=== PATIENT | male | born 1960 | race Hispanic/Latino ===

== ENCOUNTER 2016-12-20 07:57 | Day surgery (SDC) | payer MEDICARE ==
[2016-12-20] MEDS ORDERED: Albumin 25% 200 ML ONE (08:01)
[2016-12-20] MEDS ORDERED: Sodium Bicarbonate 2.4 MEQ/5 ML ONE (08:02)
[2016-12-20] MEDS ORDERED: Sodium Chloride 0.9% 10 ML ONE (08:02)
--- OUTSIDE RECORDS SUMMARY | 2016-12-20 08:05 | XMS | Clinical Summary ---
:1960 Author Organization [facility] Address [address] [place] [address] Phone Care Team Providers Name Role Phone , Primary Care Provider Unavailable Allergies Not on File Current Medications Not on file Active Problems Not on file Social History Tobacco Use Types Packs/Day Years Used Date Never Assessed Sex Assigned at Date Recorded Not on file Last Filed Vital Signs Not on file Plan of Treatment Not on file Results Not on filefrom Last 3 Months
--- NOTE | 2016-12-20 10:29 | ULT ---
EXAM: ULTRASOUND GUIDED PARACENTESIS: COMPARISON: 12/13/16. HISTORY: Ascites. FINDINGS: Technically successful ultrasound-guided paracentesis. Total of 4,900 mL of slightly yellow color a scites was aspirated. There are no immediate postprocedure complications. TECHNIQUE: Consent was obtained to perform an ultrasound-guided paracentesis. The patient's right lower quadra nt was deemed appropriate. The skin was prepped and draped in sterile fashion. 1% Lidocaine, buffe red with sodium bicarbonate, was used for local anesthesia. Under ultrasound guidance, a 5 Citizen Of [place] 1 0 cm catheter was advanced into the peritoneal space. A total of 5,900 mL of yellow color ascites w as aspirated. The patient tolerated the procedure well. No immediate or postprocedure complication s. IMPRESSION: Technically successful ultrasound-guided paracentesis. POS: [facility]
[2016-12-20 12:23] VITALS: BMI 31.3
[2016-12-20 12:32] VITALS: TEMP 98.8
[2016-12-20 12:34] VITALS: BP 149/75
== END 2016-12-20 09:20 | disposition home or self-care (01) ==
LOC: ULT 07:57
PROVIDERS: ATTEND Internal Medicine Gastroenterology
PROC: 0W9G3ZZ Drainage of Peritoneal Cavity, Percutaneous Approach (ICD-10-PCS; principal; 2016-12-20)
PROC: BW40ZZZ Ultrasonography of Abdomen (ICD-10-PCS; 2016-12-20)
DX: R18.8 Other ascites (principal); K74.60 Unspecified cirrhosis of liver; N05.5 Unspecified nephritic syndrome with diffuse mesangiocapillary glomerulonephritis; I10 Essential (primary) hypertension; E11.9 Type 2 diabetes mellitus without complications; G47.33 Obstructive sleep apnea (adult) (pediatric); K21.9 Gastro-esophageal reflux disease without esophagitis; E78.5 Hyperlipidemia, unspecified; K72.90 Hepatic failure, unspecified without coma; Z86.73 Personal history of transient ischemic attack (TIA), and cerebral infarction without residual deficits; Z79.899 Other long term (current) drug therapy; Z79.84 Long term (current) use of oral hypoglycemic drugs; Z88.6 Allergy status to analgesic agent; Z98.890 Other specified postprocedural states
CPT/HCPCS: 49083; P9047; A4216

== ENCOUNTER 2016-12-27 07:47 | Day surgery (SDC) | payer MEDICARE ==
[2016-12-26 13:23] VITALS: BMI 34.4
[~2016-12-27 07:47] MED LIST: FLU VACC QS2017-18 36 mo. & older 0.5 ML SYRINGE IM ONE
[2016-12-27] MEDS ORDERED: Sodium Bicarbonate 2.4 MEQ/5 ML ONE (07:49)
[2016-12-27] MEDS ORDERED: Albumin 25% 200 ML ONE (07:49)
--- OUTSIDE RECORDS SUMMARY | 2016-12-27 07:50 | XMS | Clinical Summary ---
:1960 Author Organization [facility] Address [address] [place] [address] Phone Care Team Providers Name Role Phone [...]
[2016-12-27 09:04] VITALS: TEMP 98.5
[2016-12-27 09:05] VITALS: BP 143/77
[2016-12-27 10:16] LABS: Hematocrit 31.7 % (42.0-52.0)
[2016-12-27 12:50] LABS: Hematocrit 31.9 % (42.0-52.0)
--- NOTE | 2016-12-27 14:22 | ULT ---
ULTRASOUND GUIDED PARACENTESIS: Date: 12/27/16 INDICATION: Ascites. TECHNIQUE: Informed consent was obtained. Preprocedure ultrasound demonstrated a prominent amount of fluid in t he peritoneal cavity. Site overlying the right lower quadrant was marked. The site was prepped and d raped in the usual sterile fashion. Buffered 1% lidocaine was administered to the overlying subcutan eous tissues. Small incision was made and a 5 Dutch Yueh catheter was guided down into a collection in the right lower quadrant. After drainage of 1 liter of normal peritoneal fluid, the catheter abr uptly stopped draining, and with manipulation would not allow for continued drainage of the residual ascitic fluid. The catheter was then removed. A site overlying the adjacent right lower quadrant was prepped and draped in a sterile fashion. Buff ered 1% lidocaine was readministered in this new location. A small incision was made and a new 5 Ricardo nch Yueh catheter was guided down into a collection in the right lower quadrant utilizing ultrasound . 1 liter of normal peritoneal fluid was drained. On subsequent drainage bottles, there was increasi ng appearance of blood within the peritoneal fluid drained. The patient's vital signs remained stabl e throughout the entire course. A H\T\H was obtained after drainage of 5,600 mL of fluid. The prepro cedure H\T\H as of 12/06/16 was 10.6 and 34.4, with a platelet level of 58. The postprocedure H\T\H at 0950 hours on 12/27/16 was 10.0 and 31.7 respectively with platelet level of 51. A repeat H\T\H p erformed at 1230 hours on 12/27/16 and after IV administration of 500 mL of normal saline was 9.8 an d 31.9 respectivley with a platelet level of 51. The patient's vital signs remained stable within th e postprocedural time period. The patient had no complaints of pain or any symptomology. The patient will be discharged. The patient was instructed to return to the hospital if there were any problems with pain within the abdominal cavity, weakness or any dizziness. IMPRESSION: Successful ultrasound guided paracentesis with removal of 5,600 mL of peritoneal fluid. POS: [facility]
== END 2016-12-27 13:35 | disposition home or self-care (01) ==
LOC: ULT 07:47
PROVIDERS: ATTEND Internal Medicine Gastroenterology
PROC: 0W9G3ZZ Drainage of Peritoneal Cavity, Percutaneous Approach (ICD-10-PCS; principal; 2016-12-27)
PROC: BW40ZZZ Ultrasonography of Abdomen (ICD-10-PCS; 2016-12-27)
DX: K74.60 Unspecified cirrhosis of liver (principal); I10 Essential (primary) hypertension; E11.9 Type 2 diabetes mellitus without complications; G47.33 Obstructive sleep apnea (adult) (pediatric); K72.90 Hepatic failure, unspecified without coma; E78.5 Hyperlipidemia, unspecified; Z86.73 Personal history of transient ischemic attack (TIA), and cerebral infarction without residual deficits; Z79.84 Long term (current) use of oral hypoglycemic drugs; Z88.6 Allergy status to analgesic agent
CPT/HCPCS: 49083; 85014; 85018; 85049; 86850; 86900; 86901; P9047

== ENCOUNTER → 2017-01-03 | Day surgery (SDC) | payer MEDICARE ==
[~2017-01-03] MED LIST changes: +Albumin 25% 200 ML ONE; +Sodium Bicarbonate 2.4 MEQ/5 ML ONE
--- NOTE | 2017-01-03 09:52 | ULT ---
ULTRASOUND GUIDED PARACENTESIS THERAPEUTIC: DATE: 01-03-17 History: 56-year-old male with abdominal distention due to ascites due to cirrhosis. Technique: Signed informed consent obtained. Ultrasound survey of all four quadrants of the abdominal cavity re veals that the best pocket is in the left lower quadrant. Overlying skin at the left lower quadrant was prepped and draped in the usual sterile fashion. A 25 gauge needle was used to apply buffered Li docaine superficially and deeply. 5 Sinhala [employer] catheter with stylet was advanced in tandem with the 25 gauge needle into the peritoneal cavity. The 25 gauge needle and the stylet were removed. The Steel eh catheter was connected to a series of evacuated bottles via plastic tubing. A total of 5000 ml no n-hemorrhagic, straw colored translucent fluid was drained. Catheter was removed. Patient tolerated the procedure well. No complications. FINDINGS: Moderate volume of ascites demonstrated prior to the procedure. Post procedure single image of left lower quadrant demonstrates minimal residual fluid. IMPRESSION: Successful therapeutic paracentesis with drainage of 5 L of ascites fluid. POS: [facility]
[2017-01-03 11:46] VITALS: TEMP 98.2; BMI 31.3
== END ==
LOC: ULT 07:52
PROVIDERS: ATTEND Internal Medicine Gastroenterology
PROC: 0W9G3ZZ Drainage of Peritoneal Cavity, Percutaneous Approach (ICD-10-PCS; principal; 2017-01-03)
PROC: BW40ZZZ Ultrasonography of Abdomen (ICD-10-PCS; 2017-01-03)
DX: K74.60 Unspecified cirrhosis of liver (principal); R18.8 Other ascites
CPT/HCPCS: 49083; P9047

== ENCOUNTER 2017-01-10 07:42 | Day surgery (SDC) | payer MEDICARE ==
[2017-01-10] MEDS ORDERED: Albumin 25% 200 ML ONE (07:58)
[2017-01-10] MEDS ORDERED: Sodium Chloride 0.9% 20 ML ONE (07:59)
[2017-01-10] MEDS ORDERED: Sodium Bicarbonate 2.4 MEQ/5 ML ONE (08:03)
[2017-01-10 08:05] LABS: PTT 41.6 SEC (22.9-36.1); Prothrombin Time 18.8 SEC (12.0-14.7)
[2017-01-10 09:32] VITALS: TEMP 97.7
--- NOTE | 2017-01-10 11:23 | ULT ---
ULTRASOUND GUIDED PARACENTESIS: DATE: 01/10/17. HISTORY: Refractory ascites in a patient with stage IV cirrhosis. TECHNIQUE: After informed consent was obtained, the patient was placed on the sonography table in the supine po sition. An appropriate access site was determined with ultrasound guidance. An area I the mid axillary line right upper quadrant was marked and meticulously prepped and draped in usual sterile fashion. The skin and subcutaneous tissues were infiltrated with buffered % Lidoca ine for local anesthesia. A small skin incision was made. Utilizing concurrent real-time ultrasound guidance, a 19-gauge Reamazeeh needle with 5 Kazakh sheath was advanced into the abdomen. The sheath was advanced and the needle was removed. Approximately 5600 mL of slightly cloudy straw-colored fluid was aspirated. The sheath was removed, and hemostasis was achieved with direct pressure. Post-paracentesis sonogram demonstrates resolution of intraperitone al free fluid. The patient tolerated the procedure well and without immediate complication. The patient was admini stered albumin intravenously as requested during the procedure. IMPRESSION: Technically successful ultrasound-guided paracentesis. POS: [facility]
[2017-01-10] MEDS ORDERED: FLU VACC QS2017-18 36 mo. & older 0.5 ML SYRINGE IM ONE (21:00)
== END 2017-01-10 09:15 | disposition home or self-care (01) ==
LOC: ULT 07:42
PROVIDERS: ATTEND Internal Medicine Gastroenterology
PROC: 0W9G3ZZ Drainage of Peritoneal Cavity, Percutaneous Approach (ICD-10-PCS; principal; 2017-01-10)
PROC: BW40ZZZ Ultrasonography of Abdomen (ICD-10-PCS; 2017-01-10)
DX: K74.60 Unspecified cirrhosis of liver (principal); R18.8 Other ascites; Z88.6 Allergy status to analgesic agent; I10 Essential (primary) hypertension; E11.9 Type 2 diabetes mellitus without complications; Z98.890 Other specified postprocedural states; Z79.899 Other long term (current) drug therapy; Z79.84 Long term (current) use of oral hypoglycemic drugs; Z79.2 Long term (current) use of antibiotics
CPT/HCPCS: 49083; 85610; 85730; P9047; 36415; A4216

== ENCOUNTER 2017-01-17 07:33 | Day surgery (SDC) | payer MEDICARE ==
[2017-01-17] MEDS ORDERED: Albumin 25% 200 ML ONE (07:41)
[2017-01-17] MEDS ORDERED: Sodium Bicarbonate 2.4 MEQ/5 ML ONE (07:41)
--- NOTE | 2017-01-17 11:33 | ULT ---
ULTRASOUND GUIDED PARACENTESIS: History: Ascites. Comparison: 01-10-17 FINDINGS: Successful ultrasound guided paracentesis. A total of 7100 ml of yellow colored ascites as aspirated . Post procedure images demonstrates resolution of ascites. Technique: Consent obtained to perform an ultrasound guided paracentesis. Patient's abdomen was evaluated. Righ t lower quadrant was felt to be appropriate. Skin was prepped and draped in sterile fashion. 1% Lido farzana buffered with sodium bicarbonate used for local anesthesia. Under ultrasound guidance, a 7 cm 5 Hong Konger [employer] Engineseh catheter as advanced into the peritoneal space. Via multiple vacuum bottles, a total o f 7100 ml of yellow colored ascites was aspirated. The patient tolerated the procedure well. No imme diate or post procedure complications. Post procedure imaging demonstrates resolution of ascites. IMPRESSION: Successful ultrasound guided paracentesis. POS: [facility]
[2017-01-17 11:36] VITALS: BP 113/70; TEMP 98.2; BMI 32.5
--- OUTSIDE RECORDS SUMMARY | 2017-01-18 14:16 | XMS | Clinical Summary ---
:1960 Author Organization [facility] Address [address] [place] [address] Phone Care Team Providers Name Role Phone [...]
== END 2017-01-17 09:25 | disposition home or self-care (01) ==
LOC: ULT 07:33
PROVIDERS: ATTEND Internal Medicine Gastroenterology
PROC: 0W9G30Z Drainage of Peritoneal Cavity with Drainage Device, Percutaneous Approach (ICD-10-PCS; principal; 2017-01-17)
DX: K72.90 Hepatic failure, unspecified without coma (principal); R18.8 Other ascites; B19.20 Unspecified viral hepatitis C without hepatic coma; E11.9 Type 2 diabetes mellitus without complications; I10 Essential (primary) hypertension; Z79.2 Long term (current) use of antibiotics; Z79.84 Long term (current) use of oral hypoglycemic drugs; Z79.899 Other long term (current) drug therapy; Z98.890 Other specified postprocedural states; Z86.59 Personal history of other mental and behavioral disorders
CPT/HCPCS: 49083; P9047

== ENCOUNTER 2017-01-24 09:40 | Day surgery (SDC) | payer MEDICARE ==
[2017-01-23 11:43] VITALS: BMI 31.1
[~2017-01-24 09:40] MED LIST changes: -Albumin 25% 200 ML ONE; -Sodium Bicarbonate 2.4 MEQ/5 ML ONE
[2017-01-24] MEDS ORDERED: Albumin 25% 200 ML ONE (09:53)
[2017-01-24 11:55] VITALS: BP 118/78; TEMP 98.5
--- NOTE | 2017-01-24 13:24 | ULT ---
ULTRASOUND GUIDED ABDOMINAL PARACENTESIS: INDICATIONS: Cirrhosis with recurrent ascites. FINDINGS: Eight liters of yellowish-clear acidic fluid removed from the right abdomen. PROCEDURE NOTE: A four quadrant ultrasound showed large ascites in all quadrants. The right lower quadrant was chosen for puncture. The overlying skin was prepped and draped in a sterile manner. L ocal anesthesia was administered with Lidocaine. A small incision was made with a scalpel. A 5 Ricardo kyh [employer] catheter with a needle in place was advanced into the fluid of the right lower quadrant, un abhi ultrasound guidance. The needle was removed, and the catheter was attached to suction drainage. The patient tolerated the procedure well, and there were no problems or complications. POS: [facility]
== END 2017-01-24 11:35 | disposition home or self-care (01) ==
LOC: ULT 09:40
PROVIDERS: ATTEND Internal Medicine Gastroenterology
PROC: 0W9G3ZZ Drainage of Peritoneal Cavity, Percutaneous Approach (ICD-10-PCS; principal; 2017-01-24)
PROC: BW40ZZZ Ultrasonography of Abdomen (ICD-10-PCS; 2017-01-24)
DX: K72.90 Hepatic failure, unspecified without coma (principal); R18.8 Other ascites; E11.9 Type 2 diabetes mellitus without complications; I10 Essential (primary) hypertension; E78.5 Hyperlipidemia, unspecified; Z79.84 Long term (current) use of oral hypoglycemic drugs; Z79.2 Long term (current) use of antibiotics; Z79.899 Other long term (current) drug therapy; Z88.8 Allergy status to other drugs, medicaments and biological substances; Z98.890 Other specified postprocedural states; Z86.59 Personal history of other mental and behavioral disorders
CPT/HCPCS: 49083; P9047

== ENCOUNTER → 2017-02-07 | Day surgery (SDC) | payer MEDICARE ==
[2017-02-06 09:08] VITALS: BMI 34.4
[~2017-02-07] MED LIST changes: +Albumin 25% 200 ML ONE; +Sodium Bicarbonate 2.4 MEQ/5 ML ONE
[2017-02-07 07:47] LABS: #Eosinphils 0.1 thou/uL (0.0-0.7); #Lymphocytes 0.4 thou/uL (1.20-3.40); #Monocytes 0.4 thou/uL (0.11-0.59); #Neutrophils 2.9 thou/uL (1.40-6.50); %Monocytes 10.5 % (0.0-10.0); Hematocrit 37.2 % (42.0-52.0); Mean Platelet Volume 6.5 fL (7.4-10.4); Red Blood Cell (RBC) Count 4.13 mill/uL (4.70-6.10); White Blood Cell (WBC) Count 3.9 thou/uL (4.8-10.8)
[2017-02-07 07:52] LABS: PTT 41.1 SEC (22.9-36.1)
[2017-02-07 08:18] VITALS: BP 139/89; TEMP 98
--- NOTE | 2017-02-07 11:48 | ULT ---
ULTRASOUND GUIDED PARACENTESIS: DATE: 02/07/17. COMPARISON: 01/31/17. HISTORY: Symptomatic ascites. FINDINGS: Informed consent obtained prior to the procedure. Preprocedural imaging demonstrates significant asc ites within the abdomen/pelvic. Right lower quadrant is prepped and draped in normal sterile fashion and anesthetized with 1% buffere d Lidocaine. With direct sonographic guidance, a 5 Italian Yueh catheter is advanced into the ascites and removal of the stylette yields yellow fluid. 6200 cc were removed. The patient tolerated the p rocedure well. IMPRESSION: Successful ultrasound-guided paracentesis yielding 6200 cc of yellow fluid. POS: [facility]
== END ==
LOC: ULT 07:28
PROVIDERS: ATTEND Internal Medicine Gastroenterology
PROC: 0W9G3ZZ Drainage of Peritoneal Cavity, Percutaneous Approach (ICD-10-PCS; principal; 2017-02-07)
PROC: BW40ZZZ Ultrasonography of Abdomen (ICD-10-PCS; 2017-02-07)
DX: K74.60 Unspecified cirrhosis of liver (principal); R18.8 Other ascites; I10 Essential (primary) hypertension; E11.9 Type 2 diabetes mellitus without complications; Z79.84 Long term (current) use of oral hypoglycemic drugs; Z79.82 Long term (current) use of aspirin; Z79.899 Other long term (current) drug therapy; Z98.890 Other specified postprocedural states
CPT/HCPCS: 49083; 85025; 85610; 85730; P9047; 36415

== ENCOUNTER 2017-02-14 07:35 | Day surgery (SDC) | payer MEDICARE ==
[~2017-02-14 07:35] MED LIST changes: -Albumin 25% 200 ML ONE; -Sodium Bicarbonate 2.4 MEQ/5 ML ONE
[2017-02-14] MEDS ORDERED: Sodium Chloride 0.9% 10 ML ONE (07:38)
[2017-02-14] MEDS ORDERED: Albumin 25% 200 ML ONE (08:59)
[2017-02-14 09:16] VITALS: TEMP 98.7
[2017-02-14 09:17] VITALS: BMI 34.5
[2017-02-14 09:18] VITALS: BP 114/68
--- NOTE | 2017-02-14 09:55 | ULT ---
EXAM: ULTRASOUND GUIDED PARACENTESIS: HISTORY: Cirrhosis. Ascites. COMPARISON: 02/08/16. FINDINGS: Technically successful ultrasound-guided paracentesis. A total of 5600 mL of yellow-colored ascites with slightly blood-tinge was removed. There are no immediate postprocedure complications. TECHNIQUE: Consent was obtained to perform an ultrasound-guided paracentesis. The right lower quadrant was deem ed appropriate. The skin was prepped and draped in sterile fashion. 1% Lidocaine, buffered with sod ium bicarbonate, was used for local anesthesia. Under ultrasound guidance, a 5 Bolivian 7 cm GamyTecheh cath eter was advanced into the peritoneal space. Via vacuum bottles, a total of 5600 mL of slightly bloo d-tinged yellow color ascites was aspirated. There are no immediate postprocedure complications. IMPRESSION: Technically successful ultrasound-guided paracentesis. POS: [facility]
[2017-02-14] MEDS ORDERED: FLU VACC QS2017-18 36 mo. & older 0.5 ML SYRINGE IM ONE (21:00)
== END 2017-02-14 09:00 | disposition home or self-care (01) ==
LOC: ULT 07:35
PROVIDERS: ATTEND Internal Medicine Gastroenterology
PROC: 0W9G3ZZ Drainage of Peritoneal Cavity, Percutaneous Approach (ICD-10-PCS; principal; 2017-02-14)
PROC: BW40ZZZ Ultrasonography of Abdomen (ICD-10-PCS; 2017-02-14)
DX: K74.60 Unspecified cirrhosis of liver (principal); R18.8 Other ascites; I10 Essential (primary) hypertension; E11.9 Type 2 diabetes mellitus without complications; Z79.899 Other long term (current) drug therapy; Z79.84 Long term (current) use of oral hypoglycemic drugs; Z79.2 Long term (current) use of antibiotics; Z98.890 Other specified postprocedural states
CPT/HCPCS: 49083; P9047; A4216

== ENCOUNTER 2017-02-21 07:13 | Day surgery (SDC) | payer MEDICARE ==
[2017-02-21] MEDS ORDERED: Sodium Bicarbonate 2.4 MEQ/5 ML ONE (07:41)
[2017-02-21] MEDS ORDERED: Albumin 25% 200 ML ONE (07:41)
--- NOTE | 2017-02-21 09:34 | ULT ---
ULTRASOUND GUDIED ABDOMINAL PARACENTESIS: Indication: Recurrent ascites. FINDINGS: 5550 cc of yellowish clear acidic fluid removed from the right lower quadrant. Post procedure ultraso und shows only minimal residual ascites. PROCEDURE NOTE: Four quadrant ultrasound shows moderate ascites in all quadrants. Right lower quadrant was chosen for puncture. Overlying skin was prepped and draped in a sterile manner. Local anesthesia was administer ed to the skin with Lidocaine and bicarb. Tiny skin incision made with scalpel. 5 Brazilian Yueh needle with catheter was introduced into the acidic fluid in the right lower quadrant under ultrasound guid ance. The needle was removed and the catheter was attached to suction drainage. There were no problems or complications. POS: [facility]
[2017-02-21 09:41] VITALS: BP 106/69; TEMP 98.6
== END 2017-02-21 09:05 | disposition home or self-care (01) ==
LOC: ULT 07:13
PROVIDERS: ATTEND Internal Medicine Gastroenterology
PROC: 0W9G3ZZ Drainage of Peritoneal Cavity, Percutaneous Approach (ICD-10-PCS; principal; 2017-02-21)
PROC: BW40ZZZ Ultrasonography of Abdomen (ICD-10-PCS; 2017-02-21)
DX: K74.60 Unspecified cirrhosis of liver (principal); R18.8 Other ascites; I10 Essential (primary) hypertension; E11.9 Type 2 diabetes mellitus without complications; Z79.2 Long term (current) use of antibiotics; Z79.84 Long term (current) use of oral hypoglycemic drugs; Z98.890 Other specified postprocedural states
CPT/HCPCS: 49083; P9047

== ENCOUNTER 2017-02-28 06:38 | Day surgery (SDC) | payer MEDICARE ==
[2017-02-27 12:32] VITALS: BMI 34.4
[2017-02-28] MEDS ORDERED: Sodium Bicarbonate 2.4 MEQ/5 ML ONE (08:00)
[2017-02-28] MEDS ORDERED: Albumin 25% 200 ML ONE (09:06)
[2017-02-28 09:22] VITALS: TEMP 98.2
--- NOTE | 2017-02-28 09:26 | ULT ---
ULTRASOUND GUIDED PARACENTESIS THERAPEUTIC: DATE: 02/28/17. HISTORY: A 56-year-old male with abdominal discomfort due to abdominal distention due to ascites due to cirrho sis. TECHNIQUE: Signed informed consent obtained. Ultrasound survey of bilateral upper and lower quadrants. Right l ower quadrant selected. Overlying skin prepped and draped in the usual sterile fashion. A 25-gauge needle was used to apply buffered Lidocaine superficially and deeply. A 5 Bermudian Yueh catheter with stylette advanced in tandem with the 25-gauge needle. The 25-gauge needle and stylette were removed. Yueh catheter commended to a series of evacuated bottles via plastic tubing. Ascites fluid drained . Yueh catheter removed. The patient tolerated the procedure well. No complications. FINDINGS: Moderate to large volume of free fluid demonstrated throughout the abdominal cavity prior to the proc edure. Postprocedure single image of right lower quadrant demonstrates no residual fluid. A total o f 6000 mL of nonhemorrhagic, straw-colored translucent fluid was drained. IMPRESSION: Successful therapeutic paracentesis, with drainage of 6L of ascites fluid. POS: [facility]
== END 2017-02-28 09:00 | disposition home or self-care (01) ==
LOC: ULT 06:38
PROVIDERS: ATTEND Internal Medicine Gastroenterology
PROC: 0W9G30Z Drainage of Peritoneal Cavity with Drainage Device, Percutaneous Approach (ICD-10-PCS; principal; 2017-02-28)
DX: K70.31 Alcoholic cirrhosis of liver with ascites (principal); I85.10 Secondary esophageal varices without bleeding; E78.5 Hyperlipidemia, unspecified; Z86.19 Personal history of other infectious and parasitic diseases; Z79.84 Long term (current) use of oral hypoglycemic drugs; Z79.899 Other long term (current) drug therapy; Z98.890 Other specified postprocedural states
CPT/HCPCS: 49083; P9047

== ENCOUNTER 2017-03-07 06:42 | Day surgery (SDC) | payer MEDICARE ==
[2017-03-07] MEDS ORDERED: Albumin 25% 200 ML ONE (07:46)
[2017-03-07] MEDS ORDERED: Sodium Bicarbonate 2.4 MEQ/5 ML ONE (07:46)
[2017-03-07] MEDS ORDERED: Lidocaine 1% PF 5 ML VIAL ONE (07:46)
--- NOTE | 2017-03-07 11:33 | ULT ---
ULTRASOUND GUIDED PARACENTESIS: INDICATIONS: Ascites. COMPARISON: Prior exam dated 02/28/2017. TECHNIQUE: Informed consent was obtained. FINDINGS: Ultrasound survey was performed, demonstrating a prominent amount of fluid in the abdominal cavity. The site overlying the right lower quadrant was marked. The site was prepped and draped in the usual sterile fashion. Buffered 1% Lidocaine was administered to the overlying subcutaneous tissues and a bdominal wall. Under ultrasound guidance, a 5 Slovak Yueh catheter was advanced into the large colle ction in the right lower quadrant of the abdomen. There was removal of 5500 mL of normal appearing p eritoneal fluid. FINDINGS: Moderate prominent amount of peritoneal fluid. IMPRESSION: Successful therapeutic paracentesis with removal of 5500 mL of normal appearing peritoneal fluid. POS: [facility]
[2017-03-07 16:03] VITALS: BP 129/71; TEMP 98.6
== END 2017-03-07 09:20 | disposition home or self-care (01) ==
LOC: ULT 06:42
PROVIDERS: ATTEND Internal Medicine Gastroenterology
PROC: 0W9G3ZX Drainage of Peritoneal Cavity, Percutaneous Approach, Diagnostic (ICD-10-PCS; principal; 2017-03-07)
PROC: BW40ZZZ Ultrasonography of Abdomen (ICD-10-PCS; 2017-03-07)
DX: K74.60 Unspecified cirrhosis of liver (principal); R18.8 Other ascites; Z88.8 Allergy status to other drugs, medicaments and biological substances; Z79.899 Other long term (current) drug therapy
CPT/HCPCS: 49083; P9047; J2001

== ENCOUNTER 2017-03-14 06:51 | Day surgery (SDC) | payer MEDICARE ==
[2017-03-13 10:51] VITALS: BMI 34.4
[2017-03-14] MEDS ORDERED: Sodium Bicarbonate 2.4 MEQ/5 ML ONE (07:09)
[2017-03-14] MEDS ORDERED: Albumin 25% 200 ML ONE (07:09)
[2017-03-14] MEDS ORDERED: Lidocaine 1% PF 5 ML VIAL ONE (07:09)
[2017-03-14 07:26] LABS: #Eosinphils 0.1 thou/uL (0.0-0.7); #Lymphocytes 0.7 thou/uL (1.20-3.40); #Monocytes 0.3 thou/uL (0.11-0.59); #Neutrophils 2.4 thou/uL (1.40-6.50); %Basophils 0.7 % (0.0-1.0); %Eosinophils 2.7 % (0.0-10.0); %Lymphocytes 19.7 % (21.0-51.0); %Monocytes 9.5 % (0.0-10.0); Hematocrit 35.1 % (42.0-52.0); Mean Platelet Volume 6.6 fL (7.4-10.4); Red Blood Cell (RBC) Count 3.86 mill/uL (4.70-6.10); White Blood Cell (WBC) Count 3.6 thou/uL (4.8-10.8)
[2017-03-14 07:30] LABS: Prothrombin Time 18.1 SEC (12.0-14.7)
[2017-03-14 07:31] LABS: PTT 41.4 SEC (22.9-36.1)
[2017-03-14 08:00] LABS: Hypochromia SLIGHT = 6-15 cells (100X) (0-5/hpf); Polychromasia SLIGHT = 2-3 cells (100X) (0-2/hpf); Stomatocytes SLIGHT = 2-5 cells (100X) (0-1/hpf); Target Cells SLIGHT = 2-5 cells (100X) (0-1/hpf)
--- NOTE | 2017-03-14 08:31 | ULT ---
ULTRASOUND GUIDED PARACENTESIS: HISTORY: Ascites. COMPARISON: Paracentesis 03/07/17. TECHNIQUE: The patient was brought to the ultrasound suite. All questions were answered. The patient's right lower quadrant was prepped and draped in normal sterile fashion. Three mL of buf fered Lidocaine was instilled into the superficial and deep soft tissues for anesthesia. A small dermatotomy was made. Using a 5 Divehi Yueh needle, the peritoneal cavity was accessed. 610 0 mL of ascites was aspirated. The patient tolerated the procedure well. No complication. IMPRESSION: Technically successful ultrasound-guided paracentesis. POS: [facility]
[2017-03-14 08:55] VITALS: BP 121/72; TEMP 98.6
[2017-03-14] MEDS ORDERED: FLU VACC QS2017-18 36 mo. & older 0.5 ML SYRINGE IM ONE (09:00)
== END 2017-03-14 07:35 | disposition home or self-care (01) ==
LOC: ULT 06:51
PROVIDERS: ATTEND Internal Medicine Gastroenterology
PROC: 0W9G3ZX Drainage of Peritoneal Cavity, Percutaneous Approach, Diagnostic (ICD-10-PCS; principal; 2017-03-14)
DX: K74.60 Unspecified cirrhosis of liver (principal); R18.8 Other ascites; Z88.8 Allergy status to other drugs, medicaments and biological substances
CPT/HCPCS: 49083; 85025; 85610; 85730; P9047; J2001

== ENCOUNTER 2017-03-21 06:59 | Day surgery (SDC) | payer MEDICARE ==
[2017-03-21] MEDS ORDERED: Albumin 25% 200 ML ONE (07:50)
[2017-03-21] MEDS ORDERED: Sodium Bicarbonate 2.4 MEQ/5 ML ONE (07:50)
--- NOTE | 2017-03-21 09:10 | ULT ---
ULTRASOUND GUIDED PARACENTESIS: Date: 03-21-17 Comparison: 03-14-17 History: Ascites. FINDINGS: Successful ultrasound guided paracentesis. A total of 6350 ml of ascites was aspirated. No immediate or post procedure complication. Technique: Consent was obtained to perform an ultrasound guided paracentesis. Right lower quadrant was deemed ap propriate. Skin was prepped and draped in sterile fashion. 1% Lidocaine, buffered with sodium bicarbo alisson was used for local anesthesia. Under fluoroscopic guidance an 7 cm 5 Saudi [place] 99tests catheter was ad vanced into the peritoneal space. Via vacuum bottles, a total of 6350 ml of yellow colored ascites wa s aspirated. The patient tolerated the procedure well. No immediate or post procedure complication. IMPRESSION: Successful ultrasound guided paracentesis. POS: [facility]
[2017-03-21 09:15] VITALS: BP 121/72; TEMP 97.9
== END 2017-03-21 09:05 | disposition home or self-care (01) ==
LOC: ULT 06:59
PROVIDERS: ATTEND Internal Medicine Gastroenterology
DX: K74.60 Unspecified cirrhosis of liver (principal); I85.10 Secondary esophageal varices without bleeding; R18.8 Other ascites; Z79.84 Long term (current) use of oral hypoglycemic drugs; Z79.2 Long term (current) use of antibiotics; Z79.899 Other long term (current) drug therapy
CPT/HCPCS: 49083; P9047

== ENCOUNTER 2017-03-28 07:35 | Day surgery (SDC) | payer MEDICARE ==
[2017-03-27 14:03] VITALS: BMI 34.4
[~2017-03-28 07:35] MED LIST changes: +Albumin 25% 200 ML ONE; +Sodium Bicarbonate 2.5 MEQ/5 ML VIAL ONE
[2017-03-28] MEDS ORDERED: Sodium Chloride 0.9% 20 ML ONE (07:53)
[2017-03-28 09:19] VITALS: BP 120/73; TEMP 98.1
--- NOTE | 2017-03-28 09:43 | ULT ---
ULTRASOUND-GUIDED PARACENTESIS: CLINICAL INDICATION: Ascites. PROCEDURE: After informed consent had been obtained, the patient was escorted to the ultrasound suite and placed in a supine position. The abdomen was imaged which revealed adequate ascites for the procedure. Th e skin of the abdomen was then prepped and draped in the standard sterile fashion and the skin surfac e, subcutaneous tissues, and peritoneal lining of the abdomen were anesthetized with 1% Lidocaine buf fered with sodium bicarbonate. A right lower quadrant approach was selected. A small skin incision was made at the site of topical anesthesia. Subsequently, under real-time ultrasound guidance a ProTip catheter was advanced through the incision site into the peritoneal cavity. Ascites was present at the catheter hub. The catheter was then secured to vacuum sealed sterile containers, via sterile tub ing and subsequently 4.4 L of clear-yellow ascites was drained from the patient. The catheter was th en removed from the patient. The patient tolerated the procedure well without evidence of complicati on. Postprocedure imaging revealed no complication and interval reduction in volume of ascites. The patient was monitored by a radiology nurse and was stable in condition. IMPRESSION: Technically successful ultrasound-guided paracentesis, as above. POS: [facility]
== END 2017-03-28 09:05 | disposition home or self-care (01) ==
LOC: ULT 07:35
PROVIDERS: ATTEND Internal Medicine Gastroenterology
PROC: 0W9G3ZX Drainage of Peritoneal Cavity, Percutaneous Approach, Diagnostic (ICD-10-PCS; principal; 2017-03-28)
DX: K74.60 Unspecified cirrhosis of liver (principal); R18.8 Other ascites; Z88.8 Allergy status to other drugs, medicaments and biological substances; Z79.899 Other long term (current) drug therapy
CPT/HCPCS: 49083; P9047; A4216

== ENCOUNTER 2017-04-04 06:39 | Day surgery (SDC) | payer MEDICARE ==
[2017-04-04] MEDS ORDERED: Sodium Bicarbonate 2.4 MEQ/5 ML ONE (07:33)
[2017-04-04] MEDS ORDERED: Albumin 25% 200 ML ONE (07:33)
[2017-04-04 09:10] VITALS: BP 121/73; TEMP 98.3
[2017-04-04 09:12] VITALS: BMI 30.2
--- NOTE | 2017-04-04 10:22 | ULT ---
ULTRASOUND-GUIDED PARACENTESIS: 04/04/2017 HISTORY: Symptomatic ascites. COMPARISON: 03/28/2017 and prior. TECHNIQUE/FINDINGS: Informed consent for ultrasound-guided paracentesis obtained prior to the procedure. Pre-procedural imaging demonstrates diffuse ascites throughout the abdomen/pelvis. The largest pocke t is noted in the right lower quadrant. The skin in this region was prepped and draped in the normal sterile fashion and anesthetized with 1% buffered Lidocaine. With direct sonographic guidance, a 5 Niuean Bitlyeh catheter was advanced into the ascites and removal of the stylet yielded yellow fluid; 5200 mL was removed. The patient tolerated the procedure well. IMPRESSION: Successful ultrasound-guided paracentesis. POS: [facility]
== END 2017-04-04 08:45 | disposition home or self-care (01) ==
LOC: ULT 06:39
PROVIDERS: ATTEND Internal Medicine Gastroenterology
PROC: 0W9G3ZZ Drainage of Peritoneal Cavity, Percutaneous Approach (ICD-10-PCS; principal; 2017-04-04)
PROC: BW40ZZZ Ultrasonography of Abdomen (ICD-10-PCS; 2017-04-04)
DX: K74.60 Unspecified cirrhosis of liver (principal); R18.8 Other ascites; I10 Essential (primary) hypertension; E11.9 Type 2 diabetes mellitus without complications; Z79.84 Long term (current) use of oral hypoglycemic drugs; Z79.2 Long term (current) use of antibiotics; Z79.899 Other long term (current) drug therapy; Z98.890 Other specified postprocedural states
CPT/HCPCS: 49083; P9047

== ENCOUNTER 2017-04-11 06:46 | Day surgery (SDC) | payer MEDICARE ==
[2017-04-11] MEDS ORDERED: Sodium Bicarbonate 2.4 MEQ/5 ML ONE (07:37)
[2017-04-11] MEDS ORDERED: Albumin 25% 200 ML ONE (07:37)
[2017-04-11 09:34] VITALS: BP 128/70; TEMP 98.1; BMI 31.8
--- NOTE | 2017-04-11 12:05 | ULT ---
SONOGRAPHIC GUIDED PARACENTESIS: History: Recurrent ascites. FINDINGS: After explaining the procedure and answering all questions, The right abdomen was prepped and draped in the usual sterile fashion. Sterile technique, buffered local anesthesia, sonographic guidance and an anterior approach were used to carefully advance the tip of a 19 gauge Yueh needle and catheter in to the free fluid. Catheter was left to drain a total volume of 5.6 L slightly turbid yellow liquid. Catheter was removed with minimal residual fluid. Patient tolerated the procedure well and was dismis sed in good condition. IMPRESSION: 1. Successful paracentesis. POS: [facility]
== END 2017-04-11 09:00 | disposition home or self-care (01) ==
LOC: ULT 06:46
PROVIDERS: ATTEND Internal Medicine Gastroenterology
DX: R18.8 Other ascites (principal); K74.60 Unspecified cirrhosis of liver; I85.00 Esophageal varices without bleeding; I10 Essential (primary) hypertension; E11.9 Type 2 diabetes mellitus without complications; Z88.8 Allergy status to other drugs, medicaments and biological substances; Z79.899 Other long term (current) drug therapy; Z79.84 Long term (current) use of oral hypoglycemic drugs; Z98.890 Other specified postprocedural states
CPT/HCPCS: 49083; P9047

== ENCOUNTER 2017-04-18 06:41 | Day surgery (SDC) | payer MEDICARE ==
[~2017-04-18 06:41] MED LIST changes: -Albumin 25% 200 ML ONE; -Sodium Bicarbonate 2.5 MEQ/5 ML VIAL ONE
[2017-04-18 07:08] LABS: #Eosinphils 0.1 thou/uL (0.0-0.7); #Lymphocytes 0.5 thou/uL (1.20-3.40); #Monocytes 0.3 thou/uL (0.11-0.59); #Neutrophils 2.8 thou/uL (1.40-6.50); %Basophils 0.6 % (0.0-1.0); %Lymphocytes 13.1 % (21.0-51.0); %Monocytes 8.4 % (0.0-10.0); %Neutrophils 75.9 % (42.0-75.0); Hemoglobin 11.1 g/dL (14.0-18.0); Mean Corpuscular HGB CONC 30.8 g/dL (32.0-36.0); Mean Corpuscular Hemoglobin 27.7 pg (27.0-31.0); Mean Corpuscular Volume 89.8 fl (80.0-94.0); Mean Platelet Volume 8.3 fL (7.4-10.4); Platelet Count 52 thou/uL (130-400); RBC Distribution Width 19.5 % (11.5-14.5); White Blood Cell (WBC) Count 3.7 thou/uL (4.8-10.8)
[2017-04-18 07:14] LABS: INR-International Normal Ratio 1.7
[2017-04-18 07:15] LABS: PTT 41.5 SEC (22.9-36.1)
[2017-04-18] MEDS ORDERED: Albumin 25% 200 ML ONE (07:17)
[2017-04-18] MEDS ORDERED: Sodium Bicarbonate 2.4 MEQ/5 ML ONE (07:18)
[2017-04-18 09:08] VITALS: TEMP 98.2
[2017-04-18 09:09] VITALS: BMI 32.8
--- NOTE | 2017-04-18 09:33 | ULT ---
ULTRASOUND GUIDED PARACENTESIS: HISTORY: Ascites. COMPARISON: Multiple prior exams, the most recent on 04/11/17. FINDINGS: The patient was brought to the ultrasound suite. All questions were answered. Informed consent was already obtained. Timeout was performed. The patient's right lower quadrant was prepped and draped in normal sterile fashion; 4 mL of buffere d Lidocaine was instilled into the superficial and deep soft tissues. A small dermatotomy was made after adequate anesthesia. Using a 5 Yi Yueh needle, the peritoneal space was accessed. 5100 mL of straw-colored fluid was aspirated. The patient tolerated the proced ure well. IMPRESSION: Technically successful ultrasound-guided paracentesis. POS: [facility]
== END 2017-04-18 08:55 | disposition home or self-care (01) ==
LOC: ULT 06:41
PROVIDERS: ATTEND Internal Medicine Gastroenterology
PROC: 0W9G3ZX Drainage of Peritoneal Cavity, Percutaneous Approach, Diagnostic (ICD-10-PCS; principal; 2017-04-18)
DX: K74.60 Unspecified cirrhosis of liver (principal); R18.8 Other ascites; Z79.899 Other long term (current) drug therapy
CPT/HCPCS: 49083; 85025; 85610; 85730; P9047; 36415

== ENCOUNTER 2017-04-25 06:45 | Day surgery (SDC) | payer MEDICARE ==
[2017-04-24 10:15] VITALS: BMI 34.4
[2017-04-25] MEDS ORDERED: Albumin 25% 200 ML ONE (07:00)
[2017-04-25] MEDS ORDERED: Sodium Bicarbonate 2.4 MEQ/5 ML ONE (07:00)
--- NOTE | 2017-04-25 09:00 | ULT ---
ULTRSOUND GUIDED PARACENTESIS: DATE: 04/24/17. HISTORY: Asymptomatic ascites. FINDINGS: Informed consent obtained prior to the procedure. Preprocedural imaging demonstrates significant asc ites throughout the abdomen and pelvis. Right lower quadrant is prepped and draped in normal sterile fashion and anesthetized with 1% buffered Lidocaine. With direct sonographic guidance, a 5 Malian Yueh catheter is advanced into the ascites in the right lower quadrant and removal of the stylette yields yellow fluid. Six liters were removed. The patien t tolerated the procedure well. IMPRESSION: Successful ultrasound-guided paracentesis yielding 6 L of yellow fluid. POS: [facility]
[2017-04-25 09:27] VITALS: BP 111/75; TEMP 97.8
== END 2017-04-25 08:25 | disposition home or self-care (01) ==
LOC: ULT 06:45
PROVIDERS: ATTEND Internal Medicine Gastroenterology
PROC: 0W9G3ZX Drainage of Peritoneal Cavity, Percutaneous Approach, Diagnostic (ICD-10-PCS; principal; 2017-04-25)
DX: K74.60 Unspecified cirrhosis of liver (principal); R18.8 Other ascites; Z88.8 Allergy status to other drugs, medicaments and biological substances
CPT/HCPCS: 49083; P9047

== ENCOUNTER 2017-05-02 06:45 | Day surgery (SDC) | payer MEDICARE ==
[2017-05-02] MEDS ORDERED: Sodium Bicarbonate 2.4 MEQ/5 ML ONE (07:03)
[2017-05-02] MEDS ORDERED: Albumin 25% 200 ML ONE (07:03)
[2017-05-02 09:54] VITALS: BMI 29.8
[2017-05-02 09:57] VITALS: BP 124/55; TEMP 97.7
--- NOTE | 2017-05-02 10:28 | ULT ---
EXAM: ULTRASOUND GUIDED PARACENTESIS: COMPARISON: 04/25/17. HISTORY: Ascites. FINDINGS: Technically successful ultrasound-guided paracentesis. A total of 6000 mL of yellow-color ascites wa s aspirated. There are no immediate post procedure complications. TECHNIQUE: Consent was obtained for ultrasound-guided paracentesis. Right lower quadrant was deemed appropriate . The skin was prepped and draped in sterile fashion. 1% Lidocaine, buffered with sodium bicarbonat e, was used for local anesthesia. Under sonographic guidance, a 7 cm 5 Greek [employer] catheter was adva nced into the peritoneal space. Via multiple vacuum bottles, a total of 6 L of yellow-color ascites was aspirated. The patient tolerated the procedure well. No immediate or post procedure complicatio n. IMPRESSION: Technically successful ultrasound-guided paracentesis. POS: [facility]
== END 2017-05-02 11:53 | disposition home or self-care (01) ==
LOC: ULT 06:45
PROVIDERS: ATTEND Internal Medicine Gastroenterology
PROC: 0W9G3ZX Drainage of Peritoneal Cavity, Percutaneous Approach, Diagnostic (ICD-10-PCS; principal; 2017-05-02)
DX: K74.60 Unspecified cirrhosis of liver (principal); R18.8 Other ascites; I10 Essential (primary) hypertension; E11.9 Type 2 diabetes mellitus without complications; Z88.8 Allergy status to other drugs, medicaments and biological substances; Z79.84 Long term (current) use of oral hypoglycemic drugs; Z79.899 Other long term (current) drug therapy; Z98.890 Other specified postprocedural states
CPT/HCPCS: 49083; P9047

== ENCOUNTER 2017-05-09 07:28 | Day surgery (SDC) | payer MEDICARE ==
[2017-05-09] MEDS ORDERED: Albumin 25% 200 ML ONE (07:38)
[2017-05-09] MEDS ORDERED: Sodium Bicarbonate 2.5 MEQ/5 ML VIAL ONE (07:38)
--- NOTE | 2017-05-09 10:14 | ULT ---
SONOGRAPHIC GUIDED PARACENTESIS: History: Recurrent ascites. FINDINGS: After explaining the procedure and answering all questions, sonographic survey shows a large amount o f free fluid throughout the abdomen. Sterile technique, buffered local anesthesia, sonographic guidan ce and a right lateral approach were used to carefully advance a 19 gauge Yueh needle and catheter in to the free fluid. Catheter was left to drain a total volume of 7.0 L cloudy yellow liquid. Catheter was removed. Post procedure imaging shows minimal residual fluid. Patient tolerated the procedure wel l and was dismissed in good condition. IMPRESSION: Technically successful sonographic guided paracentesis. POS: [facility]
[2017-05-09 13:03] VITALS: BP 134/78; TEMP 98.4
[2017-05-09 13:08] VITALS: BMI 32.0
== END 2017-05-09 09:10 | disposition home or self-care (01) ==
LOC: ULT 07:28
PROVIDERS: ATTEND Internal Medicine Gastroenterology
DX: R18.8 Other ascites (principal); K74.60 Unspecified cirrhosis of liver; E11.9 Type 2 diabetes mellitus without complications; I10 Essential (primary) hypertension; Z79.84 Long term (current) use of oral hypoglycemic drugs; Z79.899 Other long term (current) drug therapy; Z88.8 Allergy status to other drugs, medicaments and biological substances; Z98.890 Other specified postprocedural states
CPT/HCPCS: 49083; P9047

== ENCOUNTER 2017-05-16 07:25 | Day surgery (SDC) | payer MEDICARE ==
[2017-05-15 12:17] VITALS: BMI 34.4
[2017-05-16] MEDS ORDERED: Albumin 25% 200 ML ONE (07:32)
[2017-05-16] MEDS ORDERED: Sodium Chloride 0.9% 20 ML ONE (07:32)
--- NOTE | 2017-05-16 09:50 | ULT ---
ULTRASOUND-GUIDED PARACENTESIS: CLINICAL INDICATION: Ascites. PROCEDURE: After informed consent had been obtained, the patient was escorted to the ultrasound suite and placed in a supine position. The abdomen was imaged which revealed adequate ascites for the procedure. Th e skin of the abdomen was then prepped and draped in the standard sterile fashion and the skin surfac e, subcutaneous tissues, and peritoneal lining of the abdomen were anesthetized with 1% Lidocaine buf fered with sodium bicarbonate. A right lower quadrant approach was selected. A small skin incision was made at the site of topical anesthesia. Subsequently, under real-time ultrasound guidance a [employer] catheter was advanced through the incision site into the peritoneal cavity. Ascites was present at the catheter hub. The catheter was then secured to vacuum sealed sterile containers, via sterile tub ing and subsequently 7.7 L of clear yellow ascites was drained from the patient. The patient was the n removed from the patient. The patient tolerated the procedure well without evidence of complicatio n. Post procedure imaging revealed no complication and interval reduction in volume of ascites. The patient was monitored by a radiology nurse and was stable in condition. IMPRESSION: Technically successful ultrasound-guided paracentesis, as above. POS: [facility]
[2017-05-16 11:34] VITALS: BP 125/75; TEMP 98.3
== END 2017-05-16 09:15 | disposition home or self-care (01) ==
LOC: ULT 07:25
PROVIDERS: ATTEND Internal Medicine Gastroenterology
PROC: 0W9G3ZX Drainage of Peritoneal Cavity, Percutaneous Approach, Diagnostic (ICD-10-PCS; principal; 2017-05-16)
DX: K74.60 Unspecified cirrhosis of liver (principal); R18.8 Other ascites; I10 Essential (primary) hypertension; E11.9 Type 2 diabetes mellitus without complications; Z88.8 Allergy status to other drugs, medicaments and biological substances; Z79.84 Long term (current) use of oral hypoglycemic drugs; Z79.899 Other long term (current) drug therapy; Z98.890 Other specified postprocedural states
CPT/HCPCS: 49083; P9047; A4216

== ENCOUNTER → 2017-05-23 | Day surgery (SDC) | payer MEDICARE ==
[2017-05-22 07:51] VITALS: BMI 34.4
[~2017-05-23] MED LIST changes: +Albumin 25% 200 ML ONE; +Prevnar 13-Val Conj/PF 0.5 ML SYRINGE IM ONE; +Sodium Bicarbonate 2.5 MEQ/5 ML VIAL ONE
[2017-05-23 06:56] LABS: #Eosinphils 0.1 thou/uL (0.0-0.7); #Lymphocytes 0.4 thou/uL (1.20-3.40); #Monocytes 0.4 thou/uL (0.11-0.59); #Neutrophils 2.9 thou/uL (1.40-6.50); %Basophils 0.3 % (0.0-1.0); %Eosinophils 1.5 % (0.0-10.0); %Lymphocytes 10.3 % (21.0-51.0); %Monocytes 9.5 % (0.0-10.0); %Neutrophils 78.4 % (42.0-75.0); Hemoglobin 11.1 g/dL (14.0-18.0); Mean Corpuscular HGB CONC 30.8 g/dL (32.0-36.0); Mean Corpuscular Hemoglobin 27.9 pg (27.0-31.0); Mean Corpuscular Volume 90.4 fl (80.0-94.0); Mean Platelet Volume 6.6 fL (7.4-10.4); Platelet Count 61 thou/uL (130-400); RBC Distribution Width 19.4 % (11.5-14.5); Red Blood Cell (RBC) Count 3.97 mill/uL (4.70-6.10); White Blood Cell (WBC) Count 3.7 thou/uL (4.8-10.8)
[2017-05-23 06:57] LABS: INR-International Normal Ratio 1.4; Prothrombin Time 17.9 SEC (12.0-14.7)
[2017-05-23 06:58] LABS: PTT 38.4 SEC (22.9-36.1)
[2017-05-23 08:29] VITALS: TEMP 98.7
--- NOTE | 2017-05-23 10:26 | ULT ---
ULTRASOUND GUIDED PARACENTESIS: DATE: 05/23/17. HISTORY: Patient with cirrhosis and refractory ascites. TECHNIQUE: After informed consent was obtained, the patient was placed on the sonography table in the supine pos ition. Limited sonographic evaluation of the abdomen was performed. An area overlying the mid axill mack line right upper quadrant was marked and then meticulously prepped and draped in the usual steril e fashion. The skin and subcutaneous tissues were infiltrated with buffered 1% Lidocaine for local anesthesia. A small skin incision was made. Utilizing concurrent real-time ultrasound guidance, a 19 gauge [employer] needle with 5 Czech sheath was advanced into the abdomen. After return of fluid, the sheath was adv anced, and the needle was removed. Approximately 6 L of clear straw-colored fluid was aspirated. Th e patient was administered albumin intravenously during the procedure as requested. Post procedure sonographic evaluation of the abdomen demonstrates resolution of the intraperitoneal f ree fluid within the right aspect of the abdomen. A dry sterile dressing was placed at the site of p uncture. The patient tolerated the procedure well and without immediate complication. IMPRESSION: Technically successful ultrasound-guided paracentesis. POS: [facility]
== END ==
LOC: ULT 06:33
PROVIDERS: ATTEND Internal Medicine Gastroenterology
PROC: 0W9G3ZZ Drainage of Peritoneal Cavity, Percutaneous Approach (ICD-10-PCS; principal; 2017-05-23)
DX: R18.8 Other ascites (principal); K74.60 Unspecified cirrhosis of liver
CPT/HCPCS: 49083; 85025; 85610; 85730; P9047

== ENCOUNTER 2017-05-30 07:17 | Day surgery (SDC) | payer MEDICARE ==
[2017-05-29 10:27] VITALS: BMI 34.4
[~2017-05-30 07:17] MED LIST changes: -Albumin 25% 200 ML ONE; -Prevnar 13-Val Conj/PF 0.5 ML SYRINGE IM ONE; -Sodium Bicarbonate 2.5 MEQ/5 ML VIAL ONE
[2017-05-30] MEDS ORDERED: Albumin 25% 200 ML ONE (07:36)
[2017-05-30] MEDS ORDERED: Sodium Bicarbonate 2.4 MEQ/5 ML ONE (07:36)
[2017-05-30 09:13] VITALS: BP 122/77; TEMP 98.7
--- NOTE | 2017-05-30 09:46 | ULT ---
ABDOMINAL PARACENTESIS: Indications: Cirrhosis with recurrent ascites. FINDINGS: 6800 cc of yellowish, cloudy acidic fluid removed from the right lower quadrant. PROCEDURE NOTE: Four quadrant ultrasound revealed large ascites in all quadrants. The right lower quadrant was chosen for puncture. The skin was prepped and draped in a sterile manner. Local anesthesia was administered to the skin with Lidocaine. Tiny skin incision made with scalpel. A 5 Italian Yueh needle and cathete r was advanced into the acidic fluid of the right lower quadrant with ultrasound guidance. The cathet er was advanced as the needle was removed. Catheter was then attached to suction drainage. 6800 cc of acidic fluid removed. The patient tolerated the procedure well and there were no problems or complications. POS: [facility]
== END 2017-05-30 09:00 | disposition home or self-care (01) ==
LOC: ULT 07:17
PROVIDERS: ATTEND Internal Medicine Gastroenterology
PROC: 0W9G3ZZ Drainage of Peritoneal Cavity, Percutaneous Approach (ICD-10-PCS; principal; 2017-05-30)
DX: R18.8 Other ascites (principal); K74.60 Unspecified cirrhosis of liver; I85.10 Secondary esophageal varices without bleeding; Z88.8 Allergy status to other drugs, medicaments and biological substances; Z79.84 Long term (current) use of oral hypoglycemic drugs; Z79.899 Other long term (current) drug therapy
CPT/HCPCS: 49083; P9047

== ENCOUNTER → 2017-06-06 | Day surgery (SDC) | payer MEDICARE ==
[2017-06-05 08:06] VITALS: BMI 34.4
[~2017-06-06] MED LIST changes: +Albumin 25% 200 ML ONE; +Prevnar 13-Val Conj/PF 0.5 ML SYRINGE IM ONE; +Sodium Bicarbonate 2.5 MEQ/5 ML VIAL ONE
[2017-06-06 09:06] VITALS: TEMP 98.1
--- NOTE | 2017-06-06 09:56 | ULT ---
ULTRASOUND GUIDED PARACENTESIS: Comparison: 05-30-17 History: Ascites. FINDINGS: Utilizing a multihertz transducer, sonographic imaging of the abdomen was performed with attention to all four quadrants. There is evidence of ascites. Right lower lobe deemed appropriate. 6 L of yellow colored ascites was removed. No immediate or post procedure complication. Technique: Consent obtained for ultrasound guided paracentesis. Patient's abdomen was evaluated. The right lower quadrant was deemed appropriate. Skin was prepped and draped in sterile fashion. 1% Lidocaine, buffe red with sodium bicarbonate used for local anesthesia. Under ultrasound guidance a 5 Kuwaiti 7 cm Yueh catheter was advanced into the peritoneal space. A total of 6 L of yellow colored ascites was remove d. Patient tolerated the procedure well. No immediate or post procedure complication. IMPRESSION: Successful ultrasound guided paracentesis. POS: [facility]
== END ==
LOC: ULT 07:07
PROVIDERS: ATTEND Internal Medicine Gastroenterology
PROC: 0W9G3ZZ Drainage of Peritoneal Cavity, Percutaneous Approach (ICD-10-PCS; principal; 2017-06-06)
DX: K74.60 Unspecified cirrhosis of liver (principal); R18.8 Other ascites; I85.10 Secondary esophageal varices without bleeding; I10 Essential (primary) hypertension; E11.9 Type 2 diabetes mellitus without complications; Z88.8 Allergy status to other drugs, medicaments and biological substances; Z79.84 Long term (current) use of oral hypoglycemic drugs; Z79.899 Other long term (current) drug therapy; Z98.890 Other specified postprocedural states
CPT/HCPCS: 49083; P9047

== ENCOUNTER 2017-06-13 06:49 | Day surgery (SDC) | payer MEDICARE ==
[~2017-06-13 06:49] MED LIST changes: -Albumin 25% 200 ML ONE; -Prevnar 13-Val Conj/PF 0.5 ML SYRINGE IM ONE; -Sodium Bicarbonate 2.5 MEQ/5 ML VIAL ONE
[2017-06-13] MEDS ORDERED: Sodium Bicarbonate 2.5 MEQ/5 ML VIAL ONE (07:22)
[2017-06-13] MEDS ORDERED: Albumin 25% 200 ML ONE (07:22)
[2017-06-13 08:51] VITALS: TEMP 98.1
[2017-06-13 08:53] VITALS: BP 133/77
--- NOTE | 2017-06-13 09:55 | ULT ---
ULTRASOUND GUIDED PARACENTESIS: Comparison: 06-06-17 History: Ascites. FINDINGS: Successful ultrasound guided paracentesis. A total of 7600 ml of yellow colored ascites was aspirated . Technique: Consent obtained to perform an ultrasound guided paracentesis. Right lower quadrant was deemed approp riate. Skin was prepped and draped in sterile fashion. 1% Lidocaine, buffered with sodium bicarbonate used for local anesthesia. Under ultrasound guidance, a 5 Greek 7 cm catheter was advanced into the peritoneal space. A total of 7600 ml of yellow colored ascites as aspirated. No immediate or post pr ocedure complication. IMPRESSION: Successful ultrasound guided paracentesis. POS: [facility]
== END 2017-06-13 08:45 | disposition home or self-care (01) ==
LOC: ULT 06:49
PROVIDERS: ATTEND Internal Medicine Gastroenterology
PROC: 0W9G3ZZ Drainage of Peritoneal Cavity, Percutaneous Approach (ICD-10-PCS; principal; 2017-06-13)
DX: R18.8 Other ascites (principal); K74.60 Unspecified cirrhosis of liver; I85.10 Secondary esophageal varices without bleeding; Z79.84 Long term (current) use of oral hypoglycemic drugs; Z79.899 Other long term (current) drug therapy; Z88.8 Allergy status to other drugs, medicaments and biological substances
CPT/HCPCS: 49083; P9047

== ENCOUNTER → 2017-06-20 | Day surgery (SDC) | payer MEDICARE ==
[2017-06-19 08:39] VITALS: BMI 32.5
[~2017-06-20] MED LIST changes: +Albumin 25% 200 ML ONE; +Prevnar 13-Val Conj/PF 0.5 ML SYRINGE IM ONE; +Sodium Bicarbonate 2.5 MEQ/5 ML VIAL ONE
[2017-06-20 08:51] VITALS: TEMP 98.6
--- NOTE | 2017-06-20 10:46 | ULT ---
ULTRASOUND GUIDED PARACENTESIS: INDICATION: cirrhosis with ascites. TECHNIQUE: Informed consent was obtained. Preprocedure ultrasound demonstrated a prominent of intraperitoneal f luid. The right lower quadrant was prepped and draped in the usual sterile fashion. Buffered 1% Lid ocaine was administered to the overlying subcutaneous tissues. A small incision was made. Under ult rasound guidance, a 5 Syriac Yueh catheter was guided down into the peritoneal space. There was cole ghazal of 8 liters of normal-appearing peritoneal fluid. The patient experienced no complication relate d to the procedure. IMPRESSION: Successful ultrasound-guided paracentesis. POS: [facility]
== END ==
LOC: ULT 07:08
PROVIDERS: ATTEND Internal Medicine Gastroenterology
PROC: 0W9G3ZX Drainage of Peritoneal Cavity, Percutaneous Approach, Diagnostic (ICD-10-PCS; principal; 2017-06-20)
PROC: BW40ZZZ Ultrasonography of Abdomen (ICD-10-PCS; 2017-06-20)
DX: K74.60 Unspecified cirrhosis of liver (principal); R18.8 Other ascites; Z88.8 Allergy status to other drugs, medicaments and biological substances; Z79.899 Other long term (current) drug therapy
CPT/HCPCS: 49083; P9047

== ENCOUNTER 2017-06-27 07:04 | Day surgery (SDC) | payer MEDICARE ==
[2017-06-27 07:27] LABS: INR-International Normal Ratio 1.5; Prothrombin Time 18.9 SEC (12.0-14.7)
[2017-06-27 07:29] LABS: #Eosinphils 0.1 thou/uL (0.0-0.7); #Lymphocytes 0.5 thou/uL (1.20-3.40); #Monocytes 0.4 thou/uL (0.11-0.59); #Neutrophils 2.8 thou/uL (1.40-6.50); %Basophils 0.8 % (0.0-1.0); %Eosinophils 2.6 % (0.0-10.0); %Lymphocytes 12.2 % (21.0-51.0); %Monocytes 9.8 % (0.0-10.0); %Neutrophils 74.7 % (42.0-75.0); Hemoglobin 11.6 g/dL (14.0-18.0); Mean Corpuscular HGB CONC 31.8 g/dL (32.0-36.0); Mean Corpuscular Hemoglobin 29.7 pg (27.0-31.0); Mean Corpuscular Volume 93.4 fl (80.0-94.0); Mean Platelet Volume 11.6 fL (7.4-10.4); Platelet Count 60 thou/uL (130-400); RBC Distribution Width 19.4 % (11.5-14.5); White Blood Cell (WBC) Count 3.8 thou/uL (4.8-10.8)
[2017-06-27] MEDS ORDERED: Albumin 25% 200 ML ONE (07:34)
[2017-06-27] MEDS ORDERED: Sodium Bicarbonate 2.5 MEQ/5 ML VIAL ONE (07:34)
[2017-06-27 09:22] VITALS: BP 121/71; TEMP 98.3
--- NOTE | 2017-06-27 11:53 | ULT ---
ULTRASOUND GUIDED PARACENTESIS: DATE: 06/27/17. HISTORY: Cirrhosis, recurrent ascites. TECHNIQUE: After informed consent was obtained, the patient was placed on the sonography table in the supine pos ition. Limited sonographic evaluation of the abdomen was performed. An area in mid axillary line ri ght upper quadrant was marked and then meticulously prepped and draped in the usual sterile fashion. The skin and subcutaneous tissues were infiltrated with buffered 1% Lidocaine for local anesthesia. A small skin incision was made. Utilizing concurrent real-time ultrasound guidance, a 19-gauge Knowromeh needle with 5 Bruneian sheath was advanced into the abdomen. After the return of fluid, the sheath was advanced, and the needle was removed. Approximately 8 L of clear straw-colored fluid was aspirated. The patient was administered albumin intravenously during the procedure. Introducer sheath was removed, and hemostasis was achieved with direct pressure. A dry sterile dress ing was placed. Followup ultrasound images demonstrate a small amount of residual intraperitoneal fr ee fluid. A dry sterile dressing was placed at the puncture site. The patient tolerated the procedu re well and without immediate complication. The patient was briefly monitored in the radiology nurse 's holding area prior to discharge. IMPRESSION: Technically successful ultrasound-guided paracentesis with aspiration of approximately 8 L of straw-c olored fluid. POS: [facility]
== END 2017-06-27 09:15 | disposition home or self-care (01) ==
LOC: ULT 07:04
PROVIDERS: ATTEND Internal Medicine Gastroenterology
PROC: 0W9G3ZZ Drainage of Peritoneal Cavity, Percutaneous Approach (ICD-10-PCS; principal; 2017-06-27)
DX: K74.60 Unspecified cirrhosis of liver (principal); R18.8 Other ascites; I10 Essential (primary) hypertension; E11.9 Type 2 diabetes mellitus without complications; Z79.84 Long term (current) use of oral hypoglycemic drugs; Z79.2 Long term (current) use of antibiotics; Z79.899 Other long term (current) drug therapy; Z88.6 Allergy status to analgesic agent
CPT/HCPCS: 49083; 85025; 85610; 85730; P9047; 36415

== ENCOUNTER 2017-07-04 06:42 | Day surgery (SDC) | payer MEDICARE ==
[2017-07-04] MEDS ORDERED: Lidocaine 1% PF 5 ML VIAL ONE (07:45)
[2017-07-04] MEDS ORDERED: Sodium Bicarbonate 2.5 MEQ/5 ML VIAL ONE (07:45)
[2017-07-04] MEDS ORDERED: Sodium Chloride 0.9% 20 ML ONE (08:06)
--- NOTE | 2017-07-04 10:06 | ULT ---
ULTRASOUND GUIDED PARACENTESIS: Date; 07/04/17 HISTORY: Ascites. COMPARISON: 06/27/17. FINDINGS: Technically successful ultrasound guided paracentesis. A total of 5,300 mL of yellow-colored ascites aspirated. No immediate or postprocedural complication. TECHNIQUE: Consent obtained to perform an ultrasound guided paracentesis. Right lower quadrant was deemed approp riate. Skin was prepped and draped in the sterile fashion. 1% lidocaine, buffered with sodium bicarbo alisson, was used for local anesthesia. Under sonographic guidance, a 5 Urdu 7 cm ChemiSenseeh catheter was ad vanced into the peritoneal space. Via vacuum bottles, a total of 5,300 mL of yellow-colored ascites w as aspirated. The patient tolerated the procedure well. No immediate or postprocedural complications. IMPRESSION: Successful ultrasound guided paracentesis. POS: [facility]
[2017-07-04] MEDS ORDERED: Albumin 25% 25 GM/100 ML BOT ONE (10:23)
[2017-07-04 10:43] VITALS: BP 105/65; TEMP 98.1
== END 2017-07-04 08:40 | disposition home or self-care (01) ==
LOC: ULT 06:42
PROVIDERS: ATTEND Internal Medicine Gastroenterology
PROC: 0W9G3ZZ Drainage of Peritoneal Cavity, Percutaneous Approach (ICD-10-PCS; principal; 2017-07-04)
DX: K74.60 Unspecified cirrhosis of liver (principal); R18.8 Other ascites; I85.10 Secondary esophageal varices without bleeding; I10 Essential (primary) hypertension; E11.9 Type 2 diabetes mellitus without complications; Z88.8 Allergy status to other drugs, medicaments and biological substances; Z79.899 Other long term (current) drug therapy; Z79.84 Long term (current) use of oral hypoglycemic drugs
CPT/HCPCS: 49083; P9047; A4216; J2001

== ENCOUNTER 2017-07-11 06:48 | Day surgery (SDC) | payer MEDICARE ==
[2017-07-10 10:52] VITALS: BMI 25.0
[2017-07-11] MEDS ORDERED: Albumin 25% 200 ML ONE (07:11)
[2017-07-11] MEDS ORDERED: Sodium Bicarbonate 2.5 MEQ/5 ML VIAL ONE (07:11)
[2017-07-11] MEDS ORDERED: Lidocaine 1% PF 5 ML VIAL ONE (08:04)
[2017-07-11] MEDS ORDERED: Sodium Chloride 0.9% 20 ML ONE (08:16)
[2017-07-11 09:23] VITALS: BP 120/62; TEMP 97.6
--- NOTE | 2017-07-11 10:57 | ULT ---
ULTRASOUND GUIDED PARACENTESIS: 07/11/2017 HISTORY: Ascites. TECHNIQUE: After informed consent was obtained, the patient was placed on the sonography table in the supine pos ition. Sonographic evaluation of the abdomen was performed. An area in the mid axillary line, right upper quadrant, was marked and then meticulously prepped and draped in the usual sterile fashion. T he skin and subcutaneous tissues were infiltrated with buffered 1% Lidocaine for local anesthesia. A small skin incision was made. Utilizing concurring real-time ultrasound guidance, a 19 gauge FilterEasy needle with a 5 Pitc[place] Islander sheath was advanced into the abdomen. After the return of fluid, the sheath w as advanced, and the needle was removed. Approximately 5700 mL of clear, yellow-colored fluid was as pirated. The patient was administered 50 g of albumin intravenously during the exam. After the sheath was removed, hemostasis was achieved with direct pressure, and a dry, sterile dressi ng was placed. Follow-up sonographic imaging demonstrates a significant interval decrease in intraper itoneal free fluid. IMPRESSION: Technically successful ultrasound-guided paracentesis. POS: [facility]
== END 2017-07-11 09:10 | disposition home or self-care (01) ==
LOC: ULT 06:48
PROVIDERS: ATTEND Internal Medicine Gastroenterology
PROC: 0W9G3ZZ Drainage of Peritoneal Cavity, Percutaneous Approach (ICD-10-PCS; principal; 2017-07-11)
DX: R18.8 Other ascites (principal); K74.60 Unspecified cirrhosis of liver; E11.9 Type 2 diabetes mellitus without complications; I10 Essential (primary) hypertension; Z79.84 Long term (current) use of oral hypoglycemic drugs; Z79.2 Long term (current) use of antibiotics; Z79.899 Other long term (current) drug therapy; Z98.890 Other specified postprocedural states
CPT/HCPCS: 49083; P9047; A4216; J2001

== ENCOUNTER → 2017-07-18 | Day surgery (SDC) | payer MEDICARE ==
[~2017-07-18] MED LIST changes: -FLU VACC QS2017-18 36 mo. & older 0.5 ML SYRINGE IM ONE; +Lidocaine 1% PF 5 ML VIAL ONE
[2017-07-18 08:45] VITALS: TEMP 97.6; BMI 31.1
--- NOTE | 2017-07-18 10:57 | ULT ---
ULTRASOUND GUIDED ABDOMINAL PARACENTESIS: Date: 07/18/17 INDICATION: Cirrhosis with recurrent ascites. FINDINGS: Ultrasound guided puncture in the right lower quadrant was performed. 5 liters of yellowish cloudy as citic fluid removed. Postprocedure ultrasound showed mild residual ascites. PROCEDURE NOTE: Patient presents for paracentesis due to recurrent ascites. Four quadrant ultrasound shows moderate a scites in all quadrants. Right lower quadrant was chosen for puncture. Overlying skin was prepped and draped in the sterile manner. Local anesthesia was administered under ultrasound guidance with lidoc дмитрий and bicarb. Tiny skin incision was made with scalpel. A 5 Greenlandic Yueh needle and catheter was ad vanced into the ascitic fluid in the right lower quadrant under ultrasound guidance. Catheter was adv anced and needle removed. The catheter was attached to suction drainage. 5 liters of yellowish cloudy fluid removed. The patient tolerated the procedure fine with no problems or complications. POS: [facility]
== END ==
LOC: ULT 06:54
PROVIDERS: ATTEND Internal Medicine Gastroenterology
PROC: 0W9G3ZZ Drainage of Peritoneal Cavity, Percutaneous Approach (ICD-10-PCS; principal; 2017-07-18)
DX: R18.8 Other ascites (principal); K74.60 Unspecified cirrhosis of liver; Z79.899 Other long term (current) drug therapy; Z79.84 Long term (current) use of oral hypoglycemic drugs; Z88.8 Allergy status to other drugs, medicaments and biological substances
CPT/HCPCS: 49083; P9047; J2001

== ENCOUNTER 2017-07-25 06:44 | Day surgery (SDC) | payer MEDICARE ==
[2017-07-25] MEDS ORDERED: Sodium Bicarbonate 2.5 MEQ/5 ML VIAL ONE (07:45)
[2017-07-25 07:47] VITALS: BP 128/71; TEMP 98
[2017-07-25] MEDS ORDERED: Albumin 25% 200 ML ONE (11:04)
--- NOTE | 2017-07-25 11:54 | ULT ---
ULTRASOUND GUIDED PARACENTESIS: HISTORY: Ascites. FINDINGS: Successful ultrasound-guided paracentesis. A total of 6 L of yellow color ascites was aspirated. No immediate or post procedure complication. TECHNIQUE: Consent was obtained to perform an ultrasound-guided paracentesis. The patient's abdomen was evaluat ed. Right lower quadrant was deemed appropriate. The skin was prepped and draped in sterile fashion . 1% Lidocaine, buffered with sodium bicarbonate, was used for local anesthesia. Under ultrasound g uidance, a 5 Ethiopian 7 Ethiopian Yueh catheter was advanced to the peritoneal space. Via vacuum bottles, a total of 6 L of ascites was aspirated. The patient tolerated the procedure well. No immediate or postprocedure complication. IMPRESSION: Successful ultrasound-guided paracentesis. POS: [facility]
== END 2017-07-25 08:45 | disposition home or self-care (01) ==
LOC: ULT 06:44
PROVIDERS: ATTEND Internal Medicine Gastroenterology
PROC: 0W9G3ZZ Drainage of Peritoneal Cavity, Percutaneous Approach (ICD-10-PCS; principal; 2017-07-25)
PROC: BW40ZZZ Ultrasonography of Abdomen (ICD-10-PCS; 2017-07-25)
DX: K74.60 Unspecified cirrhosis of liver (principal); I10 Essential (primary) hypertension; E11.9 Type 2 diabetes mellitus without complications; Z79.4 Long term (current) use of insulin; Z79.2 Long term (current) use of antibiotics; Z79.899 Other long term (current) drug therapy; Z98.890 Other specified postprocedural states
CPT/HCPCS: 49083; P9047

== ENCOUNTER 2017-08-01 06:37 | Day surgery (SDC) | payer MEDICARE ==
[2017-08-01 06:58] LABS: INR-International Normal Ratio 1.5; Prothrombin Time 18.5 SEC (12.0-14.7)
[2017-08-01 06:59] LABS: #Eosinphils 0.1 thou/uL (0.0-0.7); #Lymphocytes 0.5 thou/uL (1.20-3.40); #Monocytes 0.5 thou/uL (0.11-0.59); %Basophils 0.6 % (0.0-1.0); %Eosinophils 1.6 % (0.0-10.0); %Lymphocytes 12.1 % (21.0-51.0); %Monocytes 11.1 % (0.0-10.0); %Neutrophils 74.6 % (42.0-75.0); Mean Corpuscular Volume 93.6 fl (80.0-94.0); Mean Platelet Volume 11.4 fL (7.4-10.4); PTT 39.9 SEC (22.9-36.1); Platelet Count 55 thou/uL (130-400); RBC Distribution Width 19.8 % (11.5-14.5); Red Blood Cell (RBC) Count 4.02 mill/uL (4.70-6.10)
[2017-08-01] MEDS ORDERED: Albumin 25% 200 ML ONE (07:31)
[2017-08-01] MEDS ORDERED: Sodium Bicarbonate 2.5 MEQ/5 ML VIAL ONE (07:31)
[2017-08-01 10:18] VITALS: BP 125/76; TEMP 98.1
--- NOTE | 2017-08-01 10:26 | ULT ---
ULTRASOUND GUIDED PARACENTESIS: Date: 08/01/17 COMPARISON: 07/25/17. HISTORY: Ascites. FINDINGS: Technically successful ultrasound guided paracentesis. Total of 6,400 mL of yellow-colored ascites wa s aspirated. TECHNIQUE: Consent obtained to perform an ultrasound guided paracentesis. Right lower quadrant was deemed approp riate. Skin was prepped and draped in the sterile fashion. 1% lidocaine, buffered with sodium bicarbo alisson, was used for local anesthesia. Under ultrasound guidance, a 5 [place]ian 7 cm MV Sistemaseh catheter was adv anced into the peritoneal space. A total of 6,400 mL of yellow-colored ascites was aspirated. The pat ient tolerated the procedure well. No immediate or postprocedure complication. IMPRESSION: Successful ultrasound guided paracentesis. POS: [facility]
== END 2017-08-01 08:40 | disposition home or self-care (01) ==
LOC: ULT 06:37
PROVIDERS: ATTEND Internal Medicine Gastroenterology
PROC: 0W9G3ZZ Drainage of Peritoneal Cavity, Percutaneous Approach (ICD-10-PCS; principal; 2017-08-01)
DX: R18.8 Other ascites (principal); K74.60 Unspecified cirrhosis of liver; Z79.84 Long term (current) use of oral hypoglycemic drugs; Z79.899 Other long term (current) drug therapy
CPT/HCPCS: 49083; 85025; 85610; 85730; P9047

== ENCOUNTER 2017-08-08 06:54 | Day surgery (SDC) | payer MEDICARE ==
[2017-08-07 11:27] VITALS: BMI 26.4
[2017-08-08] MEDS ORDERED: Sodium Bicarbonate 2.5 MEQ/5 ML VIAL ONE ×2 (07:16→08:30)
[2017-08-08] MEDS ORDERED: Albumin 25% 200 ML ONE (08:30)
[2017-08-08 08:49] VITALS: TEMP 97.5
[2017-08-08 08:51] VITALS: BP 109/67
--- NOTE | 2017-08-08 11:12 | ULT ---
ULTRASOUND GUIDED PARACENTESIS: INDICATIONS: Cirrhosis with ascites. TECHNIQUE: Informed consent was obtained. Pre-procedural ultrasound images demonstrate a large collection in th e right lower quadrant of the abdomen. The site was prepped and draped in the usual sterile fashion. Buffered 1% Lidocaine was administered to the overlying subcutaneous tissues. A small incision was made. The Kjpt-H-Rnmakees catheter was then guided into the large collection in the right lower james drant. There was removal of 5250 mL of normal peritoneal fluid. IMPRESSION: Successful ultrasound guided paracentesis with removal of 5250 mL of peritoneal fluid. POS: [facility]
== END 2017-08-08 08:45 | disposition home or self-care (01) ==
LOC: ULT 06:54
PROVIDERS: ATTEND Internal Medicine Gastroenterology
PROC: 0W9G3ZZ Drainage of Peritoneal Cavity, Percutaneous Approach (ICD-10-PCS; principal; 2017-08-08)
DX: R18.8 Other ascites (principal); K74.60 Unspecified cirrhosis of liver; Z79.84 Long term (current) use of oral hypoglycemic drugs; Z79.899 Other long term (current) drug therapy; Z88.8 Allergy status to other drugs, medicaments and biological substances
CPT/HCPCS: 49083; P9047

== ENCOUNTER 2017-08-15 06:41 | Day surgery (SDC) | payer MEDICARE ==
[2017-08-15 08:45] VITALS: TEMP 98
[2017-08-15 08:48] VITALS: BP 124/74
[2017-08-15] MEDS ORDERED: Albumin 25% 0 ML ONE (08:55)
[2017-08-15] MEDS ORDERED: Albumin 25% 200 ML ONE (09:06)
--- NOTE | 2017-08-15 09:53 | ULT ---
ULTRASOUND GUIDED PARACENTESIS: DATE: 08/15/17. HISTORY: Symptomatic ascites. FINDINGS: Informed consent for ultrasound-guided paracentesis obtained prior to the procedure. Preprocedural i maging demonstrates significant ascites throughout the abdomen/pelvis with an adequate pocket for acc ess in the mid right abdomen. The skin overlying this region was prepped and draped in normal sterile fashion and anesthetized with 1% buffered Lidocaine. With direct sonographic guidance, a 5 Tajik Yueh catheter was advanced into the ascites and removal of stylette yields yellow ascites. Four liters were removed. At this point, secondary to adjacent s mall bowel, drainage did not persist. Thus, the patient was reprepped and Yueh catheter was reinsert ed under ultrasound guidance, with a total of 7450 cc removed. The patient tolerated the procedure w ell. IMPRESSION: Successful ultrasound-guided paracentesis yielding 7450 cc of yellow ascites. POS: [facility]
== END 2017-08-15 08:35 | disposition home or self-care (01) ==
LOC: ULT 06:41
PROVIDERS: ATTEND Internal Medicine Gastroenterology
PROC: 0W9G3ZZ Drainage of Peritoneal Cavity, Percutaneous Approach (ICD-10-PCS; principal; 2017-08-15)
DX: R18.8 Other ascites (principal); K74.60 Unspecified cirrhosis of liver; I85.10 Secondary esophageal varices without bleeding; Z88.6 Allergy status to analgesic agent; Z79.84 Long term (current) use of oral hypoglycemic drugs; Z79.899 Other long term (current) drug therapy
CPT/HCPCS: 49083; P9047

== ENCOUNTER 2017-08-29 07:12 | Day surgery (SDC) | payer MEDICARE ==
[2017-08-29] MEDS ORDERED: Lidocaine 1% PF 5 ML VIAL ONE (07:22)
[2017-08-29] MEDS ORDERED: Sodium Bicarbonate 2.5 MEQ/5 ML VIAL ONE (07:22)
[2017-08-29] MEDS ORDERED: Albumin 25% 200 ML ONE (07:22)
[2017-08-29 08:53] VITALS: BMI 32.3
[2017-08-29 09:02] VITALS: TEMP 97.5
[2017-08-29 09:05] VITALS: BP 123/77
--- NOTE | 2017-08-29 11:03 | ULT ---
SONOGRAPHIC GUIDED PARACENTESIS: HISTORY: Recurrent ascites. FINDINGS: After explaining the procedure and answering all questions, sonographic survey shows a large amount o f free fluid. A right lower quadrant approach was planned. Sterile technique, buffered local anesth esia, sonographic guidance, and a right anterolateral approach were used to carefully advance a 19 ga uge Yueh needle and catheter into the free fluid. A total volume of 6 L of very yellow liquid was dr ained. Post procedure imaging showed minimal residual fluid. The patient tolerated the procedure we ll and was dismissed in good condition. IMPRESSION: Technically successful sonographic guided paracentesis, yielding 6 L of ascites. POS: [facility]
== END 2017-08-29 08:45 | disposition home or self-care (01) ==
LOC: ULT 07:12
PROVIDERS: ATTEND Internal Medicine Gastroenterology
PROC: 0W9G3ZZ Drainage of Peritoneal Cavity, Percutaneous Approach (ICD-10-PCS; principal; 2017-08-29)
DX: R18.8 Other ascites (principal); K74.60 Unspecified cirrhosis of liver; I85.10 Secondary esophageal varices without bleeding; Z88.8 Allergy status to other drugs, medicaments and biological substances; Z79.899 Other long term (current) drug therapy
CPT/HCPCS: 49083; P9047; J2001

== ENCOUNTER → 2017-09-05 | Day surgery (SDC) | payer MEDICARE ==
[~2017-09-05] MED LIST changes: -Prevnar 13-Val Conj/PF 0.5 ML SYRINGE IM ONE
[2017-09-05 07:21] LABS: #Basophils 0.1 thou/uL (0.0-0.2); #Eosinphils 0.1 thou/uL (0.0-0.7); #Lymphocytes 0.4 thou/uL (1.20-3.40); #Monocytes 0.5 thou/uL (0.11-0.59); %Basophils 1.8 % (0.0-1.0); %Lymphocytes 10.6 % (21.0-51.0); %Neutrophils 73.7 % (42.0-75.0); Hemoglobin 12.3 g/dL (14.0-18.0); Mean Corpuscular Hemoglobin 32.4 pg (27.0-31.0); Mean Corpuscular Volume 98.4 fl (80.0-94.0); Mean Platelet Volume 9.5 fL (7.4-10.4); Platelet Count 55 thou/uL (130-400); RBC Distribution Width 19.1 % (11.5-14.5); Red Blood Cell (RBC) Count 3.79 mill/uL (4.70-6.10); White Blood Cell (WBC) Count 4.1 thou/uL (4.8-10.8)
[2017-09-05 07:28] LABS: INR-International Normal Ratio 1.5; PTT 37.4 SEC (22.9-36.1)
[2017-09-05 08:41] VITALS: TEMP 97.8
--- NOTE | 2017-09-05 09:31 | ULT ---
ULTRASOUND GUIDED PARACENTESIS: DATE: 09/05/17. HISTORY: Symptomatic ascites. FINDINGS: Informed consent was obtained prior to the procedure. Mid right abdomen is prepped and draped in normal sterile fashion and anesthetized with 1% buffered L idocaine. With direct sonographic guidance, a 5 Belarusian Yueh catheter is advanced into the large volume ascites within the mid right abdomen and removal of the stylette yields yellow fluid. 8750 cc were removed. The patient tolerated the procedure well. IMPRESSION: Successful ultrasound-guided paracentesis yielding 8750 cc of yellow fluid. POS: [facility]
== END ==
LOC: ULT 06:55
PROVIDERS: ATTEND Internal Medicine Gastroenterology
PROC: 0W9G3ZZ Drainage of Peritoneal Cavity, Percutaneous Approach (ICD-10-PCS; principal; 2017-09-05)
DX: R18.8 Other ascites (principal); K74.60 Unspecified cirrhosis of liver; I85.10 Secondary esophageal varices without bleeding; E11.42 Type 2 diabetes mellitus with diabetic polyneuropathy; I10 Essential (primary) hypertension; D64.9 Anemia, unspecified; K21.9 Gastro-esophageal reflux disease without esophagitis; N05.9 Unspecified nephritic syndrome with unspecified morphologic changes; Z79.899 Other long term (current) drug therapy
CPT/HCPCS: 49083; 85025; 85610; 85730; P9047; 36415; J2001

== ENCOUNTER → 2017-09-12 | Day surgery (SDC) | payer MEDICARE ==
[2017-09-11 09:24] VITALS: BMI 29.8
[~2017-09-12] MED LIST changes: +Prevnar 13-Val Conj/PF 0.5 ML SYRINGE IM ONE
[2017-09-12 09:27] VITALS: TEMP 97.4
--- NOTE | 2017-09-12 10:12 | ULT ---
ULTRASOUND GUIDED PARACENTESIS: Pre-procedure diagnosis: Ascites. Post-procedure diagnosis: Ascites. Director Bioinformatics: Wilfredo. Complications: None. Specimen: 6650 ml of straw-colored fluid. Anesthesia: 5 ml of buffered 1% Lidocaine. Technique: Prior to the procedure the risks and benefits of an ultrasound guided paracentesis were explained to the patient and patient consented fully to the procedure. Ultrasound was used to evaluate the abdomen. The largest fluid collection was seen in the right lower quadrant of the abdomen. This area was prepped and draped in the usual sterile fashion. Lidocaine was used to anesthetize the skin and soft tissues down towards the peritoneal cavity. A sma ll skin incision was made allowing for passage of the Yueh needle and catheter. These were placed usi ng ultrasound guidance into the largest collection of fluid in the right lower quadrant of the abdome n. The Yueh catheter was left in place and the needle removed in the peritoneal cavity. This was placed two multiple vacuum bottles. A total of 6650 ml of straw-colored fluid was removed. After completion of the procedure, minimal fluid was seen in the right lower quadrant of the abdomen. The patient tole rated the procedure well without immediate post-procedure complication. IMPRESSION: Status post successful ultrasound guided paracentesis. POS: [facility]
== END ==
LOC: ULT 07:26
PROVIDERS: ATTEND Internal Medicine Gastroenterology
PROC: 0W9G3ZZ Drainage of Peritoneal Cavity, Percutaneous Approach (ICD-10-PCS; principal; 2017-09-12)
DX: R18.8 Other ascites (principal); K74.60 Unspecified cirrhosis of liver; I85.10 Secondary esophageal varices without bleeding; D64.9 Anemia, unspecified; I10 Essential (primary) hypertension; E11.42 Type 2 diabetes mellitus with diabetic polyneuropathy; N05.9 Unspecified nephritic syndrome with unspecified morphologic changes; K21.9 Gastro-esophageal reflux disease without esophagitis; N40.0 Benign prostatic hyperplasia without lower urinary tract symptoms; E78.5 Hyperlipidemia, unspecified; Z79.899 Other long term (current) drug therapy
CPT/HCPCS: 49083; P9047; J2001

== ENCOUNTER 2017-09-19 07:01 | Day surgery (SDC) | payer MEDICARE ==
[2017-09-18 13:39] VITALS: BMI 25.0
[2017-09-19] MEDS ORDERED: Sodium Bicarbonate 2.5 MEQ/5 ML VIAL ONE (07:13)
[2017-09-19] MEDS ORDERED: Albumin 25% 200 ML ONE (07:13)
[2017-09-19] MEDS ORDERED: Lidocaine 1% PF 5 ML VIAL ONE (07:15)
--- NOTE | 2017-09-19 10:22 | ULT ---
ULTRASOUND GUIDED PARACENTESIS: DATE: 09/19/17. HISTORY: Symptomatic ascites. FINDINGS: Informed consent obtained prior to the procedure. Preprocedural imaging demonstrates large-volume as cites throughout the abdomen and pelvis. Right mid abdomen was prepped and draped in normal sterile fashion and anesthetized with 1% buffered Lidocaine. With direct sonographic guidance, a 5 Welsh Steel eh catheter is advanced into the ascites and removal of stylette yields yellow fluid. Nine liters we re removed. The patient tolerated the procedure well. IMPRESSION: Successful ultrasound-guided paracentesis yielding 9 liters of yellow fluid. POS: [facility]
[2017-09-19 10:24] VITALS: BP 134/83; TEMP 98
== END 2017-09-19 08:45 | disposition home or self-care (01) ==
LOC: ULT 07:01
PROVIDERS: ATTEND Internal Medicine Gastroenterology
PROC: 0W9G3ZZ Drainage of Peritoneal Cavity, Percutaneous Approach (ICD-10-PCS; principal; 2017-09-19)
DX: R18.8 Other ascites (principal); K74.60 Unspecified cirrhosis of liver; I85.10 Secondary esophageal varices without bleeding; D64.9 Anemia, unspecified; I10 Essential (primary) hypertension; K21.9 Gastro-esophageal reflux disease without esophagitis; N05.9 Unspecified nephritic syndrome with unspecified morphologic changes; E11.42 Type 2 diabetes mellitus with diabetic polyneuropathy; Z88.8 Allergy status to other drugs, medicaments and biological substances; Z79.899 Other long term (current) drug therapy
CPT/HCPCS: 49083; P9047; J2001

== ENCOUNTER 2017-09-25 06:33 | Day surgery (SDC) | payer MEDICARE ==
[2017-09-24 11:24] VITALS: BMI 29.8
[2017-09-25] MEDS ORDERED: Sodium Bicarbonate 2.5 MEQ/5 ML VIAL ONE (06:45)
[2017-09-25] MEDS ORDERED: Albumin 25% 200 ML ONE (06:45)
[2017-09-25] MEDS ORDERED: Lidocaine 1% PF 5 ML VIAL ONE (06:45)
[2017-09-25 07:38] VITALS: BP 113/87; TEMP 98.1
--- NOTE | 2017-09-25 09:57 | ULT ---
SONOGRAPHIC GUIDED PARACENTESIS: HISTORY: Recurrent ascites. FINDINGS: After explaining the procedure and answering all questions, sonographic survey shows a large amount o f free fluid throughout the abdomen. Sterile technique, buffered local anesthesia, sonographic alex nce, and an anterior right lower quadrant approach were used to carefully advance a 19 gauge Yueh nee dle and catheter in the free fluid. Catheter was left to drain a total volume of 6.5 liters of cloud y yellow liquid. Postprocedure imaging shows a small amount of residual fluid. The patient tolerate d the procedure well and was dismissed in good condition. IMPRESSION: Technically successful sonographic-guided paracentesis. POS: [facility]
== END 2017-09-25 08:25 | disposition home or self-care (01) ==
LOC: ULT 06:33
PROVIDERS: ATTEND Internal Medicine Gastroenterology
PROC: 0W9G3ZZ Drainage of Peritoneal Cavity, Percutaneous Approach (ICD-10-PCS; principal; 2017-09-25)
DX: R18.8 Other ascites (principal); K74.60 Unspecified cirrhosis of liver; I85.10 Secondary esophageal varices without bleeding; E11.9 Type 2 diabetes mellitus without complications; I10 Essential (primary) hypertension; D64.9 Anemia, unspecified; K21.9 Gastro-esophageal reflux disease without esophagitis; N05.9 Unspecified nephritic syndrome with unspecified morphologic changes; Z88.8 Allergy status to other drugs, medicaments and biological substances; Z79.899 Other long term (current) drug therapy
CPT/HCPCS: 49083; P9047; J2001

== ENCOUNTER 2017-10-03 06:34 | Day surgery (SDC) | payer MEDICARE ==
[2017-10-02 09:24] VITALS: BMI 37.3
[2017-10-03] MEDS ORDERED: Sodium Bicarbonate 2.5 MEQ/5 ML VIAL ONE (07:20)
[2017-10-03] MEDS ORDERED: Lidocaine 1% PF 5 ML VIAL ONE (07:20)
[2017-10-03 07:36] VITALS: BP 129/76; TEMP 98.4
--- NOTE | 2017-10-03 10:48 | ULT ---
ULTRASOUND GUIDED PARACENTESIS: HISTORY: Ascites. FINDINGS: Informed consent was obtained from the patient. A large amount of ascites was noted in the peritonea l cavity. The right lower quadrant area of fluid collection was localized using ultrasound guidance. The overlying skin was prepped and draped in the usual sterile manner. A 1% Lidocaine solution was used to anesthetize the overlying soft tissues. A small dermatotomy was made. A 5 Azerbaijani Yueh need le was placed into the peritoneal cavity using ultrasound guidance. A total of 7.3 L of peritoneal f luid was removed without difficulty. No complications were encountered during the course of the exam . IMPRESSION: Successful ultrasound guided paracentesis. POS: [facility]
== END 2017-10-03 08:40 | disposition home or self-care (01) ==
LOC: ULT 06:34
PROVIDERS: ATTEND Internal Medicine Gastroenterology
PROC: 0W9G3ZZ Drainage of Peritoneal Cavity, Percutaneous Approach (ICD-10-PCS; principal; 2017-10-03)
DX: R18.8 Other ascites (principal); K74.60 Unspecified cirrhosis of liver; E11.9 Type 2 diabetes mellitus without complications; I10 Essential (primary) hypertension; E78.5 Hyperlipidemia, unspecified; K21.9 Gastro-esophageal reflux disease without esophagitis; Z87.891 Personal history of nicotine dependence
CPT/HCPCS: 49083; J2001

== ENCOUNTER → 2017-10-10 | Day surgery (SDC) | payer MEDICARE ==
[2017-10-09 09:14] VITALS: BMI 30.5
--- NOTE | 2017-10-10 09:52 | ULT ---
PROCEDURE NOTE: Date: 10/10/17 PREPROCEDURE DIAGNOSIS: Ascites. POSTPROCEDURE DIAGNOSIS: Ascites. PROCEDURE: Ultrasound guided paracentesis. DESK LIEUTENANT: Dr. Villalobos. COMPLICATIONS: None. ANESTHESIA: 5 mL buffered 1% lidocaine. SPECIMEN: 5,500 mL of straw-colored fluid. TECHNIQUE: Prior to the procedure, the risks and benefits of an ultrasound guided paracentesis were explained wi th the patient and he consented fully to the procedure. An ultrasound was performed, showing the larg est collection in the right lower quadrant of the abdomen. This area of the abdomen was then prepped and draped in the usual sterile fashion. Lidocaine was used to anesthetize the skin and soft tissues down towards the peritoneal cavity. A Keturah h catheter and needle was then placed using ultrasound guidance into the fluid collection in the righ t lower quadrant of the abdomen. The needle was removed and catheter left in place. This was connecte d to multiple Vacutainer bottles. 5,500 mL of fluid was drained from the abdomen. No significant residual fluid was seen in the right l ower quadrant of the abdomen after the completion of the procedure. IMPRESSION: Status post successful ultrasound guided paracentesis. POS: [facility]
[2017-10-10 11:06] VITALS: TEMP 97.9
== END ==
LOC: ULT 06:32
PROVIDERS: ATTEND Internal Medicine Gastroenterology
PROC: 0W9G3ZZ Drainage of Peritoneal Cavity, Percutaneous Approach (ICD-10-PCS; principal; 2017-10-10)
DX: R18.8 Other ascites (principal); K74.60 Unspecified cirrhosis of liver; I85.10 Secondary esophageal varices without bleeding; I10 Essential (primary) hypertension; D64.9 Anemia, unspecified; K21.9 Gastro-esophageal reflux disease without esophagitis; E11.42 Type 2 diabetes mellitus with diabetic polyneuropathy; Z88.8 Allergy status to other drugs, medicaments and biological substances; Z79.899 Other long term (current) drug therapy
CPT/HCPCS: 49083; P9047; J2001

== ENCOUNTER 2017-10-17 07:00 | Day surgery (SDC) | payer MEDICARE ==
[2017-10-17] MEDS ORDERED: Sodium Bicarbonate 2.5 MEQ/5 ML VIAL ONE (07:38)
[2017-10-17] MEDS ORDERED: Albumin 25% 200 ML ONE (07:38)
[2017-10-17] MEDS ORDERED: Lidocaine 1% PF 5 ML VIAL ONE (07:38)
[2017-10-17 09:39] VITALS: BP 120/71; TEMP 97.8
--- NOTE | 2017-10-17 09:50 | ULT ---
ULTRASOUND-GUIDED PARACENTESIS: CLINICAL INDICATION: Ascites. PROCEDURE: After informed consent had been obtained, the patient was escorted to the ultrasound suite and placed in a supine position. The abdomen was imaged which revealed adequate ascites for the procedure. Th e skin of the abdomen was then prepped and draped in the standard sterile fashion and the skin surfac e, subcutaneous tissues, and peritoneal lining of the abdomen were anesthetized with 1% Lidocaine buf fered with sodium bicarbonate. A right lower quadrant approach was selected. A small skin incision was made at the site of topical anesthesia. Subsequently, under real-time ultrasound guidance a Teliris catheter was advanced through the incision site into the peritoneal cavity. Ascites was present at the catheter hub. The catheter was then secured to vacuum sealed sterile containers, via sterile tub ing and subsequently 5.5 L of clear yellow ascites was drained from the patient. The catheter was th en removed from the patient. The patient tolerated the procedure well without evidence of complicati on. Postprocedure imaging revealed no complication and interval reduction in volume of ascites. The patient was monitored by a radiology nurse and was stable in condition. IMPRESSION: Technically successful ultrasound-guided paracentesis, as above. POS: [facility]
== END 2017-10-17 09:15 | disposition home or self-care (01) ==
LOC: ULT 07:00
PROVIDERS: ATTEND Internal Medicine Gastroenterology
PROC: 0W9G3ZZ Drainage of Peritoneal Cavity, Percutaneous Approach (ICD-10-PCS; principal; 2017-10-17)
DX: R18.8 Other ascites (principal); K74.60 Unspecified cirrhosis of liver; I10 Essential (primary) hypertension; D64.9 Anemia, unspecified; E11.42 Type 2 diabetes mellitus with diabetic polyneuropathy; K21.9 Gastro-esophageal reflux disease without esophagitis; N05.9 Unspecified nephritic syndrome with unspecified morphologic changes; E78.5 Hyperlipidemia, unspecified; N40.0 Benign prostatic hyperplasia without lower urinary tract symptoms
CPT/HCPCS: 49083; P9047; J2001

== ENCOUNTER 2017-10-24 06:31 | Day surgery (SDC) | payer MEDICARE ==
[2017-10-23 11:03] VITALS: BMI 32.5
[2017-10-24] MEDS ORDERED: Albumin 25% 200 ML ONE (07:01)
[2017-10-24] MEDS ORDERED: Lidocaine 1% PF 5 ML VIAL ONE (07:02)
[2017-10-24] MEDS ORDERED: Sodium Bicarbonate 2.5 MEQ/5 ML VIAL ONE (07:02)
[2017-10-24] MEDS ORDERED: Sodium Chloride 0.9% 10 ML ONE (07:02)
[2017-10-24 08:49] VITALS: TEMP 98.4
[2017-10-24 08:55] VITALS: BP 125/72
--- NOTE | 2017-10-24 10:36 | ULT ---
ULTRASOUND-GUIDED PARACENTESIS: HISTORY: Ascites. COMPARISON: CT from 10/17/2017. TECHNIQUE/FINDINGS: The patient was brought to the ultrasound suite. All questions were answered. The patient's right lower quadrant was prepped and draped in the normal sterile fashion. Lidocaine 4 mL was instilled into the superficial and deep soft tissues. Using a 5 South African Yueh needl e, the peritoneal space was accessed. A total of 6 L of fluid was drained. IMPRESSION: Technically successful ultrasound-guided paracentesis. POS: [facility]
== END 2017-10-24 08:30 | disposition home or self-care (01) ==
LOC: ULT 06:31
PROVIDERS: ATTEND Internal Medicine Gastroenterology
PROC: 0W9G3ZZ Drainage of Peritoneal Cavity, Percutaneous Approach (ICD-10-PCS; principal; 2017-10-24)
DX: R18.8 Other ascites (principal); K74.60 Unspecified cirrhosis of liver; E11.42 Type 2 diabetes mellitus with diabetic polyneuropathy; D64.9 Anemia, unspecified; K21.9 Gastro-esophageal reflux disease without esophagitis; N05.9 Unspecified nephritic syndrome with unspecified morphologic changes; N40.0 Benign prostatic hyperplasia without lower urinary tract symptoms; E78.5 Hyperlipidemia, unspecified; I10 Essential (primary) hypertension
CPT/HCPCS: 49083; P9047; A4216; J2001

== ENCOUNTER → 2017-10-31 | Day surgery (SDC) | payer MEDICARE, OTHER ==
[2017-10-30 09:12] VITALS: BMI 31.8
[~2017-10-31] MED LIST changes: -Lidocaine 1% PF 5 ML VIAL ONE; -Prevnar 13-Val Conj/PF 0.5 ML SYRINGE IM ONE
--- NOTE | 2017-10-31 08:56 | ULT ---
ULTRASOUND GUIDED PARACENTESIS THERAPEUTIC: Date: 10/31/17 HISTORY: 57-year-old male with abdominal distention due to ascites. TECHNIQUE: Signed, informed consent obtained. Four quadrant survey of the abdomen. Right lower quadrant selected . Skin prepped and draped in usual sterile fashion. 25 gauge needle used to apply buffered lidocaine superficially and deeply. 5 Swedish Yueh catheter with stylette advanced in tandem with the 25 gauge n eedle. 25 gauge needle and Yueh stylette removed. Yueh catheter connected to series of evacuated benigno le via plastic tubing. At the end of the procedure, Yueh catheter was removed. The patient tolerated the procedure well. No complications. FINDINGS: Images prior to the procedure demonstrated a large volume of free intraperitoneal fluid. Another imag e demonstrates needle entering the pocket of fluid in the right lower quadrant. Postprocedure image o f right lower quadrant demonstrates no residual fluid in that location. A total of 7,000 mL of fluid was drained. IMPRESSION: Successful therapeutic paracentesis, with drainable of 7 liters of ascites fluid. POS: [facility]
[2017-10-31 09:14] LABS: BF Color Yellow; Body Fluid Source PARACENTESIS FLD; Clarity Hazy (Clear)
[2017-10-31 09:15] LABS: BF RBC Count - Manual 262 /cumm; BF WBC/Nonhematics Ct. - Manua 227 /cumm; Tube # EDTA
[2017-10-31 10:31] VITALS: TEMP 97.9
[2017-10-31 11:38] LABS: BF Segmented Neutrophils 9 %; Cell Count Non Hematic 70 %; Lymphocytes 21 %
== END ==
LOC: ULT 06:35
PROVIDERS: ATTEND Internal Medicine Gastroenterology
PROC: 0W9G3ZZ Drainage of Peritoneal Cavity, Percutaneous Approach (ICD-10-PCS; principal; 2017-10-31)
DX: R18.8 Other ascites (principal); K74.60 Unspecified cirrhosis of liver; E11.42 Type 2 diabetes mellitus with diabetic polyneuropathy; D64.9 Anemia, unspecified; K21.9 Gastro-esophageal reflux disease without esophagitis; N05.9 Unspecified nephritic syndrome with unspecified morphologic changes; N40.0 Benign prostatic hyperplasia without lower urinary tract symptoms; E78.5 Hyperlipidemia, unspecified; I10 Essential (primary) hypertension
CPT/HCPCS: 49083; 87070; 87205; 89051; P9047; 85060

== ENCOUNTER 2017-11-07 06:36 | Day surgery (SDC) | payer MEDICARE ==
[2017-11-06 08:56] VITALS: BMI 29.8
[2017-11-07] MEDS ORDERED: Albumin 25% 200 ML ONE (07:06)
[2017-11-07] MEDS ORDERED: Sodium Bicarbonate 2.5 MEQ/5 ML VIAL ONE (07:07)
[2017-11-07] MEDS ORDERED: Lidocaine 1% PF 5 ML VIAL ONE (07:07)
[2017-11-07 08:40] VITALS: BP 112/68; TEMP 98
--- NOTE | 2017-11-07 09:51 | ULT ---
ULTRASOUND GUIDED PARACENTESIS: 11/07/2017 HISTORY: Symptomatic ascites. COMPARISON: None. FINDINGS: Informed consent obtained prior to the procedure. Preprocedural imaging demonstrates significant asc ites within the abdomen/pelvis. The skin overlying the right lower quadrant was prepped and draped in the normal sterile fashion and anesthetized with 1% buffered Lidocaine. With direct sonographic guidance, a 5 Uzbek Yueh catheter is advised into the right lower quadrant a scites and removal of the stylet yields yellow fluid, with 7 L removed. The patient tolerated the pr ocedure well. IMPRESSION: Successful ultrasound guided paracentesis, yielding 7 L of yellow fluid. POS: [facility]
[2017-11-07 11:14] LABS: BF Color Yellow; Body Fluid Source Ascites Body Fluid; Clarity Hazy (Clear); Tube # EDTA
[2017-11-07 11:44] LABS: BF RBC Count - Manual 129 /cumm; BF WBC/Nonhematics Ct. - Manua 120 /cumm
[2017-11-07 12:23] LABS: BF Segmented Neutrophils 10 %; Cell Count Non Hematic 78 %; Eosinophils 1 %; Lymphocytes 11 %
== END 2017-11-07 08:25 | disposition home or self-care (01) ==
LOC: ULT 06:36
PROVIDERS: ATTEND Radiology Diagnostic Neuroimaging
PROC: 0W9G3ZZ Drainage of Peritoneal Cavity, Percutaneous Approach (ICD-10-PCS; principal; 2017-11-07)
DX: K70.31 Alcoholic cirrhosis of liver with ascites (principal)
CPT/HCPCS: 49083; 87070; 87205; 89051; P9047; 85060; J2001

== ENCOUNTER 2017-11-14 07:10 | Day surgery (SDC) | payer MEDICARE ==
[2017-11-13 09:04] VITALS: BMI 33.9
[2017-11-14] MEDS ORDERED: Lidocaine 1% PF 5 ML VIAL ONE (07:15)
[2017-11-14] MEDS ORDERED: Albumin 25% 200 ML ONE (07:15)
[2017-11-14] MEDS ORDERED: Sodium Bicarbonate 2.5 MEQ/5 ML VIAL ONE (07:15)
[2017-11-14 08:57] VITALS: BP 122/74; TEMP 98.1
[2017-11-14 09:33] LABS: BF Color Yellow; Body Fluid Source Ascites Body Fluid; Clarity Hazy (Clear); Tube # EDTA
[2017-11-14 09:46] LABS: BF RBC Count - Manual 118 /cumm; BF WBC/Nonhematics Ct. - Manua 131 /cumm
--- NOTE | 2017-11-14 10:16 | ULT ---
ULTRASOUND GUIDED PARACENTESIS: HISTORY: Ascites. COMPARISON: 11/07/2017 TECHNIQUE: Consent obtained for ultrasound guided paracentesis. The patient's right lower quadrant was deemed a ppropriate. The skin was prepped and draped in a sterile fashion. Lidocaine 1% buffered with sodium bicarbonate was used for local anesthesia. Under ultrasound guidance, a 5 Korean, 7 cm Yueh cathete r was advanced into the peritoneal space. Via vacuum bottles, a total of 7 L of yellow colored ascit es was aspirated. The patient tolerated the procedure well. No immediate or post procedure complica tions. FINDINGS: Technically successful ultrasound guided paracentesis. A total of 7 L of yellow colored ascites was aspirated. No immediate or post procedure complications. IMPRESSION: Successful ultrasound guided paracentesis with 7 L of yellow colored ascites removed. POS: [facility]
[2017-11-14 10:22] LABS: BF Segmented Neutrophils 17 %; Cell Count Non Hematic 62 %; Eosinophils 1 %; Lymphocytes 20 %
== END 2017-11-14 08:45 | disposition home or self-care (01) ==
LOC: ULT 07:10
PROVIDERS: ATTEND Radiology Diagnostic Radiology
PROC: 0W9G3ZZ Drainage of Peritoneal Cavity, Percutaneous Approach (ICD-10-PCS; principal; 2017-11-14)
DX: K70.31 Alcoholic cirrhosis of liver with ascites (principal); K72.90 Hepatic failure, unspecified without coma; E11.9 Type 2 diabetes mellitus without complications; I10 Essential (primary) hypertension; K42.9 Umbilical hernia without obstruction or gangrene
CPT/HCPCS: 49083; 87070; 87205; 89051; P9047; 85060; J2001

== ENCOUNTER 2017-11-21 06:36 | Day surgery (SDC) | payer MEDICARE ==
[2017-11-21] MEDS ORDERED: Lidocaine 1% PF 5 ML VIAL ONE (07:03)
[2017-11-21] MEDS ORDERED: Albumin 25% 200 ML ONE (07:03)
[2017-11-21] MEDS ORDERED: Sodium Bicarbonate 2.5 MEQ/5 ML VIAL ONE (07:03)
--- NOTE | 2017-11-21 08:28 | ULT ---
ULTRASOUND GUIDED PARACENTESIS: Date: 11/21/17 HISTORY: Ascites. COMPARISON: Ultrasound dated 11/14/17. TECHNIQUE/FINDINGS: The patient was brought to the ultrasound suite. All questions were answered. The patient's right low er quadrant was prepped and draped in the normal sterile fashion. 3 mL of buffered lidocaine was inst illed into the superficial and deep soft tissues. After adequate anesthesia, using a 5 Cameroonian Yueh ne edle, the peritoneal space was accessed. 7 liters of straw-colored fluid was removed. This was done u sing ultrasound guidance. IMPRESSION: Technically successful ultrasound guided paracentesis. POS: [facility]
[2017-11-21 08:43] VITALS: BP 110/74; TEMP 98.3; BMI 33.6
[2017-11-21 08:52] LABS: BF Color Yellow; BF RBC Count - Manual 165 /cumm; BF WBC/Nonhematics Ct. - Manua 145 /cumm; Body Fluid Source Ascites Body Fluid; Clarity Hazy (Clear); Tube # EDTA
[2017-11-21 09:21] LABS: BF Segmented Neutrophils 4 %; Cell Count Non Hematic 71 %; Lymphocytes 25 %
== END 2017-11-21 08:30 | disposition home or self-care (01) ==
LOC: ULT 06:36
PROVIDERS: ATTEND Internal Medicine Gastroenterology
PROC: 0W9G3ZZ Drainage of Peritoneal Cavity, Percutaneous Approach (ICD-10-PCS; principal; 2017-11-21)
DX: K70.31 Alcoholic cirrhosis of liver with ascites (principal)
CPT/HCPCS: 49083; 87070; 87205; 89051; P9047; 85060; J2001

== ENCOUNTER → 2017-11-28 | Day surgery (SDC) | payer MEDICARE ==
[2017-11-27 09:49] VITALS: BMI 31.8
[~2017-11-28] MED LIST changes: +Lidocaine 1% PF 5 ML VIAL ONE
[2017-11-28 08:10] VITALS: TEMP 97.7
[2017-11-28 09:31] LABS: BF Color Yellow; BF RBC Count - Manual 171 /cumm; BF WBC/Nonhematics Ct. - Manua 209 /cumm; Body Fluid Source PARACENTESIS FLD; Clarity Hazy (Clear); Tube # EDTA
[2017-11-28 10:21] LABS: BF Segmented Neutrophils 14 %; Cell Count Non Hematic 72 %; Lymphocytes 14 %
--- NOTE | 2017-11-28 11:23 | ULT ---
ULTRASOUND PARACENTESIS THERAPEUTIC: Date: 11-28-17 History: 57-year-old male with ascites due to cirrhosis, presents with abdominal distention. There is a specif ic request to drain no more than 7 L. Technique: Informed consent obtained. Four quadrant scan of abdomen performed. Right lower quadrant selected. Sk in over the right lower quadrant prepared and draped in the usual sterile fashion. 25 gauge needle us ed to apply buffered Lidocaine superficially and deeply. 5 Macedonian Yueh catheter with stylet advanced into the large pocket of free fluid in the right lower quadrant. Stylet and 25 gauge needle removed. Yueh catheter was connected to series of evacuated bottles via plastic tubing. After drainage, Yueh c atheter was removed. Patient tolerated the procedure well. No complications. FINDINGS: Images prior to the procedure demonstrate large volume of free intraperitoneal fluid. Post procedure image of right lower quadrant demonstrates a small amount of residual fluid. A total of 7000 mL of no nhemorrhagic ascites fluid was drained. IMPRESSION: Successful paracentesis, with drainage of 7 L of ascites fluid. POS: [facility]
== END ==
LOC: ULT 06:34
PROVIDERS: ATTEND Internal Medicine Gastroenterology
PROC: 0W9G3ZZ Drainage of Peritoneal Cavity, Percutaneous Approach (ICD-10-PCS; principal; 2017-11-28)
DX: K70.31 Alcoholic cirrhosis of liver with ascites (principal)
CPT/HCPCS: 49083; 87070; 87205; 89051; P9047; 85060; J2001

== ENCOUNTER 2017-12-05 06:38 | Day surgery (SDC) | payer MEDICARE, OTHER ==
[2017-12-04 13:33] VITALS: BMI 36.6
[2017-12-05] MEDS ORDERED: Albumin 25% 200 ML ONE (07:09)
[2017-12-05] MEDS ORDERED: Sodium Bicarbonate 2.5 MEQ/5 ML VIAL ONE (07:09)
[2017-12-05] MEDS ORDERED: Lidocaine 1% MPF 2 ML VIAL ONE (07:10)
[2017-12-05 09:29] LABS: BF Color Yellow; Body Fluid Source Ascites Body Fluid; Clarity Hazy (Clear); Tube # EDTA
--- NOTE | 2017-12-05 09:34 | ULT ---
ULTRASOUND GUIDED PARACENTESIS: Date: 12-05-17 History: Ascites. Technique: After informed consent was obtained, the patient was placed on the sonography table in the supine position. An area at the midaxillary line right midabdomen was marked and the area was then m eticulously prepped and draped in the usual sterile fashion. Skin and subcutaneous tissues were infiltrated with buffered 1% Lidocaine for local anesthesia. Small skin incision was made. Utilizing concurrent real-time ultrasound guidance, a 19 gauge Direct Flow Medical needle w ith 5 Andorran sheath was advanced into the abdomen. After the return of fluid, the sheath was advanced and the needle was removed. Approximately 7 L of clear straw colored fluid was aspirated. Introducer sheath was removed and hemostatis was achieved with direct pressure. Post paracentesis sonographic i maging demonstrates a small amount of intraperitoneal free fluid in the right lower quadrant. IMPRESSION: Technically successful paracentesis with aspiration of 7 L of clear straw colored fluid. POS: [facility]
[2017-12-05 09:40] LABS: BF RBC Count - Manual 263 /cumm; BF WBC/Nonhematics Ct. - Manua 150 /cumm
[2017-12-05 10:05] VITALS: BP 120/65; TEMP 98.3
[2017-12-05 11:09] LABS: BF Segmented Neutrophils 10 %; Cell Count Non Hematic 70 %; Lymphocytes 20 %
== END 2017-12-05 08:45 | disposition home or self-care (01) ==
LOC: ULT 06:38
PROVIDERS: ATTEND Internal Medicine Gastroenterology
PROC: 0W9G3ZZ Drainage of Peritoneal Cavity, Percutaneous Approach (ICD-10-PCS; principal; 2017-12-05)
DX: K70.31 Alcoholic cirrhosis of liver with ascites (principal)
CPT/HCPCS: 49083; 87070; 87205; 89051; P9047; 85060

== ENCOUNTER 2017-12-12 06:36 | Day surgery (SDC) | payer MEDICARE, OTHER ==
[2017-12-12] MEDS ORDERED: Sodium Bicarbonate 2.5 MEQ/5 ML VIAL ONE (06:38)
[2017-12-12] MEDS ORDERED: Sodium Chloride 0.9% 10 ML ONE (06:38)
[2017-12-12] MEDS ORDERED: Lidocaine 1% PF 5 ML VIAL ONE (06:39)
[2017-12-12] MEDS ORDERED: Albumin 25% 200 ML ONE (06:39)
[2017-12-12 08:41] VITALS: BMI 33.6
[2017-12-12 08:47] VITALS: BP 108/60; TEMP 98.6
--- NOTE | 2017-12-12 09:35 | ULT ---
ULTRASOUND GUIDED PARACENTESIS: Date: 12/12/17 HISTORY: Ascites. COMPARISON: Ultrasound paracentesis dated 12/05/17. FINDINGS: The patient was brought to the ultrasound suite. All questions were answered. Informed consent was obtained and timeout was performed. The patient's right lower quadrant was prepp ed and draped in the normal sterile fashion. 4 mL of buffered lidocaine was instilled into the superf icial and deep soft tissues. Small dermatotomy was made after adequate anesthesia. Using a 5 Mongolian Yueh needle, the peritoneal sp mary was accessed. A total of 4.650 mL of straw-colored fluid was removed. IMPRESSION: Technically successful ultrasound guided paracentesis. POS: [facility]
[2017-12-12 10:24] LABS: BF Color Yellow; Body Fluid Source PARACENTESIS FLD; Clarity Hazy (Clear); Tube # EDTA
[2017-12-12 10:25] LABS: BF RBC Count - Manual 998 /cumm; BF WBC/Nonhematics Ct. - Manua 165 /cumm
[2017-12-12 11:08] LABS: BF Segmented Neutrophils 14 %; Cell Count Non Hematic 47 %; Lymphocytes 39 %
== END 2017-12-12 08:35 | disposition home or self-care (01) ==
LOC: ULT 06:36
PROVIDERS: ATTEND Internal Medicine Gastroenterology
PROC: 0W9G3ZZ Drainage of Peritoneal Cavity, Percutaneous Approach (ICD-10-PCS; principal; 2017-12-12)
DX: K70.31 Alcoholic cirrhosis of liver with ascites (principal)
CPT/HCPCS: 49083; 85060; 87070; 87205; 89051; A4216; J2001; P9047

== ENCOUNTER 2017-12-19 06:56 | Day surgery (SDC) | payer MEDICARE, OTHER ==
[~2017-12-19 06:56] MED LIST changes: -Albumin 25% 200 ML ONE; -Lidocaine 1% PF 5 ML VIAL ONE; +Prevnar 13-Val Conj/PF 0.5 ML SYRINGE IM ONE; -Sodium Bicarbonate 2.5 MEQ/5 ML VIAL ONE
[2017-12-19] MEDS ORDERED: Lidocaine 1% MPF 2 ML VIAL ONE (07:40)
[2017-12-19] MEDS ORDERED: Sodium Bicarbonate 2.5 MEQ/5 ML VIAL ONE (07:41)
[2017-12-19] MEDS ORDERED: Lidocaine 1% PF 5 ML VIAL ONE (07:41)
--- NOTE | 2017-12-19 09:32 | ULT ---
ULTRASOUND GUIDED PARACENTESIS: Date: 12/19/17 HISTORY: Refractory ascites. TECHNIQUE: After informed consent was obtained, the patient was placed on the sonography table in supine positio n. Limited sonographic evaluation of the abdomen was performed. An area in the mid axillary line of r ight upper quadrant was marked and then meticulously prepped and draped in the usual sterile fashion. Patient was administered albumin intravenously during the procedure, as requested. Skin and subcutaneous tissues at the intended puncture site were infiltrated with buffered 1% lidocai ne for local anesthesia. A small skin incision was made. Utilizing concurrent real-time ultrasound gu idance, a 19 gauge Simple Titheeh needle with 5 Macedonian sheath was advanced into the abdomen. After return of fl uid, the sheath was advanced, and needle was removed. Approximately 7 liters of clear, straw-colored fluid was aspirated. Introducer sheath was removed and hemostasis was achieved with direct pressure. A dry, sterile dressing was placed. The patient tolerated the procedure well and without immediate complication. Imaging post paracentesi s does demonstrate residual intraperitoneal free fluid. IMPRESSION: Technically successful ultrasound guided paracentesis. POS: [facility]
== END 2017-12-19 08:25 | disposition home or self-care (01) ==
LOC: ULT 06:56
PROVIDERS: ATTEND Internal Medicine Gastroenterology
PROC: 0W9G3ZZ Drainage of Peritoneal Cavity, Percutaneous Approach (ICD-10-PCS; principal; 2017-12-19)
DX: R18.8 Other ascites (principal); K74.60 Unspecified cirrhosis of liver; Z79.84 Long term (current) use of oral hypoglycemic drugs; Z79.899 Other long term (current) drug therapy
CPT/HCPCS: 49083; J2001

== ENCOUNTER 2017-12-26 06:35 | Day surgery (SDC) | payer MEDICARE, OTHER ==
[2017-12-25 12:43] VITALS: BMI 33.6
[2017-12-26] MEDS ORDERED: Albumin 25% 200 ML ONE (07:00)
[2017-12-26] MEDS ORDERED: Lidocaine 1% PF 5 ML VIAL ONE (07:00)
[2017-12-26] MEDS ORDERED: Sodium Bicarbonate 2.5 MEQ/5 ML VIAL ONE (07:00)
[2017-12-26] MEDS ORDERED: Sodium Chloride 0.9% 20 ML ONE (07:30)
[2017-12-26 08:47] VITALS: BP 122/69; TEMP 98.2
--- NOTE | 2017-12-26 09:48 | ULT ---
ULTRASOUND GUIDED PARACENTESIS: Date: 12/26/17 HISTORY: Ascites. COMPARISON: Paracentesis dated 12/19/17 and 12/12/17. TECHNIQUE/FINDINGS: The patient was brought to the ultrasound suite and all questions were answered. The patient's right lower quadrant was prepped and draped in the normal sterile fashion. Informed consent was obtained. T imeout was performed. Approximately 4 mL of buffered lidocaine was instilled into the superficial and deep soft tissues. Sm all dermatotomy was made. Using a 5 Puerto Rican Yueh needle, the peritoneal space was accessed. Approximat jenni 7 liters of fluid removed. IMPRESSION: Technically successful ultrasound guided paracentesis. POS: [facility]
[2017-12-26 10:44] LABS: BF Color Yellow; Body Fluid Source Ascites Body Fluid; Clarity Clear (Clear)
[2017-12-26 10:45] LABS: BF RBC Count - Manual 171 /cumm; BF WBC/Nonhematics Ct. - Manua 134 /cumm; RBC Background Count 0.001
[2017-12-26 11:18] LABS: BF Segmented Neutrophils 20 %; Cell Count Non Hematic 53 %; Lymphocytes 27 %
== END 2017-12-26 08:40 | disposition home or self-care (01) ==
LOC: ULT 06:35
PROVIDERS: ATTEND Internal Medicine Gastroenterology
PROC: 0W9G3ZZ Drainage of Peritoneal Cavity, Percutaneous Approach (ICD-10-PCS; principal; 2017-12-26)
DX: K70.31 Alcoholic cirrhosis of liver with ascites (principal); K70.40 Alcoholic hepatic failure without coma; F10.20 Alcohol dependence, uncomplicated; K42.9 Umbilical hernia without obstruction or gangrene; E11.9 Type 2 diabetes mellitus without complications; I10 Essential (primary) hypertension; E78.5 Hyperlipidemia, unspecified
CPT/HCPCS: 49083; 87070; 87205; 89051; P9047; 85060; A4216; J2001

== ENCOUNTER 2018-01-02 07:06 | Day surgery (SDC) | payer MEDICARE, OTHER ==
[2018-01-01 11:33] VITALS: BMI 35.9
[2018-01-02] MEDS ORDERED: Sodium Chloride 0.9% 10 ML ONE (07:14)
[2018-01-02] MEDS ORDERED: Albumin 25% 200 ML ONE (07:14)
[2018-01-02] MEDS ORDERED: Sodium Bicarbonate 2.5 MEQ/5 ML VIAL ONE ×2 (07:14→08:33)
[2018-01-02] MEDS ORDERED: Lidocaine 1% PF 5 ML VIAL ONE (07:56)
[2018-01-02] MEDS ORDERED: Lidocaine 1% MPF 2 ML VIAL ONE ×2 (08:33→08:35)
[2018-01-02 08:54] VITALS: BP 112/73; TEMP 98.5
--- NOTE | 2018-01-02 11:29 | ULT ---
ULTRASOUND GUIDED PARACENTESIS THERAPEUTIC: DATE: 01/02/2018. HISTORY: A 57-year-old male with cirrhosis and abdominal distention due to ascites. TECHNIQUE: Signed informed consent obtained. Four-quadrant ultrasound scan of abdomen. Right lower quadrant se lected. Overlying skin prepared and draped in the usual sterile fashion. A 25-gauge needle was used to apply buffered Lidocaine superficially and deeply. A 5 Monegasque Yueh catheter with stylette advanc ed in tandem with the 25-gauge needle into a large pocket of free fluid in the right lower quadrant. Stylette removed. 25-gauge needle removed. Yueh catheter connected to series of evacuated bottles via plastic tubing. After procedure, Yueh catheter removed. The patient tolerated the procedure wel l. No complications. FINDINGS: Prior to the procedure, ultrasound images demonstrate a large volume of free intraperitoneal fluid. A total of 7000 mL of nonhemorrhagic ascites fluid was drained. Postprocdure image of right lower qu adrant demonstrates a small amount of residual fluid. IMPRESSION: Successful therapeutic paracentesis, with drainage of 7 mL of ascites fluid. POS: [facility]
[2018-01-02 11:47] LABS: BF Color Yellow; Body Fluid Source Ascites Body Fluid; Clarity Clear (Clear); Tube # EDTA
[2018-01-02 11:48] LABS: RBC Background Count 0.006
[2018-01-02 12:44] LABS: BF RBC Count - Manual 196 /cumm; BF WBC/Nonhematics Ct. - Manua 95 /cumm
[2018-01-02 13:04] LABS: BF Segmented Neutrophils 14 %; Cell Count Non Hematic 68 %; Lymphocytes 18 %
== END 2018-01-02 09:05 | disposition home or self-care (01) ==
LOC: ULT 07:06
PROVIDERS: ATTEND Internal Medicine Gastroenterology
PROC: 0W9G3ZZ Drainage of Peritoneal Cavity, Percutaneous Approach (ICD-10-PCS; principal; 2018-01-02)
DX: K70.31 Alcoholic cirrhosis of liver with ascites (principal)
CPT/HCPCS: 49083; 87070; 87205; 89051; P9047; 85060; A4216; J2001

== ENCOUNTER 2018-01-09 07:16 | Day surgery (SDC) | payer MEDICARE ==
[2018-01-09] MEDS ORDERED: Albumin 25% 200 ML ONE (07:37)
[2018-01-09] MEDS ORDERED: Sodium Bicarbonate 2.5 MEQ/5 ML VIAL ONE (07:37)
[2018-01-09] MEDS ORDERED: Lidocaine 1% PF 5 ML VIAL ONE (07:37)
[2018-01-09 07:40] LABS: #Basophils 0.1 thou/uL (0.0-0.2); #Eosinphils 0.1 thou/uL (0.0-0.7); #Lymphocytes 0.4 thou/uL (1.20-3.40); #Monocytes 0.3 thou/uL (0.11-0.59); #Neutrophils 3.1 thou/uL (1.40-6.50); %Basophils 1.6 % (0.0-1.0); %Neutrophils 79.4 % (42.0-75.0); Hemoglobin 12.4 g/dL (14.0-18.0); Mean Corpuscular HGB CONC 31.9 g/dL (32.0-36.0); Mean Corpuscular Hemoglobin 32.4 pg (27.0-31.0); Mean Platelet Volume 10.7 fL (7.4-10.4); Platelet Count 62 thou/uL (130-400); RBC Distribution Width 16.3 % (11.5-14.5); Red Blood Cell (RBC) Count 3.82 mill/uL (4.70-6.10); White Blood Cell (WBC) Count 3.9 thou/uL (4.8-10.8)
[2018-01-09 09:40] VITALS: BP 136/76; TEMP 98.2
[2018-01-09 09:42] VITALS: BMI 31.8
--- NOTE | 2018-01-09 10:35 | ULT ---
ULTRASOUND-GUIDED PARACENTESIS: CLINICAL INDICATION: Ascites. PROCEDURE: After informed consent had been obtained, the patient was escorted to the ultrasound suite and placed in a supine position. The abdomen was imaged which revealed adequate ascites for the procedure. Th e skin of the abdomen was then prepped and draped in the standard sterile fashion and the skin surfac e, subcutaneous tissues, and peritoneal lining of the abdomen were anesthetized with 1% Lidocaine buf fered with sodium bicarbonate. A right lower quadrant approach was selected. A small skin incision was made at the site of topical anesthesia. Subsequently, under real-time ultrasound guidance a Optovue catheter was advanced through the incision site into the peritoneal cavity. Ascites was present at the catheter hub. The catheter was then secured to vacuum sealed sterile containers, via sterile tub ing and subsequently 7 L of clear-yellow ascites was drained from the patient. The catheter was then removed from the patient. The patient tolerated the procedure well without evidence of complication . Postprocedure imaging revealed no complication and interval reduction in volume of ascites. The p atient was monitored by a radiology nurse and was stable in condition. IMPRESSION: Technically successful ultrasound-guided paracentesis, as above. POS: [facility]
[2018-01-09 11:09] LABS: BF Color Yellow; BF RBC Count - Manual 130 /cumm; BF WBC/Nonhematics Ct. - Manua 163 /cumm; Body Fluid Source Ascites Body Fluid; Clarity Hazy (Clear); Tube # EDTA
[2018-01-09 11:23] LABS: BF Segmented Neutrophils 10 %; Cell Count Non Hematic 80 %; Lymphocytes 10 %
== END 2018-01-09 09:10 | disposition home or self-care (01) ==
LOC: ULT 07:16
PROVIDERS: ATTEND Internal Medicine Gastroenterology
PROC: 0W9G3ZZ Drainage of Peritoneal Cavity, Percutaneous Approach (ICD-10-PCS; principal; 2018-01-09)
DX: K70.31 Alcoholic cirrhosis of liver with ascites (principal)
CPT/HCPCS: 49083; 85025; 87070; 87205; 89051; P9047; 36415; 85060; J2001

== ENCOUNTER 2018-01-16 07:04 | Day surgery (SDC) | payer MEDICARE ==
[2018-01-15 14:00] VITALS: BMI 24.4
[2018-01-16] MEDS ORDERED: Albumin 25% 200 ML ONE (07:37)
[2018-01-16] MEDS ORDERED: Lidocaine 1% PF 5 ML VIAL ONE (07:37)
[2018-01-16] MEDS ORDERED: Sodium Bicarbonate 2.5 MEQ/5 ML VIAL ONE (07:37)
[2018-01-16 09:04] LABS: BF Color Yellow; Body Fluid Source Ascites Body Fluid; Clarity Hazy (Clear); Tube # EDTA
[2018-01-16 11:02] VITALS: BP 117/73; TEMP 98.1
--- NOTE | 2018-01-16 11:09 | ULT ---
ULTRASOUND GUIDED PARACENTESIS: INDICATIONS: Ascites. TECHNIQUE: Informed consent was obtained. A pre-procedure ultrasound demonstrated a prominent amount of fluid i n the abdominal cavity. The site overlying the right lower quadrant was prepped and draped in the us ual sterile fashion. Buffered 1% Lidocaine was administered to the overlying subcutaneous tissues. A small incision was made. A 5 Croatian Yueh catheter was guided down into the largest collection, in the right lower quadrant of the abdomen. There was removal of 7 L of normal appearing peritoneal flu id. Mild residua was seen within the abdominal cavity. IMPRESSION: Successful ultrasound guided paracentesis with removal of 7 L of normal appearing peritoneal fluid. POS: [facility]
[2018-01-16 11:32] LABS: BF RBC Count - Manual 159 /cumm; BF WBC/Nonhematics Ct. - Manua 173 /cumm
[2018-01-16 12:16] LABS: BF Segmented Neutrophils 24 %; Cell Count Non Hematic 53 %; Lymphocytes 23 %
== END 2018-01-16 09:00 | disposition home or self-care (01) ==
LOC: ULT 07:04
PROVIDERS: ATTEND Internal Medicine Gastroenterology
PROC: 0W9G3ZZ Drainage of Peritoneal Cavity, Percutaneous Approach (ICD-10-PCS; principal; 2018-01-16)
DX: K70.31 Alcoholic cirrhosis of liver with ascites (principal)
CPT/HCPCS: 49083; 87070; 87205; 89051; P9047; 85060; J2001

== ENCOUNTER 2018-01-23 07:02 | Day surgery (SDC) | payer MEDICARE ==
[2018-01-23] MEDS ORDERED: Albumin 25% 200 ML ONE (07:44)
[2018-01-23] MEDS ORDERED: Lidocaine 1% PF 5 ML VIAL ONE (07:44)
[2018-01-23] MEDS ORDERED: Sodium Bicarbonate 2.5 MEQ/5 ML VIAL ONE (07:44)
[2018-01-23 09:39] VITALS: BP 122/69; TEMP 98.3
[2018-01-23 11:09] LABS: BF Color Yellow; BF RBC Count - Manual 181 /cumm; BF WBC/Nonhematics Ct. - Manua 215 /cumm; Body Fluid Source Ascites Body Fluid; Clarity Hazy (Clear); Tube # EDTA
--- NOTE | 2018-01-23 11:10 | ULT ---
ULTRASOUND GUIDED PARACENTESIS: Date: 01/23/18 INDICATION: Ascites. TECHNIQUE: Informed consent was obtained. Preprocedure ultrasound demonstrated a prominent amount of fluid in th e abdominal cavity. Site overlying the right lower quadrant was prepped and draped in the usual steri le fashion. Buffered 1% lidocaine was administered into the overlying subcutaneous tissues of the rig ht lower quadrant of the abdomen. Small incision was made within the skin. A 5 Italian Integral Ad Scienceeh catheter w as then guided down via ultrasound into the largest collection in the right lower quadrant of the abd omen. There was removed of 7 liters of normal appearing peritoneal fluid. Mild residual was present w ithin the abdominal cavity following the procedure. IMPRESSION: Successful ultrasound guided paracentesis removal of 7 liters of normal appearing peritoneal fluid. POS: [facility]
[2018-01-23 11:39] LABS: BF Segmented Neutrophils 18 %; Cell Count Non Hematic 56 %; Lymphocytes 26 %
== END 2018-01-23 09:10 | disposition home or self-care (01) ==
LOC: ULT 07:02
PROVIDERS: ATTEND Internal Medicine Gastroenterology
PROC: 0W9G3ZZ Drainage of Peritoneal Cavity, Percutaneous Approach (ICD-10-PCS; principal; 2018-01-23)
DX: K70.31 Alcoholic cirrhosis of liver with ascites (principal); K70.40 Alcoholic hepatic failure without coma
CPT/HCPCS: 49083; 85060; 87070; 87205; 89051; J2001; P9047

== ENCOUNTER → 2018-01-30 | Day surgery (SDC) | payer MEDICARE ==
[~2018-01-30] MED LIST changes: +Albumin 25% 200 ML ONE; +Lidocaine 1% PF 5 ML VIAL ONE; -Prevnar 13-Val Conj/PF 0.5 ML SYRINGE IM ONE; +Sodium Bicarbonate 2.5 MEQ/5 ML VIAL ONE
--- NOTE | 2018-01-30 09:48 | ULT ---
SONOGRAPHIC GUIDED PARACENTESIS: History: Recurrent ascites. FINDINGS: After explaining the procedure and answering all questions, sonographic survey showed a large amount of free fluid throughout the abdomen. Sterile technique, buffered local anesthesia, sonographic alex nce and a right lateral approach were used to carefully advance a 19 gauge Yueh needle and catheter i nto the free fluid. Catheter was left drain a total volume of 7.0 L slightly hazy yellow liquid. Cath eter was removed. Post procedure imaging showed minimal residual fluid. Patient tolerated the procedu re well and was dismissed in good condition. IMPRESSION: Technically successful sonographic guided paracentesis. POS: [facility]
[2018-01-30 12:24] LABS: BF Color Yellow; Body Fluid Source Ascites Body Fluid; Clarity Hazy (Clear); Tube # EDTA
[2018-01-30 12:25] LABS: BF RBC Count - Manual 153 /cumm; BF WBC/Nonhematics Ct. - Manua 171 /cumm
[2018-01-30 12:28] LABS: BF Segmented Neutrophils 1 %; Cell Count Non Hematic 71 %; Lymphocytes 28 %
== END ==
LOC: ULT 07:12
PROVIDERS: ATTEND Internal Medicine Gastroenterology
PROC: 0W9G3ZZ Drainage of Peritoneal Cavity, Percutaneous Approach (ICD-10-PCS; principal; 2018-01-30)
DX: K70.31 Alcoholic cirrhosis of liver with ascites (principal)
CPT/HCPCS: 49083; 85060; 87070; 87205; 89051; J2001; P9047

== ENCOUNTER → 2018-02-06 | Day surgery (SDC) | payer MEDICARE ==
[~2018-02-06] MED LIST changes: +Sodium Chloride 0.9% 10 ML ONE
[2018-02-06 09:22] VITALS: BMI 32.8
--- NOTE | 2018-02-06 09:25 | ULT ---
ULTRASOUND GUIDED PARACENTESIS: Indication: Ascites Technique: Informed consent was obtained. Pre procedure images were obtained. The site overlying the right lower quadrant was marked. The site was prepped and draped in the usual sterile fashion. Buffered 1% Lidoc дмитрий was administered to overlying subcutaneous tissues. A small incision was made. A 5 Bengali Yueh c atheter was then guided down into the largest quadrant of fluid in the right lower quadrant. Catheter was left to drain a total of 7 L of fluid. Catheter was removed. Post procedure imaging shows a mild amount of residual. Patient tolerated the procedure without difficulty. IMPRESSION: Technically successful sonographic guided paracentesis with removal of 7 L of normal appearing perito mario fluid. POS: [facility]
[2018-02-06 10:36] LABS: BF Color Yellow; Body Fluid Source Ascites Body Fluid; Clarity Hazy (Clear); Tube # EDTA
[2018-02-06 10:37] LABS: BF RBC Count - Manual 130 /cumm; BF WBC/Nonhematics Ct. - Manua 120 /cumm
[2018-02-08 13:57] LABS: BF Segmented Neutrophils 14 %; Cell Count Non Hematic 70 %; Eosinophils 1 %; Lymphocytes 14 %
== END ==
LOC: ULT 07:09
PROVIDERS: ATTEND Internal Medicine Gastroenterology
PROC: 0W9G3ZZ Drainage of Peritoneal Cavity, Percutaneous Approach (ICD-10-PCS; principal; 2018-02-06)
DX: K70.31 Alcoholic cirrhosis of liver with ascites (principal)
CPT/HCPCS: 49083; 87070; 87205; 89051; P9047; 85060; J2001

== ENCOUNTER 2018-02-13 07:00 | Day surgery (SDC) | payer MEDICARE ==
[2018-02-13 08:55] VITALS: BP 134/66; TEMP 97.8
[2018-02-13 08:56] VITALS: BMI 32.8
--- NOTE | 2018-02-13 09:41 | ULT ---
SONOGRAPHIC GUIDED PARACENTESIS: HISTORY: Recurrent ascites. FINDINGS: After explaining the procedure and answering all questions, sonographic survey shows a large amount o f free fluid throughout the abdomen. Sterile technique, buffered local anesthesia, sonographic alex nce, and a lateral lower quadrant approach were used to carefully advance a 19 gauge Yueh needle and catheter into the free fluid. The catheter was left to drain a total volume of 7.0 liter slightly cl oudy yellow liquid. The catheter was removed. Postprocedure imaging shows a large amount of residua l fluid. The patient tolerated the procedure well and was dismissed in good condition. IMPRESSION: 1. Technically successful sonographic-guided paracentesis. 2. A large amount of fluid remained within the abdomen after removal of 7 liters. POS: [facility]
== END 2018-02-13 08:30 | disposition home or self-care (01) ==
LOC: ULT 07:00
PROVIDERS: ATTEND Internal Medicine Gastroenterology
PROC: 0W9G3ZZ Drainage of Peritoneal Cavity, Percutaneous Approach (ICD-10-PCS; principal; 2018-02-13)
DX: K70.31 Alcoholic cirrhosis of liver with ascites (principal)
CPT/HCPCS: 49083

== ENCOUNTER 2018-02-20 06:59 | Day surgery (SDC) | payer MEDICARE ==
[2018-02-19 12:07] VITALS: BMI 32.8
[2018-02-20] MEDS ORDERED: Sodium Bicarbonate 2.5 MEQ/5 ML VIAL ONE (07:20)
[2018-02-20] MEDS ORDERED: Albumin 25% 200 ML ONE (07:20)
[2018-02-20] MEDS ORDERED: Lidocaine 1% PF 5 ML VIAL ONE (07:20)
[2018-02-20 08:53] VITALS: BP 131/72; TEMP 98.5
[2018-02-20 09:59] LABS: BF Color Yellow; BF RBC Count - Manual 169 /cumm; BF WBC/Nonhematics Ct. - Manua 173 /cumm; Body Fluid Source Ascites Body Fluid; Clarity Hazy (Clear); Tube # EDTA
--- NOTE | 2018-02-20 10:23 | ULT ---
ULTRASOUND GUIDED PARACENTESIS: HISTORY: Recurrent ascites. FINDINGS: After informed consent was obtained, the patient was prepped and draped in the normal sterile fashion . A right lower quadrant fluid collection was chosen for the paracentesis. Local anesthesia was obt ained with 1% Xylocaine mixed with sodium bicarb. A small skin incision was made with a #11 scalpel blade. A 6 Nigerien Yueh catheter is introduced under ultrasound guidance. Seven liters of typical as cites was obtained. The patient tolerated the procedure well. There were no immediate complications . IMPRESSION: Ultrasound-guided paracentesis with 7 L of fluid. No immediate complications of the procedure. POS: [facility]
[2018-02-20 11:53] LABS: Eosinophils 1 %
[2018-02-20 11:54] LABS: BF Segmented Neutrophils 10 %; Cell Count Non Hematic 80 %; Lymphocytes 9 %
== END 2018-02-20 08:35 | disposition home or self-care (01) ==
LOC: ULT 06:59
PROVIDERS: ATTEND Internal Medicine Gastroenterology
PROC: 0W9G3ZZ Drainage of Peritoneal Cavity, Percutaneous Approach (ICD-10-PCS; principal; 2018-02-20)
DX: K70.31 Alcoholic cirrhosis of liver with ascites (principal)
CPT/HCPCS: 49083; 87070; 87205; 89051; P9047; 85060; J2001

== ENCOUNTER 2018-02-27 07:09 | Day surgery (SDC) | payer MEDICARE ==
[2018-02-27] MEDS ORDERED: Albumin 25% 200 ML ONE (07:36)
[2018-02-27] MEDS ORDERED: Lidocaine 1% PF 5 ML VIAL ONE (07:36)
[2018-02-27] MEDS ORDERED: Sodium Bicarbonate 2.5 MEQ/5 ML VIAL ONE (07:36)
[2018-02-27 09:39] VITALS: BP 132/70; TEMP 98; BMI 31.0
--- NOTE | 2018-02-27 11:42 | ULT ---
SONOGRAPHIC GUIDED PARACENTESIS: HISTORY: Recurrent ascites. TECHNIQUE: After explaining the procedure and answering all questions, sonographic survey shows a large amount o f free fluid. Sterile technique, buffered local anesthesia, sonographic guidance, and a right lower quadrant approach were used to carefully advance a 19 gauge Yueh needle and catheter into the free fl uid. The catheter was left to drain a total volume of 7.0 L of cloudy-yellow liquid. The catheter w as removed. The patient tolerated the procedure well and was dismissed in good condition. IMPRESSION: Technically successful sonographic guided paracentesis. POS: [facility]
[2018-02-27 12:09] LABS: BF Color Yellow; BF RBC Count - Manual 215 /cumm; BF WBC/Nonhematics Ct. - Manua 210 /cumm; Body Fluid Source Ascites Body Fluid; Clarity Hazy (Clear)
[2018-02-27 12:26] LABS: BF Segmented Neutrophils 4 %; Cell Count Non Hematic 78 %; Lymphocytes 18 %
== END 2018-02-27 09:30 | disposition home or self-care (01) ==
LOC: ULT 07:09
PROVIDERS: ATTEND Internal Medicine Gastroenterology
PROC: 0W9G3ZZ Drainage of Peritoneal Cavity, Percutaneous Approach (ICD-10-PCS; principal; 2018-02-27)
DX: K70.31 Alcoholic cirrhosis of liver with ascites (principal)
CPT/HCPCS: 49083; 87070; 87205; 89051; P9047; 85060; J2001

== ENCOUNTER 2018-03-06 07:22 | Day surgery (SDC) | payer MEDICARE ==
[2018-03-06] MEDS ORDERED: Sodium Bicarbonate 2.5 MEQ/5 ML VIAL ONE (08:31)
[2018-03-06] MEDS ORDERED: Albumin 25% 200 ML ONE (08:31)
--- NOTE | 2018-03-06 09:21 | ULT ---
SONOGRAPHIC GUIDED PARACENTESIS: HISTORY: Recurrent ascites. FINDINGS: After explaining the procedure and answering all questions, sonographic survey shows a large amount o f free fluid throughout the abdomen. Sterile technique, buffered local anesthesia, sonographic alex nce, and a right lateral abdominal approach were used to carefully advance a 19-gauge Yueh needle and catheter into the free fluid. Catheter was left to drain a total volume of 6.0 liter cloudy yellow liquid. Minimal fluid remained within the abdomen. Catheter was removed. The patient tolerated the procedure well and was dismissed in good condition. IMPRESSION: Technically successful sonographic-guided paracentesis. POS: [facility]
[2018-03-06 09:56] VITALS: BMI 32.8
[2018-03-06 09:57] VITALS: BP 113/70; TEMP 98.2
[2018-03-06 11:20] LABS: BF Color Yellow; BF RBC Count - Manual 196 /cumm; BF WBC/Nonhematics Ct. - Manua 158 /cumm; Body Fluid Source Ascites Body Fluid; Clarity Hazy (Clear); Tube # 1
[2018-03-06 12:39] LABS: BF Segmented Neutrophils 7 %; Cell Count Non Hematic 75 %; Lymphocytes 18 %
== END 2018-03-06 09:30 | disposition home or self-care (01) ==
LOC: ULT 07:22
PROVIDERS: ATTEND Internal Medicine Gastroenterology
PROC: 0W9G3ZZ Drainage of Peritoneal Cavity, Percutaneous Approach (ICD-10-PCS; principal; 2018-03-06)
DX: K70.31 Alcoholic cirrhosis of liver with ascites (principal); K72.90 Hepatic failure, unspecified without coma; E11.9 Type 2 diabetes mellitus without complications; E78.5 Hyperlipidemia, unspecified; I10 Essential (primary) hypertension; Z79.84 Long term (current) use of oral hypoglycemic drugs; Z79.899 Other long term (current) drug therapy
CPT/HCPCS: 49083; 87070; 87205; 89051; P9047; 85060

== ENCOUNTER 2018-03-13 07:20 | Day surgery (SDC) | payer MEDICARE ==
[2018-03-12 13:27] VITALS: BMI 32.8
[2018-03-13] MEDS ORDERED: Albumin 25% 200 ML ONE (07:28)
[2018-03-13] MEDS ORDERED: Sodium Bicarbonate 2.5 MEQ/5 ML VIAL ONE (07:28)
[2018-03-13 09:26] VITALS: BP 117/46; TEMP 98.4
--- NOTE | 2018-03-13 09:29 | ULT ---
ULTRASOUND GUIDED PARACENTESIS: Date: 03-13-18 History: Symptomatic ascites. FINDINGS: Informed consent obtained prior to the procedure. Pre-procedural imaging demonstrates significant asc ites throughout the abdomen/pelvis. Right lower quadrant was prepped and draped in normal sterile fashion and anesthetized with 1% buffer ed Lidocaine. With direct ultrasound guidance, a 5 American Yueh catheter is advanced into the ascites within the rig ht lower quadrant. Removal of stylet yields yellow fluid. 6.7 L were removed. The patient tolerated t he procedure well. IMPRESSION: Successful ultrasound guided paracentesis as above. POS: [facility]
[2018-03-13 10:55] LABS: BF Color Yellow; BF RBC Count - Manual 475 /cumm; BF WBC/Nonhematics Ct. - Manua 110 /cumm; Body Fluid Source Ascites Body Fluid; Clarity Hazy (Clear); Tube # EDTA
[2018-03-13 12:31] LABS: BF Segmented Neutrophils 5 %; Cell Count Non Hematic 86 %; Lymphocytes 9 %
== END 2018-03-13 09:00 | disposition home or self-care (01) ==
LOC: ULT 07:20
PROVIDERS: ATTEND Internal Medicine Gastroenterology
PROC: 0W9G3ZZ Drainage of Peritoneal Cavity, Percutaneous Approach (ICD-10-PCS; principal; 2018-03-13)
DX: R18.8 Other ascites (principal); K74.60 Unspecified cirrhosis of liver; I85.10 Secondary esophageal varices without bleeding; Z88.5 Allergy status to narcotic agent
CPT/HCPCS: 49083; 87070; 87205; 89051; P9047; 85060

== ENCOUNTER 2018-03-20 07:12 | Day surgery (SDC) | payer MEDICARE ==
[2018-03-15 12:55] VITALS: BMI 27.1
[2018-03-20] MEDS ORDERED: Albumin 25% 200 ML ONE (07:19)
[2018-03-20 11:08] VITALS: BP 102/67; TEMP 98.3
[2018-03-20 11:47] LABS: Body Fluid Source Ascites Body Fluid; Clarity Hazy (Clear)
[2018-03-20 11:48] LABS: BF Color Yellow; Tube # EDTA
[2018-03-20 11:56] LABS: BF RBC Count - Manual 175 /cumm; BF WBC/Nonhematics Ct. - Manua 155 /cumm
--- NOTE | 2018-03-20 12:17 | ULT ---
ULTRASOUND GUIDED PARACENTESIS: Date; 03/20/18 HISTORY: Recurrent ascites. TECHNIQUE: After informed consent was obtained, the patient was placed on the angiography table in the supine po sition. Limited sonographic evaluation of the abdomen was performed. An area in the mid axillary line right upper quadrant was marked, and the area was meticulously prepped and draped in the usual steri le fashion. Skin and subcutaneous tissues were infiltrated with buffered 1% lidocaine for local anesthesia. A sma ll skin incision was made. Utilizing concurrent real-time ultrasound guidance, a 19 gauge Gracious Eloiseeh needle with 5 Guinean sheath was advanced into the abdomen. Approximately 7 liters of clear, yellow-colored fluid was aspirated. Approximately 50 gm of albumin was administered intravenously during the exam as requested. After the catheter was removed, hemostasis was achieved with direct pressure. A dry, ster ile dressing was placed. The patient tolerated the procedure well and without immediate complication. IMPRESSION: Technically successful ultrasound guided paracentesis. Follow-up ultrasound examination demonstrates resolution of intraperitoneal free fluid. POS: [facility]
[2018-03-20 12:45] LABS: BF Segmented Neutrophils 9 %; Cell Count Non Hematic 64 %; Lymphocytes 27 %
== END 2018-03-20 08:35 | disposition home or self-care (01) ==
LOC: ULT 07:12
PROVIDERS: ATTEND Internal Medicine Gastroenterology
PROC: 0W9G3ZX Drainage of Peritoneal Cavity, Percutaneous Approach, Diagnostic (ICD-10-PCS; principal; 2018-03-20)
DX: K70.31 Alcoholic cirrhosis of liver with ascites (principal); K72.90 Hepatic failure, unspecified without coma; E11.9 Type 2 diabetes mellitus without complications; I10 Essential (primary) hypertension; E78.5 Hyperlipidemia, unspecified; Z79.84 Long term (current) use of oral hypoglycemic drugs; Z79.899 Other long term (current) drug therapy
CPT/HCPCS: 49083; 87070; 87205; 89051; P9047; 85060

== ENCOUNTER 2018-03-27 07:04 | Day surgery (SDC) | payer MEDICARE ==
[2018-03-27] MEDS ORDERED: Albumin 25% 200 ML ONE (07:19)
[2018-03-27] MEDS ORDERED: Sodium Bicarbonate 2.5 MEQ/5 ML VIAL ONE (07:19)
[2018-03-27 08:55] LABS: BF Color Yellow; Body Fluid Source Ascites Body Fluid; Clarity Hazy (Clear); Tube # EDTA
--- NOTE | 2018-03-27 10:09 | ULT ---
ULTRASOUND GUIDED PARACENTESIS: Date: 03-27-18 History: Cirrhosis and refractory ascites. Technique: After informed consent was obtained, the patient was placed on the sonography table in supine positio n. Limited sonographic evaluation of the abdomen was performed. An area in the midaxillary line right upper quadrant was marked and the area of meticulously prepped and draped in the usual sterile fashi on. Skin and subcutaneous tissues were infiltrated with buffered 1% Lidocaine for local anesthesia. Small skin incision was made. Utilizing concurrent real-time ultrasound guidance, a 19 gauge PlayDataeh needle with sheath was advanced i nto the abdomen. After return of fluid, the sheath was advanced and the needle was removed. Approxima tely 6500 ml of slightly cloudy straw colored fluid was aspirated. Catheter was removed. Hemostatis w as achieved with direct pressure. The patient tolerated the procedure well and without immediate complication. IMPRESSION: Technically successful ultrasound guided paracentesis. POS: [facility]
[2018-03-27 11:33] LABS: BF RBC Count - Manual 230 /cumm; BF WBC/Nonhematics Ct. - Manua 165 /cumm
[2018-03-27 11:47] LABS: BF Segmented Neutrophils 12 %; Cell Count Non Hematic 77 %; Lymphocytes 11 %
[2018-03-27 14:52] VITALS: BP 110/64; TEMP 97.9
== END 2018-03-27 08:50 | disposition home or self-care (01) ==
LOC: ULT 07:04
PROVIDERS: ATTEND Internal Medicine Gastroenterology
PROC: 0W9G3ZZ Drainage of Peritoneal Cavity, Percutaneous Approach (ICD-10-PCS; principal; 2018-03-27)
DX: K70.31 Alcoholic cirrhosis of liver with ascites (principal)
CPT/HCPCS: 49083; 87070; 87205; 89051; P9047; 85060

== ENCOUNTER 2018-04-03 07:06 | Day surgery (SDC) | payer MEDICARE ==
[2018-04-02 11:45] VITALS: BMI 32.9
[2018-04-03] MEDS ORDERED: Sodium Bicarbonate 2.5 MEQ/5 ML VIAL ONE (07:36)
[2018-04-03 07:39] LABS: Platelet Count 50 thou/uL (130-400)
[2018-04-03] MEDS ORDERED: Albumin 25% 200 ML ONE (09:35)
[2018-04-03 09:41] VITALS: BP 142/80; TEMP 97.7
--- NOTE | 2018-04-03 10:38 | ULT ---
ULTRASOUND GUIDED PARACENTESIS: Date: 04-03-18 History: Symptomatic ascites. FINDINGS: Informed consent obtained prior to the procedure. Pre-procedural imaging demonstrates significant ascites throughout the abdomen and pelvis. Skin in th e right midabdomen was prepped and draped in normal sterile fashion and anesthetized with 1% buffered Lidocaine. With direct sonographic guidance, a 5 Ethiopian JobOneh catheter is advanced into the ascites a nd removal of the stylet yields yellow fluid. 6 L were removed. The patient tolerated the procedure w ell. IMPRESSION: Successful ultrasound guided paracentesis yielding 6 L of yellow fluid. POS: [facility]
[2018-04-03 11:39] LABS: BF Color Yellow; Body Fluid Source Ascites Body Fluid; Clarity Hazy (Clear); Tube # EDTA
[2018-04-03 11:58] LABS: BF RBC Count - Manual 257 /cumm; BF WBC/Nonhematics Ct. - Manua 127 /cumm
[2018-04-03 12:30] LABS: BF Segmented Neutrophils 5 %; Cell Count Non Hematic 37 %; Lymphocytes 58 %
== END 2018-04-03 08:55 | disposition home or self-care (01) ==
LOC: ULT 07:06
PROVIDERS: ATTEND Internal Medicine Gastroenterology
PROC: 0W9G3ZX Drainage of Peritoneal Cavity, Percutaneous Approach, Diagnostic (ICD-10-PCS; principal; 2018-04-03)
DX: R18.8 Other ascites (principal); K74.60 Unspecified cirrhosis of liver; Z79.84 Long term (current) use of oral hypoglycemic drugs; Z79.899 Other long term (current) drug therapy; Z88.8 Allergy status to other drugs, medicaments and biological substances
CPT/HCPCS: 49083; 85049; 87070; 87205; 89051; P9047; 85060

== ENCOUNTER 2018-04-10 07:09 | Day surgery (SDC) | payer MEDICARE ==
[2018-04-10] MEDS ORDERED: Sodium Bicarbonate 2.5 MEQ/5 ML VIAL ONE (08:37)
[2018-04-10] MEDS ORDERED: Albumin 25% 200 ML ONE (08:37)
--- NOTE | 2018-04-10 10:03 | ULT ---
ULTRASOUND GUIDED PARACENTESIS: COMPARISON: 04/03/2018. HISTORY: Ascites. FINDINGS: Successful ultrasound-guided paracentesis. A total of 7 liters of yellow-colored fluid was aspirated . The patient tolerated the procedure well. No immediate or postprocedure complications. TECHNIQUE: Consent was obtained to perform an ultrasound-guided paracentesis. The patient's abdomen was evaluat ed. The right lower quadrant was deemed appropriate. The skin was prepped and draped in sterile fas hion. 1% Lidocaine, buffered with sodium bicarbonate, was used for local anesthesia. Under ultrasou nd guidance, a 5 Mauritian 7 cm Yueh catheter was advanced into the peritoneal space. Via vacuum bottle s, a total of 7 liters of yellow-colored ascites was aspirated. The patient tolerated the procedure well. No immediate or postprocedure complications. IMPRESSION: Successful ultrasound-guided paracentesis. POS: [facility]
[2018-04-10 14:10] LABS: Body Fluid Source Ascites Body Fluid
[2018-04-10 14:11] LABS: BF Color Yellow; BF RBC Count - Manual 183 /cumm; BF WBC/Nonhematics Ct. - Manua 180 /cumm; Clarity Hazy (Clear); Tube # EDTA
[2018-04-10 14:30] VITALS: BP 124/78; TEMP 98.6
[2018-04-10 14:40] LABS: BF Segmented Neutrophils 14 %; Cell Count Non Hematic 63 %; Eosinophils 1 %; Lymphocytes 22 %
== END 2018-04-10 09:15 | disposition home or self-care (01) ==
LOC: ULT 07:09
PROVIDERS: ATTEND Internal Medicine Gastroenterology
PROC: 0W9G3ZX Drainage of Peritoneal Cavity, Percutaneous Approach, Diagnostic (ICD-10-PCS; principal; 2018-04-10)
DX: K70.31 Alcoholic cirrhosis of liver with ascites (principal); K72.90 Hepatic failure, unspecified without coma; E11.9 Type 2 diabetes mellitus without complications; I10 Essential (primary) hypertension; E78.5 Hyperlipidemia, unspecified; Z79.84 Long term (current) use of oral hypoglycemic drugs; Z79.899 Other long term (current) drug therapy
CPT/HCPCS: 49083; 87070; 87205; 89051; P9047; 85060

== ENCOUNTER 2018-04-17 07:03 | Day surgery (SDC) | payer MEDICARE ==
[2018-04-17] MEDS ORDERED: Albumin 25% 200 ML ONE (07:40)
[2018-04-17] MEDS ORDERED: Sodium Bicarbonate 2.5 MEQ/5 ML VIAL ONE (07:40)
[2018-04-17 11:06] LABS: Body Fluid Source Ascites Body Fluid
[2018-04-17 11:07] LABS: BF Color Yellow; Clarity Hazy (Clear); Tube # EDTA
[2018-04-17 11:08] LABS: BF RBC Count - Manual 143 /cumm; BF WBC/Nonhematics Ct. - Manua 165 /cumm
--- NOTE | 2018-04-17 11:10 | ULT ---
SONOGRAPHIC GUIDED PARACENTESISS: Date: 04/17/18 HISTORY: Recurrent ascites. FINDINGS: After explaining the procedure and answering all questions, sonographic survey shows a large amount o f free fluid. Sterile technique, buffered local anesthesia, sonographic guidance, and a right lateral approach were used to carefully advanced a 19 gauge Yueh needle and catheter into the free fluid. Ca theter was left to drain a total volume of 6.5 liters of slightly cloudy yellow liquid. Catheter was removed with minimal remaining fluid. The patient tolerated the procedure well and was dismissed in g ood condition. IMPRESSION: Technically successful sonographic guided paracentesis. POS: [facility]
[2018-04-17 12:02] LABS: BF Segmented Neutrophils 4 %; Cell Count Non Hematic 91 %; Eosinophils 1 %; Lymphocytes 4 %
[2018-04-17 13:28] VITALS: BP 113/73; TEMP 98.6
== END 2018-04-17 09:10 | disposition home or self-care (01) ==
LOC: ULT 07:03
PROVIDERS: ATTEND Internal Medicine Gastroenterology
PROC: 0W9G3ZZ Drainage of Peritoneal Cavity, Percutaneous Approach (ICD-10-PCS; principal; 2018-04-17)
DX: R18.8 Other ascites (principal); K74.60 Unspecified cirrhosis of liver; Z79.84 Long term (current) use of oral hypoglycemic drugs; Z79.899 Other long term (current) drug therapy; Z88.8 Allergy status to other drugs, medicaments and biological substances
CPT/HCPCS: 49083; 87070; 87205; 89051; P9047; 85060

== ENCOUNTER 2018-04-24 07:12 | Day surgery (SDC) | payer MEDICARE ==
[2018-04-24] MEDS ORDERED: Albumin 25% 200 ML ONE (08:10)
[2018-04-24] MEDS ORDERED: Sodium Bicarbonate 2.5 MEQ/5 ML VIAL ONE (08:10)
[2018-04-24] MEDS ORDERED: methylPREDNISolone Sod Succ/PF 125 MG/2 ML VIAL ONE (08:10)
[2018-04-24 10:19] VITALS: BP 112/57; TEMP 98.7
[2018-04-24 10:32] VITALS: BMI 29.5
--- NOTE | 2018-04-24 10:33 | ULT ---
ULTRASOUND GUIDED PARACENTESIS THERAPEUTIC: DATE: 04/24/2018. HISTORY: A 57-year-old male with symptomatic ascites (abdominal distention) due to alcoholic cirrhosis. TECHNIQUE: Four-quadrant survey of abdomen with ultrasound. Signed informed consent obtained. Right lower quad rant selected. Overlying skin prepared and draped in the usual sterile fashion. A 25-gauge needle w as used to apply buffered Lidocaine superficially and deeply. A 5 Kosovan Yueh catheter with stylette was advanced in tandem with the 25-gauge needle into the pocket of free fluid in the right lower james drant. The 25-gauge needle and Yueh stylette were removed. The Yueh catheter was connected to evacu ated bottles via plastic tubing. After drainage, the catheter was removed. The patient tolerated th e procedure well. No complications. FINDINGS: Images prior to the procedure demonstrate moderate to large volume of free intraperitoneal fluid. A total of 5000 mL of nonhemorrhagic, straw-colored fluid was drained. Post drainage image of right lower quadrant demonstrates a small amount of residual fluid. IMPRESSION: Successful paracentesis, with drainage of 5 liters of ascites fluid. POS: [facility]
[2018-04-24 12:39] LABS: BF Color Yellow; BF WBC/Nonhematics Ct. - Manua 190 /cumm; Body Fluid Source Ascites Body Fluid; Clarity Hazy (Clear); Tube # EDTA
[2018-04-24 12:40] LABS: BF RBC Count - Manual 215 /cumm
[2018-04-24 12:48] LABS: BF Segmented Neutrophils 6 %; Cell Count Non Hematic 80 %; Lymphocytes 14 %
== END 2018-04-24 09:45 | disposition home or self-care (01) ==
LOC: ULT 07:12
PROVIDERS: ATTEND Internal Medicine Gastroenterology
PROC: 0W9G3ZX Drainage of Peritoneal Cavity, Percutaneous Approach, Diagnostic (ICD-10-PCS; principal; 2018-04-24)
DX: K70.31 Alcoholic cirrhosis of liver with ascites (principal); Z79.84 Long term (current) use of oral hypoglycemic drugs; Z79.899 Other long term (current) drug therapy
CPT/HCPCS: 49083; 87070; 87205; 89051; P9047; 85060; J2930

== ENCOUNTER 2018-04-25 17:24 | Emergency (ER) | payer MEDICARE ==
--- NOTE | 2018-04-25 19:40 | RAD ---
TWO VIEW CHEST: 04/25/18 INDICATION: Chest pain, injury. FINDINGS: there is a mild right pleural effusion. No lobar consolidation, or pneumothorax. The cardiac silhouet te is normal in size. IMPRESSION: Mild right basilar density favoring small volume pleural fluid. POS: [facility]
[2018-04-25 19:58] LABS: #Eosinphils 0.1 thou/uL (0.0-0.7); #Lymphocytes 0.3 thou/uL (1.20-3.40); #Monocytes 0.3 thou/uL (0.11-0.59); #Neutrophils 2.3 thou/uL (1.40-6.50); %Basophils 0.2 % (0.0-1.0); %Eosinophils 1.8 % (0.0-10.0); %Lymphocytes 11.2 % (21.0-51.0); %Monocytes 8.6 % (0.0-10.0); %Neutrophils 78.2 % (42.0-75.0); Hemoglobin 12.2 g/dL (14.0-18.0); Mean Corpuscular HGB CONC 31.1 g/dL (32.0-36.0); Mean Corpuscular Hemoglobin 31.2 pg (27.0-31.0); Mean Platelet Volume 11.3 fL (7.4-10.4); Platelet Count 49 thou/uL (130-400); RBC Distribution Width 16.9 % (11.5-14.5); Red Blood Cell (RBC) Count 3.91 mill/uL (4.70-6.10)
[2018-04-25 20:19] LABS: ALT (SGPT) 21 U/L (8-55); AST (SGOT) 34 U/L (5-34); Albumin 3.6 g/dL (3.5-5.0); Alkaline Phosphatase 179 U/L (40-150); Anion Gap 13 mmol/L (10-20); BUN (Urea Nitrogen) 15 mg/dL (8.4-25.7); Bilirubin, Total 2.6 mg/dL (0.2-1.2); CK (CPK) 183 U/L (30-200); Calc. Creatinine Clearance 0 mL/min (70-130); Calcium 9.2 mg/dL (7.8-10.44); Carbon Dioxide 25 mmol/L (22-29); Chloride 101 mmol/L (98-107); Estimated GFR-MDRD 60; Globulin 3.8 g/dL (2.4-3.5); Glucose 128 mg/dL (70-105); Potassium 3.6 mmol/L (3.5-5.1); Protein, Total 7.4 g/dL (6.0-8.3); Sodium 135 mmol/L (136-145)
[2018-04-25] MEDS ORDERED: Ketorolac Tromethamine 30 MG/ML VIAL ONE (20:22)
== END 2018-04-25 22:05 | disposition home or self-care (01) ==
LOC: ERS 17:24
DX: R07.89 Other chest pain (principal); E11.9 Type 2 diabetes mellitus without complications; E78.5 Hyperlipidemia, unspecified; I10 Essential (primary) hypertension; K70.30 Alcoholic cirrhosis of liver without ascites
CPT/HCPCS: 36415; 71046; 80053; 82550; 83880; 84484; 85025; 93005; 96372; J1885

== ENCOUNTER 2018-05-01 07:16 | Day surgery (SDC) | payer MEDICARE ==
[2018-04-30 13:08] VITALS: BMI 31.4
[2018-05-01] MEDS ORDERED: Sodium Bicarbonate 2.5 MEQ/5 ML VIAL ONE (07:32)
[2018-05-01] MEDS ORDERED: Albumin 25% 200 ML ONE (07:32)
[2018-05-01] MEDS ORDERED: Lidocaine 1% PF 5 ML VIAL ONE (07:32)
[2018-05-01 09:25] VITALS: BP 150/69; TEMP 98
--- NOTE | 2018-05-01 11:00 | ULT ---
ULTRASOUND GUIDED PARACENTESIS THERAPEUTIC: 05/01/2018 HISTORY: A 57-year-old male with symptomatic ascites, abdominal distention, due to alcoholic cirrhosis. TECHNIQUE: Signed informed consent obtained. Four-quadrant survey of abdomen with ultrasound. Right lower quad rant selected. Overlying skin prepared and draped in the usual sterile fashion. A 25 gauge needle u sed to apply buffered Lidocaine superficially and deeply. A 5 Venezuelan Yueh catheter advanced in tande m with the 25-gauge needle. The stylet removed from the Yueh catheter. The 25 gauge needle removed. The Yueh catheter connected to a series of evacuated bottles via plastic tubing. Ascites fluid matthew ined. The Yueh catheter removed. The patient tolerated procedure well. No complications. FINDINGS: Prior to the procedure, there is a large volume of free fluid throughout the peritoneal cavity. A tot al of 6000 mL of nonhemorrhagic, straw-colored fluid was drained. A single post procedure image demon strates a small amount of residual ascites. IMPRESSION: Successful therapeutic paracentesis with drainage of 6 L of ascites fluid. POS: [facility]
[2018-05-01 11:08] LABS: BF Color Yellow; BF RBC Count - Manual 833 /cumm; BF WBC/Nonhematics Ct. - Manua 138 /cumm; Body Fluid Source Ascites Body Fluid; Clarity Hazy (Clear); Tube # EDTA
[2018-05-01 11:20] LABS: BF Segmented Neutrophils 14 %; Cell Count Non Hematic 60 %; Lymphocytes 26 %
== END 2018-05-01 09:05 | disposition home or self-care (01) ==
LOC: ULT 07:16
PROVIDERS: ATTEND Internal Medicine Gastroenterology
PROC: 0W9G3ZX Drainage of Peritoneal Cavity, Percutaneous Approach, Diagnostic (ICD-10-PCS; principal; 2018-05-01)
DX: K70.31 Alcoholic cirrhosis of liver with ascites (principal); I10 Essential (primary) hypertension; E11.9 Type 2 diabetes mellitus without complications; E78.5 Hyperlipidemia, unspecified; B96.89 Other specified bacterial agents as the cause of diseases classified elsewhere; Z79.84 Long term (current) use of oral hypoglycemic drugs; Z79.899 Other long term (current) drug therapy
CPT/HCPCS: 49083; 87070; 87205; 89051; P9047; 85060; J2001

== ENCOUNTER 2018-05-08 07:17 | Day surgery (SDC) | payer MEDICARE ==
[2018-05-07 11:46] VITALS: BMI 31.4
--- NOTE | 2018-05-08 09:07 | ULT ---
ULTRASOUND GUIDED PARACENTESIS: HISTORY: Ascites. COMPARISON: 05/01/2018 FINDINGS: Successful ultrasound-guided paracentesis. A total of 6.5 L of yellow-colored ascites is aspiration. No immediate or post procedure complications. TECHNIQUE: Consent was obtained to perform an ultrasound-guided paracentesis. The abdomen was evaluated. The r ight lower quadrant was deemed appropriate. The skin was prepped and draped in a sterile fashion, an d 1% Lidocaine, buffered with sodium bicarbonate, was used for local anesthesia. Under ultrasound gu idance, a 5 Senegalese Yueh catheter was advanced into the peritoneal space. A total of 6.5 L of yellow- colored ascites was aspirated. The patient tolerated the procedure well. No immediate or post proce dure complications. IMPRESSION: Successful ultrasound guided paracentesis. POS: [facility]
[2018-05-08 10:53] LABS: BF Color Yellow; BF RBC Count - Manual 163 /cumm; BF WBC/Nonhematics Ct. - Manua 130 /cumm; Body Fluid Source Ascites Body Fluid; Clarity Hazy (Clear); Tube # EDTA
[2018-05-08 11:04] LABS: BF Segmented Neutrophils 3 %; Cell Count Non Hematic 80 %; Lymphocytes 17 %
== END 2018-05-08 08:30 | disposition home or self-care (01) ==
LOC: ULT 07:17
PROVIDERS: ATTEND Radiology Diagnostic Radiology
PROC: 0W9G3ZZ Drainage of Peritoneal Cavity, Percutaneous Approach (ICD-10-PCS; principal; 2018-05-08)
DX: K70.31 Alcoholic cirrhosis of liver with ascites (principal); I10 Essential (primary) hypertension; E11.9 Type 2 diabetes mellitus without complications; E78.5 Hyperlipidemia, unspecified; K42.9 Umbilical hernia without obstruction or gangrene; Z79.84 Long term (current) use of oral hypoglycemic drugs; Z79.2 Long term (current) use of antibiotics; Z79.899 Other long term (current) drug therapy
CPT/HCPCS: 49083; 85060; 87070; 87205; 89051

== ENCOUNTER 2018-05-15 06:52 | Day surgery (SDC) | payer MEDICARE ==
[2018-05-14 12:17] VITALS: BMI 31.4
[2018-05-15] MEDS ORDERED: Lidocaine 1% PF 5 ML VIAL ONE (07:39)
[2018-05-15] MEDS ORDERED: Sodium Bicarbonate 2.5 MEQ/5 ML VIAL ONE (07:39)
[2018-05-15] MEDS ORDERED: Albumin 25% 200 ML ONE (07:39)
--- NOTE | 2018-05-15 10:25 | ULT ---
ULTRASOUND GUIDED PARACENTESIS: 05/15/2018 HISTORY: Symptomatic ascites. Cirrhosis. TECHNIQUE: Informed consent obtained prior to the procedure. Pre-procedural imaging demonstrates significant ascites throughout the abdomen/pelvis. The skin overlying the right lower quadrant was prepped and draped in the normal sterile fashion and anesthetized with 1% buffered Lidocaine. With direct ultrasound guidance, a 5 Maltese Ingresseeh catheter w as advised into the ascites, and removal of the stylet yielded yellow fluid (7 L was removed). The p atient tolerated the procedure well. IMPRESSION: Successful ultrasound-guided paracentesis, yielding 7 L of yellow fluid. POS: [facility]
[2018-05-15 11:46] LABS: BF Color Yellow; Body Fluid Source Ascites Body Fluid; Clarity Hazy (Clear); Tube # EDTA
[2018-05-15 11:47] VITALS: BP 120/71; TEMP 98.3
[2018-05-15 11:58] LABS: BF RBC Count - Manual 240 /cumm; BF WBC/Nonhematics Ct. - Manua 135 /cumm
[2018-05-15 12:21] LABS: BF Segmented Neutrophils 9 %; Cell Count Non Hematic 72 %; Lymphocytes 19 %
== END 2018-05-15 09:20 | disposition home or self-care (01) ==
LOC: ULT 06:52
PROVIDERS: ATTEND Internal Medicine Gastroenterology
PROC: 0W9G3ZZ Drainage of Peritoneal Cavity, Percutaneous Approach (ICD-10-PCS; principal; 2018-05-15)
DX: K70.31 Alcoholic cirrhosis of liver with ascites (principal); I10 Essential (primary) hypertension; E11.9 Type 2 diabetes mellitus without complications; E78.5 Hyperlipidemia, unspecified; Z79.84 Long term (current) use of oral hypoglycemic drugs; Z79.899 Other long term (current) drug therapy
CPT/HCPCS: 49083; 87070; 87205; 89051; P9047; 85060; J2001

== ENCOUNTER 2018-05-22 06:55 | Day surgery (SDC) | payer MEDICARE, OTHER ==
[~2018-05-22 06:55] MED LIST changes: -Lidocaine 1% PF 5 ML VIAL ONE; -Sodium Chloride 0.9% 10 ML ONE
[2018-05-22 09:34] VITALS: BP 123/74; TEMP 98.2
[2018-05-22 10:46] LABS: BF Color Yellow; BF RBC Count - Manual 138 /cumm; BF WBC/Nonhematics Ct. - Manua 155 /cumm; Body Fluid Source Ascites Body Fluid; Clarity Clear (Clear); Tube # EDTA
--- NOTE | 2018-05-22 10:46 | ULT ---
ULTRASOUND GUIDED PARACENTESIS: Date: 05-22-18 History: Cirrhosis and refractory ascites. Technique: After informed consent was obtained the patient was placed on the sonography table in supi ne position. Limited sonographic evaluation of the abdomen was performed. An area in the midaxillary line, right mid abdomen was marked and the area was meticiously prepped and draped in the usual steri le fashion. Skin and subcutaneous tissues were infiltrated with buffered 1% Lidocaine for local anesthesia. Small skin incision was made. Utilizing concurrent real-time ultrasound guidance, a 19 gauge Skip Hop needle w ith 5 Palestinian sheath was advanced into the abdomen. After the return of fluid, the sheath was advanced and the needle was removed. Approximately 7 liters of clear straw colored fluid was aspirated. The c atheter was removed and hemostatis was achieved with direct pressure. Dry sterile dressing was placed . Patient tolerated the procedure well and without immediate complication. IMPRESSION: 1. Technically successful ultrasound guided paracentesis. POS: [facility]
[2018-05-22 11:18] LABS: BF Segmented Neutrophils 3 %; Cell Count Non Hematic 72 %; Lymphocytes 25 %
== END 2018-05-22 09:15 | disposition home or self-care (01) ==
LOC: ULT 06:55
PROVIDERS: ATTEND Internal Medicine Gastroenterology
PROC: 0W9G3ZZ Drainage of Peritoneal Cavity, Percutaneous Approach (ICD-10-PCS; principal; 2018-05-22)
DX: K70.31 Alcoholic cirrhosis of liver with ascites (principal); E11.42 Type 2 diabetes mellitus with diabetic polyneuropathy; I10 Essential (primary) hypertension; E78.5 Hyperlipidemia, unspecified; K72.90 Hepatic failure, unspecified without coma; Z79.84 Long term (current) use of oral hypoglycemic drugs; Z79.899 Other long term (current) drug therapy
CPT/HCPCS: 49083; 87070; 87205; 89051; P9047; 85060

== ENCOUNTER 2018-05-29 07:13 | Day surgery (SDC) | payer MEDICARE ==
[2018-05-28 10:09] VITALS: BMI 31.4
[2018-05-29] MEDS ORDERED: Sodium Bicarbonate 2.5 MEQ/5 ML VIAL ONE (07:37)
[2018-05-29] MEDS ORDERED: Lidocaine 1% PF 5 ML VIAL ONE (07:37)
--- NOTE | 2018-05-29 09:40 | ULT ---
ULTRASOUND GUIDED PARACENTESIS: Previous Procedure Diagnosis: Ascites Post Procedure Diagnosis: Same Rn Travel: Wilfredo Complications: None Specimen: 7 L of straw-colored fluid Anesthesia: 6 ml of buffered 1% Lidocaine Technique: Prior to the procedure the risks and benefits of an ultrasound guided paracentesis were explained to the patient and he consented to the procedure. An ultrasound was performed and identified the largest fluid collection in the right lower quadrant of the abdomen. The right lower quadrant of the abdomen was prepped and draped in the usual sterile fashion. Lidocain e was used to anesthetize the skin and soft tissues down towards the peritoneal cavity. A small skin incision was made allowing for passage for a [place] needle and catheter. The [place] needle and catheter was placed using ultrasound guidance into the fluid collection in the ri t lower quadrant of the abdomen. The catheter was left and the needle was removed. This catheter wa s then connected to multiple vacuum container bottles. A total of 7 L of fluid was removed. At the co mpletion of the procedure, a small of fluid remained in the right lower quadrant of the abdomen. IMPRESSION: Status post successful ultrasound guided paracentesis. POS: [facility]
[2018-05-29 10:50] LABS: BF Color Yellow; Body Fluid Source Peritoneal Fluid; Clarity Hazy (Clear); Tube # EDTA
[2018-05-29 10:59] LABS: BF RBC Count - Manual 128 /cumm; BF WBC/Nonhematics Ct. - Manua 138 /cumm
[2018-05-29 11:52] VITALS: BP 130/80; TEMP 97.9
[2018-05-29 12:36] LABS: BF Segmented Neutrophils 3 %; Cell Count Non Hematic 85 %; Eosinophils 1 %; Lymphocytes 11 %
== END 2018-05-29 09:00 | disposition home or self-care (01) ==
LOC: ULT 07:13
PROVIDERS: ATTEND Internal Medicine Gastroenterology
PROC: 0W9G3ZZ Drainage of Peritoneal Cavity, Percutaneous Approach (ICD-10-PCS; principal; 2018-05-29)
DX: K70.31 Alcoholic cirrhosis of liver with ascites (principal); I10 Essential (primary) hypertension; E11.42 Type 2 diabetes mellitus with diabetic polyneuropathy; E78.5 Hyperlipidemia, unspecified; Z79.84 Long term (current) use of oral hypoglycemic drugs; Z79.899 Other long term (current) drug therapy
CPT/HCPCS: 49083; 85060; 87070; 87205; 89051; J2001

== ENCOUNTER → 2018-06-05 | Day surgery (SDC) | payer MEDICARE ==
[2018-06-05 09:24] VITALS: BMI 31.4
--- NOTE | 2018-06-05 09:36 | ULT ---
ULTRASOUND GUIDED ABDOMINAL PARACENTESIS: INDICATIONS: Cirrhosis with recurrent ascites. FINDINGS: Seven liters of yellowish-clear ascitic fluid was removed from the right lower quadrant. TECHNIQUE: A four-quadrant ultrasound showed large volume ascites. The right lower quadrant was chosen for punc ture. The skin was prepped and draped in a sterile manner. Local anesthesia was administered with l idocaine and bicarbonate. A 5 Hungarian Yueh needle and catheter were advanced into the ascites in the right lower quadrant, using ultrasound guidance. The needle was removed as the catheter was advanced into the ascitic fluid. The catheter was attached to suction drainage, and 7 L of ascitic fluid was removed. There were no problems or complications. POS: [facility]
[2018-06-05 11:56] LABS: Body Fluid Source Ascites Body Fluid
[2018-06-05 11:57] LABS: BF Color Yellow; BF RBC Count - Manual 138 /cumm; BF WBC/Nonhematics Ct. - Manua 135 /cumm; Clarity Hazy (Clear); Tube # EDTA
[2018-06-05 13:01] LABS: BF Segmented Neutrophils 26 %; Cell Count Non Hematic 60 %; Lymphocytes 14 %
== END ==
LOC: ULT 07:35
PROVIDERS: ATTEND Internal Medicine Gastroenterology
PROC: 0W9G3ZX Drainage of Peritoneal Cavity, Percutaneous Approach, Diagnostic (ICD-10-PCS; principal; 2018-06-05)
DX: K70.31 Alcoholic cirrhosis of liver with ascites (principal); I10 Essential (primary) hypertension; E11.42 Type 2 diabetes mellitus with diabetic polyneuropathy
CPT/HCPCS: 49083; 87070; 87205; 89051; P9047; 85060

== ENCOUNTER 2018-06-11 09:46 | Day surgery (SDC) | payer MEDICARE ==
[2018-06-11 07:20] VITALS: BMI 31.4
[2018-06-11] MEDS ORDERED: Albumin 25% 200 ML ONE (10:01)
--- NOTE | 2018-06-11 12:16 | ULT ---
ULTRASOUND GUIDED PARACENTESIS: 06/11/2018 HISTORY: Ascites. TECHNIQUE: Multiple longitudinal and transverse images of the abdomen are obtained using a Multi-Hertz curviline ar transducer. Real-time images are obtained. FINDINGS: A large amount of ascites is seen. A pocket of fluid is seen in the right lower quadrant of the abdo men. The overlying skin is prepped and draped in the usual sterile manner. A 1% Lidocaine solution was used to anesthetize the overlying soft tissues. A small dermatology was made. A 5 Urdu Yueh n eedle was placed into the peritoneal cavity. A total of 7.4 L of peritoneal fluid was removed withou t difficulty. No complications encountered during the course of the exam. IMPRESSION: Successful ultrasound guided paracentesis. POS: [facility]
[2018-06-11 12:21] LABS: BF Color Yellow; BF RBC Count - Manual 98 /cumm; BF WBC/Nonhematics Ct. - Manua 104 /cumm; Body Fluid Source Ascites Body Fluid; Clarity Hazy (Clear); Tube # EDTA
[2018-06-11 12:43] VITALS: BP 118/78; TEMP 98.3
[2018-06-11 13:23] LABS: BF Segmented Neutrophils 35 %; Cell Count Non Hematic 47 %; Lymphocytes 18 %
== END 2018-06-11 11:45 | disposition home or self-care (01) ==
LOC: ULT 09:46
PROVIDERS: ATTEND Internal Medicine Gastroenterology
PROC: 0W9G3ZX Drainage of Peritoneal Cavity, Percutaneous Approach, Diagnostic (ICD-10-PCS; principal; 2018-06-11)
DX: K74.60 Unspecified cirrhosis of liver (principal); R18.8 Other ascites; B96.1 Klebsiella pneumoniae [K. pneumoniae] as the cause of diseases classified elsewhere; E11.42 Type 2 diabetes mellitus with diabetic polyneuropathy; Z79.84 Long term (current) use of oral hypoglycemic drugs; Z79.899 Other long term (current) drug therapy
CPT/HCPCS: 49083; 87070; 87205; 89051; P9047; 85060; 87077; 87186

== ENCOUNTER 2018-06-12 13:02 | Inpatient (IN) | payer MEDICARE ==
[2018-06-12] MEDS ORDERED: cefTRIAXone\\ROCEPHIN 1 GM VIAL ONE (15:46)
[2018-06-12] MEDS ORDERED: Sodium Chloride 0.9% 100 ML ONE (15:46)
[2018-06-12 15:57] LABS: Hemoglobin 12.1 g/dL (14.0-18.0); Mean Corpuscular HGB CONC 31.7 g/dL (32.0-36.0); Mean Platelet Volume 11.1 fL (7.4-10.4); Platelet Count 57 thou/uL (130-400); RBC Distribution Width 17.3 % (11.5-14.5); Red Blood Cell (RBC) Count 3.79 mill/uL (4.70-6.10); White Blood Cell (WBC) Count 4.8 thou/uL (4.8-10.8)
[2018-06-12 16:15] LABS: Anisocytosis SLIGHT = 6-15 cells (100X) (0-5/hpf); Band 11 % (5-11); Eosinophils 1 % (0-10); Hypochromia SLIGHT = 6-15 cells (100X) (0-5/hpf); Lymphocytes 7 % (21-51); MDiff Complete? YES; Monocytes 4 % (0-10); Neutrophil 77 % (42-75); Platelet Morphology Comment Appears Decreased
[2018-06-12 16:20] LABS: ALT (SGPT) 21 U/L (8-55); AST (SGOT) 28 U/L (5-34); Albumin 3.3 g/dL (3.5-5.0); Alkaline Phosphatase 195 U/L (40-150); Anion Gap 11 mmol/L (10-20); BUN (Urea Nitrogen) 16 mg/dL (8.4-25.7); Calc. Creatinine Clearance 0 mL/min (70-130); Calcium 8.8 mg/dL (7.8-10.44); Carbon Dioxide 24 mmol/L (22-29); Chloride 103 mmol/L (98-107); Estimated GFR-MDRD 67; Globulin 3.9 g/dL (2.4-3.5); Glucose 216 mg/dL (70-105); Potassium 3.9 mmol/L (3.5-5.1); Protein, Total 7.2 g/dL (6.0-8.3); Sodium 134 mmol/L (136-145)
[2018-06-12 16:49] LABS: Bilirubin Small (Negative); Blood, Urine Large (Negative); Clarity CLEAR (Clear); Glucose, Urine (Dipstick) Negative (Negative); Leukocyte Negative (Negative); Nitrite Negative (Negative); Protein, Urine (Dipstick) 30 mg/dL (Neg-Trace); Specific Gravity, Urine 1.026 (1.002-1.036)
[2018-06-12 16:51] LABS: Bacteria/HPF None Seen HPF (None Seen); Hyaline Casts/LPF 4-6 HYALINE CAST LPF (0-3 Hyaline); Pathc Cast-AUWi Flag 0.81 (0-2.49); RBC/HPF GREATER THAN 50-TNTC HPF (0-3); Squamous Epithelial None Seen HPF (0-3); WBC/HPF 0-3 HPF (0-3)
[2018-06-12] MEDS ORDERED: cefTRIAXone Sodium 2,000 MG in Syringe 0 ML IVPB SCH (17:45)
[2018-06-12] MEDS ORDERED: Albumin 25% 25 GM/100 ML BOT IVPB SCH (18:11)
[2018-06-12 19:30] VITALS: BMI 32.1
[2018-06-12 20:18] LABS: Lactic Acid 1.9 mmol/L (0.5-2.2)
[2018-06-12] MEDS: Spironolactone 100 MG TAB PO SCH (20:59)
[2018-06-12] MEDS: Rifaximin 550 MG TAB PO SCH (20:59)
--- NOTE | 2018-06-13 00:26 | CON ---
DATE OF CONSULTATION: 06/12/2018 REASON FOR CONSULTATION: Possible spontaneous bacterial peritonitis. HISTORY OF PRESENT ILLNESS: Mr. Campoverde is a 57-year-old male who has liver cirrhosis from previous alcohol consumption. He has complete abstinence from alcohol for the last 4 to 5 years. The patient has previous hepatic encephalopathy and known esophageal varices that were completely eradicated in [place] last year. He has been obtaining weekly paracentesis for management of his refractory ascites despite taking oral diuretics. The patient had a large volume paracentesis yesterday where 7 L were removed. Cell count and culture were obtained. Culture returned today showing gram-negative rods with result faxed to his liver transplant Center in [place] who subsequently called Dr. Hernandez's office and advised admission for antimicrobial therapy. Clinically, he is doing fairly well without any abdominal pain. He is without any nausea, vomiting, or altered bowel function. There is no evidence of bleeding such as melena or hematochezia. He does note that despite 7 L of fluid removed yesterday, his abdominal size did not decrease as much as before with previous paracentesis. PAST MEDICAL HISTORY: 1. Liver cirrhosis. 2. Esophageal varices, status post eradication with 3 upper endoscopy with banding ligation in [place] last year. 3. History of hepatic encephalopathy. 4. Umbilical hernia repair. 5. Previous diabetes, now off medication. ALLERGIES: NONE. MEDICATIONS AT HOME: Include; 1. Furosemide 40 mg b.i.d. 2. Folic acid 1 mg daily. 3. Multivitamin. 4. Xifaxan 550 mg b.i.d. 5. Tramadol 50 mg as needed for pain. 6. Tamsulosin 0.4 mg at bedtime. 7. Spironolactone 100 mg b.i.d. 8. Pantoprazole 40 mg daily. 9. Gabapentin 300 mg t.i.d. SOCIAL HISTORY: The patient is , has 2 children. No active tobacco or alcohol usage. FAMILY HISTORY: Negative for any known GI problem, liver disease, or GI malignancy. REVIEW OF SYSTEMS: 10-point review of systems did not show any other pertinent positives or negatives. PHYSICAL EXAMINATION: VITAL SIGNS: Temperature is 98.2, blood pressure 104/72, and pulse of 80. GENERAL: He is alert, conversant, no distress. HEENT: Shows anicteric sclerae. Oropharynx clear. NECK: Supple. CV: Shows normal S1, S2. Regular rate and rhythm. CHEST: Shows breath sounds. ABDOMEN: Protuberant with umbilical hernia, reducible. He has active bowel sounds. No tenderness. Organomegaly cannot be assessed secondary to size. EXTREMITIES: Shows no edema. LABORATORY DATA: WBC 4.8, hemoglobin 12.1, hematocrit 38.3, platelet count of 57. Sodium 134, potassium 3.9, chloride 103, CO2 of 24, creatinine 1.13. Lactic acid 2.2. Bilirubin 3.0, AST 28, ALT 21, alkaline phosphatase 195. Ammonia 49. Albumin 3.3. Cell count from yesterday paracentesis showed 104 WBC and 98 RBC. Culture showed preliminary Gram-negative rods. ASSESSMENT: 1. Ascitic fluid from yesterday paracentesis show gram-negative epifanio on preliminary culture despite normal cell count. The patient is clinically asymptomatic at the present time. 2. Cirrhosis with refractory ascites to diuretics on weekly paracentesis. RECOMMENDATIONS: 1. We will start on ceftriaxone 2 g daily until positive identification of pathogen and sensitivity. 2. Paracentesis, large volume tomorrow as the patient has reaccumulated fluid rather fast. 3. We will resume his furosemide 40 mg b.i.d. and spironolactone 100 mg b.i.d. as inpatient. 4. Salt restriction. Job ID: [id number]
[2018-06-13] MEDS ORDERED: Insulin Regular 300 UNITS/3 ML VIAL SC PRN ×2 (03:10→20:07)
--- NOTE | 2018-06-13 08:35 | HP ---
CHIEF COMPLAINT: Peritonitis. HISTORY OF PRESENT ILLNESS: Mr. Campoverde is a 57-year-old male with past medical history of cirrhosis of liver and ascites, was sent because of suspected peritonitis. The patient had paracentesis done yesterday with ultrasound-guided paracentesis by the radiologist. The patient had 7 L taken out. The patient had paracentesis almost every week, that takes 4 to 7 L every week. The fluid was sent for culture and it came back positive for infectious process and was asked to come to the hospital. In the ER, the patient was seen and evaluated, and was given a dose of Rocephin for possible spontaneous bacterial peritonitis, being admitted for further evaluation and management. The patient does have some abdominal discomfort and he had some nausea, vomiting, and loose stools, but no fever. PAST MEDICAL HISTORY: 1. Alcoholic liver cirrhosis with ascites. 2. Hypertension. 3. Diabetes mellitus. 4. Hyperlipidemia. PAST SURGICAL HISTORY: Hernia repair. CURRENT MEDICATIONS: The patient is on, 1. Lasix 40 mg b.i.d. 2. Folic acid 1 mg daily. 3. Multivitamin daily. 4. Flomax 0.4 mg daily. 5. Spironolactone 100 mg b.i.d. 6. Protonix 40 mg daily. ALLERGIES: CODEINE, PHOSPHATE, TYLENOL. FAMILY HISTORY: Nothing contributory. SOCIAL HISTORY: Lives with family. No history of smoking. No history of alcohol intake. REVIEW OF SYSTEMS: CARDIOVASCULAR: No chest pain or shortness of breath. RESPIRATORY: No fever or cough. GASTROINTESTINAL: Abdominal distention and some discomfort, nausea, and vomiting. CENTRAL NERVOUS SYSTEM: No headache or dizziness. PHYSICAL EXAMINATION: GENERAL: The patient is alert, awake, and oriented x3. VITAL SIGNS: Temperature 98, pulse 89, respirations 20, blood pressure 120/60. HEENT: Head is normocephalic and atraumatic. Pupils are equal, round, and reactive. Nasopharynx is pale and dry. Hard and soft. No lesions. SKIN: Turgor decreased. NECK: Supple. No JVD. LUNGS: Bilateral air entry. No rales or rhonchi. HEART: S1 and S2 regular. ABDOMEN: Markedly distended, ascites, free fluid present. Bowel sounds present. RECTAL: No symptoms. CENTRAL NERVOUS SYSTEM: No focal deficits. LABORATORY DATA: CBC shows WBC 4.8, hemoglobin 12, hematocrit 38, platelets 57. Metabolic panel; sodium 134, potassium 3.9, chloride 103, CO2 of 24. BUN 16. Glucose 216, alkaline phosphatase 195, ALT 21, AST 28. ASSESSMENT: 1. Spontaneous bacterial peritonitis, possible. 2. Cirrhosis of liver with ascites. 3. Diabetes mellitus. 4. Hyperlipidemia. 5. History of hypertension. PLAN: 1. Vital signs q.4. 2. Activity as tolerated. 3. Allergies, codeine and phosphate. 4. Hep-Lock. 5. Rocephen 1 gm IV piggyback daily. 6. Continue home medications. 7. Accu-Cheks before meals and at bedtime with sliding scale mild, with regular insulin. 8. Diet, ADA. 9. GI consult. Job ID: [id number] [facility]
[2018-06-13] MEDS: Spironolactone 100 MG TAB PO SCH ×3 (09:57→20:18)
[2018-06-13] MEDS: Rifaximin 550 MG TAB PO SCH ×3 (09:57→20:18)
[2018-06-13] MEDS: Furosemide 40 MG TAB PO SCH ×2 (09:57→15:11)
[2018-06-13] MEDS ORDERED: Albumin 25% 100 ML ONE (10:24)
[2018-06-13] MEDS ORDERED: traMADol HCl 50 MG TAB PO PRN ×2 (10:43→20:07)
[2018-06-13] MEDS ORDERED: ALPRAZolam 0.25 MG TAB PO PRN ×2 (10:44→20:07)
[2018-06-13] MEDS ORDERED: Promethazine 25 MG TAB PO PRN ×2 (10:46→20:07)
[2018-06-13] MEDS ORDERED: Diabetic Tussin DM 5 ML UDCUP PO PRN (10:59)
[2018-06-13] MEDS ORDERED: Multivit, Therapeutic 1 TAB PO SCH (12:00)
[2018-06-13] MEDS ORDERED: Tamsulosin HCl 0.4 MG CAP PO SCH (12:00)
[2018-06-13] MEDS ORDERED: Folic Acid 1 MG TAB PO SCH (12:00)
--- NOTE | 2018-06-13 12:18 | ULT ---
ULTRASOUND GUIDED PARACENTESIS: Date: 06/13/18 HISTORY: Large volume ascites, spontaneous bacterial peritonitis. FINDINGS: Informed consent obtained prior to the procedure. Preprocedural imaging demonstrates significant ascites throughout the abdomen/pelvis. Skin overlying the right lower quadrant was prepped and draped in the normal sterile fashion and anes thetized with 1% buffered lidocaine. With direct sonographic guidance, a 5 Ethiopian Yueh catheter was advanced into the ascites and removal of stylette yields yellow fluid. 6 liters were removed. Sample was sent to the laboratory for assessm ent. The patient tolerated the procedure well. IMPRESSION: Successful ultrasound guided paracentesis. POS: [facility]
[2018-06-13] MEDS ORDERED: Guaifenesin DM 100-10/5 ML UDCUP PO PRN (12:30)
[2018-06-13 13:43] LABS: BF Color Yellow; Body Fluid Source Peritoneal Fluid; Clarity Hazy (Clear); Tube # EDTA
[2018-06-13 13:44] LABS: WBC/NonHematic-Auto 275 /cumm
[2018-06-13 13:45] LABS: BF RBC Count - Manual 139 /cumm
[2018-06-13 13:53] LABS: BF Segmented Neutrophils 48 %; Cell Count Non Hematic 38 %; Lymphocytes 14 %
[2018-06-13] MEDS ORDERED: Furosemide 40 MG TAB PO SCH (14:00)
[2018-06-13] MEDS: Gabapentin 300 MG CAP PO SCH ×3 (15:11→20:18)
[2018-06-13] MEDS ORDERED: cefTRIAXone\\ROCEPHIN 2 GM in Sodium Chloride 0.9% 100 ML IVPB SCH (16:00)
--- NOTE | 2018-06-13 17:01 | PRG ---
DATE OF SERVICE: 06/13/2018 SUBJECTIVE: The patient feels fine, reporting having frequent loose to watery diarrhea. There is no abdominal pain. There is no nausea or vomiting. He had 6 L of fluid removed by paracentesis this morning. PHYSICAL EXAMINATION: VITAL SIGNS: Temperature 98.4, blood pressure 111/68, and pulse is 64. GENERAL: He is alert and conversant, in no distress. HEENT: Shows anicteric sclerae. CV: Shows normal S1 and S2. Regular rate and rhythm. CHEST: Shows a breath sounds. ABDOMEN: Less protuberant and umbilical hernia is smaller still with fluid. No tenderness. He has active bowel sounds. EXTREMITIES: Show no edema. LABORATORY DATA: Cell count from paracentesis this morning showed 275 WBC and 139 RBC. Culture from paracentesis 2 days ago that show Klebsiella, sensitive to both ceftriaxone and ciprofloxacin. ASSESSMENT: 1. Spontaneous bacterial peritonitis with Klebsiella, clinically without any major issue. 2. Alcoholic cirrhosis. 3. Diarrhea. PLAN: 1. We will change to IV Cipro 400 mg b.i.d. 2. We will check stool for C. diff and culture. 3. If all goes well, then the patient continues to improve, we will likely be able to discharge home tomorrow on Cipro 500 mg b.i.d. x10 days with consideration of ongoing SBP prophylaxis with Cipro 250 mg p.o. daily. Job ID: [id number]
[2018-06-13] MEDS: Guaifenesin DM 100-10/5 ML UDCUP PO PRN (20:19)
[2018-06-13] MEDS ORDERED: Rifaximin 550 MG TAB PO SCH (21:00)
[2018-06-14] MEDS: Rifaximin 550 MG TAB PO SCH (08:22)
[2018-06-14] MEDS: Spironolactone 100 MG TAB PO SCH (08:22)
[2018-06-14] MEDS: Gabapentin 300 MG CAP PO SCH (08:23)
[2018-06-14] MEDS: Guaifenesin DM 100-10/5 ML UDCUP PO PRN (08:26)
[2018-06-14] MEDS ORDERED: Folic Acid 1 MG TAB PO SCH ×2 (09:00)
[2018-06-14] MEDS ORDERED: Tamsulosin HCl 0.4 MG CAP PO SCH ×2 (09:00)
[2018-06-14] MEDS ORDERED: Multivit, Therapeutic 1 TAB PO SCH ×2 (09:00)
[2018-06-14] MEDS ORDERED: Furosemide 40 MG TAB PO SCH (09:00)
[2018-06-14 12:42] VITALS: BP 95/65; TEMP 98.1
== END 2018-06-14 15:17 | disposition home or self-care (01) | DRG 373 ==
LOC: ERS 13:02 → ERHOLD 16:04 → T4-A 18:59 → UNDODISIN 06-13 13:50
PROVIDERS: ADMIT Internal Medicine; ATTEND Internal Medicine
PROC: 0W9G3ZZ Drainage of Peritoneal Cavity, Percutaneous Approach (ICD-10-PCS; principal; 2018-06-13)
DX: K65.2 Spontaneous bacterial peritonitis (principal); I10 Essential (primary) hypertension; E11.9 Type 2 diabetes mellitus without complications; E78.5 Hyperlipidemia, unspecified; K70.31 Alcoholic cirrhosis of liver with ascites; B96.1 Klebsiella pneumoniae [K. pneumoniae] as the cause of diseases classified elsewhere; Z98.890 Other specified postprocedural states; Z88.5 Allergy status to narcotic agent; Z88.8 Allergy status to other drugs, medicaments and biological substances
CPT/HCPCS: 36415; 36416; 49083; 80053; 81003; 81015; 82140; 83605; 85025; 85060; 87040; 87045; 87046; 87070; 87077; 87086; 87186; 87205; 87324; 87449; 87899; 89051; 96365; J0696; J0744; J7050; P9047; Q0169

== ENCOUNTER 2018-06-19 07:06 | Day surgery (SDC) | payer MEDICARE ==
[2018-06-18 08:35] VITALS: BMI 31.4
[2018-06-19] MEDS ORDERED: Sodium Bicarbonate 2.5 MEQ/5 ML VIAL ONE (07:13)
[2018-06-19] MEDS ORDERED: Albumin 25% 200 ML ONE (07:13)
--- NOTE | 2018-06-19 11:45 | ULT ---
FUltrasound-guided paracentesis therapeutic and diagnostic: 06/19/2018 HISTORY: 57-year-old male with alcoholic cirrhosis causing ascites, causing abdominal distention. TECHNIQUE: A 4 quadrant survey of the abdominal cavity was performed with ultrasound. Signed informed consent wa s obtained. Right lower quadrant was selected. Overlying skin was prepared and draped in usual steril e fashion. 25-gauge needle was used to apply buffered lidocaine. In tandem with a 25-gauge needle, a 5 Uzbek Yueh catheter with stylet was advanced into the pocket of free fluid in the peritoneal cavit y. After removal of the stylette, the Yueh catheter was connected to a series of evacuated bottles vi a plastic tubing. After drainage, Yueh catheter was removed. Patient tolerated procedure well. No com plications. Findings: There is a large volume of free fluid in all 4 quadrants prior to the drainage. A total 5800 mL of as cites fluid was drained. Postprocedure image of right lower quadrant demonstrates a small amount of r esidual free fluid. IMPRESSION: Successful paracentesis with drainage of 5.8 L of ascites fluid.
[2018-06-19 12:00] LABS: BF Color Yellow; Body Fluid Source Ascites Body Fluid; Clarity Hazy (Clear)
[2018-06-19 12:01] LABS: BF RBC Count - Manual 123 /cumm; BF WBC/Nonhematics Ct. - Manua 114 /cumm
[2018-06-19 12:04] LABS: BF Segmented Neutrophils 6 %; Cell Count Non Hematic 78 %; Lymphocytes 16 %
== END 2018-06-19 09:05 | disposition home or self-care (01) ==
LOC: ULT 07:06
PROVIDERS: ATTEND Internal Medicine Gastroenterology
PROC: 0W9G3ZX Drainage of Peritoneal Cavity, Percutaneous Approach, Diagnostic (ICD-10-PCS; principal; 2018-06-19)
DX: K70.31 Alcoholic cirrhosis of liver with ascites (principal); I10 Essential (primary) hypertension; E11.42 Type 2 diabetes mellitus with diabetic polyneuropathy
CPT/HCPCS: 49083; 87070; 87205; 89051; P9047; 85060

== ENCOUNTER 2018-06-26 07:21 | Day surgery (SDC) | payer MEDICARE ==
[2018-06-25 10:53] VITALS: BMI 31.4
[2018-06-26] MEDS ORDERED: Albumin 25% 200 ML ONE (07:31)
[2018-06-26] MEDS ORDERED: Sodium Bicarbonate 2.5 MEQ/5 ML VIAL ONE (07:31)
[2018-06-26] MEDS ORDERED: Lidocaine 1% PF 5 ML VIAL ONE (07:31)
--- NOTE | 2018-06-26 09:05 | ULT ---
FUltrasound-guided paracentesis: 06/26/2018 HISTORY: Symptomatic ascites FINDINGS: Informed consent obtained prior to the procedure. Preprocedural imaging demonstrated signif icant ascites throughout the abdomen and pelvis. Right lower quadrantprepped and draped in normal sterile fashion and anesthetized with 1% buffered li docaine. With direct sonographic guidance, 5 Turkish Yueh catheter is advanced into the ascites and removal of the stylet yielded yellowfluid. 6.1 L were removed. The patient tolerated the procedure well. No post procedural complications. IMPRESSION: Successful ultrasound-guided paracentesis yielding 6.1 L of yellow fluid.
[2018-06-26 11:21] LABS: Body Fluid Source Peritoneal Fluid
[2018-06-26 11:22] LABS: BF Color Yellow; Clarity Hazy (Clear); Tube # EDTA
[2018-06-26 11:23] LABS: BF RBC Count - Manual 166 /cumm; BF WBC/Nonhematics Ct. - Manua 155 /cumm; RBC Background Count 0.003
[2018-06-26 11:31] LABS: BF Segmented Neutrophils 9 %; Cell Count Non Hematic 57 %; Lymphocytes 34 %
[2018-06-26 12:01] VITALS: BP 107/57; TEMP 97.6
== END 2018-06-26 09:10 | disposition home or self-care (01) ==
LOC: ULT 07:21
PROVIDERS: ATTEND Internal Medicine Gastroenterology
PROC: 0W9G3ZX Drainage of Peritoneal Cavity, Percutaneous Approach, Diagnostic (ICD-10-PCS; principal; 2018-06-26)
DX: K70.31 Alcoholic cirrhosis of liver with ascites (principal); I10 Essential (primary) hypertension; E78.5 Hyperlipidemia, unspecified; E11.42 Type 2 diabetes mellitus with diabetic polyneuropathy; Z79.2 Long term (current) use of antibiotics; Z79.84 Long term (current) use of oral hypoglycemic drugs; Z79.899 Other long term (current) drug therapy
CPT/HCPCS: 49083; 87070; 87205; 89051; P9047; 85060; J2001

== ENCOUNTER 2018-07-03 07:12 | Day surgery (SDC) | payer MEDICARE ==
[2018-07-03] MEDS ORDERED: Sodium Bicarbonate 2.5 MEQ/5 ML VIAL ONE (08:02)
[2018-07-03] MEDS ORDERED: Albumin 25% 200 ML ONE (08:02)
--- NOTE | 2018-07-03 09:39 | ULT ---
ULTRASOUND GUIDED PARACENTESIS: HISTORY: Ascites. COMPARISON: 06/26/2018. FINDINGS: Successful ultrasound-guided paracentesis. A total of 5,600 mL of slightly cloudy yellow-colored asc ites was aspirated. TECHNIQUE: Consent was obtained to perform an ultrasound-guided paracentesis. The patient's abdomen was evaluat ed. He right lower quadrant was deemed appropriate. The skin was prepped and draped in sterile fash ion. 1% Lidocaine, buffered with sodium bicarbonate, was used for local anesthesia. Under ultrasoun d guidance, a 5 Spanish 7 cm Privyeh catheter was advanced into the peritoneal space. Via vacuum bottles , a total of 5,600 mL of yellow-colored ascites was aspirated. The patient tolerated the procedure w ell. No immediate or postprocedure complications. IMPRESSION: Successful ultrasound-guided paracentesis. POS: [facility]
[2018-07-03 11:42] LABS: BF Color Yellow; Body Fluid Source Ascites Body Fluid; Clarity Hazy (Clear); Tube # EDTA
[2018-07-03 11:56] LABS: BF RBC Count - Manual 149 /cumm; BF WBC/Nonhematics Ct. - Manua 174 /cumm
[2018-07-03 12:42] LABS: BF Segmented Neutrophils 10 %; Cell Count Non Hematic 78 %; Lymphocytes 12 %
[2018-07-03 15:51] VITALS: BP 92/68; TEMP 98.2
== END 2018-07-03 09:30 | disposition home or self-care (01) ==
LOC: ULT 07:12
PROVIDERS: ATTEND Internal Medicine Gastroenterology
PROC: 0W9G3ZX Drainage of Peritoneal Cavity, Percutaneous Approach, Diagnostic (ICD-10-PCS; principal; 2018-07-03)
DX: K70.31 Alcoholic cirrhosis of liver with ascites (principal); I10 Essential (primary) hypertension; E11.42 Type 2 diabetes mellitus with diabetic polyneuropathy; K72.90 Hepatic failure, unspecified without coma; E78.5 Hyperlipidemia, unspecified; Z79.899 Other long term (current) drug therapy
CPT/HCPCS: 49083; 87070; 87205; 89051; P9047; 85060

== ENCOUNTER 2018-07-10 07:36 | Day surgery (SDC) | payer MEDICARE ==
[2018-07-09 10:23] VITALS: BMI 31.4
[2018-07-10] MEDS ORDERED: Sodium Bicarbonate 2.5 MEQ/5 ML VIAL ONE (07:39)
--- NOTE | 2018-07-10 08:58 | ULT ---
Ultrasound-guided paracentesis: HISTORY: Symptomatic ascites FINDINGS: Informed consent obtained prior to the procedure. Preprocedural imaging demonstrated intrap eritoneal free fluid. An area was marked in the midaxillary line left lower quadrant, and then meticulously prepped and matthew ped in normal sterile fashion and anesthetized with 1% buffered lidocaine. With direct sonographic guidance, a 19-gauge needle and 5 Central African Yueh catheter were advanced into the abdomen. After the return of fluid, the catheter was advanced, and the needle was removed. Approximately 6.3 L of clear straw-colored fluid was aspirated. Post procedure imaging demonstrated d ecrease in intraperitoneal free fluid. The patient tolerated the procedure well and without immediate complication. 50 g of albumin was administered during the exam. IMPRESSION: Technically successful ultrasound-guided paracentesis.
[2018-07-10 11:14] LABS: BF Color Yellow; Body Fluid Source Paracentesis Fluid; Clarity Hazy (Clear); Tube # EDTA
[2018-07-10 11:34] VITALS: BP 104/65; TEMP 98.1
[2018-07-10 11:34] LABS: BF RBC Count - Manual 198 /cumm; BF WBC/Nonhematics Ct. - Manua 130 /cumm
[2018-07-10 12:16] LABS: BF Segmented Neutrophils 9 %; Cell Count Non Hematic 71 %; Lymphocytes 20 %
== END 2018-07-10 09:00 | disposition home or self-care (01) ==
LOC: ULT 07:36
PROVIDERS: ATTEND Internal Medicine Gastroenterology
PROC: 0W9G3ZX Drainage of Peritoneal Cavity, Percutaneous Approach, Diagnostic (ICD-10-PCS; principal; 2018-07-10)
DX: K70.31 Alcoholic cirrhosis of liver with ascites (principal); K72.90 Hepatic failure, unspecified without coma; E11.42 Type 2 diabetes mellitus with diabetic polyneuropathy; I10 Essential (primary) hypertension; Z79.84 Long term (current) use of oral hypoglycemic drugs; Z79.899 Other long term (current) drug therapy
CPT/HCPCS: 49083; 85060; 87070; 87205; 89051

== ENCOUNTER 2018-07-17 07:02 | Day surgery (SDC) | payer MEDICARE ==
[2018-07-17] MEDS ORDERED: Sodium Bicarbonate 2.5 MEQ/5 ML VIAL ONE (07:39)
[2018-07-17] MEDS ORDERED: Albumin 25% 200 ML ONE (07:39)
--- NOTE | 2018-07-17 09:23 | ULT ---
Ultrasound-guided paracentesis: HISTORY: Cirrhosis and refractory ascites. FINDINGS: Informed consent obtained prior to the procedure. Preprocedural imaging demonstrated intrap eritoneal free fluid. An area was marked in the midaxillary line right upper quadrant, and then meticulously prepped and dr aped in normal sterile fashion and anesthetized with 1% buffered lidocaine. With direct sonographic guidance, a 19-gauge needle and 5 Malian Yueh catheter were advanced into the abdomen. After the return of fluid, the catheter was advanced, and the needle was removed. Approximately 4.6 L of clear straw-colored fluid was aspirated. The patient tolerated the procedure w ell and without immediate complication. IMPRESSION: Technically successful ultrasound-guided paracentesis.
[2018-07-17 09:30] VITALS: BP 113/67; TEMP 98.3
[2018-07-17 11:18] LABS: BF Color Yellow; Body Fluid Source Ascites Body Fluid; Clarity Hazy (Clear)
[2018-07-17 11:19] LABS: BF RBC Count - Manual 133 /cumm; Tube # EDTA; WBC/NonHematic-Auto 259 /cumm
[2018-07-17 11:48] LABS: BF Segmented Neutrophils 25 %; Cell Count Non Hematic 57 %; Lymphocytes 18 %
[2018-07-17 15:23] VITALS: BMI 31.4
== END 2018-07-17 09:10 | disposition home or self-care (01) ==
LOC: ULT 07:02
PROVIDERS: ATTEND Internal Medicine Gastroenterology
PROC: 0W9G3ZX Drainage of Peritoneal Cavity, Percutaneous Approach, Diagnostic (ICD-10-PCS; principal; 2018-07-17)
DX: K70.31 Alcoholic cirrhosis of liver with ascites (principal); K72.90 Hepatic failure, unspecified without coma; E11.42 Type 2 diabetes mellitus with diabetic polyneuropathy; I10 Essential (primary) hypertension; E78.5 Hyperlipidemia, unspecified; Z79.899 Other long term (current) drug therapy
CPT/HCPCS: 49083; 87070; 87205; 89051; P9047; 85060

== ENCOUNTER 2018-07-24 07:14 | Day surgery (SDC) | payer MEDICARE ==
[2018-07-23 11:08] VITALS: BMI 31.4
[2018-07-24] MEDS ORDERED: Sodium Bicarbonate 2.5 MEQ/5 ML VIAL ONE (08:19)
[2018-07-24] MEDS ORDERED: Albumin 25% 200 ML ONE (08:19)
[2018-07-24 10:21] VITALS: BP 147/64; TEMP 98.1
--- NOTE | 2018-07-24 11:06 | ULT ---
Exam: Ultrasound guided paracentesis HISTORY: Ascites COMPARISON: 07/17/2018 FINDINGS: Successful ultrasound-guided paracentesis. Total of 6900 mL yellow color ascites was aspira anayeli. TECHNIQUE: Consent obtained reformatory ultrasound-guided paracentesis. Right lower quadrant was deem ed appropriate. Skin was prepped and draped in a sterile fashion. 1% lidocaine, buffered with sodium bicarbonate was used for local anesthesia. Under ultrasound guidance, a 5 Romansh 7 cm Yueh cat heter is advanced in the peritoneal space. A total of 6900 mL yellow color ascites was aspirated. No immediate or postprocedural complications IMPRESSION: Successful ultrasound-guided paracentesis.
[2018-07-24 13:20] LABS: BF Color Yellow; Body Fluid Source Peritoneal Fluid; Clarity Hazy (Clear); Tube # EDTA
[2018-07-24 13:21] LABS: BF RBC Count - Manual 269 /cumm; BF WBC/Nonhematics Ct. - Manua 146 /cumm
[2018-07-24 13:28] LABS: BF Segmented Neutrophils 24 %; Cell Count Non Hematic 66 %; Lymphocytes 10 %
== END 2018-07-24 10:00 | disposition home or self-care (01) ==
LOC: ULT 07:14
PROVIDERS: ATTEND Internal Medicine Gastroenterology
PROC: 0W9G3ZX Drainage of Peritoneal Cavity, Percutaneous Approach, Diagnostic (ICD-10-PCS; principal; 2018-07-24)
DX: K70.31 Alcoholic cirrhosis of liver with ascites (principal); K72.90 Hepatic failure, unspecified without coma; I10 Essential (primary) hypertension; E11.42 Type 2 diabetes mellitus with diabetic polyneuropathy; Z79.84 Long term (current) use of oral hypoglycemic drugs; Z79.899 Other long term (current) drug therapy
CPT/HCPCS: 49083; 87070; 87205; 89051; P9047; 85060

== ENCOUNTER 2018-07-31 07:42 | Day surgery (SDC) | payer MEDICARE ==
[2018-07-31] MEDS ORDERED: Albumin 25% 200 ML ONE (08:11)
[2018-07-31] MEDS ORDERED: Sodium Bicarbonate 2.5 MEQ/5 ML VIAL ONE (08:11)
--- NOTE | 2018-07-31 09:23 | ULT ---
Exam: Ultrasound guided paracentesis HISTORY: Ascites COMPARISON: 07/24/2018 FINDINGS: Successful ultrasound-guided paracentesis. Total of dark yellow, 7 L ascites was aspirated. TECHNIQUE: Consent obtained reformatory ultrasound-guided paracentesis. Right lower quadrant was deem ed appropriate. Skin was prepped and draped in a sterile fashion. 1% lidocaine, buffered with sodium bicarbonate was used for local anesthesia. Under ultrasound guidance, a 5 German 7 cm Yueh cat heter is advanced in the peritoneal space. A total of dark yellow, 7 L ascites was aspirated. No immediate or postprocedural complications IMPRESSION: Successful ultrasound-guided paracentesis.
[2018-07-31 11:25] LABS: BF Color Yellow; Body Fluid Source Ascites Body Fluid; Clarity Hazy (Clear)
[2018-07-31 11:26] LABS: BF RBC Count - Manual 1200 /cumm; BF WBC/Nonhematics Ct. - Manua 83 /cumm; Tube # EDTA
[2018-07-31 12:18] LABS: BF Segmented Neutrophils 5 %; Cell Count Non Hematic 91 %; Lymphocytes 4 %
[2018-07-31 12:49] VITALS: BP 128/71; TEMP 97.5
== END 2018-07-31 09:10 | disposition home or self-care (01) ==
LOC: ULT 07:42
PROVIDERS: ATTEND Internal Medicine Gastroenterology
DX: K70.31 Alcoholic cirrhosis of liver with ascites (principal); N28.9 Disorder of kidney and ureter, unspecified; I10 Essential (primary) hypertension; E11.42 Type 2 diabetes mellitus with diabetic polyneuropathy; E78.5 Hyperlipidemia, unspecified
CPT/HCPCS: 49083; 87070; 87205; 89051; P9047; 85060

== ENCOUNTER 2018-08-07 07:29 | Day surgery (SDC) | payer MEDICARE ==
[2018-08-06 11:42] VITALS: BMI 31.4
[2018-08-07] MEDS ORDERED: Sodium Bicarbonate 2.5 MEQ/5 ML VIAL ONE (07:38)
[2018-08-07] MEDS ORDERED: Albumin 25% 200 ML ONE (07:39)
--- NOTE | 2018-08-07 09:28 | ULT ---
Exam: Ultrasound guided paracentesis HISTORY: Ascites COMPARISON: 07/31/2018 FINDINGS: Successful ultrasound-guided paracentesis. Total of 7 L of yellow color ascites was aspirat ed. TECHNIQUE: Consent obtained reformatory ultrasound-guided paracentesis. Right lower quadrant was deem ed appropriate. Skin was prepped and draped in a sterile fashion. 1% lidocaine, buffered with sodium bicarbonate was used for local anesthesia. Under ultrasound guidance, a 5 American 7 cm Yueh cat heter is advanced in the peritoneal space. A total of 7 mL of yellow color ascites was aspirated. No immediate or postprocedural complications IMPRESSION: Successful ultrasound-guided paracentesis.
[2018-08-07 11:13] VITALS: BP 119/63; TEMP 98.5
[2018-08-07 11:32] LABS: BF Color Yellow; BF RBC Count - Manual 134 /cumm; BF WBC/Nonhematics Ct. - Manua 140 /cumm; Body Fluid Source Ascites Body Fluid; Clarity Hazy (Clear); Tube # EDTA
[2018-08-07 11:37] LABS: BF Segmented Neutrophils 13 %; Cell Count Non Hematic 72 %; Lymphocytes 15 %
== END 2018-08-07 09:15 | disposition home or self-care (01) ==
LOC: ULT 07:29
PROVIDERS: ATTEND Internal Medicine Gastroenterology
PROC: 0W9G3ZZ Drainage of Peritoneal Cavity, Percutaneous Approach (ICD-10-PCS; principal; 2018-08-07)
DX: K70.31 Alcoholic cirrhosis of liver with ascites (principal); K72.90 Hepatic failure, unspecified without coma; K21.9 Gastro-esophageal reflux disease without esophagitis; E11.42 Type 2 diabetes mellitus with diabetic polyneuropathy; Z79.84 Long term (current) use of oral hypoglycemic drugs; Z79.899 Other long term (current) drug therapy
CPT/HCPCS: 49083; 87070; 87205; 89051; P9047; 85060

== ENCOUNTER 2018-08-14 07:18 | Day surgery (SDC) | payer MEDICARE ==
[2018-08-14] MEDS ORDERED: Albumin 25% 200 ML ONE (07:54)
[2018-08-14] MEDS ORDERED: Sodium Bicarbonate 2.5 MEQ/5 ML VIAL ONE (07:54)
--- NOTE | 2018-08-14 11:06 | ULT ---
Sonographic guided paracentesis HISTORY: Recurrent ascites. FINDINGS: After explaining the procedure and answering all questions, sonographic survey shows large amount of free fluid. Sterile technique, buffered local anesthesia, sonographic guidance, and a right anterolateral approach were used to carefully advance a 19-gauge Yueh needle and catheter into the fluid. Catheter was left to drain a total volume of 7.0 L slightly cloudy pale gold liquid. Small amount of fluid remains. Catheter was removed. Patient tolerated the procedure well and was dis missed in good condition. IMPRESSION: Technically successful sonographic guided paracentesis.
[2018-08-14 11:08] LABS: BF Color Yellow; BF RBC Count - Manual 101 /cumm; BF WBC/Nonhematics Ct. - Manua 79 /cumm; Body Fluid Source Ascites Body Fluid; Clarity Hazy (Clear); Tube # EDTA
[2018-08-14 11:36] LABS: BF Segmented Neutrophils 4 %; Cell Count Non Hematic 75 %; Lymphocytes 21 %
[2018-08-14 13:51] VITALS: BP 125/66; TEMP 98.6
== END 2018-08-14 09:15 | disposition home or self-care (01) ==
LOC: ULT 07:18
PROVIDERS: ATTEND Internal Medicine Gastroenterology
DX: K74.60 Unspecified cirrhosis of liver (principal); R18.8 Other ascites; I12.0 Hypertensive chronic kidney disease with stage 5 chronic kidney disease or end stage renal disease; N18.6 End stage renal disease; E11.22 Type 2 diabetes mellitus with diabetic chronic kidney disease; E11.42 Type 2 diabetes mellitus with diabetic polyneuropathy; E78.5 Hyperlipidemia, unspecified; B19.20 Unspecified viral hepatitis C without hepatic coma; Z79.899 Other long term (current) drug therapy
CPT/HCPCS: 49083; 87070; 87205; 89051; P9047; 85060

== ENCOUNTER 2018-08-17 07:49 | Emergency (ER) | payer MEDICARE | END 2018-08-17 10:28 | disposition home or self-care (01) | LOC: ERS 07:49 | DX: J01.90 Acute sinusitis, unspecified (principal); E11.9 Type 2 diabetes mellitus without complications; E78.5 Hyperlipidemia, unspecified; F41.9 Anxiety disorder, unspecified | CPT/HCPCS: 99283 ==

== ENCOUNTER 2018-08-21 08:02 | Day surgery (SDC) | payer MEDICARE ==
[2018-08-21] MEDS ORDERED: Sodium Bicarbonate 2.5 MEQ/5 ML VIAL ONE (08:09)
--- NOTE | 2018-08-21 10:46 | ULT ---
Ultrasound-guided paracentesis: HISTORY: Symptomatic ascites FINDINGS: Informed consent obtained prior to the procedure. Preprocedural imaging demonstrated signif icant ascites throughout the abdomen and pelvis. Right lower quadrant prepped and draped in normal sterile fashion and anesthetized with 1% buffered l idocaine. With direct sonographic guidance, 5 Hungarian Yueh catheter is advanced into the ascites and removal of the stylet yielded yellow fluid. 4.7 L were removed. The patient tolerated the procedure well. No postprocedural complications. IMPRESSION: Successful ultrasound-guided paracentesis yielding 4.7 L of yellow ascites.
[2018-08-21 11:05] VITALS: BP 105/54; TEMP 98.4; BMI 31.4
[2018-08-21 12:28] LABS: BF Color Yellow; Body Fluid Source Ascites Body Fluid; Clarity Hazy (Clear); Tube # EDTA
[2018-08-21 12:29] LABS: BF RBC Count - Manual 132 /cumm; BF WBC/Nonhematics Ct. - Manua 184 /cumm
[2018-08-21 12:53] LABS: Cell Count Non Hematic 81 %
[2018-08-21 12:54] LABS: BF Segmented Neutrophils 10 %; Lymphocytes 9 %
== END 2018-08-21 09:38 | disposition home or self-care (01) ==
LOC: ULT 08:02
PROVIDERS: ATTEND Nurse Practitioner Family
PROC: 0W9G3ZZ Drainage of Peritoneal Cavity, Percutaneous Approach (ICD-10-PCS; principal; 2018-08-21)
DX: K70.31 Alcoholic cirrhosis of liver with ascites (principal); I10 Essential (primary) hypertension; E11.42 Type 2 diabetes mellitus with diabetic polyneuropathy; K72.90 Hepatic failure, unspecified without coma; Z79.84 Long term (current) use of oral hypoglycemic drugs; Z79.899 Other long term (current) drug therapy
CPT/HCPCS: 49083; 85060; 87070; 87205; 89051

== ENCOUNTER 2018-08-28 07:13 | Day surgery (SDC) | payer MEDICARE ==
[2018-08-27 13:39] VITALS: BMI 32.8
[2018-08-28] MEDS ORDERED: Albumin 25% 200 ML ONE (07:48)
[2018-08-28] MEDS ORDERED: Sodium Bicarbonate 2.5 MEQ/5 ML VIAL ONE (07:48)
--- NOTE | 2018-08-28 09:05 | ULT ---
US Paracentesis with Imaging HISTORY: Recurrent ascites COMPARISON: None. FINDINGS: After informed consent was obtained imaging the abdomen showed the largest fluid collection to be within the left lower quadrant. The patient was prepped and draped in normal sterile fashion. Local anesthesia obtained with 1% Xylocaine. A small skin incision was made with a #11 scalp el blade. A 6 Serbian Yueh catheter was inserted under ultrasound guidance without difficulty. 6.2 L of typical straw-colored ascites was obtained. There are no immediate complications of the procedure. IMPRESSION: Ultrasound-guided paracentesis of 6.2 L of fluid.
[2018-08-28 09:32] VITALS: BP 120/69; TEMP 98.3
[2018-08-28 12:04] LABS: BF Color Yellow; BF RBC Count - Manual 153 /cumm; BF WBC/Nonhematics Ct. - Manua 87 /cumm; Body Fluid Source Paracentesis Fluid; Clarity Clear (Clear); RBC Background Count 0.009; Tube # EDTA; WBC Background Count 0.01
[2018-08-28 12:26] LABS: BF Segmented Neutrophils 15 %; Cell Count Non Hematic 71 %; Lymphocytes 14 %
== END 2018-08-28 09:15 | disposition home or self-care (01) ==
LOC: ULT 07:13
PROVIDERS: ATTEND Nurse Practitioner Family
PROC: 0W9G3ZZ Drainage of Peritoneal Cavity, Percutaneous Approach (ICD-10-PCS; principal; 2018-08-28)
DX: K70.31 Alcoholic cirrhosis of liver with ascites (principal); K72.90 Hepatic failure, unspecified without coma; E11.42 Type 2 diabetes mellitus with diabetic polyneuropathy; F41.8 Other specified anxiety disorders; E78.5 Hyperlipidemia, unspecified; I10 Essential (primary) hypertension; Z79.84 Long term (current) use of oral hypoglycemic drugs; Z79.899 Other long term (current) drug therapy
CPT/HCPCS: 49083; 87070; 87205; 89051; P9047; 85060

== ENCOUNTER 2018-09-04 08:15 | Day surgery (SDC) | payer MEDICARE ==
[2018-09-03 07:46] VITALS: BMI 31.4
[2018-09-04] MEDS ORDERED: Albumin 25% 200 ML ONE (08:23)
[2018-09-04] MEDS ORDERED: Sodium Bicarbonate 2.5 MEQ/5 ML VIAL ONE (08:23)
--- NOTE | 2018-09-04 10:15 | ULT ---
Sonographic guided paracentesis HISTORY: Recurrent ascites. FINDINGS: After explaining the procedure and answering all questions, sonographic survey shows large amount of free fluid throughout the abdomen. Sterile technique, buffered local anesthesia, sonographic guidance, and a right lower quadrant approach were used to carefully advance a 19-gauge Y ueh needle and catheter into the free fluid. Catheter was left to drain a total volume of 6.4 L slightly blood-tinged yellow liquid. The liquid the became less pink throughout the drainage but stevan ined slightly blood tinged at the last bottle.. Catheter was removed. Minimal fluid remains. Patient's vital signs remained normal. He described no abnormal symptoms. He was instructed regarding close monitoring after leaving the hospital for hypotension or other symptoms and will return if needed. IMPRESSION: Technically successful sonographic guided paracentesis.
[2018-09-04 10:20] VITALS: BP 123/63; TEMP 98.2
[2018-09-04 11:47] LABS: BF Color Yellow; Body Fluid Source Ascites Body Fluid; Clarity Hazy (Clear); Tube # EDTA
[2018-09-04 15:09] LABS: BF RBC Count - Manual 8825 /cumm; BF WBC/Nonhematics Ct. - Manua 187 /cumm
[2018-09-04 15:14] LABS: BF Segmented Neutrophils 22 %; Cell Count Non Hematic 72 %; Lymphocytes 6 %
== END 2018-09-04 10:00 | disposition home or self-care (01) ==
LOC: ULT 08:15
PROVIDERS: ATTEND Nurse Practitioner Family
DX: K74.60 Unspecified cirrhosis of liver (principal); R18.8 Other ascites; I10 Essential (primary) hypertension; E11.42 Type 2 diabetes mellitus with diabetic polyneuropathy; N28.9 Disorder of kidney and ureter, unspecified; F41.9 Anxiety disorder, unspecified; F32.9 Major depressive disorder, single episode, unspecified; B19.20 Unspecified viral hepatitis C without hepatic coma
CPT/HCPCS: 49083; 87070; 87205; 89051; P9047; 85060

== ENCOUNTER 2018-09-11 06:53 | Day surgery (SDC) | payer MEDICARE ==
[2018-09-10 11:26] VITALS: BMI 31.4
--- NOTE | 2018-09-11 08:57 | ULT ---
ULTRASOUND GUIDED PARACENTESIS: HISTORY: Ascites. PROCEDURE IN DETAIL: Informed consent was obtained from the patient. A collection of fluid was noted in the right lateral intraperitoneal space. The overlying skin was prepped and draped in the usual sterile manner. A 1% lidocaine solution was used to anesthetize the overlying soft tissues. A small dermatotomy was ma de. A 5 Slovak Yueh needle was placed into the peritoneal collection. A total of 6 L of peritoneal fluid was removed without difficulty. IMPRESSION: Successful ultrasound guided paracentesis. Transcribed Date/Time: 09/11/2018 9:09 AM
[2018-09-11 09:27] VITALS: BP 128/69; TEMP 98.1
[2018-09-11 10:16] LABS: Body Fluid Source Ascites Body Fluid; Clarity Hazy (Clear)
[2018-09-11 10:17] LABS: BF Color Yellow; BF RBC Count - Manual 281 /cumm; BF WBC/Nonhematics Ct. - Manua 183 /cumm; Tube # EDTA
[2018-09-11 11:00] LABS: BF Segmented Neutrophils 12 %; Cell Count Non Hematic 66 %; Lymphocytes 22 %
== END 2018-09-11 09:00 | disposition home or self-care (01) ==
LOC: ULT 06:53
PROVIDERS: ATTEND Nurse Practitioner Family
DX: K74.60 Unspecified cirrhosis of liver (principal); R18.8 Other ascites; N28.9 Disorder of kidney and ureter, unspecified; I10 Essential (primary) hypertension; E11.42 Type 2 diabetes mellitus with diabetic polyneuropathy; E78.5 Hyperlipidemia, unspecified; F41.9 Anxiety disorder, unspecified; F32.9 Major depressive disorder, single episode, unspecified
CPT/HCPCS: 49083; 87070; 87205; 89051; P9047; 85060

== ENCOUNTER 2018-09-18 07:52 | Day surgery (SDC) | payer MEDICARE ==
[2018-09-17 08:18] VITALS: BMI 31.4
[2018-09-18 10:24] VITALS: BP 135/68; TEMP 98.2
--- NOTE | 2018-09-18 10:44 | ULT ---
PREPROCEDURE DIAGNOSIS: Ascites POST PROCEDURE DIAGNOSIS: Same PROCEDURE: Ultrasound-guided paracentesis SCIENTIST ELECTRONICS: Wilfredo ANESTHESIA: 5 mL of buffered 1% lidocaine. SPECIMEN: 6 L of straw-colored fluid TECHNIQUE: Prior to the procedure, the risks and benefits of an ultrasound guided paracentesis were explained to the patient which consented fully to the procedure. The area of the largest fluid collection was seen in the right lower quadrant of the abdomen. This a betty was prepped and draped in the usual sterile fashion. Lidocaine was used to anesthetize the skin and soft tissues down towards the peritoneal cavity. The p eritoneum was anesthetized. A small skin incision was made for passage of the [employer] needle and catheter. This device was then placed using ultrasound guidance into the peritoneal cavity. The needle was removed after return of fluid. The catheter was then connected to multiple Vacutainer bottles. A total of 6 L was removed. No residual fluid is seen in this region of the peritoneal cavity. IMPRESSION: Status post successful ultrasound-guided paracentesis
[2018-09-18 11:59] LABS: BF Color Colorless; Body Fluid Source Ascites Body Fluid; Clarity Hazy (Clear); Tube # EDTA
[2018-09-18 12:00] LABS: BF RBC Count - Manual 178 /cumm; BF WBC/Nonhematics Ct. - Manua 103 /cumm
[2018-09-18 12:40] LABS: BF Segmented Neutrophils 16 %; Cell Count Non Hematic 69 %; Lymphocytes 15 %
== END 2018-09-18 09:35 | disposition home or self-care (01) ==
LOC: ULT 07:52
PROVIDERS: ATTEND Nurse Practitioner Family
PROC: 0W9G30Z Drainage of Peritoneal Cavity with Drainage Device, Percutaneous Approach (ICD-10-PCS; principal; 2018-09-18)
DX: K70.31 Alcoholic cirrhosis of liver with ascites (principal); B19.20 Unspecified viral hepatitis C without hepatic coma; I12.0 Hypertensive chronic kidney disease with stage 5 chronic kidney disease or end stage renal disease; E11.22 Type 2 diabetes mellitus with diabetic chronic kidney disease; N18.6 End stage renal disease; E11.42 Type 2 diabetes mellitus with diabetic polyneuropathy; E78.5 Hyperlipidemia, unspecified; F32.9 Major depressive disorder, single episode, unspecified; F41.9 Anxiety disorder, unspecified; Z98.890 Other specified postprocedural states; Z79.84 Long term (current) use of oral hypoglycemic drugs; Z79.899 Other long term (current) drug therapy
CPT/HCPCS: 49083; 87070; 87205; 89051; P9047; 85060

== ENCOUNTER 2018-09-25 07:34 | Day surgery (SDC) | payer MEDICARE ==
[2018-09-24 12:52] VITALS: BMI 30.1
[2018-09-25] MEDS ORDERED: Albumin 25% 200 ML ONE (07:41)
[2018-09-25] MEDS ORDERED: Sodium Bicarbonate 2.5 MEQ/5 ML VIAL ONE (07:41)
--- NOTE | 2018-09-25 08:54 | ULT ---
US Paracentesis with Imaging History: Ascites Comparison: Paracentesis September 18, 2018 Findings: Patient was brought to the ultrasound suite. All questions were answered. Informed consent was obtained. Timeout performed. Patient's right lower quadrant was prepped and draped in normal sterile fashion. 3 mL lidocaine was i nstilled into the superficial and deep soft tissues. After adequate anesthesia a dermotome was made. Using a 5 Lebanese catheter the peritoneal space was ac cessed. 6800 mL of straw-colored fluid was removed from the peritoneal space. Impression: Technically successful ultrasound guided paracentesis.
[2018-09-25 09:48] VITALS: BP 105/67; TEMP 98.6
[2018-09-25 11:21] LABS: Body Fluid Source Ascites Body Fluid
[2018-09-25 11:22] LABS: BF Color Yellow; BF WBC/Nonhematics Ct. - Manua 127 /cumm; Clarity Clear (Clear); Tube # EDTA
[2018-09-25 11:23] LABS: BF RBC Count - Manual 209 /cumm
[2018-09-25 11:39] LABS: BF Segmented Neutrophils 15 %; Cell Count Non Hematic 73 %; Lymphocytes 12 %
== END 2018-09-25 09:00 | disposition home or self-care (01) ==
LOC: ULT 07:34
PROVIDERS: ATTEND Nurse Practitioner Family
DX: K74.60 Unspecified cirrhosis of liver (principal); R18.8 Other ascites; N28.9 Disorder of kidney and ureter, unspecified; I10 Essential (primary) hypertension; E11.42 Type 2 diabetes mellitus with diabetic polyneuropathy; E78.5 Hyperlipidemia, unspecified; F41.9 Anxiety disorder, unspecified; F32.9 Major depressive disorder, single episode, unspecified
CPT/HCPCS: 49083; 87070; 87205; 89051; P9047; 85060

== ENCOUNTER 2018-10-02 07:54 | Day surgery (SDC) | payer MEDICARE ==
[2018-10-01 15:10] VITALS: BMI 31.4
[2018-10-02 09:44] VITALS: BP 118/66; TEMP 97.8
[2018-10-02 11:05] LABS: BF Color Yellow; Body Fluid Source Ascites Body Fluid; Clarity Hazy (Clear); Tube # EDTA
--- NOTE | 2018-10-02 11:34 | ULT ---
Sonographic guided paracentesis HISTORY: Recurrent ascites. FINDINGS: After explaining the procedure and answering all questions, sonographic survey shows large amount of free fluid throughout the abdomen. Sterile technique, buffered local anesthesia, sonographic guidance, and a right lower quadrant approach were used to carefully advance a 19-gauge Y ueh needle and catheter into the free fluid. The catheter was left to drain a total volume of 7.0 L cloudy yellow liquid. Catheter was removed. Moderate amount of free fluid remains. Patient tolerated the procedure well and was dismissed in good condition. IMPRESSION: Technically successful sonographic guided paracentesis.
[2018-10-02 12:17] LABS: BF RBC Count - Manual 103 /cumm; BF WBC/Nonhematics Ct. - Manua 148 /cumm
[2018-10-02 12:29] LABS: BF Segmented Neutrophils 20 %; Cell Count Non Hematic 67 %; Lymphocytes 13 %
== END 2018-10-02 09:35 | disposition home or self-care (01) ==
LOC: ULT 07:54
PROVIDERS: ATTEND Nurse Practitioner Family
PROC: 0W9G3ZX Drainage of Peritoneal Cavity, Percutaneous Approach, Diagnostic (ICD-10-PCS; principal; 2018-10-02)
DX: K74.60 Unspecified cirrhosis of liver (principal); R18.8 Other ascites; E11.9 Type 2 diabetes mellitus without complications; M19.90 Unspecified osteoarthritis, unspecified site; I10 Essential (primary) hypertension; F32.9 Major depressive disorder, single episode, unspecified; F41.9 Anxiety disorder, unspecified; Z79.84 Long term (current) use of oral hypoglycemic drugs; Z79.899 Other long term (current) drug therapy; Z98.890 Other specified postprocedural states
CPT/HCPCS: 49083; 87070; 87205; 89051; P9047; 85060

== ENCOUNTER 2018-10-09 07:12 | Day surgery (SDC) | payer MEDICARE ==
[2018-10-08 14:23] VITALS: BMI 31.4
[2018-10-09] MEDS ORDERED: Lidocaine 1% PF 5 ML VIAL ONE (07:41)
[2018-10-09] MEDS ORDERED: Sodium Bicarbonate 2.5 MEQ/5 ML VIAL ONE (07:41)
--- NOTE | 2018-10-09 10:24 | ULT ---
Exam: Ultrasound guided paracentesis HISTORY: Ascites COMPARISON: October 02, 2018 FINDINGS: Successful ultrasound-guided paracentesis. Total of 6850 cc of normal appearingascites was aspirated. TECHNIQUE: Consent obtained reformatory ultrasound-guided paracentesis. Right lower quadrant was deem ed appropriate. Skin was prepped and draped in a sterile fashion. 1% lidocaine, buffered with sodium bicarbonate was used for local anesthesia. Under ultrasound guidance, a 5 Urdu 7 cm Yueh cat heter is advanced in the peritoneal space. A total of 6850 cc of normal appearingascites was aspirated. No immediate or postprocedural complications IMPRESSION: Successful ultrasound-guided paracentesis.
[2018-10-09 12:26] VITALS: BP 113/63; TEMP 98.2
[2018-10-09 13:48] LABS: BF Color Yellow; BF RBC Count - Manual 174 /cumm; BF WBC/Nonhematics Ct. - Manua 129 /cumm; Body Fluid Source Ascites Body Fluid; Clarity Hazy (Clear); Tube # EDTA
[2018-10-09 13:56] LABS: BF Segmented Neutrophils 20 %; Cell Count Non Hematic 54 %; Lymphocytes 26 %
== END 2018-10-09 09:05 | disposition home or self-care (01) ==
LOC: ULT 07:12
PROVIDERS: ATTEND Nurse Practitioner Family
PROC: 0W9G30Z Drainage of Peritoneal Cavity with Drainage Device, Percutaneous Approach (ICD-10-PCS; principal; 2018-10-09)
DX: K74.60 Unspecified cirrhosis of liver (principal); R18.8 Other ascites; I10 Essential (primary) hypertension; F32.9 Major depressive disorder, single episode, unspecified; F41.9 Anxiety disorder, unspecified; E11.42 Type 2 diabetes mellitus with diabetic polyneuropathy; E78.5 Hyperlipidemia, unspecified; Z79.84 Long term (current) use of oral hypoglycemic drugs; Z79.899 Other long term (current) drug therapy
CPT/HCPCS: 49083; 85060; 87070; 87205; 89051; J2001

== ENCOUNTER 2018-10-16 07:18 | Day surgery (SDC) | payer MEDICARE ==
[2018-10-15 14:10] VITALS: BMI 31.4
[2018-10-16] MEDS ORDERED: Albumin 25% 200 ML ONE (08:11)
[2018-10-16] MEDS ORDERED: Sodium Bicarbonate 2.5 MEQ/5 ML VIAL ONE (08:11)
--- NOTE | 2018-10-16 09:18 | ULT ---
PREPROCEDURE DIAGNOSIS: Ascites POST PROCEDURE DIAGNOSIS: Same PROCEDURE: Ultrasound-guided paracentesis BUSINESS SERVICES ASSISTANT: Wilfredo ANESTHESIA: 6 mL of buffered 1% lidocaine. SPECIMEN: 7 L of straw-colored fluid TECHNIQUE: Prior to the procedure, the risks and benefits of an ultrasound guided paracentesis were explained to the patient which consented fully to the procedure. The area of the largest fluid collection was seen in the left lower quadrant of the abdomen. This are a was prepped and draped in the usual sterile fashion. Lidocaine was used to anesthetize the skin and soft tissues down towards the peritoneal cavity. The p eritoneum was anesthetized. A small skin incision was made for passage of the [facility] needle and catheter. This device was then placed using ultrasound guidance into the peritoneal cavity. The needle was removed after return of fluid. The catheter was then connected to multiple Vacutainer bottles. A total of 7 L was removed. No residual fluid is seen in this region of the peritoneal cavity. IMPRESSION: Status post successful ultrasound-guided paracentesis
[2018-10-16 09:40] LABS: BF Color Yellow; Body Fluid Source Ascites Body Fluid; Clarity Hazy (Clear); Tube # EDTA
[2018-10-16 09:50] LABS: BF RBC Count - Manual 150 /cumm; BF WBC/Nonhematics Ct. - Manua 106 /cumm
[2018-10-16 10:53] LABS: BF Segmented Neutrophils 11 %; Cell Count Non Hematic 71 %; Lymphocytes 18 %
== END 2018-10-16 09:15 | disposition home or self-care (01) ==
LOC: ULT 07:18
PROVIDERS: ATTEND Nurse Practitioner Family
DX: K74.60 Unspecified cirrhosis of liver (principal); R18.8 Other ascites; I10 Essential (primary) hypertension; E11.9 Type 2 diabetes mellitus without complications; E03.9 Hypothyroidism, unspecified; N28.9 Disorder of kidney and ureter, unspecified; F41.9 Anxiety disorder, unspecified; F32.9 Major depressive disorder, single episode, unspecified
CPT/HCPCS: 49083; 87070; 87205; 89051; P9047; 85060

== ENCOUNTER 2018-10-23 07:25 | Day surgery (SDC) | payer MEDICARE ==
[2018-10-22 14:08] VITALS: BMI 31.4
[2018-10-23] MEDS ORDERED: Sodium Bicarbonate 2.5 MEQ/5 ML VIAL ONE (07:56)
[2018-10-23] MEDS ORDERED: Albumin 25% 200 ML ONE (07:56)
[2018-10-23 10:17] VITALS: BP 120/66; TEMP 98.6
--- NOTE | 2018-10-23 10:42 | ULT ---
Ultrasound-guided paracentesis therapeutic: DATE: 10/23/2018 HISTORY: 58-year-old male with abdominal distention due to ascites due to alcoholic cirrhosis. Relief of sympt omatic abdominal distention requested. Limit of 7 L maximum. TECHNIQUE: Signed informed consent obtained. Four-quadrant survey of abdominal cavity. Right lower quadrant lacie cted. Overlying skin prepped and draped in usual sterile fashion. 25-gauge needle used to apply buffered lidocaine superficially and deeply. 5 [employer] catheter with stylette advanced into perit fuller cavity. Stylette removed. Catheter connected to series of evacuated bottles via plastic tubing. After drainage, catheter removed. Patient tolerated procedure well. No complications. FINDINGS: Large volume of free intraperitoneal fluid prior to procedure. Postprocedure single image demonstrates very small amount of residual fluid in right lower quadrant. 7000 mL of nonhemorrhagic, straw-colored fluid drained and discarded. IMPRESSION: Successful paracentesis, with drainage of 7 L of ascites.
[2018-10-23 13:21] LABS: BF Color Yellow; BF RBC Count - Manual 117 /cumm; BF WBC/Nonhematics Ct. - Manua 108 /cumm; Body Fluid Source Ascites Body Fluid; Clarity Hazy (Clear); Tube # EDTA
[2018-10-23 13:30] LABS: BF Segmented Neutrophils 24 %; Cell Count Non Hematic 60 %; Lymphocytes 16 %
== END 2018-10-23 10:00 | disposition home or self-care (01) ==
LOC: ULT 07:25
PROVIDERS: ATTEND Nurse Practitioner Family
DX: K70.31 Alcoholic cirrhosis of liver with ascites (principal); I10 Essential (primary) hypertension; E11.9 Type 2 diabetes mellitus without complications; F41.9 Anxiety disorder, unspecified; F32.9 Major depressive disorder, single episode, unspecified; E78.5 Hyperlipidemia, unspecified; N28.9 Disorder of kidney and ureter, unspecified
CPT/HCPCS: 49083; 87070; 87205; 89051; P9047; 85060

== ENCOUNTER 2018-10-30 06:35 | Day surgery (SDC) | payer MEDICARE ==
[2018-10-30] MEDS ORDERED: Albumin 25% 200 ML ONE (06:46)
[2018-10-30] MEDS ORDERED: Sodium Bicarbonate 2.5 MEQ/5 ML VIAL ONE (06:46)
[2018-10-30 09:00] VITALS: BMI 31.4
[2018-10-30 09:07] VITALS: BP 124/64; TEMP 98
[2018-10-30 11:20] LABS: BF Color Yellow; Body Fluid Source Ascites Body Fluid; Clarity Hazy (Clear); Tube # EDTA
[2018-10-30 11:36] LABS: BF RBC Count - Manual 140 /cumm; BF WBC/Nonhematics Ct. - Manua 108 /cumm
--- NOTE | 2018-10-30 11:36 | ULT ---
Ultrasound-guided paracentesis: HISTORY: Symptomatic ascites FINDINGS: Informed consent obtained prior to the procedure. Preprocedural imaging demonstrated intrap eritoneal free fluid. An area was marked in the right mid abdomen in the axillary line, and then meticulously prepped and d raped in normal sterile fashion and anesthetized with 1% buffered lidocaine. With direct sonographic guidance, a 19-gauge needle and 5 Slovenian Yueh catheter were advanced into the abdomen. After the return of fluid, the catheter was advanced, and the needle was removed. Approximately 7 L of cloudy yellow-colored fluid was aspirated. The introducer sheath was removed, an d hemostasis was achieved with direct pressure. A dry sterile dressing was placed. The patient tolerated the procedure well and without immediate complication. IMPRESSION: Technically successful ultrasound-guided paracentesis.
[2018-10-30 11:44] LABS: Cell Count Non Hematic 66 %
[2018-10-30 11:45] LABS: BF Segmented Neutrophils 20 %; Lymphocytes 14 %
== END 2018-10-30 08:40 | disposition home or self-care (01) ==
LOC: ULT 06:35
PROVIDERS: ATTEND Nurse Practitioner Family
PROC: 0W9G30Z Drainage of Peritoneal Cavity with Drainage Device, Percutaneous Approach (ICD-10-PCS; principal; 2018-10-30)
DX: K74.60 Unspecified cirrhosis of liver (principal); R18.8 Other ascites; I10 Essential (primary) hypertension; E11.9 Type 2 diabetes mellitus without complications; F32.9 Major depressive disorder, single episode, unspecified; F41.9 Anxiety disorder, unspecified; E78.5 Hyperlipidemia, unspecified; Z79.84 Long term (current) use of oral hypoglycemic drugs; Z79.899 Other long term (current) drug therapy
CPT/HCPCS: 49083; 87070; 87205; 89051; P9047; 85060

== ENCOUNTER 2018-11-06 06:40 | Day surgery (SDC) | payer MEDICARE ==
[2018-11-06] MEDS ORDERED: Albumin 25% 200 ML ONE (07:39)
[2018-11-06] MEDS ORDERED: Sodium Bicarbonate 2.5 MEQ/5 ML VIAL ONE (07:39)
--- NOTE | 2018-11-06 09:39 | ULT ---
Exam: Ultrasound guided paracentesis HISTORY: Ascites COMPARISON: 10/30/2018 FINDINGS: Successful ultrasound-guided paracentesis. Total of 7 L, yellow color ascites was aspirated . TECHNIQUE: Consent obtained reformatory ultrasound-guided paracentesis. Right lower quadrant was deem ed appropriate. Skin was prepped and draped in a sterile fashion. 1% lidocaine, buffered with sodium bicarbonate was used for local anesthesia. Under ultrasound guidance, a 5 Macedonian 7 cm Yueh cat heter is advanced in the peritoneal space. A total of 7 L, yellow color ascites was aspirated. No immediate or postprocedural complications IMPRESSION: Successful ultrasound-guided paracentesis.
[2018-11-06 11:57] VITALS: BP 130/69; TEMP 98.1
[2018-11-06 13:10] LABS: BF Color Yellow; BF RBC Count - Manual 223 /cumm; BF WBC/Nonhematics Ct. - Manua 87 /cumm; Body Fluid Source Ascites Body Fluid; Clarity Hazy (Clear); Tube # EDTA
[2018-11-06 13:15] LABS: BF Segmented Neutrophils 15 %; Cell Count Non Hematic 71 %; Lymphocytes 14 %
== END 2018-11-06 09:15 | disposition home or self-care (01) ==
LOC: ULT 06:40
PROVIDERS: ATTEND Nurse Practitioner Family
PROC: 0W9G3ZZ Drainage of Peritoneal Cavity, Percutaneous Approach (ICD-10-PCS; principal; 2018-11-06)
DX: K70.31 Alcoholic cirrhosis of liver with ascites (principal); E11.9 Type 2 diabetes mellitus without complications; F32.9 Major depressive disorder, single episode, unspecified; F41.9 Anxiety disorder, unspecified; I10 Essential (primary) hypertension; E78.5 Hyperlipidemia, unspecified; F10.11 Alcohol abuse, in remission; Z79.899 Other long term (current) drug therapy
CPT/HCPCS: 49083; 87070; 87205; 89051; P9047; 85060

== ENCOUNTER 2018-11-13 08:05 | Day surgery (SDC) | payer MEDICARE ==
[2018-11-12 13:54] VITALS: BMI 31.4
[2018-11-13] MEDS ORDERED: Sodium Bicarbonate 2.5 MEQ/5 ML VIAL ONE (08:21)
[2018-11-13 10:32] VITALS: BP 100/66; TEMP 98.1
[2018-11-13 10:35] LABS: BF Color Yellow; Body Fluid Source Ascites Body Fluid; Clarity Hazy (Clear); Tube # EDTA
[2018-11-13 10:58] LABS: BF RBC Count - Manual 3150 /cumm; BF WBC/Nonhematics Ct. - Manua 76 /cumm
[2018-11-13 12:18] LABS: BF Segmented Neutrophils 13 %; Cell Count Non Hematic 67 %; Eosinophils 1 %; Lymphocytes 19 %
--- NOTE | 2018-11-13 15:40 | ULT ---
Exam: Ultrasound guided paracentesis HISTORY: Ascites COMPARISON: 11/06/2018 FINDINGS: Successful ultrasound-guided paracentesis. Total of 7 L of dark yellow ascites was aspirate d. TECHNIQUE: Consent obtained reformatory ultrasound-guided paracentesis. Right lower quadrant was deem ed appropriate. Skin was prepped and draped in a sterile fashion. 1% lidocaine, buffered with sodium bicarbonate was used for local anesthesia. Under ultrasound guidance, a 5 Comoran 7 cm Yueh cat heter is advanced in the peritoneal space. A total of 7 L of dark yellow ascites was aspirated. No immediate or postprocedural complications IMPRESSION: Successful ultrasound-guided paracentesis.
== END 2018-11-13 09:50 | disposition home or self-care (01) ==
LOC: ULT 08:05
PROVIDERS: ATTEND Nurse Practitioner Family
DX: K74.60 Unspecified cirrhosis of liver (principal); R18.8 Other ascites; B19.20 Unspecified viral hepatitis C without hepatic coma; I10 Essential (primary) hypertension; E11.9 Type 2 diabetes mellitus without complications; E78.5 Hyperlipidemia, unspecified; N28.9 Disorder of kidney and ureter, unspecified; F41.9 Anxiety disorder, unspecified; F32.9 Major depressive disorder, single episode, unspecified
CPT/HCPCS: 49083; 85060; 87070; 87205; 89051

== ENCOUNTER 2018-11-20 06:36 | Day surgery (SDC) | payer MEDICARE ==
[2018-11-19 13:12] VITALS: BMI 33.6
[2018-11-20] MEDS ORDERED: Albumin 25% 200 ML ONE (06:45)
[2018-11-20] MEDS ORDERED: Sodium Bicarbonate 2.5 MEQ/5 ML VIAL ONE (06:45)
--- NOTE | 2018-11-20 09:05 | ULT ---
Exam: Ultrasound guided paracentesis HISTORY: Ascites COMPARISON: 11/13/2018 FINDINGS: Successful ultrasound-guided paracentesis. Total of 6 L of yellow color ascites was aspirat ed. TECHNIQUE: Consent obtained reformatory ultrasound-guided paracentesis. Right lower quadrant was deem ed appropriate. Skin was prepped and draped in a sterile fashion. 1% lidocaine, buffered with sodium bicarbonate was used for local anesthesia. Under ultrasound guidance, a 5 Lithuanian 7 cm Yueh cat heter is advanced in the peritoneal space. A total of 6 L of yellow color ascites was aspirated. No immediate or postprocedural complications IMPRESSION: Successful ultrasound-guided paracentesis.
[2018-11-20 09:31] LABS: RBC Count-Automated (BF) 401 /cumm; WBC/Nucleated-Auto (BF) 216 uL
[2018-11-20 09:32] LABS: BF Color Yellow; Body Fluid Source Paracentesis Fluid; Clarity Hazy (Clear)
[2018-11-20 09:34] LABS: Tube # EDTA
[2018-11-20 12:12] LABS: Cell Count Non Hematic 74 %; Lymphocytes 14 %
[2018-11-20 12:13] LABS: BF Segmented Neutrophils 12 %
== END 2018-11-20 08:35 | disposition home or self-care (01) ==
LOC: ULT 06:36
PROVIDERS: ATTEND Nurse Practitioner Family
DX: K74.60 Unspecified cirrhosis of liver (principal); R18.8 Other ascites; I10 Essential (primary) hypertension; E11.9 Type 2 diabetes mellitus without complications; N28.9 Disorder of kidney and ureter, unspecified; E78.5 Hyperlipidemia, unspecified; F41.8 Other specified anxiety disorders; F32.9 Major depressive disorder, single episode, unspecified
CPT/HCPCS: 49083; 87070; 87205; 89051; P9047; 85060

== ENCOUNTER 2018-11-27 07:24 | Day surgery (SDC) | payer MEDICARE ==
[2018-11-26 13:22] VITALS: BMI 32.8
[~2018-11-27 07:24] MED LIST changes: +Albumin 25% 0 ML ONE
--- NOTE | 2018-11-27 09:39 | ULT ---
PREPROCEDURE DIAGNOSIS: Ascites POST PROCEDURE DIAGNOSIS: Same PROCEDURE: Ultrasound-guided paracentesis PRESIDENT/GM PRODUCTION & LIVE EXPERIENCES: Wilfredo ANESTHESIA: 5 mL of buffered 1% lidocaine. SPECIMEN: 7 L of straw-colored fluid TECHNIQUE: Prior to the procedure, the risks and benefits of an ultrasound guided paracentesis were explained to the patient which consented fully to the procedure. The area of the largest fluid collection was seen in the left lower quadrant of the abdomen. This are a was prepped and draped in the usual sterile fashion. Lidocaine was used to anesthetize the skin and soft tissues down towards the peritoneal cavity. The p eritoneum was anesthetized. A small skin incision was made for passage of the [facility] needle and catheter. This device was then placed using ultrasound guidance into the peritoneal cavity. The needle was removed after return of fluid. The catheter was then connected to multiple Vacutainer bottles. A total of 7 L was removed. A small amount of residual fluid is seen in this region of the peritoneal cavity. IMPRESSION: Status post successful ultrasound-guided paracentesis
[2018-11-27 10:45] VITALS: BP 133/70; TEMP 98
[2018-11-27 11:37] LABS: RBC Count-Automated (BF) 565 /cumm; WBC/Nucleated-Auto (BF) 128 uL
[2018-11-27 11:39] LABS: BF Color Yellow; Body Fluid Source Ascites Body Fluid; Clarity Hazy (Clear); Tube # EDTA
[2018-11-27 12:00] LABS: BF Segmented Neutrophils 8 %; Cell Count Non Hematic 82 %; Lymphocytes 10 %
== END 2018-11-27 09:20 | disposition home or self-care (01) ==
LOC: ULT 07:24
PROVIDERS: ATTEND Nurse Practitioner Family
PROC: 0W9G3ZZ Drainage of Peritoneal Cavity, Percutaneous Approach (ICD-10-PCS; principal; 2018-11-27)
DX: K70.31 Alcoholic cirrhosis of liver with ascites (principal); K72.90 Hepatic failure, unspecified without coma; F10.11 Alcohol abuse, in remission; E11.42 Type 2 diabetes mellitus with diabetic polyneuropathy; M19.90 Unspecified osteoarthritis, unspecified site; I10 Essential (primary) hypertension; E78.5 Hyperlipidemia, unspecified; Z86.010 Personal history of colon polyps; Z79.84 Long term (current) use of oral hypoglycemic drugs; Z79.899 Other long term (current) drug therapy
CPT/HCPCS: 49083; 87070; 87205; 89051; P9047; 85060

== ENCOUNTER 2018-12-04 08:04 | Day surgery (SDC) | payer MEDICARE ==
[~2018-12-04 08:04] MED LIST changes: -Albumin 25% 0 ML ONE
--- NOTE | 2018-12-04 10:00 | ULT ---
Ultrasound-guided paracentesis: HISTORY: Cirrhosis and recurrent ascites FINDINGS: Informed consent obtained prior to the procedure. Preprocedural imaging demonstrated intrap eritoneal free fluid. An area was marked in the Right lower quadrant , and then meticulously prepped and draped in normal s terile fashion and anesthetized with 1% buffered lidocaine. With direct sonographic guidance, a 19-gauge needle and 5 Eritrean Yueh catheter were advanced into the abdomen. After the return of fluid, the catheter was advanced, and the needle was removed. Approximately 7 L of slightly cloudy yellow-colored fluid was aspirated. The introducer sheath was re moved, and hemostasis was achieved with direct pressure. A dry sterile dressing was placed. The patient tolerated the procedure well and without immediate complication. IMPRESSION: Technically successful ultrasound-guided paracentesis.
[2018-12-04 11:28] LABS: BF Color Yellow; Body Fluid Source Ascites Body Fluid; Clarity Hazy (Clear); RBC Count-Automated (BF) 213 /cumm; Tube # EDTA; WBC/Nucleated-Auto (BF) 213 uL
[2018-12-04 12:44] LABS: BF Segmented Neutrophils 9 %; Cell Count Non Hematic 83 %; Lymphocytes 8 %
[2018-12-04 14:15] VITALS: BP 117/68; TEMP 98.4
== END 2018-12-04 10:00 | disposition home or self-care (01) ==
LOC: ULT 08:04
PROVIDERS: ATTEND Nurse Practitioner Family
DX: K74.60 Unspecified cirrhosis of liver (principal); R18.8 Other ascites; K72.90 Hepatic failure, unspecified without coma; I10 Essential (primary) hypertension; E11.42 Type 2 diabetes mellitus with diabetic polyneuropathy
CPT/HCPCS: 49083; 87070; 87205; 89051; P9047; 85060

== ENCOUNTER 2018-12-11 08:08 | Day surgery (SDC) | payer MEDICARE ==
[2018-12-10 10:59] VITALS: BMI 32.8
--- NOTE | 2018-12-11 09:43 | ULT ---
US Paracentesis with Imaging History: Ascites Comparison: Ultrasound paracentesis December 04, 2018 Findings: Patient was brought to the ultrasound suite. All questions were answered. Informed consent was obtained. Timeout performed. The patient's left lower quadrant was prepped and draped in normal sterile fashion. Using ultrasound guidance the peritoneal space was accessed with 5 Afghan catheter. 7 L of fluid was removed after adequate local anesthesia. Patient tolerated the procedure well without complication. Impression: Technically successful ultrasound-guided paracentesis.
[2018-12-11 10:53] VITALS: BP 129/68; TEMP 98.4
[2018-12-11 12:10] LABS: RBC Count-Automated (BF) 352 /cumm; WBC/Nucleated-Auto (BF) 107 uL
[2018-12-11 12:11] LABS: Body Fluid Source Ascites Body Fluid
[2018-12-11 12:12] LABS: BF Color Yellow; Clarity Hazy (Clear); Tube # EDTA
[2018-12-11 12:45] LABS: Lymphocytes 14 %
[2018-12-11 12:46] LABS: BF Segmented Neutrophils 15 %; Cell Count Non Hematic 71 %
== END 2018-12-11 09:40 | disposition home or self-care (01) ==
LOC: ULT 08:08
PROVIDERS: ATTEND Nurse Practitioner Family
PROC: 0W9G3ZX Drainage of Peritoneal Cavity, Percutaneous Approach, Diagnostic (ICD-10-PCS; principal; 2018-12-11)
DX: K74.60 Unspecified cirrhosis of liver (principal); R18.8 Other ascites; E11.42 Type 2 diabetes mellitus with diabetic polyneuropathy; I10 Essential (primary) hypertension; M19.90 Unspecified osteoarthritis, unspecified site; Z86.010 Personal history of colon polyps; Z79.84 Long term (current) use of oral hypoglycemic drugs; Z79.899 Other long term (current) drug therapy
CPT/HCPCS: 49083; 87070; 87205; 89051; P9047; 85060

== ENCOUNTER 2018-12-17 13:43 | Day surgery (SDC) | payer MEDICARE ==
[2018-12-17] MEDS ORDERED: Albumin 25% 200 ML ONE (14:16)
--- NOTE | 2018-12-17 15:23 | ULT ---
PREPROCEDURE DIAGNOSIS: Ascites POST PROCEDURE DIAGNOSIS: Same PROCEDURE: Ultrasound-guided paracentesis CARPET INSTALLATION SPECIALIST: Wilfredo ANESTHESIA: 6 mL of buffered 1% lidocaine. SPECIMEN: 7 L of straw-colored fluid TECHNIQUE: Prior to the procedure, the risks and benefits of an ultrasound guided paracentesis were explained to the patient which consented fully to the procedure. The area of the largest fluid collection was seen in the right lower quadrant of the abdomen. This a betty was prepped and draped in the usual sterile fashion. Lidocaine was used to anesthetize the skin and soft tissues down towards the peritoneal cavity. The p eritoneum was anesthetized. A small skin incision was made for passage of the [employer] needle and catheter. This device was then placed using ultrasound guidance into the peritoneal cavity. The needle was removed after return of fluid. The catheter was then connected to multiple Vacutainer bottles. A total of 7 L was removed. A small amount of residual fluid is seen in this region of the peritoneal cavity. IMPRESSION: Status post successful ultrasound-guided paracentesis
[2018-12-17 16:36] LABS: RBC Count-Automated (BF) 213 /cumm; WBC/Nucleated-Auto (BF) 192 uL
[2018-12-17 16:49] LABS: BF Color Yellow; Body Fluid Source Ascites Body Fluid; Clarity Hazy (Clear); Tube # EDTA
[2018-12-17 16:55] LABS: BF Segmented Neutrophils 15 %; Cell Count Non Hematic 65 %; Eosinophils 1 %; Lymphocytes 19 %
[2018-12-18 07:29] VITALS: BP 132/72; TEMP 98.5
== END 2018-12-17 15:35 | disposition home or self-care (01) ==
LOC: ULT 13:43
PROVIDERS: ATTEND Nurse Practitioner Family
PROC: 0W9G3ZX Drainage of Peritoneal Cavity, Percutaneous Approach, Diagnostic (ICD-10-PCS; principal; 2018-12-17)
DX: R18.8 Other ascites (principal)
CPT/HCPCS: 49083; 87070; 87205; 89051; P9047; 85060

== ENCOUNTER 2018-12-25 07:13 | Day surgery (SDC) | payer MEDICARE ==
[2018-12-24 12:30] VITALS: BMI 32.8
[2018-12-25] MEDS ORDERED: Albumin 25% 200 ML ONE (08:12)
[2018-12-25] MEDS ORDERED: Sodium Bicarbonate 2.5 MEQ/5 ML VIAL ONE (08:12)
[2018-12-25] MEDS ORDERED: FLU VACC QS2019-20(6MOS UP)/PF 60 MCG/0.5 ML SYRINGE IM ONE (09:00)
--- NOTE | 2018-12-25 09:30 | ULT ---
Ultrasound-guided paracentesis: HISTORY: Symptomatic ascites FINDINGS: Informed consent obtained prior to the procedure. Preprocedural imaging demonstrated signif icant ascites throughout the abdomen and pelvis. Right lower quadrant prepped and draped in normal sterile fashion and anesthetized with 1% buffered l idocaine. With direct sonographic guidance, 5 Maori Yueh catheter is advanced into the ascites and removal of the stylet yielded yellow fluid. 7 L were removed. The patient tolerated the procedure well. No postprocedural complications. IMPRESSION: Successful ultrasound-guided paracentesis yielding 7 L of yellow ascites.
[2018-12-25 10:40] VITALS: BP 124/66; TEMP 97.9
[2018-12-25 11:12] LABS: RBC Count-Automated (BF) 108 /cumm; WBC/Nucleated-Auto (BF) 194 uL
[2018-12-25 11:21] LABS: BF Color Yellow; Body Fluid Source Ascites Body Fluid; Clarity Hazy (Clear); Tube # EDTA
[2018-12-25 11:23] LABS: BF Segmented Neutrophils 7 %; Cell Count Non Hematic 70 %; Lymphocytes 23 %
== END 2018-12-25 09:40 | disposition home or self-care (01) ==
LOC: ULT 07:13
PROVIDERS: ATTEND Nurse Practitioner Family
DX: K74.60 Unspecified cirrhosis of liver (principal); R18.8 Other ascites; I10 Essential (primary) hypertension; E11.42 Type 2 diabetes mellitus with diabetic polyneuropathy
CPT/HCPCS: 49083; 87070; 87205; 89051; P9047; 85060

== ENCOUNTER 2019-01-01 07:18 | Day surgery (SDC) | payer MEDICARE ==
[2019-01-01] MEDS ORDERED: Sodium Bicarbonate 2.5 MEQ/5 ML VIAL ONE (07:39)
[2019-01-01] MEDS ORDERED: Albumin 25% 200 ML ONE (07:39)
--- NOTE | 2019-01-01 09:46 | ULT ---
Exam: Ultrasound guided paracentesis HISTORY: Ascites COMPARISON: 12/25/2018 FINDINGS: Successful ultrasound-guided paracentesis. Total of 7 L of yellow color ascites was aspirat ed. TECHNIQUE: Consent obtained reformatory ultrasound-guided paracentesis. Right lower quadrant was deem ed appropriate. Skin was prepped and draped in a sterile fashion. 1% lidocaine, buffered with sodium bicarbonate was used for local anesthesia. Under ultrasound guidance, a 5 English 7 cm Yueh cat heter is advanced in the peritoneal space. A total of 7 L of yellow color ascites was aspirated. No immediate or postprocedural complications IMPRESSION: Successful ultrasound-guided paracentesis.
[2019-01-01 10:20] VITALS: BP 108/74; TEMP 98.1
[2019-01-01 12:37] LABS: RBC Count-Automated (BF) 227 /cumm; WBC/Nucleated-Auto (BF) 97 uL
[2019-01-01 12:43] LABS: BF Color Yellow; Body Fluid Source Ascites Body Fluid; Clarity Hazy (Clear); Tube # EDTA
[2019-01-01 13:10] LABS: BF Segmented Neutrophils 18 %; Cell Count Non Hematic 42 %; Eosinophils 1 %; Lymphocytes 39 %
== END 2019-01-01 09:30 | disposition home or self-care (01) ==
LOC: ULT 07:18
PROVIDERS: ATTEND Nurse Practitioner Family
PROC: 0W9G3ZZ Drainage of Peritoneal Cavity, Percutaneous Approach (ICD-10-PCS; principal; 2019-01-01)
DX: K70.31 Alcoholic cirrhosis of liver with ascites (principal); K72.90 Hepatic failure, unspecified without coma; I10 Essential (primary) hypertension; E11.40 Type 2 diabetes mellitus with diabetic neuropathy, unspecified; M19.90 Unspecified osteoarthritis, unspecified site
CPT/HCPCS: 49083; 87070; 87205; 89051; P9047; 85060

== ENCOUNTER 2019-01-08 08:18 | Day surgery (SDC) | payer MEDICARE ==
[2019-01-07 12:32] VITALS: BMI 32.8
[2019-01-08] MEDS ORDERED: Sodium Bicarbonate 2.5 MEQ/5 ML VIAL ONE (08:22)
[2019-01-08] MEDS ORDERED: Albumin 25% 200 ML ONE (08:22)
[2019-01-08 10:16] VITALS: BP 117/56; TEMP 98
--- NOTE | 2019-01-08 11:11 | ULT ---
ABDOMINAL PARACENTESIS: INDICATIONS: Recurrent ascites due to cirrhosis. FINDINGS: Cloudy yellow acidic fluid, 6900 mL, was removed from the left lower quadrant. Post procedure ultraso und showed low volume residual ascites. PROCEDURE IN DETAIL: A four quadrant ultrasound of the abdomen showed large volume ascites. The left lower quadrant was ch osen for puncture. The overlying skin was prepped and draped in a sterile manner. Local anesthesia wa s administered with Lidocaine. A tiny skin gerard was made with a scalpel. A 5 Comoran Sjapper catheter wit h needle in place was introduced into the acidic fluid of the left lower quadrant, under ultrasound g uidance. The needle was removed as the catheter was advanced. The catheter was attached to suction dr castelan and 6900 mL of cloudy yellow fluid was removed. The patient tolerated the procedure well with no problems or complications. POS: [facility]
[2019-01-08 11:46] LABS: RBC Count-Automated (BF) 313 /cumm; WBC/Nucleated-Auto (BF) 173 uL
[2019-01-08 11:47] LABS: BF Color Yellow; Body Fluid Source Ascites Body Fluid; Clarity Clear (Clear); Tube # EDTA
[2019-01-08 13:06] LABS: BF Segmented Neutrophils 7 %; Cell Count Non Hematic 70 %; Lymphocytes 23 %
== END 2019-01-08 09:45 | disposition home or self-care (01) ==
LOC: ULT 08:18
PROVIDERS: ATTEND Nurse Practitioner Family
DX: K74.60 Unspecified cirrhosis of liver (principal); R18.8 Other ascites; I10 Essential (primary) hypertension; E11.42 Type 2 diabetes mellitus with diabetic polyneuropathy; M19.90 Unspecified osteoarthritis, unspecified site
CPT/HCPCS: 49083; 87070; 87205; 89051; P9047; 85060

== ENCOUNTER 2019-01-14 12:51 | Day surgery (SDC) | payer MEDICARE ==
[2019-01-14] MEDS ORDERED: Sodium Bicarbonate 2.5 MEQ/5 ML VIAL ONE (12:58)
[2019-01-14] MEDS ORDERED: Albumin 25% 200 ML ONE (12:59)
--- NOTE | 2019-01-14 14:17 | ULT ---
PREPROCEDURE DIAGNOSIS: Ascites POST PROCEDURE DIAGNOSIS: Same PROCEDURE: Ultrasound-guided paracentesis LUNG PULLER: Wilfredo ANESTHESIA: 6 mL of buffered 1% lidocaine. SPECIMEN: 7 L of straw-colored fluid TECHNIQUE: Prior to the procedure, the risks and benefits of an ultrasound guided paracentesis were explained to the patient which consented fully to the procedure. The area of the largest fluid collection was seen in the right lower quadrant of the abdomen. This a betty was prepped and draped in the usual sterile fashion. Lidocaine was used to anesthetize the skin and soft tissues down towards the peritoneal cavity. The p eritoneum was anesthetized. A small skin incision was made for passage of the [employer]h needle and catheter. This device was then placed using ultrasound guidance into the peritoneal cavity. The needle was removed after return of fluid. The catheter was then connected to multiple Vacutainer bottles. A total of 7 L was removed. A small amount of residual fluid is seen in this region of the peritoneal cavity. IMPRESSION: Status post successful ultrasound-guided paracentesis
[2019-01-14 14:58] VITALS: BMI 32.8
[2019-01-14 15:34] LABS: RBC Count-Automated (BF) 291 /cumm; WBC/Nucleated-Auto (BF) 129 uL
[2019-01-14 15:36] LABS: BF Color Yellow; Body Fluid Source Ascites Body Fluid; Clarity Hazy (Clear); Tube # EDTA
[2019-01-14 16:37] LABS: BF Segmented Neutrophils 19 %; Cell Count Non Hematic 58 %; Lymphocytes 23 %
== END 2019-01-14 14:20 | disposition home or self-care (01) ==
LOC: ULT 12:51
PROVIDERS: ATTEND Nurse Practitioner Family
PROC: 0W9G3ZZ Drainage of Peritoneal Cavity, Percutaneous Approach (ICD-10-PCS; principal; 2019-01-14)
DX: K74.60 Unspecified cirrhosis of liver (principal); R18.8 Other ascites; I10 Essential (primary) hypertension; E11.42 Type 2 diabetes mellitus with diabetic polyneuropathy
CPT/HCPCS: 49083; 87070; 87205; 89051; P9047; 85060

== ENCOUNTER 2019-01-22 07:14 | Day surgery (SDC) | payer MEDICARE ==
[2019-01-21 11:51] VITALS: BMI 32.8
[2019-01-22] MEDS ORDERED: Albumin 25% 0 ML ONE (07:43)
[2019-01-22] MEDS ORDERED: Sodium Bicarbonate 2.5 MEQ/5 ML VIAL ONE ×2 (07:43→08:04)
[2019-01-22] MEDS ORDERED: Albumin 25% 200 ML ONE (08:04)
--- NOTE | 2019-01-22 09:12 | ULT ---
Exam: Ultrasound guided paracentesis HISTORY: Ascites COMPARISON: 01/14/2019 FINDINGS: Successful ultrasound-guided paracentesis. Total of 7 L of yellow color ascites was aspirat ed. TECHNIQUE: Consent obtained reformatory ultrasound-guided paracentesis. Right lower quadrant was deem ed appropriate. Skin was prepped and draped in a sterile fashion. 1% lidocaine, buffered with sodium bicarbonate was used for local anesthesia. Under ultrasound guidance, a 5 Yakut 7 cm Yueh cat heter is advanced in the peritoneal space. A total of 7 L of yellow color ascites was aspirated. No immediate or postprocedural complications IMPRESSION: Successful ultrasound-guided paracentesis.
[2019-01-22 10:15] LABS: RBC Count-Automated (BF) 304 /cumm; WBC/Nucleated-Auto (BF) 114 uL
[2019-01-22 10:16] LABS: BF Color Yellow; Body Fluid Source Ascites Body Fluid; Clarity Hazy (Clear); Tube # EDTA
[2019-01-22 10:34] LABS: BF Segmented Neutrophils 10 %; Cell Count Non Hematic 64 %; Lymphocytes 26 %
== END 2019-01-22 08:00 | disposition home or self-care (01) ==
LOC: ULT 07:14
PROVIDERS: ATTEND Nurse Practitioner Family
PROC: 0W9G3ZZ Drainage of Peritoneal Cavity, Percutaneous Approach (ICD-10-PCS; principal; 2019-01-22)
DX: K70.31 Alcoholic cirrhosis of liver with ascites (principal); K72.90 Hepatic failure, unspecified without coma; E11.42 Type 2 diabetes mellitus with diabetic polyneuropathy; I10 Essential (primary) hypertension; Z79.4 Long term (current) use of insulin; Z79.899 Other long term (current) drug therapy
CPT/HCPCS: 49083; 87070; 87205; 89051; P9047; 85060

== ENCOUNTER 2019-01-29 07:58 | Day surgery (SDC) | payer MEDICARE ==
[2019-01-29] MEDS ORDERED: Sodium Bicarbonate 2.5 MEQ/5 ML VIAL ONE (08:07)
[2019-01-29] MEDS ORDERED: Albumin 25% 200 ML ONE (08:07)
--- NOTE | 2019-01-29 09:51 | ULT ---
US Paracentesis with Imaging History: Ascites Comparison: Paracentesis January 22, 2019 Findings: Patient was brought to the ultrasound suite. All questions were answered. Informed consent was obtained. Timeout performed. Patient's right lower quadrant was prepped and draped in normal sterile fashion. After adequate local anesthesia, a 5 Tunisian catheter was inserted into the peritoneal space. 7 L of straw-colored ascites was removed. The patient tolerated the procedure well without complication. Impression: Technically successful ultrasound-guided paracentesis.
[2019-01-29 12:12] VITALS: BP 121/55; TEMP 98.6
[2019-01-29 13:06] LABS: RBC Count-Automated (BF) 561 /cumm; WBC/Nucleated-Auto (BF) 171 uL
[2019-01-29 13:26] LABS: BF Color Yellow; Body Fluid Source Ascites Body Fluid; Clarity Hazy (Clear); Tube # EDTA
[2019-01-29 13:46] LABS: BF Segmented Neutrophils 5 %; Cell Count Non Hematic 61 %; Eosinophils 7 %; Lymphocytes 27 %
== END 2019-01-29 09:40 | disposition home or self-care (01) ==
LOC: ULT 07:58
PROVIDERS: ATTEND Nurse Practitioner Family
PROC: 0W9G3ZX Drainage of Peritoneal Cavity, Percutaneous Approach, Diagnostic (ICD-10-PCS; principal; 2019-01-29)
DX: K70.31 Alcoholic cirrhosis of liver with ascites (principal); K72.90 Hepatic failure, unspecified without coma; E11.42 Type 2 diabetes mellitus with diabetic polyneuropathy; I10 Essential (primary) hypertension; M19.90 Unspecified osteoarthritis, unspecified site
CPT/HCPCS: 49083; 87070; 87205; 89051; P9047; 85060

== ENCOUNTER 2019-02-05 06:35 | Day surgery (SDC) | payer MEDICARE ==
[2019-02-04 12:53] VITALS: BMI 32.8
[2019-02-05] MEDS ORDERED: Sodium Bicarbonate 2.5 MEQ/5 ML VIAL ONE (06:53)
[2019-02-05] MEDS ORDERED: Albumin 25% 200 ML ONE (06:53)
--- NOTE | 2019-02-05 09:29 | ULT ---
Exam: Ultrasound guided paracentesis HISTORY: Ascites COMPARISON: January 29, 2019 FINDINGS: Successful ultrasound-guided paracentesis. Total of 7 L of normal appearingascites was aspi rated. TECHNIQUE: Consent obtained reformatory ultrasound-guided paracentesis. Right lower quadrant was deem ed appropriate. Skin was prepped and draped in a sterile fashion. 1% lidocaine, buffered with sodium bicarbonate was used for local anesthesia. Under ultrasound guidance, a 5 Greenlandic 7 cm Yueh cat heter is advanced in the peritoneal space. A total of 7 L of normal appearingascites was aspirated. No immediate or postprocedural complications IMPRESSION: Successful ultrasound-guided paracentesis.
[2019-02-05 09:45] VITALS: BP 120/61; TEMP 98
[2019-02-05 10:54] LABS: RBC Count-Automated (BF) 114 /cumm; WBC/Nucleated-Auto (BF) 152 uL
[2019-02-05 11:01] LABS: BF Color Yellow; Body Fluid Source Ascites Body Fluid; Clarity Hazy (Clear); Tube # EDTA
[2019-02-05 11:29] LABS: BF Segmented Neutrophils 12 %
[2019-02-05 11:30] LABS: Cell Count Non Hematic 72 %; Lymphocytes 16 %
== END 2019-02-05 09:20 | disposition home or self-care (01) ==
LOC: ULT 06:35
PROVIDERS: ATTEND Nurse Practitioner Family
DX: K74.60 Unspecified cirrhosis of liver (principal); R18.8 Other ascites; I10 Essential (primary) hypertension; E11.9 Type 2 diabetes mellitus without complications
CPT/HCPCS: 49083; 87070; 87205; 89051; P9047; 85060

== ENCOUNTER → 2019-02-12 | Day surgery (SDC) | payer MEDICARE ==
[~2019-02-12] MED LIST changes: +Sodium Chloride 0.9% 10 ML ONE; +methylPREDNISolone Sod Succ/PF 125 MG/2 ML VIAL ONE
--- NOTE | 2019-02-12 09:08 | ULT ---
Exam: Ultrasound guided paracentesis HISTORY: Ascites COMPARISON: 02/05/1990 FINDINGS: Successful ultrasound-guided paracentesis. Total of 7 L of yellow color ascites was aspirat ed. TECHNIQUE: Consent obtained reformatory ultrasound-guided paracentesis. Right lower quadrant was deem ed appropriate. Skin was prepped and draped in a sterile fashion. 1% lidocaine, buffered with sodium bicarbonate was used for local anesthesia. Under ultrasound guidance, a 5 Kinyarwanda 7 cm Yueh cat heter is advanced in the peritoneal space. A total of 7 L of yellow color ascites was aspirated. No immediate or postprocedural complications IMPRESSION: Successful ultrasound-guided paracentesis.
[2019-02-12 11:01] VITALS: BP 115/60; TEMP 98.1
[2019-02-12 11:34] LABS: RBC Count-Automated (BF) 124 /cumm; WBC/Nucleated-Auto (BF) 209 uL
[2019-02-12 11:53] LABS: BF Color Yellow; Body Fluid Source Ascites Body Fluid; Clarity Hazy (Clear); Tube # EDTA
[2019-02-12 12:11] LABS: BF Segmented Neutrophils 11 %; Cell Count Non Hematic 72 %; Lymphocytes 17 %
== END ==
LOC: ULT 06:54
PROVIDERS: ATTEND Nurse Practitioner Family
PROC: 0W9G3ZZ Drainage of Peritoneal Cavity, Percutaneous Approach (ICD-10-PCS; principal; 2019-02-12)
DX: K70.31 Alcoholic cirrhosis of liver with ascites (principal); K72.90 Hepatic failure, unspecified without coma; K42.9 Umbilical hernia without obstruction or gangrene; E11.42 Type 2 diabetes mellitus with diabetic polyneuropathy; M19.90 Unspecified osteoarthritis, unspecified site; I10 Essential (primary) hypertension; E78.5 Hyperlipidemia, unspecified
CPT/HCPCS: 49083; 87070; 87205; 89051; P9047; 85060; J2930

== ENCOUNTER 2019-02-19 06:47 | Day surgery (SDC) | payer MEDICARE ==
[2019-02-19] MEDS ORDERED: Albumin 25% 200 ML ONE (07:04)
[2019-02-19 09:08] LABS: RBC Count-Automated (BF) 143 /cumm; WBC/Nucleated-Auto (BF) 133 uL
[2019-02-19 09:09] VITALS: BP 123/55; TEMP 98.5
--- NOTE | 2019-02-19 09:18 | ULT ---
Sonographic guided paracentesis HISTORY: Recurrent ascites. Liver disease. FINDINGS: After explaining the procedure and answering all questions, sonographic survey shows a larg e amount of free fluid. Sterile technique, buffered local anesthesia, sonographic guidance, and a right lower quadrant approach were used to carefully advance a 19-gauge Yueh needle and catheter into the free fluid. Catheter was left to drain a total volume of 7.0 L slightly turbid bright yellow liquid. Catheter was removed with moderate amount of free fluid remaining. Patient is limited to 7 L drainage. Patient tolerated the procedure well and was dismissed in good condition. IMPRESSION: Technically successful sonographic guided paracentesis.
[2019-02-19 10:38] LABS: Body Fluid Source Ascites Body Fluid; Clarity Clear (Clear)
[2019-02-19 10:39] LABS: BF Color Yellow; Tube # EDTA
[2019-02-19 10:51] LABS: BF Segmented Neutrophils 13 %; Cell Count Non Hematic 68 %; Lymphocytes 19 %
== END 2019-02-19 08:30 | disposition home or self-care (01) ==
LOC: ULT 06:47
PROVIDERS: ATTEND Nurse Practitioner Family
PROC: 0W9G3ZZ Drainage of Peritoneal Cavity, Percutaneous Approach (ICD-10-PCS; principal; 2019-02-19)
DX: K70.31 Alcoholic cirrhosis of liver with ascites (principal); E11.42 Type 2 diabetes mellitus with diabetic polyneuropathy; K72.90 Hepatic failure, unspecified without coma; M19.90 Unspecified osteoarthritis, unspecified site; I10 Essential (primary) hypertension; E78.5 Hyperlipidemia, unspecified
CPT/HCPCS: 49083; 87070; 87205; 89051; P9047; 85060

== ENCOUNTER 2019-02-26 09:44 | Emergency (ER) | payer MEDICARE | END 2019-02-26 13:13 | disposition home or self-care (01) | LOC: ERS 09:44 | DX: J32.9 Chronic sinusitis, unspecified (principal); E11.9 Type 2 diabetes mellitus without complications | CPT/HCPCS: 99283 ==

== ENCOUNTER → 2019-02-26 | Day surgery (SDC) | payer MEDICARE ==
[~2019-02-26] MED LIST changes: -Sodium Chloride 0.9% 10 ML ONE; -methylPREDNISolone Sod Succ/PF 125 MG/2 ML VIAL ONE
--- NOTE | 2019-02-26 14:04 | ULT ---
Sonographic guided paracentesis HISTORY: Recurrent ascites. FINDINGS: After explaining the procedure and answering all questions, sonographic survey shows a larg e amount of free fluid throughout the abdomen. Sterile technique, buffered local anesthesia, sonographic guidance, and a right lower quadrant approach were used to carefully advance a 19-gauge Y ueh needle and catheter into the free fluid. Catheter was left to drain a total volume of 7.0 L slightly cloudy yellow liquid. Catheter was remove d with small amount of fluid remaining. Patient tolerated the procedure well and was dismissed in good condition. IMPRESSION: Technically successful sonographic guided paracentesis.
[2019-02-26 15:07] LABS: RBC Count-Automated (BF) 238 /cumm; WBC/Nucleated-Auto (BF) 124 uL
[2019-02-26 15:14] LABS: Body Fluid Source Ascites Body Fluid; Tube # EDTA
[2019-02-26 15:15] LABS: BF Color Yellow; Clarity Hazy (Clear)
[2019-02-26 16:04] LABS: BF Segmented Neutrophils 7 %; Cell Count Non Hematic 83 %; Lymphocytes 10 %
== END ==
LOC: ULT 08:18
PROVIDERS: ATTEND Nurse Practitioner Family
PROC: 0W9G3ZZ Drainage of Peritoneal Cavity, Percutaneous Approach (ICD-10-PCS; principal; 2019-02-26)
DX: K74.60 Unspecified cirrhosis of liver (principal); R18.8 Other ascites; I10 Essential (primary) hypertension; E11.9 Type 2 diabetes mellitus without complications; N28.9 Disorder of kidney and ureter, unspecified
CPT/HCPCS: 49083; 89051; P9047; 85060

== ENCOUNTER 2019-03-05 08:15 | Day surgery (SDC) | payer MEDICARE ==
[2019-03-04 15:02] VITALS: BMI 32.8
[2019-03-05] MEDS ORDERED: Albumin 25% 200 ML ONE (08:21)
[2019-03-05] MEDS ORDERED: Sodium Bicarbonate 2.5 MEQ/5 ML VIAL ONE (08:21)
--- NOTE | 2019-03-05 09:22 | ULT ---
Exam: Ultrasound guided paracentesis HISTORY: Ascites COMPARISON: 02/26/2019 FINDINGS: Successful ultrasound-guided paracentesis. Total of 7000 mL of yellow color ascites was asp irated. TECHNIQUE: Consent obtained reformatory ultrasound-guided paracentesis. Right lower quadrant was deem ed appropriate. Skin was prepped and draped in a sterile fashion. 1% lidocaine, buffered with sodium bicarbonate was used for local anesthesia. Under ultrasound guidance, a 5 Liberian 7 cm Yueh cat heter is advanced in the peritoneal space. A total of 7000 L of yellow color ascites was aspirated. No immediate or postprocedural complications IMPRESSION: Successful ultrasound-guided paracentesis.
[2019-03-05 11:32] VITALS: BP 123/59; TEMP 98.5
[2019-03-05 12:23] LABS: RBC Count-Automated (BF) 133 /cumm; WBC/Nucleated-Auto (BF) 209 uL
[2019-03-05 12:28] LABS: BF Color Yellow; Body Fluid Source Ascites Body Fluid; Clarity Hazy (Clear); Tube # EDTA
[2019-03-05 12:47] LABS: BF Segmented Neutrophils 13 %; Cell Count Non Hematic 71 %; Lymphocytes 16 %
== END 2019-03-05 09:35 | disposition home or self-care (01) ==
LOC: ULT 08:15
PROVIDERS: ATTEND Nurse Practitioner Family
PROC: 0W9G3ZZ Drainage of Peritoneal Cavity, Percutaneous Approach (ICD-10-PCS; principal; 2019-03-05)
DX: K70.31 Alcoholic cirrhosis of liver with ascites (principal); K72.90 Hepatic failure, unspecified without coma; E11.42 Type 2 diabetes mellitus with diabetic polyneuropathy; I10 Essential (primary) hypertension; M19.90 Unspecified osteoarthritis, unspecified site; E78.5 Hyperlipidemia, unspecified; Z86.010 Personal history of colon polyps
CPT/HCPCS: 49083; 87070; 87205; 89051; P9047; 85060

== ENCOUNTER 2019-03-12 06:55 | Day surgery (SDC) | payer MEDICARE ==
[2019-03-11 13:07] VITALS: BMI 32.8
[2019-03-12 09:16] VITALS: BP 127/67; TEMP 97.8
--- NOTE | 2019-03-12 10:48 | ULT ---
US Paracentesis with Imaging History: Ascites Comparison: Paracentesis March 05, 2019 Findings: Patient was brought to the ultrasound suite. Questions were answered. Informed consent was obtained. Timeout performed. The patient's right lower quadrant was prepped and draped in normal sterile fashion. 5 mL lidocaine w as instilled into the superficial and deep soft tissues. After adequate anesthesia a 5 Czech catheter was placed into the peritoneal space. 7 L of straw-colored fluid was removed. The patient to lerated the procedure well without complication. Impression: Technically successful ultrasound-guided paracentesis.
[2019-03-12 12:49] LABS: RBC Count-Automated (BF) 257 /cumm; WBC/Nucleated-Auto (BF) 143 uL
[2019-03-12 12:50] LABS: BF Color Yellow; Body Fluid Source Ascites Body Fluid; Clarity Hazy (Clear); Tube # EDTA
[2019-03-12 13:28] LABS: Lymphocytes 16 %
[2019-03-12 13:29] LABS: BF Segmented Neutrophils 4 %; Cell Count Non Hematic 80 %
== END 2019-03-12 09:10 | disposition home or self-care (01) ==
LOC: ULT 06:55
PROVIDERS: ATTEND Nurse Practitioner Family
PROC: 0W9G3ZZ Drainage of Peritoneal Cavity, Percutaneous Approach (ICD-10-PCS; principal; 2019-03-12)
DX: K70.31 Alcoholic cirrhosis of liver with ascites (principal); K72.90 Hepatic failure, unspecified without coma; E11.42 Type 2 diabetes mellitus with diabetic polyneuropathy; I10 Essential (primary) hypertension; M19.90 Unspecified osteoarthritis, unspecified site; K42.0 Umbilical hernia with obstruction, without gangrene; Z79.84 Long term (current) use of oral hypoglycemic drugs; Z79.899 Other long term (current) drug therapy
CPT/HCPCS: 49083; 85060; 87070; 87205; 89051

== ENCOUNTER 2019-03-13 15:35 | Emergency (ER) | payer MEDICARE ==
[~2019-03-13 15:35] MED LIST changes: -Sodium Bicarbonate 2.5 MEQ/5 ML VIAL ONE
[2019-03-13 16:18] LABS: Bacteria/HPF None Seen HPF (None Seen); Bilirubin Negative (Negative); Blood, Urine 1+ (Negative); Clarity Clear (Clear); Glucose, Urine (Dipstick) Normal (Negative); Leukocyte Negative Leu/uL (Negative); Nitrite Negative (Negative); Protein, Urine (Dipstick) Negative (Neg-Trace); Squamous Epithelial 0-3 HPF (0-3); WBC/HPF 0-3 HPF (0-3)
[2019-03-13] MEDS ORDERED: Metoclopramide HCl 10 MG/2 ML VIAL ONE (16:29)
[2019-03-13 16:41] LABS: #Eosinphils 0.1 thou/uL (0.0-0.7); #Lymphocytes 0.2 thou/uL (1.20-3.40); #Monocytes 0.4 thou/uL (0.11-0.59); #Neutrophils 2.9 thou/uL (1.40-6.50); %Eosinophils 1.4 % (0.0-10.0); %Lymphocytes 5.8 % (21.0-51.0); %Monocytes 10.3 % (0.0-10.0); %Neutrophils 82.4 % (42.0-75.0); Hemoglobin 9.7 g/dL (14.0-18.0); INR-International Normal Ratio 1.7; Mean Corpuscular HGB CONC 33.2 g/dL (32.0-36.0); Mean Corpuscular Hemoglobin 29.3 pg (27.0-31.0); Platelet Count 42 thou/uL (130-400); Prothrombin Time 20.1 SEC (12.0-14.7); RBC Distribution Width 18.9 % (11.5-14.5); Red Blood Cell (RBC) Count 3.31 mill/uL (4.70-6.10); White Blood Cell (WBC) Count 3.5 thou/uL (4.8-10.8)
[2019-03-13 16:54] LABS: ALT (SGPT) 20 U/L (8-55); AST (SGOT) 34 U/L (5-34); Albumin 3.4 g/dL (3.5-5.0); Alkaline Phosphatase 122 U/L (40-110); Anion Gap 12 mmol/L (10-20); BUN (Urea Nitrogen) 20 mg/dL (8.4-25.7); Bilirubin, Total 2.5 mg/dL (0.2-1.2); Calc. Creatinine Clearance 0 mL/min (70-130); Calcium 8.2 mg/dL (7.8-10.44); Carbon Dioxide 27 mmol/L (22-29); Chloride 102 mmol/L (98-107); Estimated GFR-MDRD 55; Globulin 3.5 g/dL (2.4-3.5); Glucose 154 mg/dL (70-105); Lipase 25 U/L (8-78); Potassium 3.8 mmol/L (3.5-5.1); Protein, Total 6.9 g/dL (6.0-8.3); Sodium 137 mmol/L (136-145)
--- NOTE | 2019-03-13 18:08 | CT ---
CTA HEAD WITH AND WITHOUT CONTRAST: 03/13/19 Axial tomograms obtained through the head without IV enhancement. This is followed by CTA of head fol lowing angio protocol with multiplanar reconstruction and 3D postprocessing. INDICATIONS: Headache. Family history of aneurysm. CT HEAD WITHOUT CONTRAST: Ventricles have normal size and position. There is no evidence of intracranial mass, hemorrhage, or i nfarct. Sinuses and mastoids are well aerated. IMPRESSION: No acute findings. CTA HEAD: Intracranial internal carotid arteries appear patent and symmetric. Anterior cerebral arteries and m iddle cerebral arteries appear patent and symmetric. Basilar artery is patent. Posterior cerebral art eries appears patent and symmetric. No evidence of aneurysm identified. IMPRESSION: Unremarkable CT angio of head. POS: [facility]
--- NOTE | 2019-03-13 18:15 | CT ---
CT ABDOMEN AND PELVIS WITH IV CONTRAST: 03/13/19 INDICATIONS: Abdominal pain. Patient has known history of cirrhosis and portal hypertension with recurrent ascites. Patient presen for regular ultrasound guided paracentesis procedure to this department. The last paracentesis procedure performed 03/12/19. FINDINGS: Small right pleural effusion with mild right basilar atelectasis. Low volume ascites throughout the abdomen. Liver shows irregular margins and mild heterogeneity consistent with cirrhosis. Mild splenomegaly and evidence of portal hypertension with splenic varices. Small bowel loops appear normal caliber. Colon unremarkable. Aorta normal caliber. Adrenal glands and kidneys unremarkable. There is a small nonobstructing calculus in the lower pole collecting structures of the left kidney measuring 2 to 3 mm. Urinary bladder unremarkable. There is prominent calcific density seen in the gallbladder consistent with numerous gallstones clus tered together within a mildly distended gallbladder. IMPRESSION: 1. Small right pleural effusion. 2. Low to moderate volume ascites. 3. Cholelithiasis. 4. Findings consistent with cirrhosis and portal hypertension as noted above. 5. Tiny nonobstructing calculus in the lower pole collecting structures left kidney. 6. Anterior abdominal wall hernia. POS: [facility]
== END 2019-03-13 18:33 | disposition home or self-care (01) ==
LOC: ERS 15:35
DX: R51 Headache (principal); F41.9 Anxiety disorder, unspecified; R30.0 Dysuria; K42.9 Umbilical hernia without obstruction or gangrene; E11.40 Type 2 diabetes mellitus with diabetic neuropathy, unspecified; K74.60 Unspecified cirrhosis of liver; Z79.899 Other long term (current) drug therapy
CPT/HCPCS: 70496; 74177; 80053; 83605; 83690; 85025; 85610; 85730; 94760; P9047; 81003; 81015; 96374; J2765

== ENCOUNTER 2019-03-17 06:52 | Day surgery (SDC) | payer MEDICARE ==
[2019-03-14 14:25] VITALS: BMI 32.8
[2019-03-17] MEDS ORDERED: Albumin 25% 200 ML ONE (07:06)
[2019-03-17 08:15] VITALS: BP 132/70; TEMP 98.5
--- NOTE | 2019-03-17 08:42 | ULT ---
Exam: Ultrasound guided paracentesis HISTORY: Ascites COMPARISON: 03/12/2019 FINDINGS: Successful ultrasound-guided paracentesis. Total of 5.5 L of yellow color ascites was aspir ated. TECHNIQUE: Consent obtained reformatory ultrasound-guided paracentesis. Right lower quadrant was deem ed appropriate. Skin was prepped and draped in a sterile fashion. 1% lidocaine, buffered with sodium bicarbonate was used for local anesthesia. Under ultrasound guidance, a 5 Austrian 7 cm Yueh cat heter is advanced in the peritoneal space. A total of 5.5 L of yellow color ascites was aspirated. No immediate or postprocedural complications IMPRESSION: Successful ultrasound-guided paracentesis.
[2019-03-17 09:18] LABS: RBC Count-Automated (BF) 352 /cumm; WBC/Nucleated-Auto (BF) 124 uL
[2019-03-17 09:19] LABS: BF Color Yellow; Body Fluid Source Ascites Body Fluid; Clarity Clear (Clear)
[2019-03-17 13:38] LABS: BF Segmented Neutrophils 6 %; Cell Count Non Hematic 85 %; Lymphocytes 9 %
[2019-03-17] MEDS ORDERED: FLU VACC QS2019-20(6MOS UP)/PF 60 MCG/0.5 ML SYRINGE IM ONE (14:45)
== END 2019-03-17 08:30 | disposition home or self-care (01) ==
LOC: ULT 06:52
PROVIDERS: ATTEND Nurse Practitioner Family
PROC: 0W9G3ZZ Drainage of Peritoneal Cavity, Percutaneous Approach (ICD-10-PCS; principal; 2019-03-17)
DX: K74.60 Unspecified cirrhosis of liver (principal); R18.8 Other ascites; Z79.84 Long term (current) use of oral hypoglycemic drugs; Z79.899 Other long term (current) drug therapy
CPT/HCPCS: 49083; 87070; 87205; 89051; P9047; 85060; 90471; 90686; G0008

== ENCOUNTER 2019-03-24 07:32 | Day surgery (SDC) | payer MEDICARE, OTHER ==
[2019-03-21 11:23] VITALS: BMI 32.8
[2019-03-24] MEDS ORDERED: Albumin 25% 0 ML ONE (07:46)
[2019-03-24] MEDS ORDERED: Sodium Bicarbonate 2.5 MEQ/5 ML VIAL ONE (07:46)
[2019-03-24] MEDS ORDERED: Albumin 25% 200 ML ONE (08:08)
--- NOTE | 2019-03-24 11:25 | ULT ---
ULTRASOUND-GUIDED PARACENTESIS THERAPEUTIC: DATE: 03/24/2019 HISTORY: 58-year-old male with abdominal distention due to ascites (symptomatic ascites) secondary to alcoholi c cirrhosis. Ordering physician has placed a limit of no more than 7 L for drainage. TECHNIQUE: Signed informed consent obtained. A four-quadrant survey of abdomen performed. Site selected for puncture: Right lower quadrant. Overlying skin prepared and draped in usual sterile fashion. 25-gauge needle used to apply buffered lidocaine superficially and deeply. 5 Bengali Yueh catheter with stylette advanced into the pocket of free intraperitoneal fluid. After drainage, the Yueh catheter was removed. Patient tolerated the procedure well. No complications. FINDINGS: Volume of ascites prior to procedure:large. Volume of ascites fluid in the drainage pocket after drainage:Moderate-large. Volume of ascites fluid drained:7000 mL Appearance of ascites fluid: IMPRESSION: Successful therapeutic paracentesis, with drainage of 7 L of ascites fluid.
[2019-03-24 16:40] VITALS: BP 132/74; TEMP 98.2
== END 2019-03-24 09:45 | disposition home or self-care (01) ==
LOC: ULT 07:32
PROVIDERS: ATTEND Nurse Practitioner Family
PROC: 0W9G3ZZ Drainage of Peritoneal Cavity, Percutaneous Approach (ICD-10-PCS; principal; 2019-03-24)
DX: K74.60 Unspecified cirrhosis of liver (principal); R18.8 Other ascites; I10 Essential (primary) hypertension; E11.9 Type 2 diabetes mellitus without complications; N28.9 Disorder of kidney and ureter, unspecified; Z79.84 Long term (current) use of oral hypoglycemic drugs; Z79.899 Other long term (current) drug therapy; Z88.6 Allergy status to analgesic agent
CPT/HCPCS: 49083; P9047

== ENCOUNTER 2019-03-28 10:40 | Day surgery (SDC) | payer MEDICARE, OTHER ==
[2019-03-27 09:26] VITALS: BMI 30.7
[2019-03-28 11:35] LABS: #Lymphocytes 0.1 thou/uL (1.20-3.40); #Monocytes 0.4 thou/uL (0.11-0.59); %Basophils 0.4 % (0.0-1.0); %Eosinophils 1.3 % (0.0-10.0); %Monocytes 10.4 % (0.0-10.0); %Neutrophils 83.9 % (42.0-75.0); Hemoglobin 9.5 g/dL (14.0-18.0); Mean Corpuscular HGB CONC 33.1 g/dL (32.0-36.0); Mean Corpuscular Hemoglobin 29.5 pg (27.0-31.0); Mean Corpuscular Volume 89.2 fL (78.0-98.0); Mean Platelet Volume 9.9 fL (7.4-10.4); Platelet Count 45 thou/uL (130-400); RBC Distribution Width 19.3 % (11.5-14.5); Red Blood Cell (RBC) Count 3.23 mill/uL (4.70-6.10); White Blood Cell (WBC) Count 3.6 thou/uL (4.8-10.8)
--- NOTE | 2019-03-28 11:49 | HP ---
Bautista Campoverde presents for robot repair of umbilical hernia. He has end-stage renal disease, on a hepatic transplant list. He gets paracentesis every week up to 7 L. He now needs a paracentesis. He presents now and his hernia is not bothering him. It is decompressed despite distended abdomen with ascites. At this point, I would have recommended we not repair this due to the risk involved. He has an appointment to see his transplant surgeon next week and we will cancel the surgery today. Job ID: [id number]
[2019-03-28 11:50] LABS: Anion Gap 12 mmol/L (10-20); BUN (Urea Nitrogen) 17 mg/dL (8.4-25.7); Calc. Creatinine Clearance 87 mL/min (70-130); Calcium 8.4 mg/dL (7.8-10.44); Carbon Dioxide 26 mmol/L (22-29); Chloride 102 mmol/L (98-107); Estimated GFR-MDRD 56; Glucose 148 mg/dL (70-105); Potassium 4.1 mmol/L (3.5-5.1); Sodium 136 mmol/L (136-145)
--- NOTE | 2019-04-01 08:27 | HP ---
HISTORY OF PRESENT ILLNESS: Bautista Campoverde is a 58-year-old male with cirrhosis, portal hypertension, and known cholelithiasis. He has alcoholic cirrhosis and he quit drinking more than 5 years ago. He has not had a drink of alcohol since. I repaired an umbilical hernia without mesh in 2014, at which time, I evacuated 700 mL of ascites. The patient more recently has had 5 to 10 mL of ascites removed and a recent CAT scan this month revealed very minimal ascites, but verifies a recurrent umbilical hernia. He is having pain in his central abdomen. He is not having right upper quadrant pain. He is not having symptoms related to his gallbladder. LABORATORY DATA: Recent laboratories at [facility], 03/13/2019, white count 3, hemoglobin 9.7, platelet count 42,000. PT 20, INR 1.7, PTT 40. Bilirubin 2.5. ALLERGIES: PENICILLIN AND TYLENOL. SOCIAL HISTORY: Tobacco, none. Alcohol, none. MEDICATIONS: 1. Tramadol p.r.n. 2. Flomax 0.4 mg a day. 3. Gabapentin 300 mg a day. 4. Spironolactone 100 mg a day. 5. Furosemide 40 mg a day. 6. Ropinirole 0.5 mg a day. 7. Paroxetine 20 mg a day. 8. Xifaxan 550 mg daily. 9. Protonix daily. 10. Multivitamins daily. 11. Folic acid daily. 12. Zofran p.r.n. PAST MEDICAL HISTORY: Diabetes, cirrhosis, hypertension, chronic kidney disease, BPH, alcoholic cirrhosis, alcohol cessation more than 5 years ago, recurrent umbilical hernia. PAST SURGICAL HISTORY: Surgical procedure, past cystoscopy. Dr. Long is his urologist. Umbilical hernia repair without mesh as noted above. PHYSICAL EXAMINATION: VITAL SIGNS: Weight 218 pounds, height 72 inches, blood pressure 124/57, pulse 90, temperature 99.7 degrees. HEAD, EARS, EYES, NOSE, AND THROAT: Unremarkable. LUNGS: Clear to auscultation. CARDIAC: Regular rate and rhythm without murmur or gallop. ABDOMEN: Soft, obese. Negative fluid wave. Recurrent umbilical hernia, reducible. No right upper quadrant tenderness. EXTREMITIES: Unremarkable. ASSESSMENT AND PLAN: 1. Asymptomatic cholelithiasis. I have discouraged cholecystectomy in the patient with cirrhosis, coagulopathy, thrombocytopenia as risks are too high. This could be considered in the future if he has become symptomatic, but currently, I would not recommend. I think his symptoms are due to his recurrent umbilical hernia. 2. Incisional hernia at the umbilical hernia site. Recurrent umbilical hernia. We would plan robot repair using mesh. He understands the risks and benefits, consents. We will plan perioperative transfusion of 2 units of fresh frozen plasma, platelet pack, and observation postoperatively due to his cirrhosis. He understands the risks and benefits, consents. 3. Cirrhosis. 4. Thrombocytopenia. 5. Coagulopathy. 6. Chronically elevated bilirubin. 7. BUN and creatinine of 20 and 1.33. Job ID: [id number]
== END 2019-03-28 11:42 | disposition home or self-care (01) ==
LOC: SDC 10:40
PROVIDERS: ATTEND Specialist
DX: K43.2 Incisional hernia without obstruction or gangrene (principal); K70.31 Alcoholic cirrhosis of liver with ascites; I12.0 Hypertensive chronic kidney disease with stage 5 chronic kidney disease or end stage renal disease; E11.22 Type 2 diabetes mellitus with diabetic chronic kidney disease; N18.6 End stage renal disease; D69.6 Thrombocytopenia, unspecified; D68.9 Coagulation defect, unspecified; Z53.8 Procedure and treatment not carried out for other reasons; Z79.84 Long term (current) use of oral hypoglycemic drugs; Z79.899 Other long term (current) drug therapy; Z76.82 Awaiting organ transplant status; Z88.8 Allergy status to other drugs, medicaments and biological substances
CPT/HCPCS: 36415; 80048; 85025; 86850; 86900; 86901

== ENCOUNTER 2019-03-31 12:05 | Day surgery (SDC) | payer MEDICARE ==
[2019-03-31] MEDS ORDERED: Sodium Bicarbonate 2.5 MEQ/5 ML VIAL ONE (12:22)
[2019-03-31] MEDS ORDERED: Albumin 25% 200 ML ONE (12:22)
[2019-03-31 14:02] VITALS: BMI 32.8
[2019-03-31 14:03] VITALS: BP 128/57; TEMP 97.9
--- NOTE | 2019-03-31 14:10 | ULT ---
Sonographic guided paracentesis HISTORY: Recurrent ascites. FINDINGS: After explaining the procedure and answering all questions, sonographic survey shows a larg e amount of free fluid throughout the abdomen. Sterile technique, buffered local anesthesia, sonographic guidance, and a right lower quadrant approach were used to carefully advance a 19-gauge Y ueh needle and catheter into the free fluid. Catheter was left to drain a total volume of 7.0 L clear yellow liquid. Catheter was removed with moderate amount of fluid remaining. Patient tolerated the procedure well and was dismissed in good condition. IMPRESSION: Technically successful sonographic guided paracentesis.
[2019-03-31 14:49] LABS: RBC Count-Automated (BF) 202 /cumm; WBC/Nucleated-Auto (BF) 58 uL
[2019-03-31 15:03] LABS: Body Fluid Source Peritoneal Fluid; Clarity Hazy (Clear)
[2019-03-31 15:04] LABS: BF Color Colorless; Tube # EDTA
[2019-03-31 15:25] LABS: BF Segmented Neutrophils 9 %; Cell Count Non Hematic 71 %; Lymphocytes 20 %
== END 2019-03-31 13:10 | disposition home or self-care (01) ==
LOC: ULT 12:05
PROVIDERS: ATTEND Nurse Practitioner Family
PROC: 0W9G3ZX Drainage of Peritoneal Cavity, Percutaneous Approach, Diagnostic (ICD-10-PCS; principal; 2019-03-31)
DX: K74.60 Unspecified cirrhosis of liver (principal); R18.8 Other ascites; K72.90 Hepatic failure, unspecified without coma; I10 Essential (primary) hypertension; E11.42 Type 2 diabetes mellitus with diabetic polyneuropathy; M19.90 Unspecified osteoarthritis, unspecified site; Z79.899 Other long term (current) drug therapy; Z88.8 Allergy status to other drugs, medicaments and biological substances
CPT/HCPCS: 49083; 87070; 87205; 89051; P9047; 85060

== ENCOUNTER 2019-04-02 13:19 | Day surgery (SDC) | payer MEDICARE ==
[2019-04-02] MEDS ORDERED: Sodium Bicarbonate 2.5 MEQ/5 ML VIAL ONE (13:22)
[2019-04-02] MEDS ORDERED: Albumin 25% 200 ML ONE (13:22)
[2019-04-02 13:33] VITALS: BMI 33.9
[2019-04-02 14:57] VITALS: BP 110/78; TEMP 99.1
--- NOTE | 2019-04-02 15:12 | ULT ---
Sonographic guided paracentesis HISTORY: Recurrent ascites. FINDINGS: After explaining the procedure and answering all questions, sonographic survey shows a larg e amount of free fluid throughout the abdomen. Sterile technique, buffered local anesthesia, sonographic guidance, and a right lateral approach were used to carefully advance a 19-gauge Yueh nee dle and catheter into the free fluid. Catheter was left to drain a total volume of 7.0 L cloudy yellow liquid. Catheter was removed with small amount of liquid remaining. Patient tolerated the proc edure well and was dismissed in good condition. IMPRESSION: Technically successful sonographic guided paracentesis.
[2019-04-02 16:09] LABS: RBC Count-Automated (BF) 270 /cumm; WBC/Nucleated-Auto (BF) 77 uL
[2019-04-02 16:38] LABS: BF Color Colorless; Body Fluid Source Ascites Body Fluid; Clarity Hazy (Clear); Tube # EDTA
[2019-04-02 16:44] LABS: BF Segmented Neutrophils 13 %; Cell Count Non Hematic 76 %; Lymphocytes 11 %
[2019-04-03] MEDS ORDERED: FLU VACC QS2019-20(6MOS UP)/PF 60 MCG/0.5 ML SYRINGE IM ONE (09:00)
== END 2019-04-02 14:50 | disposition home or self-care (01) ==
LOC: ULT 13:19
PROVIDERS: ATTEND Nurse Practitioner Family
PROC: 0W9G3ZZ Drainage of Peritoneal Cavity, Percutaneous Approach (ICD-10-PCS; principal; 2019-04-02)
DX: K70.31 Alcoholic cirrhosis of liver with ascites (principal); E11.42 Type 2 diabetes mellitus with diabetic polyneuropathy; K72.90 Hepatic failure, unspecified without coma; I10 Essential (primary) hypertension; Z79.899 Other long term (current) drug therapy; Z88.8 Allergy status to other drugs, medicaments and biological substances
CPT/HCPCS: 49083; 87070; 87205; 89051; P9047; 85060

== ENCOUNTER 2019-04-09 07:04 | Day surgery (SDC) | payer MEDICARE, OTHER ==
[2019-04-08 15:26] VITALS: BMI 28.2
[2019-04-09] MEDS ORDERED: Sodium Bicarbonate 2.5 MEQ/5 ML VIAL ONE (07:27)
[2019-04-09] MEDS ORDERED: Albumin 25% 200 ML ONE (07:27)
--- NOTE | 2019-04-09 09:14 | ULT ---
Ultrasound-guided paracentesis: 04/09/2019 HISTORY: Symptomatic ascites FINDINGS: Informed consent obtained prior to the procedure. Preprocedural imaging demonstrated signif icant ascites throughout the abdomen and pelvis. Right lower quadrant prepped and draped in normal sterile fashion and anesthetized with 1% buffered l idocaine. With direct sonographic guidance, 5 Turkish Yueh catheter is advanced into the ascites and removal of the stylet yielded yellow fluid. 7 L were removed. The patient tolerated the procedure well. No postprocedural complications. IMPRESSION: Successful ultrasound-guided paracentesis yielding 7 L of yellow fluid.
[2019-04-09 10:58] LABS: RBC Count-Automated (BF) 212 /cumm; WBC/Nucleated-Auto (BF) 250 uL
[2019-04-09 11:00] LABS: Body Fluid Source Ascites Body Fluid; Clarity Hazy (Clear)
[2019-04-09 11:01] LABS: BF Color Yellow; Tube # EDTA
[2019-04-09 11:11] LABS: Eosinophils 1 %
[2019-04-09 11:13] LABS: BF Segmented Neutrophils 14 %; Cell Count Non Hematic 65 %; Lymphocytes 20 %
== END 2019-04-09 09:00 | disposition home or self-care (01) ==
LOC: ULT 07:04
PROVIDERS: ATTEND Nurse Practitioner Family
PROC: 0W9G3ZZ Drainage of Peritoneal Cavity, Percutaneous Approach (ICD-10-PCS; principal; 2019-04-09)
DX: K70.31 Alcoholic cirrhosis of liver with ascites (principal); K72.90 Hepatic failure, unspecified without coma; E11.42 Type 2 diabetes mellitus with diabetic polyneuropathy; I10 Essential (primary) hypertension; E78.5 Hyperlipidemia, unspecified; Z79.899 Other long term (current) drug therapy; Z88.6 Allergy status to analgesic agent; Z76.82 Awaiting organ transplant status
CPT/HCPCS: 49083; 87070; 87205; 89051; P9047; 85060

== ENCOUNTER 2019-04-14 07:24 | Day surgery (SDC) | payer MEDICARE ==
[2019-04-11 10:46] VITALS: BMI 32.8
[2019-04-14] MEDS ORDERED: Sodium Bicarbonate 2.5 MEQ/5 ML VIAL ONE (07:30)
[2019-04-14] MEDS ORDERED: Albumin 25% 200 ML ONE (07:30)
[2019-04-14 08:56] VITALS: BP 135/73; TEMP 98.1
--- NOTE | 2019-04-14 09:50 | ULT ---
Ultrasound-guided paracentesis: HISTORY: Recurrent ascites in a patient with cirrhosis. FINDINGS: Informed consent obtained prior to the procedure. Preprocedural imaging demonstrated intrap eritoneal free fluid. An area was marked in the right mid abdomen in the mid axillary line, and then meticulously prepped a nd draped in normal sterile fashion and anesthetized with 1% buffered lidocaine. Albumin was administered intravenously during the procedure as requested. With direct sonographic guidance, a 19-gauge needle and 5 Malian Edupatheh catheter were advanced into the abdomen. After the return of fluid, the catheter was advanced, and the needle was removed. Approximately 7 L of clear straw-colored fluid was aspirated. The introducer sheath was removed, and hemostasis was achieved with direct pressure. A dry sterile dressing was placed. The patient tolerated the procedure well and without immediate complication. IMPRESSION: Technically successful ultrasound-guided paracentesis.
[2019-04-14] MEDS ORDERED: FLU VACC QS2019-20(6MOS UP)/PF 60 MCG/0.5 ML SYRINGE IM ONE (11:15)
[2019-04-14 11:20] LABS: RBC Count-Automated (BF) 337 /cumm; WBC/Nucleated-Auto (BF) 212 uL
[2019-04-14 11:21] LABS: BF Color Yellow; Body Fluid Source Ascites Body Fluid; Clarity Hazy (Clear); Tube # EDTA
[2019-04-14 11:27] LABS: BF Segmented Neutrophils 7 %; Cell Count Non Hematic 79 %; Lymphocytes 14 %
== END 2019-04-14 08:45 | disposition home or self-care (01) ==
LOC: ULT 07:24
PROVIDERS: ATTEND Nurse Practitioner Family
PROC: 0W9G3ZZ Drainage of Peritoneal Cavity, Percutaneous Approach (ICD-10-PCS; principal; 2019-04-14)
DX: K70.31 Alcoholic cirrhosis of liver with ascites (principal); K72.90 Hepatic failure, unspecified without coma; E11.9 Type 2 diabetes mellitus without complications; I10 Essential (primary) hypertension; M19.90 Unspecified osteoarthritis, unspecified site; E11.42 Type 2 diabetes mellitus with diabetic polyneuropathy; Z79.899 Other long term (current) drug therapy; Z88.8 Allergy status to other drugs, medicaments and biological substances
CPT/HCPCS: 49083; 87070; 87205; 89051; P9047; 85060

== ENCOUNTER 2019-04-18 10:17 | Day surgery (SDC) | payer MEDICARE, OTHER ==
[2019-04-17 15:13] VITALS: BMI 32.8
[2019-04-18] MEDS ORDERED: Albumin 25% 200 ML ONE (10:25)
[2019-04-18] MEDS ORDERED: Sodium Chloride 0.9% 10 ML ONE (10:57)
--- NOTE | 2019-04-18 12:46 | ULT ---
PREPROCEDURE DIAGNOSIS: Ascites POST PROCEDURE DIAGNOSIS: Same PROCEDURE: Ultrasound-guided paracentesis MECHANICAL TECHNICIAN: Wilfredo ANESTHESIA: 11 mL of buffered 1% lidocaine. SPECIMEN: 5.6 L of straw-colored fluid TECHNIQUE: Prior to the procedure, the risks and benefits of an ultrasound guided paracentesis were explained to the patient which consented fully to the procedure. The area of the largest fluid collection was seen in the right lower quadrant of the abdomen. This a betty was prepped and draped in the usual sterile fashion. Lidocaine was used to anesthetize the skin and soft tissues down towards the peritoneal cavity. The p eritoneum was anesthetized. A small skin incision was made for passage of the Azimutheh needle and catheter. This device was then placed using ultrasound guidance into the peritoneal cavity. The needle was removed after return of fluid. The catheter was then connected to multiple Vacutainer bottles. A total of 5.6 L was removed. No residual fluid is seen in this region of the peritoneal cavity. IMPRESSION: Status post successful ultrasound-guided paracentesis
[2019-04-18 13:05] LABS: RBC Count-Automated (BF) 107 /cumm; WBC/Nucleated-Auto (BF) 302 uL
[2019-04-18 13:46] LABS: BF Color Yellow; Body Fluid Source Ascites Body Fluid; Clarity Hazy (Clear); Tube # EDTA
[2019-04-18 13:57] LABS: BF Segmented Neutrophils 14 %; Cell Count Non Hematic 63 %; Eosinophils 1 %; Lymphocytes 21 %
[2019-04-21 19:25] LABS: Follow-up Hematology Comp? YES; Follow-up Result - Hematology REPORT FAXED
== END 2019-04-18 12:00 | disposition home or self-care (01) ==
LOC: ULT 10:17
PROVIDERS: ATTEND Nurse Practitioner Family
PROC: 0W9G3ZZ Drainage of Peritoneal Cavity, Percutaneous Approach (ICD-10-PCS; principal; 2019-04-18)
DX: K70.31 Alcoholic cirrhosis of liver with ascites (principal); K70.40 Alcoholic hepatic failure without coma; M19.90 Unspecified osteoarthritis, unspecified site; E11.42 Type 2 diabetes mellitus with diabetic polyneuropathy; I10 Essential (primary) hypertension; E78.5 Hyperlipidemia, unspecified; Z86.010 Personal history of colon polyps; Z79.899 Other long term (current) drug therapy; Z88.8 Allergy status to other drugs, medicaments and biological substances
CPT/HCPCS: 49083; 87070; 87205; 89051; P9047; 85060

== ENCOUNTER 2019-04-22 08:53 | Day surgery (SDC) | payer MEDICARE, OTHER ==
[2019-04-22] MEDS ORDERED: Sodium Bicarbonate 2.5 MEQ/5 ML VIAL ONE (09:29)
[2019-04-22] MEDS ORDERED: Albumin 25% 200 ML ONE (09:29)
[2019-04-22] MEDS ORDERED: Lidocaine 1% PF 5 ML VIAL ONE (09:29)
--- NOTE | 2019-04-22 10:49 | ULT ---
Exam: Ultrasound guided paracentesis HISTORY: Ascites COMPARISON: Prior exam dated April 18, 2019 FINDINGS: Successful ultrasound-guided paracentesis. Total of 4.8 L of normal appearingascites was as pirated. TECHNIQUE: Consent obtained reformatory ultrasound-guided paracentesis. Right lower quadrant was deem ed appropriate. Skin was prepped and draped in a sterile fashion. 1% lidocaine, buffered with sodium bicarbonate was used for local anesthesia. Under ultrasound guidance, a 5 Kinyarwanda 7 cm Yueh cat heter is advanced in the peritoneal space. A total of 4.8 L ofascites was aspirated. No immediate or postprocedural complications IMPRESSION: Successful ultrasound-guided paracentesis.
[2019-04-22 11:04] VITALS: BMI 32.8
[2019-04-22 11:05] VITALS: BP 113/54; TEMP 98.5
[2019-04-22 12:36] LABS: BF Color Yellow; Body Fluid Source Paracentesis Fluid; Clarity Hazy (Clear); Tube # EDTA
[2019-04-22 13:10] LABS: RBC Count-Automated (BF) 249 /cumm; WBC/Nucleated-Auto (BF) 213 uL
[2019-04-22 13:26] LABS: BF Segmented Neutrophils 10 %; Cell Count Non Hematic 76 %; Lymphocytes 14 %
== END 2019-04-22 10:40 | disposition home or self-care (01) ==
LOC: ULT 08:53
PROVIDERS: ATTEND Nurse Practitioner Family
PROC: 0W9G3ZZ Drainage of Peritoneal Cavity, Percutaneous Approach (ICD-10-PCS; principal; 2019-04-22)
DX: K70.31 Alcoholic cirrhosis of liver with ascites (principal); K70.40 Alcoholic hepatic failure without coma; E11.42 Type 2 diabetes mellitus with diabetic polyneuropathy; M19.90 Unspecified osteoarthritis, unspecified site; E78.5 Hyperlipidemia, unspecified; I10 Essential (primary) hypertension; Z79.899 Other long term (current) drug therapy; Z88.8 Allergy status to other drugs, medicaments and biological substances
CPT/HCPCS: 49083; 87070; 87205; 89051; P9047; 85060; J2001

== ENCOUNTER 2019-04-25 12:24 | Day surgery (SDC) | payer MEDICARE, OTHER ==
[2019-04-24 15:38] VITALS: BMI 32.8
[2019-04-25] MEDS ORDERED: Albumin 25% 200 ML ONE (12:48)
[2019-04-25] MEDS ORDERED: Lidocaine 1% PF 5 ML VIAL ONE (12:48)
[2019-04-25 14:52] VITALS: BP 112/58; TEMP 98.7
[2019-04-25 15:06] LABS: RBC Count-Automated (BF) 21775 /cumm; WBC/Nucleated-Auto (BF) 142 uL
[2019-04-25 15:48] LABS: BF Color Pink; Body Fluid Source Ascites Body Fluid; Clarity Cloudy/Turbid (Clear); Tube # EDTA
[2019-04-25 15:53] LABS: BF Segmented Neutrophils 16 %; Cell Count Non Hematic 64 %; Lymphocytes 19 %
--- NOTE | 2019-04-25 15:54 | ULT ---
Ultrasound-guided paracentesis: HISTORY: Cirrhosis and ascites. FINDINGS: Informed consent obtained prior to the procedure. Preprocedural imaging demonstrated intrap eritoneal free fluid. An area was marked in the right mid abdomen in the mid axillary line, and then meticulously prepped a nd draped in normal sterile fashion and anesthetized with 1% buffered lidocaine. With direct sonographic guidance, a 19-gauge needle and 5 Vietnamese Yueh catheter were advanced into the abdomen. After the return of fluid, the catheter was advanced, and the needle was removed. Approximately 5.5 L of serosanguineous fluid was aspirated. The introducer sheath was removed, and he mostasis was achieved with direct pressure. A dry sterile dressing was placed. The patient tolerated the procedure well and without immediate complication. IMPRESSION: 1. Technically successful ultrasound-guided paracentesis. 2. Findings of decreased hemoglobin and hematocrit as well as serosanguineous intraperitoneal free fl uid obtained on paracentesis were discussed with Mary Kelly (nurse following patient's care) by Catherine (radiology nurse) on 04/25/2019 at 1410 hours.
== END 2019-04-25 14:15 | disposition home or self-care (01) ==
LOC: ULT 12:24
PROVIDERS: ATTEND Nurse Practitioner Family
PROC: 0W9G3ZX Drainage of Peritoneal Cavity, Percutaneous Approach, Diagnostic (ICD-10-PCS; principal; 2019-04-25)
DX: K70.31 Alcoholic cirrhosis of liver with ascites (principal); K72.90 Hepatic failure, unspecified without coma; E11.42 Type 2 diabetes mellitus with diabetic polyneuropathy; M19.90 Unspecified osteoarthritis, unspecified site; E78.5 Hyperlipidemia, unspecified; I10 Essential (primary) hypertension; Z79.899 Other long term (current) drug therapy; Z88.8 Allergy status to other drugs, medicaments and biological substances
CPT/HCPCS: 49083; 80053; 83880; 85025; 86850; 86900; 86901; 87070; 87205; 89051; 99284; P9047; 36415; 85060; J2001

== ENCOUNTER 2019-04-25 14:51 | Emergency (ER) | payer MEDICARE ==
[2019-04-25 15:27] LABS: #Eosinphils 0.1 thou/uL (0.0-0.7); #Lymphocytes 0.2 thou/uL (1.20-3.40); #Monocytes 0.3 thou/uL (0.11-0.59); #Neutrophils 2.2 thou/uL (1.40-6.50); %Basophils 1.3 % (0.0-1.0); %Eosinophils 2.1 % (0.0-10.0); %Lymphocytes 6.9 % (21.0-51.0); %Monocytes 9.5 % (0.0-10.0); %Neutrophils 80.2 % (42.0-75.0); Hemoglobin 8.9 g/dL (14.0-18.0); Mean Corpuscular HGB CONC 31.4 g/dL (32.0-36.0); Mean Corpuscular Hemoglobin 28.4 pg (27.0-31.0); Mean Corpuscular Volume 90.4 fL (78.0-98.0); Mean Platelet Volume 12.4 fL (7.4-10.4); Platelet Count 45 thou/uL (130-400); RBC Distribution Width 19.5 % (11.5-14.5); Red Blood Cell (RBC) Count 3.12 mill/uL (4.70-6.10); White Blood Cell (WBC) Count 2.7 thou/uL (4.8-10.8)
[2019-04-25 15:43] LABS: ALT (SGPT) 20 U/L (8-55); AST (SGOT) 25 U/L (5-34); Albumin 4.3 g/dL (3.5-5.0); Alkaline Phosphatase 151 U/L (40-110); Anion Gap 14 mmol/L (10-20); BUN (Urea Nitrogen) 18 mg/dL (8.4-25.7); Bilirubin, Total 2.8 mg/dL (0.2-1.2); Calc. Creatinine Clearance 0 mL/min (70-130); Calcium 9.1 mg/dL (7.8-10.44); Carbon Dioxide 22 mmol/L (22-29); Chloride 102 mmol/L (98-107); Estimated GFR-MDRD 42; Glucose 260 mg/dL (70-105); Potassium 4.1 mmol/L (3.5-5.1); Protein, Total 7.3 g/dL (6.0-8.3); Sodium 134 mmol/L (136-145)
[2019-04-25 15:46] LABS: Anisocytosis SLIGHT = 6-15 cells (100X) (0-5/hpf); MDiff Complete? YES; Platelet Morphology Comment Appears Decreased; Polychromasia SLIGHT = 2-3 cells (100X) (0-2/hpf); Target Cells SLIGHT = 2-5 cells (100X) (0-1/hpf)
== END 2019-04-25 17:50 | disposition home or self-care (01) ==
LOC: ERS 14:51
DX: D64.9 Anemia, unspecified (principal); K74.60 Unspecified cirrhosis of liver; E11.40 Type 2 diabetes mellitus with diabetic neuropathy, unspecified; F41.9 Anxiety disorder, unspecified
CPT/HCPCS: 36415; 80053; 83880; 85025; 86850; 86900; 86901; 99284

== ENCOUNTER 2019-05-02 09:50 | Day surgery (SDC) | payer MEDICARE ==
[2019-05-02] MEDS ORDERED: Lidocaine 1% PF 5 ML VIAL ONE (10:45)
[2019-05-02] MEDS ORDERED: Albumin 25% 200 ML ONE (10:45)
[2019-05-02 13:03] LABS: RBC Count-Automated (BF) 1254 /cumm; WBC/Nucleated-Auto (BF) 383 uL
[2019-05-02 13:34] LABS: BF Color Yellow; Body Fluid Source Ascites Body Fluid; Clarity Hazy (Clear); Tube # EDTA
[2019-05-02 13:37] LABS: BF Segmented Neutrophils 14 %; Cell Count Non Hematic 60 %; Lymphocytes 26 %
--- NOTE | 2019-05-02 15:33 | ULT ---
Sonographic guided paracentesis HISTORY: Recurrent ascites. FINDINGS: After explaining the procedure and answering all questions, sonographic survey showed a mod erate amount of free fluid throughout the abdomen. Sterile technique, buffered local anesthesia, sonographic guidance, and a right lateral approach were used to carefully advance a 19-gauge Yueh nee dle and catheter into the free fluid. Catheter was left to drain a total volume of 3.0 L clear yellow liquid. Catheter was removed with small amount of fluid remaining. Patient tolerated the proce dure well and was dismissed in good condition. IMPRESSION: Technically successful sonographic guided paracentesis.
[2019-05-02 16:25] VITALS: BP 108/63; TEMP 97.7
== END 2019-05-02 12:10 | disposition home or self-care (01) ==
LOC: ULT 09:50
PROVIDERS: ATTEND Nurse Practitioner Family
PROC: 0W9G3ZZ Drainage of Peritoneal Cavity, Percutaneous Approach (ICD-10-PCS; principal; 2019-05-02)
DX: K70.31 Alcoholic cirrhosis of liver with ascites (principal); K72.90 Hepatic failure, unspecified without coma; E78.5 Hyperlipidemia, unspecified; I10 Essential (primary) hypertension; E11.42 Type 2 diabetes mellitus with diabetic polyneuropathy; M19.90 Unspecified osteoarthritis, unspecified site; Z79.899 Other long term (current) drug therapy
CPT/HCPCS: 49083; 87070; 87205; 89051; P9047; 85060; J2001

== ENCOUNTER 2019-05-06 12:23 | Day surgery (SDC) | payer MEDICARE, OTHER ==
[2019-05-05 08:54] VITALS: BMI 28.2
[~2019-05-06 12:23] MED LIST changes: -Albumin 25% 200 ML ONE; +FLU VACC QS2019-20(6MOS UP)/PF 60 MCG/0.5 ML SYRINGE IM ONE
[2019-05-06] MEDS ORDERED: Lidocaine 1% PF 5 ML VIAL ONE (13:19)
[2019-05-06] MEDS ORDERED: Albumin 25% 200 ML ONE (13:19)
[2019-05-06 13:26] VITALS: BP 121/63; TEMP 98.6
--- NOTE | 2019-05-06 14:15 | ULT ---
Ultrasound-guided paracentesis: HISTORY: Cirrhosis and recurrent ascites FINDINGS: Informed consent obtained prior to the procedure. Preprocedural imaging demonstrated intrap eritoneal free fluid. An area was marked in the Right lower quadrant , and then meticulously prepped and draped in normal s terile fashion and anesthetized with 1% buffered lidocaine. With direct sonographic guidance, a 19-gauge needle and 5 Lao Yueh catheter were advanced into the abdomen. After the return of fluid, the catheter was advanced, and the needle was removed. Approximately 7 L of yellow-colored fluid was aspirated. The introducer sheath was removed, and hemos tasis was achieved with direct pressure. A dry sterile dressing was placed. The patient tolerated the procedure well and without immediate complication. Patient was administered 50 g of albumin intra venously during the examination as requested. IMPRESSION: Technically successful ultrasound-guided paracentesis.
[2019-05-06 15:15] LABS: RBC Count-Automated (BF) 534 /cumm; WBC/Nucleated-Auto (BF) 151 uL
[2019-05-06 15:41] LABS: BF Color Yellow; Body Fluid Source Ascites Body Fluid; Clarity Hazy (Clear); Tube # EDTA
[2019-05-06 15:42] LABS: BF Segmented Neutrophils 12 %; Cell Count Non Hematic 64 %; Lymphocytes 24 %
== END 2019-05-06 14:20 | disposition home or self-care (01) ==
LOC: ULT 12:23
PROVIDERS: ATTEND Nurse Practitioner Family
PROC: 0W9G3ZZ Drainage of Peritoneal Cavity, Percutaneous Approach (ICD-10-PCS; principal; 2019-05-06)
DX: K70.31 Alcoholic cirrhosis of liver with ascites (principal); K72.90 Hepatic failure, unspecified without coma; E11.42 Type 2 diabetes mellitus with diabetic polyneuropathy; I10 Essential (primary) hypertension; M19.90 Unspecified osteoarthritis, unspecified site; E78.5 Hyperlipidemia, unspecified; Z79.899 Other long term (current) drug therapy; Z88.8 Allergy status to other drugs, medicaments and biological substances
CPT/HCPCS: 49083; 87070; 87205; 89051; P9047; 85060; J2001

== ENCOUNTER 2019-05-09 07:15 | Day surgery (SDC) | payer MEDICARE, OTHER ==
[2019-05-08 13:00] VITALS: BMI 32.8
[2019-05-09] MEDS ORDERED: Lidocaine 1% PF 5 ML VIAL ONE (07:31)
[2019-05-09] MEDS ORDERED: Albumin 25% 200 ML ONE (07:31)
[2019-05-09] MEDS ORDERED: Sodium Bicarbonate 2.5 MEQ/5 ML VIAL ONE (07:31)
[2019-05-09 09:15] VITALS: BP 121/55; TEMP 98.3
[2019-05-09 09:26] LABS: RBC Count-Automated (BF) 703 /cumm; WBC/Nucleated-Auto (BF) 169 uL
[2019-05-09 09:40] LABS: BF Color Yellow; Body Fluid Source Ascites Body Fluid; Clarity Hazy (Clear); Tube # EDTA
[2019-05-09 09:51] LABS: BF Segmented Neutrophils 10 %; Cell Count Non Hematic 60 %; Lymphocytes 30 %
--- NOTE | 2019-05-09 11:24 | ULT ---
Ultrasound-guided paracentesis: HISTORY: Cirrhosis and ascites. FINDINGS: Informed consent obtained prior to the procedure. Preprocedural imaging demonstrated intrap eritoneal free fluid. An area was marked in the right mid abdomen in the mid axillary line, and then meticulously prepped a nd draped in normal sterile fashion and anesthetized with 1% buffered lidocaine. With direct sonographic guidance, a 19-gauge needle and 5 Marshallese Yueh catheter were advanced into the abdomen. After the return of fluid, the catheter was advanced, and the needle was removed. Approximately 5.2 L of clear straw-colored fluid was aspirated. The introducer sheath was removed, a nd hemostasis was achieved with direct pressure. A dry sterile dressing was placed. The patient tolerated the procedure well and without immediate complication. 50 g of albumin was administered int ravenously during the procedure and requested. IMPRESSION: Technically successful ultrasound-guided paracentesis.
== END 2019-05-09 08:55 | disposition home or self-care (01) ==
LOC: ULT 07:15
PROVIDERS: ATTEND Nurse Practitioner Family
PROC: 0W9G3ZZ Drainage of Peritoneal Cavity, Percutaneous Approach (ICD-10-PCS; principal; 2019-05-09)
DX: K70.31 Alcoholic cirrhosis of liver with ascites (principal); K72.90 Hepatic failure, unspecified without coma; E11.42 Type 2 diabetes mellitus with diabetic polyneuropathy; I10 Essential (primary) hypertension; M19.90 Unspecified osteoarthritis, unspecified site; Z79.899 Other long term (current) drug therapy; Z88.8 Allergy status to other drugs, medicaments and biological substances
CPT/HCPCS: 49083; 87070; 87205; 89051; P9047; 85060; J2001

== ENCOUNTER 2019-05-13 07:15 | Day surgery (SDC) | payer MEDICARE, OTHER ==
[2019-05-12 08:10] VITALS: BMI 32.8
[2019-05-13] MEDS ORDERED: Albumin 25% 200 ML ONE (07:37)
[2019-05-13] MEDS ORDERED: Sodium Bicarbonate 2.5 MEQ/5 ML VIAL ONE (07:37)
[2019-05-13] MEDS ORDERED: Lidocaine 1% PF 5 ML VIAL ONE (07:37)
--- NOTE | 2019-05-13 09:19 | ULT ---
Ultrasound-guided paracentesis: HISTORY: Cirrhosis and recurrent ascites. FINDINGS: Informed consent obtained prior to the procedure. Preprocedural imaging demonstrated intrap eritoneal free fluid. An area was marked in the right mid abdomen in the mid axillary line, and then meticulously prepped a nd draped in normal sterile fashion and anesthetized with 1% buffered lidocaine. With direct sonographic guidance, a 19-gauge needle and 5 Bermudian Yueh catheter were advanced into the abdomen. After the return of fluid, the catheter was advanced, and the needle was removed. Approximately 7 L of clear yellow-colored fluid was aspirated. The introducer sheath was removed, and hemostasis was achieved with direct pressure. A dry sterile dressing was placed. The patient tolerated the procedure well and without immediate complication. Patient was administered 50 g of alb umin intravenously during the procedure as requested. IMPRESSION: Technically successful ultrasound-guided paracentesis.
[2019-05-13 10:11] LABS: RBC Count-Automated (BF) 125 /cumm; WBC/Nucleated-Auto (BF) 249 uL
[2019-05-13 10:32] LABS: Body Fluid Source Paracentesis Fluid
[2019-05-13 10:33] LABS: BF Color Yellow; Clarity Hazy (Clear); Tube # EDTA
[2019-05-13 12:26] VITALS: BP 113/63; TEMP 98.5
[2019-05-13 13:26] LABS: BF Segmented Neutrophils 10 %; Cell Count Non Hematic 76 %; Lymphocytes 14 %
== END 2019-05-13 08:50 | disposition home or self-care (01) ==
LOC: ULT 07:15
PROVIDERS: ATTEND Nurse Practitioner Family
PROC: 0W9G3ZZ Drainage of Peritoneal Cavity, Percutaneous Approach (ICD-10-PCS; principal; 2019-05-13)
DX: K70.31 Alcoholic cirrhosis of liver with ascites (principal); K72.90 Hepatic failure, unspecified without coma; E11.42 Type 2 diabetes mellitus with diabetic polyneuropathy; I10 Essential (primary) hypertension; M19.90 Unspecified osteoarthritis, unspecified site; E78.5 Hyperlipidemia, unspecified; Z79.899 Other long term (current) drug therapy; Z88.8 Allergy status to other drugs, medicaments and biological substances
CPT/HCPCS: 49083; 87070; 87205; 89051; P9047; 85060; J2001

== ENCOUNTER 2019-05-16 08:25 | Day surgery (SDC) | payer MEDICARE, OTHER ==
[2019-05-15 12:39] VITALS: BMI 28.2
[2019-05-16] MEDS ORDERED: Albumin 25% 100 ML ONE (09:45)
[2019-05-16] MEDS ORDERED: Sodium Bicarbonate 2.5 MEQ/5 ML VIAL ONE (09:46)
[2019-05-16] MEDS ORDERED: Lidocaine 1% PF 5 ML VIAL ONE (09:46)
[2019-05-16 12:54] LABS: RBC Count-Automated (BF) 178 /cumm; WBC/Nucleated-Auto (BF) 187 uL
[2019-05-16 13:06] LABS: BF Color Yellow; Body Fluid Source Ascites Body Fluid; Clarity Hazy (Clear); Tube # EDTA
[2019-05-16 13:09] LABS: Eosinophils 1 %; Lymphocytes 19 %
[2019-05-16 13:10] LABS: BF Segmented Neutrophils 9 %; Cell Count Non Hematic 71 %
--- NOTE | 2019-05-16 14:41 | ULT ---
Ultrasound-guided paracentesis: 05/16/2019 HISTORY: Symptomatic ascites FINDINGS: Informed consent obtained prior to the procedure. Preprocedural imaging demonstrated signif icant ascites throughout the abdomen and pelvis. Right lower quadrant prepped and draped in normal sterile fashion and anesthetized with 1% buffered l idocaine. With direct sonographic guidance, 5 Mauritian Yueh catheter is advanced into the ascites and removal of the stylet yielded yellow fluid. 5.9 L were removed. The patient tolerated the procedure well. No postprocedural complications. IMPRESSION: Successful ultrasound-guided paracentesis yielding 5.9 L of yellow fluid.
== END 2019-05-16 10:55 | disposition home or self-care (01) ==
LOC: ULT 08:25
PROVIDERS: ATTEND Nurse Practitioner Family
PROC: 0W9G3ZZ Drainage of Peritoneal Cavity, Percutaneous Approach (ICD-10-PCS; principal; 2019-05-16)
DX: K70.31 Alcoholic cirrhosis of liver with ascites (principal); K72.90 Hepatic failure, unspecified without coma; E11.42 Type 2 diabetes mellitus with diabetic polyneuropathy; I10 Essential (primary) hypertension; M19.90 Unspecified osteoarthritis, unspecified site; E78.5 Hyperlipidemia, unspecified; Z86.010 Personal history of colon polyps; Z79.899 Other long term (current) drug therapy; Z88.8 Allergy status to other drugs, medicaments and biological substances
CPT/HCPCS: 49083; 87070; 87205; 89051; P9047; 85060; J2001

== ENCOUNTER 2019-05-20 06:49 | Day surgery (SDC) | payer MEDICARE ==
[2019-05-20] MEDS ORDERED: Sodium Bicarbonate 2.5 MEQ/5 ML VIAL ONE (07:46)
[2019-05-20] MEDS ORDERED: Albumin 25% 200 ML ONE (07:46)
[2019-05-20] MEDS ORDERED: Lidocaine 1% PF 5 ML VIAL ONE (07:46)
--- NOTE | 2019-05-20 09:45 | ULT ---
Exam: Ultrasound guided paracentesis HISTORY: Ascites COMPARISON: Prior exam dated May 16, 2019 FINDINGS: Successful ultrasound-guided paracentesis. Total of 7 L of normal appearingascites was aspi rated. TECHNIQUE: Consent obtained reformatory ultrasound-guided paracentesis. Right lower quadrant was deem ed appropriate. Skin was prepped and draped in a sterile fashion. 1% lidocaine, buffered with sodium bicarbonate was used for local anesthesia. Under ultrasound guidance, a 5 Pitc[place] Islander 7 cm Yueh cat heter is advanced in the peritoneal space. A total of 7 L of normal appearingascites was aspirated. No immediate or postprocedural complications IMPRESSION: Successful ultrasound-guided paracentesis.
[2019-05-20 12:13] LABS: RBC Count-Automated (BF) 102 /cumm; WBC/Nucleated-Auto (BF) 158 uL
[2019-05-20 12:25] LABS: BF Color Yellow; Body Fluid Source Ascites Body Fluid; Clarity Hazy (Clear); Tube # EDTA
[2019-05-20 12:27] LABS: BF Segmented Neutrophils 6 %; Cell Count Non Hematic 76 %; Lymphocytes 18 %
[2019-05-20 13:35] VITALS: BP 122/61; TEMP 98.6
== END 2019-05-20 09:45 | disposition home or self-care (01) ==
LOC: ULT 06:49
PROVIDERS: ATTEND Nurse Practitioner Family
PROC: 0W9G3ZZ Drainage of Peritoneal Cavity, Percutaneous Approach (ICD-10-PCS; principal; 2019-05-20)
DX: K70.31 Alcoholic cirrhosis of liver with ascites (principal); E11.42 Type 2 diabetes mellitus with diabetic polyneuropathy; I10 Essential (primary) hypertension; K72.90 Hepatic failure, unspecified without coma; M19.90 Unspecified osteoarthritis, unspecified site; E78.5 Hyperlipidemia, unspecified; Z86.010 Personal history of colon polyps
CPT/HCPCS: 49083; 87070; 87205; 89051; P9047; 85060; J2001

== ENCOUNTER 2019-05-23 11:24 | Day surgery (SDC) | payer MEDICARE, OTHER ==
[2019-05-22 16:06] VITALS: BMI 28.2
[2019-05-23] MEDS ORDERED: Lidocaine 1% PF 5 ML VIAL ONE (12:44)
[2019-05-23] MEDS ORDERED: Albumin 25% 200 ML ONE (12:44)
[2019-05-23] MEDS ORDERED: Sodium Bicarbonate 2.5 MEQ/5 ML VIAL ONE (12:44)
--- NOTE | 2019-05-23 13:44 | ULT ---
Ultrasound-guided paracentesis: HISTORY: Cirrhosis and recurrent ascites FINDINGS: Informed consent obtained prior to the procedure. Preprocedural imaging demonstrated intrap eritoneal free fluid. An area was marked in the right mid abdomen in the mid axillary line, and then meticulously prepped a nd draped in normal sterile fashion and anesthetized with 1% buffered lidocaine. With direct sonographic guidance, a 19-gauge needle and 5 Stateless Yueh catheter were advanced into the abdomen. After the return of fluid, the catheter was advanced, and the needle was removed. Approximately 6.3 L of slightly cloudy yellow-colored fluid was aspirated. The introducer sheath was removed, and hemostasis was achieved with direct pressure. A dry sterile dressing was placed. The patient tolerated the procedure well and without immediate complication. IMPRESSION: Technically successful ultrasound-guided paracentesis.
[2019-05-23 14:21] VITALS: BP 121/61; TEMP 98
[2019-05-23 15:58] LABS: RBC Count-Automated (BF) 130 /cumm; WBC/Nucleated-Auto (BF) 223 uL
[2019-05-23 15:59] LABS: Body Fluid Source Ascites Body Fluid
[2019-05-23 16:00] LABS: BF Color Yellow; Clarity Hazy (Clear); Tube # EDTA
[2019-05-23 17:20] LABS: BF Segmented Neutrophils 25 %; Cell Count Non Hematic 45 %; Lymphocytes 30 %
== END 2019-05-23 14:00 | disposition home or self-care (01) ==
LOC: ULT 11:24
PROVIDERS: ATTEND Nurse Practitioner Family
PROC: 0W9G3ZZ Drainage of Peritoneal Cavity, Percutaneous Approach (ICD-10-PCS; principal; 2019-05-23)
DX: K70.31 Alcoholic cirrhosis of liver with ascites (principal); E11.42 Type 2 diabetes mellitus with diabetic polyneuropathy; I10 Essential (primary) hypertension; M19.90 Unspecified osteoarthritis, unspecified site; E78.5 Hyperlipidemia, unspecified; Z86.010 Personal history of colon polyps; Z79.899 Other long term (current) drug therapy; Z88.8 Allergy status to other drugs, medicaments and biological substances
CPT/HCPCS: 49083; 87070; 87205; 89051; P9047; 85060; J2001

== ENCOUNTER 2019-05-27 12:16 | Day surgery (SDC) | payer MEDICARE, OTHER ==
[2019-05-26 10:21] VITALS: BMI 28.2
[2019-05-27] MEDS ORDERED: Sodium Bicarbonate 2.5 MEQ/5 ML VIAL ONE (12:21)
[2019-05-27] MEDS ORDERED: Albumin 25% 200 ML ONE (12:21)
[2019-05-27] MEDS ORDERED: Lidocaine 1% PF 5 ML VIAL ONE (12:21)
--- NOTE | 2019-05-27 13:44 | ULT ---
Exam: Ultrasound guided paracentesis HISTORY: Ascites COMPARISON: May 23, 2019 FINDINGS: Successful ultrasound-guided paracentesis. Total of 7 L of normal appearingascites was aspi rated. TECHNIQUE: Consent obtained reformatory ultrasound-guided paracentesis. Right lower quadrant was deem ed appropriate. Skin was prepped and draped in a sterile fashion. 1% lidocaine, buffered with sodium bicarbonate was used for local anesthesia. Under ultrasound guidance, a 5 Danish 7 cm Yueh cat heter is advanced in the peritoneal space. A total of 7 L of normal appearingascites was aspirated. No immediate or postprocedural complications IMPRESSION: Successful ultrasound-guided paracentesis.
[2019-05-27 14:12] VITALS: BP 116/55; TEMP 97.9
[2019-05-27 15:07] LABS: RBC Count-Automated (BF) 306 /cumm; WBC/Nucleated-Auto (BF) 93 uL
[2019-05-27 15:23] LABS: BF Color Yellow; Body Fluid Source Paracentesis Fluid; Clarity Hazy (Clear); Tube # EDTA
[2019-05-27 15:25] LABS: BF Segmented Neutrophils 14 %; Cell Count Non Hematic 54 %; Lymphocytes 32 %
== END 2019-05-27 14:00 | disposition home or self-care (01) ==
LOC: ULT 12:16
PROVIDERS: ATTEND Nurse Practitioner Family
PROC: 0W9G3ZZ Drainage of Peritoneal Cavity, Percutaneous Approach (ICD-10-PCS; principal; 2019-05-27)
DX: K70.31 Alcoholic cirrhosis of liver with ascites (principal); K72.90 Hepatic failure, unspecified without coma; E11.42 Type 2 diabetes mellitus with diabetic polyneuropathy; I10 Essential (primary) hypertension; M19.90 Unspecified osteoarthritis, unspecified site; E78.5 Hyperlipidemia, unspecified; Z86.010 Personal history of colon polyps; Z79.899 Other long term (current) drug therapy; Z88.8 Allergy status to other drugs, medicaments and biological substances
CPT/HCPCS: 49083; 87070; 87205; 89051; P9047; 85060; J2001

== ENCOUNTER 2019-05-30 09:57 | Day surgery (SDC) | payer MEDICARE, OTHER ==
[2019-05-29 12:27] VITALS: BMI 28.2
[2019-05-30] MEDS ORDERED: Sodium Bicarbonate 2.5 MEQ/5 ML VIAL ONE (10:19)
[2019-05-30] MEDS ORDERED: Lidocaine 1% PF 5 ML VIAL ONE (10:19)
[2019-05-30] MEDS ORDERED: Albumin 25% 200 ML ONE (10:55)
--- NOTE | 2019-05-30 13:12 | ULT ---
Ultrasound-guided paracentesis: HISTORY: Cirrhosis and ascites. FINDINGS: Informed consent obtained prior to the procedure. Preprocedural imaging demonstrated intrap eritoneal free fluid. An area was marked in the right mid abdomen in the mid axillary line, and then meticulously prepped a nd draped in normal sterile fashion and anesthetized with 1% buffered lidocaine. With direct sonographic guidance, a 19-gauge needle and 5 Grenadian Yueh catheter were advanced into the abdomen. After the return of fluid, the catheter was advanced, and the needle was removed. Approximately 7 L of clear straw-colored fluid was aspirated. The introducer sheath was removed, and hemostasis was achieved with direct pressure. A dry sterile dressing was placed. Albumin was administered during the exam as requested. The patient tolerated the procedure well and without immed iate complication. IMPRESSION: Technically successful ultrasound-guided paracentesis.
[2019-05-30 13:48] LABS: RBC Count-Automated (BF) 362 /cumm; WBC/Nucleated-Auto (BF) 139 uL
[2019-05-30 14:25] VITALS: BP 118/63; TEMP 98.3
[2019-05-30 14:44] LABS: BF Color Yellow; Body Fluid Source Ascites Body Fluid; Clarity Hazy (Clear); Tube # EDTA
[2019-05-30 14:48] LABS: BF Segmented Neutrophils 11 %; Cell Count Non Hematic 56 %; Lymphocytes 33 %
== END 2019-05-30 12:00 | disposition home or self-care (01) ==
LOC: ULT 09:57
PROVIDERS: ATTEND Nurse Practitioner Family
PROC: 0W9G3ZZ Drainage of Peritoneal Cavity, Percutaneous Approach (ICD-10-PCS; principal; 2019-05-30)
DX: K74.60 Unspecified cirrhosis of liver (principal); R18.8 Other ascites; I10 Essential (primary) hypertension; E11.42 Type 2 diabetes mellitus with diabetic polyneuropathy; Z79.899 Other long term (current) drug therapy; Z88.6 Allergy status to analgesic agent
CPT/HCPCS: 49083; 87070; 87205; 89051; P9047; 85060; J2001

== ENCOUNTER 2019-06-03 12:04 | Day surgery (SDC) | payer MEDICARE, OTHER ==
[2019-06-02 13:02] VITALS: BMI 28.2
[2019-06-03] MEDS ORDERED: Sodium Bicarbonate 2.5 MEQ/5 ML VIAL ONE (12:24)
[2019-06-03] MEDS ORDERED: Albumin 25% 200 ML ONE (12:24)
[2019-06-03] MEDS ORDERED: Lidocaine 1% PF 5 ML VIAL ONE (12:47)
[2019-06-03 13:04] VITALS: BP 126/56; TEMP 98
[2019-06-03 15:46] LABS: RBC Count-Automated (BF) 223 /cumm; WBC/Nucleated-Auto (BF) 158 uL
[2019-06-03 15:57] LABS: BF Color Yellow; Body Fluid Source Ascites Body Fluid; Clarity Hazy (Clear); Tube # EDTA
[2019-06-03 15:59] LABS: BF Segmented Neutrophils 12 %; Cell Count Non Hematic 64 %; Lymphocytes 24 %
--- NOTE | 2019-06-03 16:36 | ULT ---
Ultrasound-guided paracentesis: 06/03/2019 HISTORY: Symptomatic ascites FINDINGS: Informed consent obtained prior to the procedure. Preprocedural imaging demonstrated signif icant ascites throughout the abdomen and pelvis. Right lower quadrant prepped and draped in normal sterile fashion and anesthetized with 1% buffered l idocaine. With direct sonographic guidance, 5 Citizen Of [place] Yueh catheter is advanced into the ascites and removal of the stylet yielded yellow fluid. 7 L were removed. The patient tolerated the procedure well. No postprocedural complications. IMPRESSION: Successful ultrasound-guided paracentesis yielding 7 L of yellow fluid.
== END 2019-06-03 14:03 | disposition home or self-care (01) ==
LOC: ULT 12:04
PROVIDERS: ATTEND Nurse Practitioner Family
PROC: 0W9G3ZZ Drainage of Peritoneal Cavity, Percutaneous Approach (ICD-10-PCS; principal; 2019-06-03)
DX: K74.60 Unspecified cirrhosis of liver (principal); R18.8 Other ascites; I10 Essential (primary) hypertension; E11.42 Type 2 diabetes mellitus with diabetic polyneuropathy; M19.90 Unspecified osteoarthritis, unspecified site; N28.9 Disorder of kidney and ureter, unspecified; Z88.6 Allergy status to analgesic agent
CPT/HCPCS: 49083; 87070; 87205; 89051; P9047; 85060; J2001

== ENCOUNTER 2019-06-06 12:47 | Day surgery (SDC) | payer MEDICARE, OTHER ==
[2019-06-05 07:50] VITALS: BMI 28.2
[2019-06-06] MEDS ORDERED: Lidocaine 1% PF 5 ML VIAL ONE (12:59)
[2019-06-06] MEDS ORDERED: Albumin 25% 200 ML ONE (12:59)
[2019-06-06] MEDS ORDERED: Sodium Bicarbonate 2.5 MEQ/5 ML VIAL ONE (12:59)
[2019-06-06 14:48] LABS: RBC Count-Automated (BF) 223 /cumm; WBC/Nucleated-Auto (BF) 213 uL
[2019-06-06 14:50] LABS: BF Color Yellow; Body Fluid Source Paracentesis Fluid; Clarity Hazy (Clear); Tube # EDTA
[2019-06-06 15:01] LABS: BF Segmented Neutrophils 15 %; Cell Count Non Hematic 46 %; Lymphocytes 39 %
--- NOTE | 2019-06-09 08:52 | ULT ---
ULTRASOUND GUIDED PARACENTESIS: HISTORY: Recurrent ascites. After informed consent was obtained, the patient was prepped and draped in normal sterile fashion. L ocal anesthesia was obtained with 1% Xylocaine mixed with sodium bicarb. A right lower quadrant appr oach was used. A small skin incision was made with a #11 scalpel blade. A 6 Lithuanian Yueh catheter wa s introduced. Approximately 7 liters of typical straw-colored ascites was obtained. The patient cyrus erated the procedure well. There were no immediate complications. IMPRESSION: Ultrasound-guided paracentesis of 7 liters of fluid. POS: [facility]
== END 2019-06-06 13:55 | disposition home or self-care (01) ==
LOC: ULT 12:47
PROVIDERS: ATTEND Nurse Practitioner Family
PROC: 0W9G3ZX Drainage of Peritoneal Cavity, Percutaneous Approach, Diagnostic (ICD-10-PCS; principal; 2019-06-06)
DX: K70.31 Alcoholic cirrhosis of liver with ascites (principal); K76.89 Other specified diseases of liver; B19.20 Unspecified viral hepatitis C without hepatic coma; I10 Essential (primary) hypertension; E78.5 Hyperlipidemia, unspecified
CPT/HCPCS: 49083; 87070; 87205; 89051; P9047; 85060; J2001

== ENCOUNTER 2019-06-10 12:16 | Day surgery (SDC) | payer MEDICARE ==
[2019-06-09 16:27] VITALS: BMI 28.2
[2019-06-10] MEDS ORDERED: Sodium Bicarbonate 2.5 MEQ/5 ML VIAL ONE (12:28)
[2019-06-10] MEDS ORDERED: Albumin 25% 200 ML ONE (12:28)
--- NOTE | 2019-06-10 14:19 | ULT ---
Sonographic guided paracentesis HISTORY: Recurrent ascites. FINDINGS: After explaining the procedure and answering all questions, sonographic survey shows a larg e amount of free fluid throughout the abdomen. Sterile technique, buffered local anesthesia, sonographic guidance, and a left lateral approach were used to carefully advance a 19-gauge Yueh need le and catheter into the free fluid. Catheter was left to drain a total volume of 7.0 L clear yellow liquid. Patient is limited to 7 L. Catheter was removed with small to moderate amount of fluid remaining. Patient tolerated the procedure well and was dismissed in good condition. IMPRESSION : Technically successful sonographic guided paracentesis
[2019-06-10 14:29] VITALS: BP 132/61; TEMP 98.2
[2019-06-10 15:37] LABS: RBC Count-Automated (BF) 130 /cumm; WBC/Nucleated-Auto (BF) 121 uL
[2019-06-10 15:38] LABS: BF Color Yellow; Body Fluid Source Ascites Body Fluid; Clarity Hazy (Clear); Tube # EDTA
[2019-06-10 16:08] LABS: BF Segmented Neutrophils 14 %
[2019-06-10 16:09] LABS: Cell Count Non Hematic 55 %; Lymphocytes 31 %
== END 2019-06-10 14:00 | disposition home or self-care (01) ==
LOC: ULT 12:16
PROVIDERS: ATTEND Nurse Practitioner Family
PROC: 0W9G3ZZ Drainage of Peritoneal Cavity, Percutaneous Approach (ICD-10-PCS; principal; 2019-06-10)
DX: K70.31 Alcoholic cirrhosis of liver with ascites (principal); E11.42 Type 2 diabetes mellitus with diabetic polyneuropathy; K72.90 Hepatic failure, unspecified without coma; I10 Essential (primary) hypertension; M19.90 Unspecified osteoarthritis, unspecified site; E78.5 Hyperlipidemia, unspecified; Z86.010 Personal history of colon polyps; Z79.899 Other long term (current) drug therapy
CPT/HCPCS: 49083; 87070; 87205; 89051; P9047; 85060

== ENCOUNTER 2019-06-13 08:19 | Day surgery (SDC) | payer MEDICARE ==
[2019-06-13 09:37] LABS: Anion Gap 10 mmol/L (10-20); BUN (Urea Nitrogen) 14 mg/dL (8.4-25.7); Calc. Creatinine Clearance 0 mL/min (70-130); Calcium 8.6 mg/dL (7.8-10.44); Carbon Dioxide 23 mmol/L (22-29); Chloride 107 mmol/L (98-107); Estimated GFR-MDRD 70; Glucose 140 mg/dL (70-105); Potassium 4.3 mmol/L (3.5-5.1); Sodium 136 mmol/L (136-145)
[2019-06-13] MEDS ORDERED: Lidocaine 1% PF 5 ML VIAL ONE (09:47)
[2019-06-13] MEDS ORDERED: Albumin 25% 200 ML ONE (09:47)
[2019-06-13 10:21] LABS: Bacteria/HPF None Seen HPF (None Seen); Bilirubin Negative (Negative); Blood, Urine 2+ (Negative); Clarity Clear (Clear); Glucose, Urine (Dipstick) Normal (Negative); Leukocyte Negative Leu/uL (Negative); Mucous/LPF Rare LPF (<2+); Nitrite Negative (Negative); Protein, Urine (Dipstick) 20 mg/dL (Neg-Trace); Squamous Epithelial None Seen HPF (0-3); Urobilinogen 3 mg/dL (Less than 2); WBC/HPF 0-3 HPF (0-3)
[2019-06-13 10:26] LABS: Urine Culture Reflex No No
--- NOTE | 2019-06-13 12:30 | ULT ---
PROCEDURE: ULTRASOUND-GUIDED ABDOMINAL PARACENTESIS: INDICATION: Recurrent ascites. FINDINGS: A 5 Guyanese catheter placed into the ascites at the left lower quadrant using ultrasound guidance. A catheter was attached to suction drainage. Seven liters of clear ascitic fluid removed. Postprocedu re ultrasound showed residual low volume ascites. PROCEDURE NOTE: Four quadrant ultrasound shows large volume ascites. The left lower quadrant was chosen for puncture . The overlying skin was prepped and draped in a sterile manner. Local anesthesia was administered with Lidocaine with ultrasound guidance. A tiny skin gerard was made with a scalpel. A 5 Guyanese Yueh catheter with needle in place was introduced into the fluid in the left lower quadrant under ultrasou nd guidance. The needle was removed and the catheter was attached to suction drainage. Seven liters of ascitic fluid removed. There were no problems or complications. POS: [facility]
--- NOTE | 2019-06-13 13:16 | RAD ---
SUPINE ABDOMEN: Date: 06/13/2019 HISTORY: Renal calculi. FINDINGS: There are gas-filled dilated loops of small bowel seen today worrisome for small bowel obstruction. S cattered gas in the colon. Numerous gallstones in the gallbladder again noted. IMPRESSION: Gas-filled dilated loops of small bowel are noted on today's exam. POS: [facility]
--- NOTE | 2019-06-13 13:30 | ULT ---
Exam: Bilateral renal ultrasound HISTORY: Acute kidney insufficiency COMPARISON: None FINDINGS: Right kidney: Normal cortical echotexture. No hydronephrosis. Right kidney measurements: 10.3 x 5.9 x 5.6 cm. Left kidney: Normal cortical echotexture. No hydronephrosis. Echogenic focus in the lower pole the le ft kidney measuring 0.6 x 0.5 x 0.5 cm may represent a nonobstructing calculus. Left kidney measurements 5.9 x 5.7 x 1.9 cm. Urinary bladder: Normal mucosa. IMPRESSION: No hydronephrosis.
[2019-06-13 14:17] VITALS: BP 129/64; TEMP 98.1
[2019-06-13 15:40] LABS: RBC Count-Automated (BF) 74 /cumm; WBC/Nucleated-Auto (BF) 130 uL
[2019-06-13 15:50] LABS: BF Color Yellow; Body Fluid Source Ascites Body Fluid; Clarity Hazy (Clear); Tube # EDTA
[2019-06-13 16:01] LABS: BF Segmented Neutrophils 13 %; Cell Count Non Hematic 49 %; Eosinophils 1 %; Lymphocytes 37 %
== END 2019-06-13 11:20 | disposition home or self-care (01) ==
LOC: ULT 08:19
PROVIDERS: ATTEND Nurse Practitioner Family
PROC: 0W9G3ZZ Drainage of Peritoneal Cavity, Percutaneous Approach (ICD-10-PCS; principal; 2019-06-13)
PROC: BW40ZZZ Ultrasonography of Abdomen (ICD-10-PCS; 2019-06-13)
DX: K70.31 Alcoholic cirrhosis of liver with ascites (principal); N28.9 Disorder of kidney and ureter, unspecified; K72.90 Hepatic failure, unspecified without coma; I12.0 Hypertensive chronic kidney disease with stage 5 chronic kidney disease or end stage renal disease; E11.22 Type 2 diabetes mellitus with diabetic chronic kidney disease; N18.6 End stage renal disease; E78.5 Hyperlipidemia, unspecified; Z88.6 Allergy status to analgesic agent; Z79.899 Other long term (current) drug therapy
CPT/HCPCS: 36415; 49083; 74018; 76770; 80048; 81001; 85060; 87070; 87205; 89051; G0103; J2001; P9047

== ENCOUNTER 2019-06-17 12:07 | Day surgery (SDC) | payer MEDICARE ==
[2019-06-17] MEDS ORDERED: Albumin 25% 200 ML ONE (12:24)
[2019-06-17] MEDS ORDERED: Sodium Bicarbonate 2.5 MEQ/5 ML VIAL ONE (12:24)
[2019-06-17] MEDS ORDERED: Lidocaine 1% PF 5 ML VIAL ONE (12:24)
--- NOTE | 2019-06-17 13:56 | ULT ---
Sonographic guided paracentesis HISTORY: Recurrent ascites. FINDINGS: After explaining the procedure and answering all questions, sonographic survey shows a larg e amount of free fluid throughout the abdomen. Sterile technique, buffered local anesthesia, sonographic guidance, and a right lateral approach were used to carefully advance a 19-gauge Yueh needle and catheter into the free fluid. Catheter was left to drain a total volume of 7.0 L bright yellow liquid. Catheter was removed with small to modera te amount of fluid remaining. Patient tolerated the procedure well and was dismissed in good condition. IMPRESSION : : Technically successful sonographic guided paracentesis.
[2019-06-17 14:23] VITALS: BP 121/57; TEMP 98
[2019-06-17 15:41] LABS: RBC Count-Automated (BF) 168 /cumm; WBC/Nucleated-Auto (BF) 103 uL
[2019-06-17 15:57] LABS: BF Color Yellow; Body Fluid Source Ascites Body Fluid; Clarity Hazy (Clear); Tube # EDTA
[2019-06-17 16:20] LABS: BF Segmented Neutrophils 15 %; Cell Count Non Hematic 62 %; Eosinophils 2 %; Lymphocytes 20 %
== END 2019-06-17 14:00 | disposition home or self-care (01) ==
LOC: ULT 12:07
PROVIDERS: ATTEND Nurse Practitioner Family
PROC: 0W9G3ZX Drainage of Peritoneal Cavity, Percutaneous Approach, Diagnostic (ICD-10-PCS; principal; 2019-06-17)
DX: K70.31 Alcoholic cirrhosis of liver with ascites (principal); K72.90 Hepatic failure, unspecified without coma; E11.42 Type 2 diabetes mellitus with diabetic polyneuropathy; M19.90 Unspecified osteoarthritis, unspecified site; I10 Essential (primary) hypertension; E78.5 Hyperlipidemia, unspecified; Z86.010 Personal history of colon polyps; Z88.6 Allergy status to analgesic agent
CPT/HCPCS: 49083; 87070; 87205; 89051; P9047; 85060; J2001

== ENCOUNTER 2019-06-20 07:31 | Day surgery (SDC) | payer MEDICARE, OTHER ==
[2019-06-19 12:00] VITALS: BMI 28.2
[2019-06-20] MEDS ORDERED: Lidocaine 1% PF 5 ML VIAL ONE (07:38)
[2019-06-20] MEDS ORDERED: Sodium Bicarbonate 2.5 MEQ/5 ML VIAL ONE (07:38)
[2019-06-20] MEDS ORDERED: Albumin 25% 200 ML ONE (07:38)
--- NOTE | 2019-06-20 09:48 | ULT ---
Sonographic guided paracentesis HISTORY: Recurrent ascites. FINDINGS: After explaining the procedure and answering all questions, sonographic survey shows a larg e amount of free fluid throughout the abdomen. Sterile technique, buffered local anesthesia, sonographic guidance, and a left lateral approach were used to carefully advance a 19-gauge Yueh need le and catheter into the free fluid. Catheter was left to drain a total volume of 7.0 L clear yellow liquid. Catheter was removed with small amount of fluid remaining. Patient tolerated the proce dure well and was dismissed in good condition. IMPRESSION : Technically successful sonographic guided paracentesis.
[2019-06-20 11:18] VITALS: BP 109/57; TEMP 97.7
[2019-06-20 11:27] LABS: RBC Count-Automated (BF) 360 /cumm; WBC/Nucleated-Auto (BF) 262 uL
[2019-06-20 12:12] LABS: Body Fluid Source Paracentesis Fluid; Clarity Hazy (Clear)
[2019-06-20 12:13] LABS: BF Color Yellow; Tube # EDTA
[2019-06-20 12:17] LABS: BF Segmented Neutrophils 24 %; Cell Count Non Hematic 44 %; Lymphocytes 32 %
== END 2019-06-20 09:20 | disposition home or self-care (01) ==
LOC: ULT 07:31
PROVIDERS: ATTEND Nurse Practitioner Family
PROC: 0W9G3ZZ Drainage of Peritoneal Cavity, Percutaneous Approach (ICD-10-PCS; principal; 2019-06-20)
DX: K70.31 Alcoholic cirrhosis of liver with ascites (principal); K72.90 Hepatic failure, unspecified without coma; I10 Essential (primary) hypertension; E78.5 Hyperlipidemia, unspecified; E11.42 Type 2 diabetes mellitus with diabetic polyneuropathy; M19.90 Unspecified osteoarthritis, unspecified site; F10.11 Alcohol abuse, in remission; Z86.010 Personal history of colon polyps; Z79.899 Other long term (current) drug therapy; Z88.6 Allergy status to analgesic agent
CPT/HCPCS: 49083; 87070; 87205; 89051; P9047; 85060; J2001

== ENCOUNTER 2019-06-24 10:57 | Day surgery (SDC) | payer MEDICARE, OTHER ==
[2019-06-23 10:03] VITALS: BMI 28.2
[2019-06-24] MEDS ORDERED: Sodium Bicarbonate 2.5 MEQ/5 ML VIAL ONE (11:12)
[2019-06-24] MEDS ORDERED: Albumin 25% 200 ML ONE (11:12)
[2019-06-24] MEDS ORDERED: Lidocaine 1% PF 5 ML VIAL ONE (11:12)
--- NOTE | 2019-06-24 12:12 | ULT ---
Ultrasound-guided paracentesis: HISTORY: Cirrhosis and recurrent ascites FINDINGS: Informed consent obtained prior to the procedure. Preprocedural imaging demonstrated intrap eritoneal free fluid. An area was marked in the right mid abdomen in the mid axillary line, and then meticulously prepped a nd draped in normal sterile fashion and anesthetized with 1% buffered lidocaine. With direct sonographic guidance, a 19-gauge needle and 5 [place] Yueh catheter were advanced into the abdomen. After the return of fluid, the catheter was advanced, and the needle was removed. Approximately 7 L of clear yellow fluid was aspirated. The introducer sheath was removed, and hemosta sis was achieved with direct pressure. A dry sterile dressing was placed. The patient tolerated the procedure well and without immediate complication. IMPRESSION: Technically successful ultrasound-guided paracentesis.
[2019-06-24 13:03] VITALS: BP 153/70; TEMP 97.7
[2019-06-24 13:20] LABS: RBC Count-Automated (BF) 272 /cumm; WBC/Nucleated-Auto (BF) 142 uL
[2019-06-24 13:32] LABS: BF Color Yellow; Body Fluid Source Paracentesis Fluid; Clarity Hazy (Clear); Tube # EDTA
[2019-06-24 14:16] LABS: BF Segmented Neutrophils 27 %; Cell Count Non Hematic 44 %; Eosinophils 1 %; Lymphocytes 28 %
== END 2019-06-24 12:10 | disposition home or self-care (01) ==
LOC: ULT 10:57
PROVIDERS: ATTEND Nurse Practitioner Family
PROC: 0W9G3ZX Drainage of Peritoneal Cavity, Percutaneous Approach, Diagnostic (ICD-10-PCS; principal; 2019-06-24)
DX: K74.60 Unspecified cirrhosis of liver (principal); R18.8 Other ascites; Z79.899 Other long term (current) drug therapy; Z88.6 Allergy status to analgesic agent
CPT/HCPCS: 49083; 87070; 87205; 89051; P9047; 85060; J2001

== ENCOUNTER 2019-06-27 07:55 | Day surgery (SDC) | payer MEDICARE, OTHER ==
[2019-06-26 11:46] VITALS: BMI 28.2
[~2019-06-27 07:55] MED LIST changes: +Albumin 25% 200 ML ONE; -FLU VACC QS2019-20(6MOS UP)/PF 60 MCG/0.5 ML SYRINGE IM ONE; +Sodium Bicarbonate 2.5 MEQ/5 ML VIAL ONE
--- NOTE | 2019-06-27 08:58 | ULT ---
Ultrasound-guided paracentesis: HISTORY: Cirrhosis and recurrent ascites FINDINGS: Informed consent obtained prior to the procedure. Preprocedural imaging demonstrated intrap eritoneal free fluid. An area was marked in the right mid abdomen in the mid axillary line, and then meticulously prepped a nd draped in normal sterile fashion and anesthetized with 1% buffered lidocaine. With direct sonographic guidance, a 19-gauge needle and 5 [place] catheter were advanced into the abdomen. After the return of fluid, the catheter was advanced, and the needle was removed. Approximately 7 L of clear yellow-colored fluid was aspirated. The introducer sheath was removed, and hemostasis was achieved with direct pressure. A dry sterile dressing was placed. The patient tolerated the procedure well and without immediate complication. IMPRESSION: Technically successful ultrasound-guided paracentesis.
[2019-06-27 09:19] VITALS: BP 128/66; TEMP 98.1
[2019-06-27 09:39] LABS: RBC Count-Automated (BF) 567 /cumm; WBC/Nucleated-Auto (BF) 207 uL
[2019-06-27 09:53] LABS: BF Color Yellow; Body Fluid Source Abscess Fluid; Clarity Hazy (Clear); Tube # EDTA
[2019-06-27 10:51] LABS: BF Segmented Neutrophils 11 %; Cell Count Non Hematic 67 %; Eosinophils 2 %; Lymphocytes 20 %
== END 2019-06-27 08:55 | disposition home or self-care (01) ==
LOC: ULT 07:55
PROVIDERS: ATTEND Nurse Practitioner Family
PROC: 0W9G3ZZ Drainage of Peritoneal Cavity, Percutaneous Approach (ICD-10-PCS; principal; 2019-06-27)
DX: K70.31 Alcoholic cirrhosis of liver with ascites (principal); K70.40 Alcoholic hepatic failure without coma; E11.42 Type 2 diabetes mellitus with diabetic polyneuropathy; I10 Essential (primary) hypertension; E78.5 Hyperlipidemia, unspecified; M19.90 Unspecified osteoarthritis, unspecified site; Z86.010 Personal history of colon polyps; Z79.899 Other long term (current) drug therapy; Z88.6 Allergy status to analgesic agent
CPT/HCPCS: 49083; 87070; 87205; 89051; P9047; 85060

== ENCOUNTER 2019-06-30 08:10 | Day surgery (SDC) | payer MEDICARE, OTHER ==
[2019-06-27 12:35] VITALS: BMI 28.2
[2019-06-30] MEDS ORDERED: Albumin 25% 200 ML ONE (08:12)
[2019-06-30] MEDS ORDERED: Sodium Bicarbonate 2.5 MEQ/5 ML VIAL ONE (08:12)
--- NOTE | 2019-06-30 09:34 | ULT ---
Ultrasound-guided paracentesis: HISTORY: Cirrhosis and recurrent ascites FINDINGS: Informed consent obtained prior to the procedure. Preprocedural imaging demonstrated intrap eritoneal free fluid. An area was marked in the right mid abdomen in the mid axillary line, and then meticulously prepped a nd draped in normal sterile fashion and anesthetized with 1% buffered lidocaine. With direct sonographic guidance, a 19-gauge needle and 5 Syrian Yueh catheter were advanced into the abdomen. After the return of fluid, the catheter was advanced, and the needle was removed. Approximately 7 L of slightly cloudy yellow-colored fluid was aspirated. The introducer sheath was re moved, and hemostasis was achieved with direct pressure. A dry sterile dressing was placed. The patient tolerated the procedure well and without immediate complication. IMPRESSION: Technically successful ultrasound-guided paracentesis.
[2019-06-30 09:36] VITALS: BP 132/70; TEMP 98.3
[2019-06-30 10:04] LABS: RBC Count-Automated (BF) 578 /cumm; WBC/Nucleated-Auto (BF) 120 uL
[2019-06-30 10:07] LABS: BF Color Yellow; Body Fluid Source Ascites Body Fluid; Clarity Hazy (Clear); Tube # EDTA
[2019-06-30 10:42] LABS: BF Segmented Neutrophils 7 %; Cell Count Non Hematic 76 %; Lymphocytes 17 %
== END 2019-06-30 09:15 | disposition home or self-care (01) ==
LOC: ULT 08:10
PROVIDERS: ATTEND Nurse Practitioner Family
PROC: 0W9G3ZZ Drainage of Peritoneal Cavity, Percutaneous Approach (ICD-10-PCS; principal; 2019-06-30)
DX: K70.31 Alcoholic cirrhosis of liver with ascites (principal); K72.90 Hepatic failure, unspecified without coma; E78.5 Hyperlipidemia, unspecified; I10 Essential (primary) hypertension; E11.42 Type 2 diabetes mellitus with diabetic polyneuropathy; M19.90 Unspecified osteoarthritis, unspecified site; Z86.010 Personal history of colon polyps; Z79.899 Other long term (current) drug therapy; Z88.6 Allergy status to analgesic agent
CPT/HCPCS: 49083; 87070; 87205; 89051; P9047; 85060

== ENCOUNTER 2019-07-03 07:28 | Day surgery (SDC) | payer MEDICARE, OTHER ==
[2019-07-02 09:09] VITALS: BMI 31.1
[~2019-07-03 07:28] MED LIST changes: +Lidocaine 1% PF 5 ML VIAL ONE
--- NOTE | 2019-07-03 08:34 | ULT ---
Sonographic guided paracentesis HISTORY: Recurrent ascites. FINDINGS: After explaining the procedure and answering all questions, sonographic survey shows a larg e amount of free fluid throughout the abdomen. Sterile technique, buffered local anesthesia, sonographic guidance, and a right lateral approach were used to carefully advance a 19-gauge Yueh needle and catheter into the free fluid. Catheter was left to drain a total volume of 7.0 L slightly cloudy yellow liquid. Patient is limited to 7 L. Catheter was removed with small amount of fluid remaining. Patient tolerated the procedure well and was dismissed in good condition. IMPRESSION : Technically successful sonographic guided paracentesis.
[2019-07-03 08:43] VITALS: TEMP 98.1
[2019-07-03 09:19] LABS: RBC Count-Automated (BF) 316 /cumm; WBC/Nucleated-Auto (BF) 185 uL
[2019-07-03 09:45] LABS: BF Color Yellow; Body Fluid Source Ascites Body Fluid; Clarity Hazy (Clear); Tube # EDTA
[2019-07-03 11:20] LABS: BF Segmented Neutrophils 15 %; Cell Count Non Hematic 68 %; Eosinophils 1 %; Lymphocytes 16 %
== END 2019-07-03 08:35 | disposition home or self-care (01) ==
LOC: ULT 07:28
PROVIDERS: ATTEND Nurse Practitioner Family
PROC: 0W9G3ZZ Drainage of Peritoneal Cavity, Percutaneous Approach (ICD-10-PCS; principal; 2019-07-03)
DX: K70.31 Alcoholic cirrhosis of liver with ascites (principal)
CPT/HCPCS: 49083; 87070; 87205; 89051; P9047; 85060; J2001

== ENCOUNTER 2019-07-08 08:26 | Day surgery (SDC) | payer MEDICARE, OTHER ==
[2019-07-07 13:22] VITALS: BMI 29.8
[2019-07-08] MEDS ORDERED: Sodium Bicarbonate 2.5 MEQ/5 ML VIAL ONE (10:31)
[2019-07-08] MEDS ORDERED: Lidocaine 1% PF 5 ML VIAL ONE (10:31)
[2019-07-08] MEDS ORDERED: Albumin 25% 200 ML ONE (10:31)
[2019-07-08 13:15] LABS: RBC Count-Automated (BF) 185 /cumm; WBC/Nucleated-Auto (BF) 174 uL
[2019-07-08 13:32] LABS: BF Color Yellow; Body Fluid Source Paracentesis Fluid; Clarity Hazy (Clear); Tube # EDTA
[2019-07-08 13:37] LABS: BF Segmented Neutrophils 18 %; Cell Count Non Hematic 46 %; Lymphocytes 36 %
[2019-07-08 14:18] VITALS: BP 124/65; TEMP 97.9
--- NOTE | 2019-07-08 16:38 | ULT ---
ULTRASOUND-GUIDED PARACENTESIS THERAPEUTIC: DATE: 07/08/2019 HISTORY: 58-year-old male with symptomatic ascites (abdominal distention) due to cirrhosis. TECHNIQUE: Signed informed consent obtained. A four-quadrant survey of abdomen performed. Site selected for puncture: Left lower quadrant. Overlying skin prepared and draped in usual sterile fashion. 25-gauge needle used to apply buffered lidocaine superficially and deeply. 5 [place] Yueh catheter with stylette advanced into the pocket of free intraperitoneal fluid. After drainage, the Yueh catheter was removed. Patient tolerated the procedure well. No complications. FINDINGS: Volume of ascites prior to procedure:large. Volume of ascites fluid in the drainage pocket after drainage:moderate. Volume of ascites fluid drained:6100 mL Appearance of ascites fluid:Straw-colored. IMPRESSION: Successful therapeutic paracentesis, with drainage of 6.1 L of ascites fluid.
== END 2019-07-08 11:50 | disposition home or self-care (01) ==
LOC: ULT 08:26
PROVIDERS: ATTEND Nurse Practitioner Family
PROC: 0W9G3ZX Drainage of Peritoneal Cavity, Percutaneous Approach, Diagnostic (ICD-10-PCS; principal; 2019-07-08)
DX: K74.60 Unspecified cirrhosis of liver (principal); R18.8 Other ascites; K72.90 Hepatic failure, unspecified without coma; E11.42 Type 2 diabetes mellitus with diabetic polyneuropathy; I10 Essential (primary) hypertension; M19.90 Unspecified osteoarthritis, unspecified site; Z79.899 Other long term (current) drug therapy; Z88.6 Allergy status to analgesic agent
CPT/HCPCS: 49083; 87070; 87205; 89051; J2001; P9047; 85060

== ENCOUNTER 2019-07-11 07:36 | Day surgery (SDC) | payer MEDICARE, OTHER ==
[2019-07-11] MEDS ORDERED: Lidocaine 1% PF 5 ML VIAL ONE (08:07)
[2019-07-11] MEDS ORDERED: Albumin 25% 200 ML ONE (08:07)
[2019-07-11] MEDS ORDERED: Sodium Bicarbonate 2.5 MEQ/5 ML VIAL ONE (08:07)
--- NOTE | 2019-07-11 08:48 | ULT ---
Ultrasound-guided paracentesis: HISTORY: Cirrhosis and recurrent ascites FINDINGS: Informed consent obtained prior to the procedure. Preprocedural imaging demonstrated intrap eritoneal free fluid. An area was marked in the Right lower quadrant , and then meticulously prepped and draped in normal s terile fashion and anesthetized with 1% buffered lidocaine. With direct sonographic guidance, a 19-gauge needle and 5 Czech Yueh catheter were advanced into the abdomen. After the return of fluid, the catheter was advanced, and the needle was removed. Approximately 6.5 L of clear yellow-colored fluid was aspirated. The introducer sheath was removed, a nd hemostasis was achieved with direct pressure. A dry sterile dressing was placed. The patient tolerated the procedure well and without immediate complication. IMPRESSION: Technically successful ultrasound-guided paracentesis.
[2019-07-11 10:13] VITALS: BP 115/57; TEMP 98.3
[2019-07-11 10:17] LABS: BF Color Yellow; Body Fluid Source Ascites Body Fluid; Clarity Hazy (Clear); Tube # EDTA
[2019-07-11 10:22] LABS: RBC Count-Automated (BF) 44 /cumm; WBC/Nucleated-Auto (BF) 153 uL
[2019-07-11 11:43] LABS: BF Segmented Neutrophils 10 %; Cell Count Non Hematic 82 %; Lymphocytes 8 %
== END 2019-07-11 09:00 | disposition home or self-care (01) ==
LOC: ULT 07:36
PROVIDERS: ATTEND Nurse Practitioner Family
PROC: 0W9G3ZX Drainage of Peritoneal Cavity, Percutaneous Approach, Diagnostic (ICD-10-PCS; principal; 2019-07-11)
DX: K74.60 Unspecified cirrhosis of liver (principal); R18.8 Other ascites; K72.90 Hepatic failure, unspecified without coma; E11.42 Type 2 diabetes mellitus with diabetic polyneuropathy; I10 Essential (primary) hypertension; M19.90 Unspecified osteoarthritis, unspecified site; Z86.010 Personal history of colon polyps; Z79.899 Other long term (current) drug therapy; Z88.6 Allergy status to analgesic agent
CPT/HCPCS: 49083; 87070; 87205; 89051; J2001; P9047; 85060

== ENCOUNTER 2019-07-15 11:54 | Day surgery (SDC) | payer MEDICARE, OTHER ==
[2019-07-14 13:23] VITALS: BMI 29.8
[2019-07-15] MEDS ORDERED: Albumin 25% 200 ML ONE (12:01)
[2019-07-15] MEDS ORDERED: Sodium Bicarbonate 2.5 MEQ/5 ML VIAL ONE (12:01)
[2019-07-15] MEDS ORDERED: Lidocaine 1% PF 5 ML VIAL ONE (12:01)
[2019-07-15 13:35] LABS: RBC Count-Automated (BF) 109 /cumm; WBC/Nucleated-Auto (BF) 196 uL
[2019-07-15 13:54] LABS: BF Color Yellow; Body Fluid Source Ascites Body Fluid; Clarity Hazy (Clear); Tube # EDTA
[2019-07-15 13:56] LABS: BF Segmented Neutrophils 16 %; Cell Count Non Hematic 68 %; Eosinophils 1 %; Lymphocytes 14 %
--- NOTE | 2019-07-15 14:09 | ULT ---
Sonographic guided paracentesis HISTORY: Recurrent ascites. Liver failure. FINDINGS: After explaining the procedure and answering all questions, sonographic survey showed a lar ge amount of free fluid. Sterile technique, buffered local anesthesia, sonographic guidance, and a right lateral approach were used to carefully advance a 19-gauge Yueh needle and catheter into the fr ee fluid. Catheter was left to drain a total volume of 4.3 L slightly cloudy yellow liquid. Catheter was removed with minimal fluid remaining. Patient tolerated the procedure well and was dismi ssed in good condition. IMPRESSION : Technique successful sonographic guided paracentesis.
[2019-07-15 15:02] VITALS: BP 136/62; TEMP 98.3
== END 2019-07-15 12:58 | disposition home or self-care (01) ==
LOC: ULT 11:54
PROVIDERS: ATTEND Nurse Practitioner Family
PROC: 0W9G3ZX Drainage of Peritoneal Cavity, Percutaneous Approach, Diagnostic (ICD-10-PCS; principal; 2019-07-15)
DX: K70.31 Alcoholic cirrhosis of liver with ascites (principal); K70.40 Alcoholic hepatic failure without coma; E11.42 Type 2 diabetes mellitus with diabetic polyneuropathy; M19.90 Unspecified osteoarthritis, unspecified site; I10 Essential (primary) hypertension; E78.5 Hyperlipidemia, unspecified; Z79.899 Other long term (current) drug therapy; Z88.6 Allergy status to analgesic agent
CPT/HCPCS: 49083; 87070; 87205; 89051; J2001; P9047; 85060

== ENCOUNTER 2019-07-18 07:30 | Day surgery (SDC) | payer MEDICARE, OTHER ==
[2019-07-18] MEDS ORDERED: Albumin 25% 200 ML ONE (07:33)
[2019-07-18] MEDS ORDERED: Lidocaine 1% PF 5 ML VIAL ONE (07:33)
[2019-07-18] MEDS ORDERED: Sodium Bicarbonate 2.5 MEQ/5 ML VIAL ONE (07:33)
--- NOTE | 2019-07-18 08:38 | ULT ---
Sonographic guided paracentesis HISTORY: Recurrent ascites. FINDINGS: After explaining the procedure and answering all questions, sonographic survey showed a lar ge amount of free fluid throughout the abdomen. Sterile technique, buffered local anesthesia, sonographic guidance, and a right lateral approach were used to carefully advance a 19-gauge Yueh nee dle and catheter into the free fluid. Catheter was left to drain a total volume of 6.7 L clear yellow liquid. Catheter was removed with minimal fluid remaining. Patient tolerated the procedure well and was dismissed in good condition. IMPRESSION : Technically successful sonographic guided paracentesis.
[2019-07-18 09:00] VITALS: BP 123/64; TEMP 98.6
[2019-07-18 09:30] LABS: RBC Count-Automated (BF) 294 /cumm; WBC/Nucleated-Auto (BF) 142 uL
[2019-07-18 09:45] LABS: BF Color Yellow; Body Fluid Source Paracentesis Fluid; Clarity Hazy (Clear); Tube # EDTA
[2019-07-18 09:50] LABS: BF Segmented Neutrophils 5 %; Cell Count Non Hematic 76 %; Lymphocytes 19 %
== END 2019-07-18 08:45 | disposition home or self-care (01) ==
LOC: ULT 07:30
PROVIDERS: ATTEND Nurse Practitioner Family
PROC: 0W9G3ZX Drainage of Peritoneal Cavity, Percutaneous Approach, Diagnostic (ICD-10-PCS; principal; 2019-07-18)
DX: K70.31 Alcoholic cirrhosis of liver with ascites (principal); K70.40 Alcoholic hepatic failure without coma; E11.42 Type 2 diabetes mellitus with diabetic polyneuropathy; I10 Essential (primary) hypertension; M19.90 Unspecified osteoarthritis, unspecified site; Z79.899 Other long term (current) drug therapy; Z88.6 Allergy status to analgesic agent
CPT/HCPCS: 49083; 87070; 87205; 89051; J2001; P9047; 85060

== ENCOUNTER 2019-07-22 10:22 | Day surgery (SDC) | payer MEDICARE, OTHER ==
[2019-07-21 12:14] VITALS: BMI 29.8
[2019-07-22] MEDS ORDERED: Lidocaine 1% PF 5 ML VIAL ONE ×2 (10:49→11:06)
[2019-07-22] MEDS ORDERED: Albumin 25% 200 ML ONE (10:49)
[2019-07-22] MEDS ORDERED: Sodium Bicarbonate 2.5 MEQ/5 ML VIAL ONE (10:49)
[2019-07-22 12:27] VITALS: BP 118/58; TEMP 97.8
--- NOTE | 2019-07-22 12:36 | ULT ---
ULTRASOUND-GUIDED PARACENTESIS THERAPEUTIC: DATE: 07/22/2019 HISTORY: 58-year-old male with symptomatic ascites (abdominal distention) due to cirrhosis. TECHNIQUE: Signed informed consent obtained. A four-quadrant survey of abdomen performed. Site selected for puncture: right lower quadrant Overlying skin prepared and draped in usual sterile fashion. 25-gauge needle used to apply buffered lidocaine superficially and deeply. 5 Turkish Yueh catheter with stylette advanced into the pocket of free intraperitoneal fluid. After drainage, the Yueh catheter was removed. Patient tolerated the procedure well. No complications. FINDINGS: Volume of ascites prior to procedure:Moderate-large. Volume of ascites fluid in the drainage pocket after drainage:Minimal. Volume of ascites fluid drained:6800 mL Appearance of ascites fluid:nonhemorrhagic, straw-colored. IMPRESSION: Successful therapeutic paracentesis, with drainage of 6.8 L of ascites fluid.
[2019-07-22 12:40] LABS: RBC Count-Automated (BF) 41 /cumm; WBC/Nucleated-Auto (BF) 41 uL
[2019-07-22 12:49] LABS: BF Color Yellow; Body Fluid Source Paracentesis Fluid; Clarity Hazy (Clear); Tube # EDTA
[2019-07-22 12:51] LABS: BF Segmented Neutrophils 4 %; Cell Count Non Hematic 86 %; Lymphocytes 10 %
== END 2019-07-22 12:10 | disposition home or self-care (01) ==
LOC: ULT 10:22
PROVIDERS: ATTEND Nurse Practitioner Family
PROC: 0W9G3ZX Drainage of Peritoneal Cavity, Percutaneous Approach, Diagnostic (ICD-10-PCS; principal; 2019-07-22)
DX: K74.60 Unspecified cirrhosis of liver (principal); R18.8 Other ascites; E11.42 Type 2 diabetes mellitus with diabetic polyneuropathy; K72.90 Hepatic failure, unspecified without coma; M19.90 Unspecified osteoarthritis, unspecified site; Z79.899 Other long term (current) drug therapy; Z88.6 Allergy status to analgesic agent
CPT/HCPCS: 49083; 87070; 87205; 89051; P9047; 85060; J2001

== ENCOUNTER 2019-07-25 10:16 | Day surgery (SDC) | payer MEDICARE, OTHER ==
[2019-07-25] MEDS ORDERED: Sodium Bicarbonate 2.5 MEQ/5 ML VIAL ONE (10:50)
[2019-07-25] MEDS ORDERED: Albumin 25% 200 ML ONE (10:50)
[2019-07-25] MEDS ORDERED: Lidocaine 1% PF 5 ML VIAL ONE (10:50)
--- NOTE | 2019-07-25 12:54 | ULT ---
Exam: Ultrasound guided paracentesis HISTORY: Ascites COMPARISON: 07/22/2019 FINDINGS: Successful ultrasound-guided paracentesis. Total of 4800 mL of dark yellow ascites was aspi rated. TECHNIQUE: Consent obtained reformatory ultrasound-guided paracentesis. Right lower quadrant was deem ed appropriate. Skin was prepped and draped in a sterile fashion. 1% lidocaine, buffered with sodium bicarbonate was used for local anesthesia. Under ultrasound guidance, a 5 Peruvian 7 cm Yueh cat heter is advanced in the peritoneal space. A total of 4800 mL of dark yellow ascites was aspirated. No immediate or postprocedural complications IMPRESSION: Successful ultrasound-guided paracentesis.
[2019-07-25 13:13] VITALS: BP 125/59; TEMP 97.3
[2019-07-25 14:34] LABS: RBC Count-Automated (BF) 82 /cumm; WBC/Nucleated-Auto (BF) 276 uL
[2019-07-25 15:15] LABS: BF Color Yellow; Body Fluid Source Ascites Body Fluid; Clarity Hazy (Clear); Tube # EDTA
[2019-07-25 15:17] LABS: BF Segmented Neutrophils 11 %; Cell Count Non Hematic 57 %; Eosinophils 1 %; Lymphocytes 30 %
== END 2019-07-25 11:45 | disposition home or self-care (01) ==
LOC: ULT 10:16
PROVIDERS: ATTEND Nurse Practitioner Family
PROC: 0W9G3ZX Drainage of Peritoneal Cavity, Percutaneous Approach, Diagnostic (ICD-10-PCS; principal; 2019-07-25)
DX: K70.31 Alcoholic cirrhosis of liver with ascites (principal); K72.90 Hepatic failure, unspecified without coma; E78.5 Hyperlipidemia, unspecified; I10 Essential (primary) hypertension; E11.42 Type 2 diabetes mellitus with diabetic polyneuropathy; M19.90 Unspecified osteoarthritis, unspecified site; Z86.010 Personal history of colon polyps; Z79.899 Other long term (current) drug therapy; Z88.6 Allergy status to analgesic agent
CPT/HCPCS: 49083; 87070; 87205; 89051; P9047; 85060; J2001

== ENCOUNTER 2019-07-28 12:28 | Day surgery (SDC) | payer MEDICARE, OTHER ==
[2019-07-28] MEDS ORDERED: Albumin 25% 200 ML ONE (12:52)
[2019-07-28] MEDS ORDERED: Sodium Bicarbonate 2.5 MEQ/5 ML VIAL ONE (12:52)
--- NOTE | 2019-07-28 14:05 | ULT ---
Sonographic guided paracentesis HISTORY: Recurrent ascites. FINDINGS: After explaining the procedure and answering all questions, sonographic survey showed a lar ge amount of free fluid throughout the abdomen. Sterile technique, buffered local anesthesia, sonographic guidance, and a right lateral approach were used to carefully advance a 19-gauge Yueh needle and catheter into the free fluid. Catheter was left to drain a total volume of 4.7 L slightly cloudy yellow liquid. Catheter was removed with minima l fluid remaining. Patient tolerated the procedure well and was dismissed in good condition. IMPRESSION : Technically successful sonographic guided paracentesis.
[2019-07-28 14:27] VITALS: BP 130/65; TEMP 98
[2019-07-28 14:34] VITALS: BMI 43.0
[2019-07-28 15:02] LABS: RBC Count-Automated (BF) 20 /cumm; WBC/Nucleated-Auto (BF) 256 uL
[2019-07-28 15:04] LABS: Body Fluid Source Ascites Body Fluid; Clarity Clear (Clear)
[2019-07-28 15:05] LABS: BF Color Yellow; Tube # EDTA
[2019-07-28 15:26] LABS: BF Segmented Neutrophils 10 %; Cell Count Non Hematic 53 %; Lymphocytes 37 %
== END 2019-07-28 14:15 | disposition home or self-care (01) ==
LOC: ULT 12:28
PROVIDERS: ATTEND Nurse Practitioner Family
PROC: 0W9G3ZX Drainage of Peritoneal Cavity, Percutaneous Approach, Diagnostic (ICD-10-PCS; principal; 2019-07-28)
DX: K70.31 Alcoholic cirrhosis of liver with ascites (principal); K72.90 Hepatic failure, unspecified without coma; E11.42 Type 2 diabetes mellitus with diabetic polyneuropathy; I10 Essential (primary) hypertension; M19.90 Unspecified osteoarthritis, unspecified site; E78.5 Hyperlipidemia, unspecified; Z86.010 Personal history of colon polyps; Z79.899 Other long term (current) drug therapy; Z88.6 Allergy status to analgesic agent
CPT/HCPCS: 49083; 87070; 87205; 89051; P9047; 85060

== ENCOUNTER 2019-07-31 07:45 | Day surgery (SDC) | payer MEDICARE, OTHER ==
[2019-07-30 13:16] VITALS: BMI 29.8
[2019-07-31] MEDS ORDERED: Albumin 25% 200 ML ONE (07:50)
[2019-07-31] MEDS ORDERED: Lidocaine 1% PF 5 ML VIAL ONE ×2 (07:50→08:44)
[2019-07-31] MEDS ORDERED: Sodium Bicarbonate 2.5 MEQ/5 ML VIAL ONE (07:50)
[2019-07-31 12:11] VITALS: BP 105/51; TEMP 98
[2019-07-31 12:33] LABS: RBC Count-Automated (BF) 686 /cumm; WBC/Nucleated-Auto (BF) 235 uL
[2019-07-31 12:56] LABS: BF Color Yellow; Body Fluid Source Paracentesis Fluid; Clarity Hazy (Clear); Tube # EDTA
[2019-07-31 13:05] LABS: BF Segmented Neutrophils 5 %; Cell Count Non Hematic 62 %; Lymphocytes 33 %
--- NOTE | 2019-07-31 13:26 | ULT ---
Ultrasound-guided paracentesis: HISTORY: Cirrhosis and recurrent ascites. FINDINGS: Informed consent obtained prior to the procedure. Preprocedural imaging demonstrated intrap eritoneal free fluid. An area was marked in the right lower quadrant in the mid axillary line, and then meticulously preppe d and draped in normal sterile fashion and anesthetized with 1% buffered lidocaine. With direct sonographic guidance, a 19-gauge needle and 5 [place] catheter were advanced into the abdomen. After the return of fluid, the catheter was advanced, and the needle was removed. Approximately 3.25 L of clear yellow-colored fluid was aspirated. The introducer sheath was removed, and hemostasis was achieved with direct pressure. A dry sterile dressing was placed. The patient tolerated the procedure well and without immediate complication. IMPRESSION: Technically successful ultrasound-guided paracentesis.
== END 2019-07-31 09:15 | disposition home or self-care (01) ==
LOC: ULT 07:45
PROVIDERS: ATTEND Nurse Practitioner Family
PROC: 0W9G3ZZ Drainage of Peritoneal Cavity, Percutaneous Approach (ICD-10-PCS; principal; 2019-07-31)
DX: K74.60 Unspecified cirrhosis of liver (principal); R18.8 Other ascites; K72.90 Hepatic failure, unspecified without coma; E11.42 Type 2 diabetes mellitus with diabetic polyneuropathy; M19.90 Unspecified osteoarthritis, unspecified site; Z79.899 Other long term (current) drug therapy; Z88.6 Allergy status to analgesic agent
CPT/HCPCS: 49083; 87070; 87205; 89051; P9047; 85060; J2001

== ENCOUNTER 2019-08-05 10:37 | Day surgery (SDC) | payer MEDICARE, OTHER ==
[2019-08-04 10:44] VITALS: BMI 29.8
[2019-08-05] MEDS ORDERED: Sodium Bicarbonate 2.5 MEQ/5 ML VIAL ONE (11:10)
[2019-08-05] MEDS ORDERED: Albumin 25% 200 ML ONE (11:10)
[2019-08-05] MEDS ORDERED: Lidocaine 1% PF 5 ML VIAL ONE (11:10)
--- NOTE | 2019-08-05 12:14 | ULT ---
Exam: Ultrasound guided paracentesis HISTORY: Ascites COMPARISON: 07/31/2019 FINDINGS: Successful ultrasound-guided paracentesis. Total of 5.6 L of yellow color ascites was aspir ated. TECHNIQUE: Consent obtained reformatory ultrasound-guided paracentesis. Left lower quadrantwas deemed appropriate. Skin was prepped and draped in a sterile fashion. 1% lidocaine, buffered with sodium bicarbonate was used for local anesthesia. Under ultrasound guidance, a 5 Filipino 7 cm Yoicseh catheter i s advanced in the peritoneal space. A total of 5.6 L of yellow color ascites was aspirated. No immediate or postprocedural complications IMPRESSION: Successful ultrasound-guided paracentesis.
[2019-08-05 12:46] VITALS: BP 122/54; TEMP 98.4
[2019-08-05 13:30] LABS: RBC Count-Automated (BF) 420 /cumm; WBC/Nucleated-Auto (BF) 174 uL
[2019-08-05 13:48] LABS: BF Color Yellow; Body Fluid Source Paracentesis Fluid; Clarity Hazy (Clear); Tube # EDTA
[2019-08-05 13:50] LABS: BF Segmented Neutrophils 13 %; Cell Count Non Hematic 53 %; Lymphocytes 34 %
== END 2019-08-05 12:05 | disposition home or self-care (01) ==
LOC: ULT 10:37
PROVIDERS: ATTEND Nurse Practitioner Family
PROC: 0W9G3ZX Drainage of Peritoneal Cavity, Percutaneous Approach, Diagnostic (ICD-10-PCS; principal; 2019-08-05)
DX: K74.60 Unspecified cirrhosis of liver (principal); R18.8 Other ascites; E11.42 Type 2 diabetes mellitus with diabetic polyneuropathy; I10 Essential (primary) hypertension; K72.90 Hepatic failure, unspecified without coma; M19.90 Unspecified osteoarthritis, unspecified site; Z86.010 Personal history of colon polyps; Z79.899 Other long term (current) drug therapy; Z88.6 Allergy status to analgesic agent
CPT/HCPCS: 49083; 87070; 87205; 89051; P9047; 85060; J2001

== ENCOUNTER 2019-08-08 08:02 | Day surgery (SDC) | payer MEDICARE, OTHER ==
[2019-08-08] MEDS ORDERED: Albumin 25% 200 ML ONE (08:21)
[2019-08-08] MEDS ORDERED: Lidocaine 1% PF 5 ML VIAL ONE (08:22)
[2019-08-08] MEDS ORDERED: Sodium Bicarbonate 2.5 MEQ/5 ML VIAL ONE (08:22)
[2019-08-08 09:56] VITALS: BP 126/62; TEMP 98.1
--- NOTE | 2019-08-08 12:49 | ULT ---
Sonographic guided paracentesis HISTORY: Recurrent ascites. FINDINGS: After explaining the procedure and answering all questions, sonographic survey shows a larg e amount of free fluid throughout the abdomen. Sterile technique, buffered local anesthesia, sonographic guidance, and a right lateral approach were used to carefully advance a 19-gauge Yueh needle and catheter into the free fluid. Catheter was left to drain a total volume of 4.6 L slightly cloudy shilpa liquid. Catheter was removed with minimal fluid remaining. Patient tolerated the procedure well and was dismissed in good condition. IMPRESSION : Technically successful sonographic guided paracentesis.
== END 2019-08-08 09:45 | disposition home or self-care (01) ==
LOC: ULT 08:02
PROVIDERS: ATTEND Nurse Practitioner Family
PROC: 0W9G3ZZ Drainage of Peritoneal Cavity, Percutaneous Approach (ICD-10-PCS; principal; 2019-08-08)
DX: K74.60 Unspecified cirrhosis of liver (principal); R18.8 Other ascites; K72.90 Hepatic failure, unspecified without coma; E11.42 Type 2 diabetes mellitus with diabetic polyneuropathy; M19.90 Unspecified osteoarthritis, unspecified site; Z88.6 Allergy status to analgesic agent
CPT/HCPCS: 49083; P9047; J2001

== ENCOUNTER 2019-08-12 12:42 | Day surgery (SDC) | payer MEDICARE, OTHER ==
--- NOTE | 2019-08-12 14:19 | ULT ---
Ultrasound-guided paracentesis: HISTORY: Cirrhosis and recurrent ascites FINDINGS: Informed consent obtained prior to the procedure. Preprocedural imaging demonstrated intrap eritoneal free fluid. An area was marked in the right mid abdomen in the mid axillary line, and then meticulously prepped a nd draped in normal sterile fashion and anesthetized with 1% buffered lidocaine. With direct sonographic guidance, a 19-gauge needle and 5 Lao Yueh catheter were advanced into the abdomen. After the return of fluid, the catheter was advanced, and the needle was removed. Approximately 6.4 L of clear yellow-colored fluid was aspirated. The introducer sheath was removed, a nd hemostasis was achieved with direct pressure. A dry sterile dressing was placed. The patient tolerated the procedure well and without immediate complication. 50 g of albumin was administered int ravenously during the procedure. IMPRESSION: Technically successful ultrasound-guided paracentesis.
[2019-08-12 14:23] VITALS: BP 129/61; TEMP 98.6
[2019-08-12 15:31] LABS: RBC Count-Automated (BF) 819 /cumm; WBC/Nucleated-Auto (BF) 154 uL
[2019-08-12 16:00] LABS: BF Color Yellow; Body Fluid Source Ascites Body Fluid; Clarity Hazy (Clear)
[2019-08-12 16:01] LABS: Tube # EDTA
[2019-08-12 16:03] LABS: BF Segmented Neutrophils 10 %; Cell Count Non Hematic 62 %; Eosinophils 1 %; Lymphocytes 27 %
== END 2019-08-12 14:00 | disposition home or self-care (01) ==
LOC: ULT 12:42
PROVIDERS: ATTEND Nurse Practitioner Family
PROC: 0W9G3ZX Drainage of Peritoneal Cavity, Percutaneous Approach, Diagnostic (ICD-10-PCS; principal; 2019-08-12)
DX: K70.31 Alcoholic cirrhosis of liver with ascites (principal); K72.90 Hepatic failure, unspecified without coma; E11.42 Type 2 diabetes mellitus with diabetic polyneuropathy; M19.90 Unspecified osteoarthritis, unspecified site; I10 Essential (primary) hypertension; E78.5 Hyperlipidemia, unspecified; Z79.899 Other long term (current) drug therapy; Z88.6 Allergy status to analgesic agent
CPT/HCPCS: 49083; 85060; 87070; 87205; 89051

== ENCOUNTER 2019-08-15 09:25 | Day surgery (SDC) | payer MEDICARE, OTHER ==
[2019-08-14 14:21] VITALS: BMI 29.8
[2019-08-15] MEDS ORDERED: Sodium Bicarbonate 2.5 MEQ/5 ML VIAL ONE (10:26)
[2019-08-15] MEDS ORDERED: Albumin 25% 200 ML ONE (10:26)
[2019-08-15] MEDS ORDERED: Lidocaine 1% PF 5 ML VIAL ONE (10:27)
[2019-08-15 11:59] VITALS: BP 116/61; TEMP 97.8
--- NOTE | 2019-08-15 12:04 | ULT ---
Ultrasound-guided paracentesis: HISTORY: Cirrhosis and ascites FINDINGS: Informed consent obtained prior to the procedure. Preprocedural imaging demonstrated intrap eritoneal free fluid. An area was marked in the right mid abdomen in the mid axillary line, and then meticulously prepped a nd draped in normal sterile fashion and anesthetized with 1% buffered lidocaine. With direct sonographic guidance, a 19-gauge needle and 5 [place]e Yueh catheter were advanced into the abdomen. After the return of fluid, the catheter was advanced, and the needle was removed. Approximately 4.8 L of slightly turbid yellow fluid was aspirated. The introducer sheath was removed, and hemostasis was achieved with direct pressure. A dry sterile dressing was placed. The patient tolerated the procedure well and without immediate complication. IMPRESSION: Technically successful ultrasound-guided paracentesis.
== END 2019-08-15 11:35 | disposition home or self-care (01) ==
LOC: ULT 09:25
PROVIDERS: ATTEND Nurse Practitioner Family
PROC: 0W9G3ZZ Drainage of Peritoneal Cavity, Percutaneous Approach (ICD-10-PCS; principal; 2019-08-15)
DX: K70.31 Alcoholic cirrhosis of liver with ascites (principal); K72.90 Hepatic failure, unspecified without coma; E11.42 Type 2 diabetes mellitus with diabetic polyneuropathy; M19.90 Unspecified osteoarthritis, unspecified site; Z79.2 Long term (current) use of antibiotics; Z79.899 Other long term (current) drug therapy; Z88.6 Allergy status to analgesic agent
CPT/HCPCS: 49083; P9047; J2001

== ENCOUNTER 2019-08-19 10:18 | Day surgery (SDC) | payer MEDICARE, OTHER ==
[2019-08-15 13:00] VITALS: BMI 29.8
[2019-08-19] MEDS ORDERED: Lidocaine 1% PF 5 ML VIAL ONE (10:49)
[2019-08-19] MEDS ORDERED: Sodium Bicarbonate 2.5 MEQ/5 ML VIAL ONE (10:49)
[2019-08-19] MEDS ORDERED: Albumin 25% 200 ML ONE (10:49)
--- NOTE | 2019-08-19 11:55 | ULT ---
Ultrasound-guided paracentesis: HISTORY: Cirrhosis and recurrent ascites. FINDINGS: Informed consent obtained prior to the procedure. Preprocedural imaging demonstrated intrap eritoneal free fluid. An area was marked in the right lower quadrant in the mid axillary line, and then meticulously preppe d and draped in normal sterile fashion and anesthetized with 1% buffered lidocaine. With direct sonographic guidance, a 19-gauge needle and 5 [place] 250okeh catheter were advanced into the abdomen. After the return of fluid, the catheter was advanced, and the needle was removed. Approximately 3.8 L of clear yellow fluid was aspirated. The introducer sheath was removed, and hemos tasis was achieved with direct pressure. A dry sterile dressing was placed. The patient tolerated the procedure well and without immediate complication. IMPRESSION: Technically successful ultrasound-guided paracentesis.
[2019-08-19 13:45] LABS: RBC Count-Automated (BF) 544 /cu.mm; WBC/Nucleated-Auto (BF) 167 uL
[2019-08-19 13:57] LABS: BF Color Yellow; Body Fluid Source Paracentesis Fluid; Clarity Hazy (Clear); Tube # EDTA
[2019-08-19 14:08] LABS: BF Segmented Neutrophils 6 %; Cell Count Non Hematic 61 %; Lymphocytes 33 %
== END 2019-08-19 11:45 | disposition home or self-care (01) ==
LOC: ULT 10:18
PROVIDERS: ATTEND Nurse Practitioner Family
PROC: 0W9G3ZX Drainage of Peritoneal Cavity, Percutaneous Approach, Diagnostic (ICD-10-PCS; principal; 2019-08-19)
DX: K70.31 Alcoholic cirrhosis of liver with ascites (principal); K72.90 Hepatic failure, unspecified without coma; E11.42 Type 2 diabetes mellitus with diabetic polyneuropathy; E78.5 Hyperlipidemia, unspecified; I10 Essential (primary) hypertension; M19.90 Unspecified osteoarthritis, unspecified site; Z79.2 Long term (current) use of antibiotics; Z79.899 Other long term (current) drug therapy; Z88.6 Allergy status to analgesic agent
CPT/HCPCS: 49083; 87070; 87205; 89051; P9047; 85060; J2001

== ENCOUNTER 2019-08-22 09:29 | Day surgery (SDC) | payer MEDICARE, OTHER ==
[2019-08-22] MEDS ORDERED: Sodium Bicarbonate 2.5 MEQ/5 ML VIAL ONE (10:25)
[2019-08-22] MEDS ORDERED: Lidocaine 1% PF 5 ML VIAL ONE (10:25)
[2019-08-22] MEDS ORDERED: Albumin 25% 200 ML ONE (10:25)
--- NOTE | 2019-08-22 11:42 | ULT ---
Exam: Ultrasound guided paracentesis HISTORY: Ascites COMPARISON: 08/19/2019 FINDINGS: Successful ultrasound-guided paracentesis. Total of 4800 mL of blood-tinged ascites was asp irated. TECHNIQUE: Consent obtained reformatory ultrasound-guided paracentesis. Right lower quadrant was deem ed appropriate. Skin was prepped and draped in a sterile fashion. 1% lidocaine, buffered with sodium bicarbonate was used for local anesthesia. Under ultrasound guidance, a 5 Maldivian 7 cm Yueh cat heter is advanced in the peritoneal space. A total of 4800 mL of blood-tinged ascites was aspirated. No immediate or postprocedural complications IMPRESSION: Successful ultrasound-guided paracentesis.
[2019-08-22 13:00] LABS: RBC Count-Automated (BF) 10686 /cu.mm; WBC/Nucleated-Auto (BF) 305 uL
[2019-08-22 13:29] LABS: BF Color Pink; Body Fluid Source Ascites Body Fluid; Clarity Hazy (Clear)
[2019-08-22 13:30] LABS: Tube # EDTA
[2019-08-22 13:35] LABS: BF Segmented Neutrophils 11 %; Cell Count Non Hematic 49 %; Lymphocytes 39 %
[2019-08-22 14:12] VITALS: BP 101/53; TEMP 97.8
== END 2019-08-22 11:45 | disposition home or self-care (01) ==
LOC: ULT 09:29
PROVIDERS: ATTEND Nurse Practitioner Family
PROC: 0W9G3ZX Drainage of Peritoneal Cavity, Percutaneous Approach, Diagnostic (ICD-10-PCS; principal; 2019-08-22)
DX: K74.60 Unspecified cirrhosis of liver (principal); R18.8 Other ascites; K72.90 Hepatic failure, unspecified without coma; E11.42 Type 2 diabetes mellitus with diabetic polyneuropathy; M19.90 Unspecified osteoarthritis, unspecified site; Z88.6 Allergy status to analgesic agent
CPT/HCPCS: 49083; 87070; 87205; 89051; P9047; 85060; J2001

== ENCOUNTER 2019-08-26 | Day surgery (SDC) | payer MEDICARE | END 2019-08-26 13:40 | disposition home or self-care (01) | PROC: 0W9G3ZX Drainage of Peritoneal Cavity, Percutaneous Approach, Diagnostic (ICD-10-PCS; principal; 2019-08-26) | DX: K70.31 Alcoholic cirrhosis of liver with ascites (principal); K72.90 Hepatic failure, unspecified without coma; E11.42 Type 2 diabetes mellitus with diabetic polyneuropathy; I10 Essential (primary) hypertension; M19.90 Unspecified osteoarthritis, unspecified site; E78.5 Hyperlipidemia, unspecified; Z79.899 Other long term (current) drug therapy; Z88.6 Allergy status to analgesic agent ==

== ENCOUNTER 2019-08-29 07:15 | Day surgery (SDC) | payer MEDICARE, OTHER ==
[2019-08-28 09:59] VITALS: BMI 29.8
[2019-08-29] MEDS ORDERED: Lidocaine 1% PF 5 ML VIAL ONE ×2 (07:21→08:05)
[2019-08-29] MEDS ORDERED: Sodium Bicarbonate 2.5 MEQ/5 ML VIAL ONE (07:21)
[2019-08-29] MEDS ORDERED: Sodium Chloride 0.9% 20 ML ONE (08:18)
[2019-08-29] MEDS ORDERED: Albumin 25% 25 GM/100 ML BOT ONE (09:22)
--- NOTE | 2019-08-29 09:36 | ULT ---
Ultrasound-guided paracentesis: HISTORY: Cirrhosis and recurrent ascites FINDINGS: Informed consent obtained prior to the procedure. Preprocedural imaging demonstrated intrap eritoneal free fluid. An area was marked in the right mid abdomen in the mid axillary line, and then meticulously prepped a nd draped in normal sterile fashion and anesthetized with 1% buffered lidocaine. With direct sonographic guidance, a 19-gauge needle and 5 Kenyan Yueh catheter were advanced into the abdomen. After the return of fluid, the catheter was advanced, and the needle was removed. Approximately 6 L of slightly cloudy yellow-colored fluid was aspirated. The introducer sheath was re moved, and hemostasis was achieved with direct pressure. A dry sterile dressing was placed. The patient tolerated the procedure well and without immediate complication. 50 g of albumin was administ ered intravenously during the procedure. IMPRESSION: Technically successful ultrasound-guided paracentesis.
[2019-08-29 09:53] VITALS: BP 111/59; TEMP 98.2
[2019-08-29 10:34] LABS: RBC Count-Automated (BF) 178 /cu.mm; WBC/Nucleated-Auto (BF) 146 uL
[2019-08-29 10:59] LABS: BF Color Yellow; Body Fluid Source Paracentesis Fluid; Clarity Hazy (Clear); Tube # EDTA
[2019-08-29 11:01] LABS: BF Segmented Neutrophils 12 %; Cell Count Non Hematic 65 %; Lymphocytes 23 %
== END 2019-08-29 09:15 | disposition home or self-care (01) ==
LOC: ULT 07:15
PROVIDERS: ATTEND Nurse Practitioner Family
PROC: 0W9G3ZX Drainage of Peritoneal Cavity, Percutaneous Approach, Diagnostic (ICD-10-PCS; principal; 2019-08-29)
DX: K74.60 Unspecified cirrhosis of liver (principal); R18.8 Other ascites; Z79.899 Other long term (current) drug therapy; Z88.6 Allergy status to analgesic agent
CPT/HCPCS: 49083; 87070; 87205; 89051; P9047; 85060; J2001

== ENCOUNTER 2019-09-02 08:14 | Day surgery (SDC) | payer MEDICARE ==
[2019-09-01 13:17] VITALS: BMI 29.8
[~2019-09-02 08:14] MED LIST changes: -Lidocaine 1% PF 5 ML VIAL ONE; -Sodium Bicarbonate 2.5 MEQ/5 ML VIAL ONE
[2019-09-02] MEDS ORDERED: Albumin 25% 200 ML ONE (09:01)
[2019-09-02] MEDS ORDERED: Lidocaine 1% PF 5 ML VIAL ONE (09:01)
[2019-09-02] MEDS ORDERED: Sodium Bicarbonate 2.5 MEQ/5 ML VIAL ONE (09:01)
[2019-09-02 11:05] LABS: RBC Count-Automated (BF) 293 /cu.mm; WBC/Nucleated-Auto (BF) 105 uL
[2019-09-02 11:14] LABS: BF Color Yellow; Body Fluid Source Peritoneal Fluid; Clarity Hazy (Clear); Tube # EDTA
[2019-09-02 11:21] VITALS: BP 120/58; TEMP 98
--- NOTE | 2019-09-02 12:00 | ULT ---
ULTRASOUND-GUIDED PARACENTESIS THERAPEUTIC: DATE: 09/02/2019 HISTORY: 58-year-old male with symptomatic ascites (abdominal distention) due to cirrhosis TECHNIQUE: Signed informed consent obtained. A four-quadrant survey of abdomen performed. Site selected for puncture: right lower quadrant Overlying skin prepared and draped in usual sterile fashion. 25-gauge needle used to apply buffered lidocaine superficially and deeply. 5 Grenadian Yueh catheter with stylette advanced into the pocket of free intraperitoneal fluid. After drainage, the Yueh catheter was removed. Patient tolerated the procedure well. No complications. FINDINGS: Volume of ascites prior to procedure:large. Volume of ascites fluid in the drainage pocket after drainage:Minimal. Volume of ascites fluid drained:6400 mL Appearance of ascites fluid:nonhemorrhagic, straw-colored. IMPRESSION: Successful therapeutic paracentesis, with drainage of 6.4 L of ascites fluid.
[2019-09-02 12:02] LABS: BF Segmented Neutrophils 4 %; Cell Count Non Hematic 84 %; Lymphocytes 12 %
== END 2019-09-02 10:10 | disposition home or self-care (01) ==
LOC: ULT 08:14
PROVIDERS: ATTEND Nurse Practitioner Family
PROC: 0W9G3ZX Drainage of Peritoneal Cavity, Percutaneous Approach, Diagnostic (ICD-10-PCS; principal; 2019-09-02)
DX: K70.31 Alcoholic cirrhosis of liver with ascites (principal); K72.90 Hepatic failure, unspecified without coma; E11.42 Type 2 diabetes mellitus with diabetic polyneuropathy; M19.90 Unspecified osteoarthritis, unspecified site; E78.5 Hyperlipidemia, unspecified; Z79.899 Other long term (current) drug therapy; Z88.6 Allergy status to analgesic agent
CPT/HCPCS: 49083; 87070; 87205; 89051; P9047; 85060; J2001

== ENCOUNTER 2019-09-05 07:35 | Day surgery (SDC) | payer MEDICARE ==
[2019-09-04 10:20] VITALS: BMI 29.8
--- NOTE | 2019-09-05 08:56 | ULT ---
Sonographic guided paracentesis HISTORY: Recurrent ascites. FINDINGS: After explaining the procedure and answering all questions, sonographic survey showed a lar ge amount of free fluid throughout the abdomen. Sterile technique, buffered local anesthesia, sonographic guidance, and a right lateral approach were used to carefully advance a 19-gauge Yueh needle and catheter into the free fluid. Catheter was left to drain a total volume of 6.1 L clear yellow liquid. Catheter was removed with minimal fluid remaining. Patient tolerated the procedure well and was dismissed in good condition. IMPRESSION : Technically successful sonographic guided paracentesis.
[2019-09-05 09:02] VITALS: BP 112/57; TEMP 98.1
== END 2019-09-05 09:00 | disposition home or self-care (01) ==
LOC: ULT 07:35
PROVIDERS: ATTEND Nurse Practitioner Family
PROC: 0W9G3ZZ Drainage of Peritoneal Cavity, Percutaneous Approach (ICD-10-PCS; principal; 2019-09-05)
DX: K70.31 Alcoholic cirrhosis of liver with ascites (principal); K72.90 Hepatic failure, unspecified without coma; E78.5 Hyperlipidemia, unspecified; I10 Essential (primary) hypertension; M19.90 Unspecified osteoarthritis, unspecified site; Z79.899 Other long term (current) drug therapy; Z88.6 Allergy status to analgesic agent
CPT/HCPCS: 49083; P9047

== ENCOUNTER 2019-09-09 12:23 | Day surgery (SDC) | payer MEDICARE ==
[2019-09-08 12:16] VITALS: BMI 29.8
[2019-09-09] MEDS ORDERED: Sodium Bicarbonate 2.5 MEQ/5 ML VIAL ONE (12:46)
[2019-09-09] MEDS ORDERED: Lidocaine 1% PF 5 ML VIAL ONE (12:46)
[2019-09-09] MEDS ORDERED: Albumin 25% 200 ML ONE (12:46)
[2019-09-09 15:01] VITALS: TEMP 98.7
[2019-09-09 16:03] LABS: RBC Count-Automated (BF) 125 /cu.mm; WBC/Nucleated-Auto (BF) 209 uL
--- NOTE | 2019-09-09 16:03 | ULT ---
Exam: Ultrasound guided paracentesis HISTORY: Ascites COMPARISON: September 05, 2019 FINDINGS: Successful ultrasound-guided paracentesis. Total of 5 L of normal appearingascites was aspi rated. TECHNIQUE: Consent obtained reformatory ultrasound-guided paracentesis. Right lower quadrant was deem ed appropriate. Skin was prepped and draped in a sterile fashion. 1% lidocaine, buffered with sodium bicarbonate was used for local anesthesia. Under ultrasound guidance, a 5 Slovenian 7 cm Yueh cat heter is advanced in the peritoneal space. A total of 5 L of normal appearingascites was aspirated. No immediate or postprocedural complications IMPRESSION: Successful ultrasound-guided paracentesis.
[2019-09-09 16:20] LABS: BF Color Yellow; Body Fluid Source Ascites Body Fluid; Clarity Hazy (Clear); Tube # EDTA
[2019-09-09 16:26] LABS: BF Segmented Neutrophils 16 %; Cell Count Non Hematic 64 %; Lymphocytes 20 %
== END 2019-09-09 14:30 | disposition home or self-care (01) ==
LOC: ULT 12:23
PROVIDERS: ATTEND Nurse Practitioner Family
PROC: 0W9G3ZX Drainage of Peritoneal Cavity, Percutaneous Approach, Diagnostic (ICD-10-PCS; principal; 2019-09-09)
DX: K70.31 Alcoholic cirrhosis of liver with ascites (principal); K72.90 Hepatic failure, unspecified without coma; E11.9 Type 2 diabetes mellitus without complications; I10 Essential (primary) hypertension; E78.5 Hyperlipidemia, unspecified; Z79.899 Other long term (current) drug therapy; Z88.6 Allergy status to analgesic agent
CPT/HCPCS: 49083; 89051; P9047; 85060; J2001

== ENCOUNTER 2019-09-12 07:19 | Day surgery (SDC) | payer MEDICARE ==
[2019-09-11 13:08] VITALS: BMI 29.8
[2019-09-12] MEDS ORDERED: Sodium Bicarbonate 2.5 MEQ/5 ML VIAL ONE (07:29)
[2019-09-12] MEDS ORDERED: Lidocaine 1% PF 5 ML VIAL ONE (07:29)
--- NOTE | 2019-09-12 08:27 | ULT ---
ULTRASOUND-GUIDED PARACENTESIS THERAPEUTIC: DATE: 09/12/2019 HISTORY: 58-year-old male with symptomatic ascites: Abdominal distention. Ascites due to alcoholic cirrhosis. TECHNIQUE: Signed informed consent obtained. A four-quadrant survey of abdomen performed. Site selected for puncture: right lower quadrant Overlying skin prepared and draped in usual sterile fashion. 25-gauge needle used to apply buffered lidocaine superficially and deeply. 5 [place] Yueh catheter with stylette advanced into the pocket of free intraperitoneal fluid. After drainage, the Yueh catheter was removed. Patient tolerated the procedure well. No complications. FINDINGS: Volume of ascites prior to procedure:Moderately large. Volume of ascites fluid in the drainage pocket after drainage:None. Volume of ascites fluid drained:5500 mL Appearance of ascites fluid:nonhemorrhagic, straw-colored. IMPRESSION: Successful therapeutic paracentesis, with drainage of 5.5 L of ascites fluid.
[2019-09-12 08:37] VITALS: BP 111/52; TEMP 98.1
== END 2019-09-12 08:22 | disposition home or self-care (01) ==
LOC: ULT 07:19
PROVIDERS: ATTEND Nurse Practitioner Family
PROC: 0W9G3ZZ Drainage of Peritoneal Cavity, Percutaneous Approach (ICD-10-PCS; principal; 2019-09-12)
DX: K70.31 Alcoholic cirrhosis of liver with ascites (principal); K72.90 Hepatic failure, unspecified without coma; E11.9 Type 2 diabetes mellitus without complications; I10 Essential (primary) hypertension; E78.5 Hyperlipidemia, unspecified; Z79.899 Other long term (current) drug therapy; Z88.6 Allergy status to analgesic agent
CPT/HCPCS: 49083; J2001

== ENCOUNTER 2019-09-12 15:32 | Emergency (ER) | payer MEDICARE ==
[2019-09-12 15:52] LABS: Hemoglobin 7.6 g/dL (14.0-18.0); Mean Corpuscular HGB CONC 31.1 g/dL (32.0-36.0); Mean Corpuscular Hemoglobin 26.4 pg (27.0-31.0); Mean Corpuscular Volume 84.7 fL (78.0-98.0); Mean Platelet Volume 7.8 fL (7.4-10.4); Platelet Count 56 thou/uL (130-400); RBC Distribution Width 20.6 % (11.5-14.5); Red Blood Cell (RBC) Count 2.88 mill/uL (4.70-6.10); White Blood Cell (WBC) Count 3.4 thou/uL (4.8-10.8)
[2019-09-12 16:11] LABS: ALT (SGPT) 15 U/L (8-55); AST (SGOT) 18 U/L (5-34); Albumin 4.3 g/dL (3.5-5.0); Alkaline Phosphatase 152 U/L (40-110); Anion Gap 12 mmol/L (10-20); BUN (Urea Nitrogen) 20 mg/dL (8.4-25.7); Bilirubin, Total 2.9 mg/dL (0.2-1.2); Calc. Creatinine Clearance 0 mL/min (70-130); Calcium 9.1 mg/dL (7.8-10.44); Carbon Dioxide 22 mmol/L (22-29); Chloride 108 mmol/L (98-107); Estimated GFR-MDRD 52; Globulin 2.9 g/dL (2.4-3.5); Glucose 124 mg/dL (70-105); Potassium 4.5 mmol/L (3.5-5.1); Protein, Total 7.2 g/dL (6.0-8.3); Sodium 137 mmol/L (136-145)
[2019-09-12 16:16] LABS: Anisocytosis SLIGHT = 6-15 cells (100X) (0-5/hpf); Band 14 % (5-11); Eosinophils 3 % (0-10); Hypochromia MODERATE=16-30 cells (100X) (0-5/hpf); Lymphocytes 4 % (21-51); MDiff Complete? YES; Monocytes 16 % (0-10); Neutrophil 63 % (42-75); Platelet Morphology Comment Appears Decreased; Polychromasia SLIGHT = 2-3 cells (100X) (0-2/hpf); Reflex for Review?? NO; Target Cells MODERATE= 6-15 cells (100X) (0-1/hpf); Tear Drops SLIGHT = 2-5 cells (100X) (0-1/hpf)
== END 2019-09-12 20:00 | disposition home or self-care (01) ==
LOC: ERS 15:32
DX: D64.9 Anemia, unspecified (principal); K70.30 Alcoholic cirrhosis of liver without ascites; R42 Dizziness and giddiness; E11.40 Type 2 diabetes mellitus with diabetic neuropathy, unspecified; F41.9 Anxiety disorder, unspecified; Z79.899 Other long term (current) drug therapy
CPT/HCPCS: 36430; 80053; 85025; 86850; 86900; 86901; 86920; 93005; P9016; 36415

== ENCOUNTER 2019-09-16 09:20 | Day surgery (SDC) | payer MEDICARE ==
[2019-09-15 11:43] VITALS: BMI 29.8
[2019-09-16] MEDS ORDERED: Albumin 25% 200 ML ONE (09:30)
[2019-09-16] MEDS ORDERED: Sodium Bicarbonate 2.5 MEQ/5 ML VIAL ONE (09:31)
[2019-09-16] MEDS ORDERED: Lidocaine 1% PF 5 ML VIAL ONE (09:31)
--- NOTE | 2019-09-16 10:37 | ULT ---
ULTRASOUND-GUIDED PARACENTESIS THERAPEUTIC: DATE: 09/16/2019 HISTORY: 58-year-old male with symptomatic ascites: Abdominal distention; due to alcoholic cirrhosis TECHNIQUE: Signed informed consent obtained. A four-quadrant survey of abdomen performed. Site selected for puncture: right lower quadrant Overlying skin prepared and draped in usual sterile fashion. 25-gauge needle used to apply buffered lidocaine superficially and deeply. 5 [place]guill[place] Yueh catheter with stylette advanced into the pocket of free intraperitoneal fluid. After drainage, the Yueh catheter was removed. Patient tolerated the procedure well. No complications. FINDINGS: Volume of ascites prior to procedure:moderate. Volume of ascites fluid in the drainage pocket after drainage:None. Volume of ascites fluid drained:4500 mL Appearance of ascites fluid:nonhemorrhagic, straw-colored. IMPRESSION: Successful therapeutic paracentesis, with drainage of 4.5 L of ascites fluid.
[2019-09-16 11:21] VITALS: BP 118/63; TEMP 98.6
[2019-09-16 13:38] LABS: RBC Count-Automated (BF) 338 /cu.mm; WBC/Nucleated-Auto (BF) 134 uL
[2019-09-16 13:59] LABS: Body Fluid Source Ascites Body Fluid; Clarity Hazy (Clear); Tube # EDTA
[2019-09-16 14:00] LABS: BF Color Yellow
[2019-09-16 14:03] LABS: BF Segmented Neutrophils 24 %; Cell Count Non Hematic 44 %; Lymphocytes 32 %
== END 2019-09-16 10:55 | disposition home or self-care (01) ==
LOC: ULT 09:20
PROVIDERS: ATTEND Nurse Practitioner Family
PROC: 0W9G3ZX Drainage of Peritoneal Cavity, Percutaneous Approach, Diagnostic (ICD-10-PCS; principal; 2019-09-16)
DX: K70.31 Alcoholic cirrhosis of liver with ascites (principal); K72.90 Hepatic failure, unspecified without coma; E11.9 Type 2 diabetes mellitus without complications; I10 Essential (primary) hypertension; E78.5 Hyperlipidemia, unspecified; Z79.899 Other long term (current) drug therapy; Z88.6 Allergy status to analgesic agent
CPT/HCPCS: 49083; 87070; 87205; 89051; P9047; 85060; J2001

== ENCOUNTER → 2019-09-19 | Day surgery (SDC) | payer MEDICARE ==
[~2019-09-19] MED LIST changes: +Lidocaine 1% PF 5 ML VIAL ONE; +Sodium Bicarbonate 2.5 MEQ/5 ML VIAL ONE
[2019-09-19 09:28] VITALS: BP 111/58; TEMP 98.2
[2019-09-19 09:30] VITALS: BMI 28.5
--- NOTE | 2019-09-19 11:23 | ULT ---
ULTRASOUND-GUIDED PARACENTESIS THERAPEUTIC: DATE: 09/19/2019 HISTORY: 58-year-old male with symptomatic ascites: Abdominal distention. Ascites due to alcoholic cirrhosis. TECHNIQUE: Signed informed consent obtained. A four-quadrant survey of abdomen performed. Site selected for puncture: right lower quadrant Overlying skin prepared and draped in usual sterile fashion. 25-gauge needle used to apply buffered lidocaine superficially and deeply. 5 Paraguayan Yueh catheter with stylette advanced into the pocket of free intraperitoneal fluid. After drainage, the Yueh catheter was removed. Patient tolerated the procedure well. No complications. FINDINGS: Volume of ascites prior to procedure:moderate. Volume of ascites fluid in the drainage pocket after drainage:moderate. Volume of ascites fluid drained:3300 mL Appearance of ascites fluid:nonhemorrhagic, straw-colored. IMPRESSION: Successful therapeutic paracentesis, with drainage of 3.3 L of ascites fluid.
== END ==
LOC: ULT 08:02
PROVIDERS: ATTEND Nurse Practitioner Family
PROC: 0W9G3ZZ Drainage of Peritoneal Cavity, Percutaneous Approach (ICD-10-PCS; principal; 2019-09-19)
DX: K70.31 Alcoholic cirrhosis of liver with ascites (principal); K72.90 Hepatic failure, unspecified without coma; E11.9 Type 2 diabetes mellitus without complications; I10 Essential (primary) hypertension; E78.5 Hyperlipidemia, unspecified; Z79.899 Other long term (current) drug therapy; Z88.6 Allergy status to analgesic agent
CPT/HCPCS: 49083; P9047; J2001

== ENCOUNTER 2019-09-22 08:50 | Day surgery (SDC) | payer MEDICARE ==
--- NOTE | 2019-09-22 10:18 | ULT ---
Sonographic guided paracentesis HISTORY: Recurrent ascites. FINDINGS: After explaining the procedure and answering all questions, sonographic survey showed a lar ge amount of free fluid throughout the abdomen. Sterile technique, buffered local anesthesia, sonographic guidance, and a left lateral approach were used to carefully advance a 19-gauge Yueh needle and catheter into the free fluid. Catheter was left to drain a total volume of 3.4 L slightly cloudy yellow liquid. Catheter was removed with minima l fluid remaining. Patient tolerated the procedure well and was dismissed in good condition. IMPRESSION : Technically successful sonographic guided paracentesis.
[2019-09-22 11:28] LABS: RBC Count-Automated (BF) 89 /cu.mm; WBC/Nucleated-Auto (BF) 231 uL
[2019-09-22 11:30] LABS: BF Color Yellow; Body Fluid Source Ascites Body Fluid; Clarity Hazy (Clear); Tube # EDTA
[2019-09-22 11:48] LABS: BF Segmented Neutrophils 20 %; Cell Count Non Hematic 70 %; Lymphocytes 10 %
[2019-09-22 12:14] VITALS: BP 117/59; TEMP 98.1
== END 2019-09-22 10:05 | disposition home or self-care (01) ==
LOC: ULT 08:50
PROVIDERS: ATTEND Nurse Practitioner Family
PROC: 0W9G3ZX Drainage of Peritoneal Cavity, Percutaneous Approach, Diagnostic (ICD-10-PCS; principal; 2019-09-22)
DX: K70.31 Alcoholic cirrhosis of liver with ascites (principal); K72.90 Hepatic failure, unspecified without coma; E11.9 Type 2 diabetes mellitus without complications; I10 Essential (primary) hypertension; E78.5 Hyperlipidemia, unspecified; Z79.899 Other long term (current) drug therapy; Z88.6 Allergy status to analgesic agent
CPT/HCPCS: 49083; 87070; 87205; 89051; P9047; 85060; J2001

== ENCOUNTER 2019-09-25 07:26 | Day surgery (SDC) | payer MEDICARE ==
[2019-09-24 09:00] VITALS: BMI 29.8
[2019-09-25] MEDS ORDERED: Albumin 25% 200 ML ONE (07:28)
[2019-09-25] MEDS ORDERED: Lidocaine 1% PF 5 ML VIAL ONE (07:28)
[2019-09-25] MEDS ORDERED: Sodium Bicarbonate 2.5 MEQ/5 ML VIAL ONE (07:28)
--- NOTE | 2019-09-25 09:04 | ULT ---
Sonographic guided paracentesis HISTORY: Recurrent ascites. FINDINGS: After explaining the procedure and answering all questions, sonographic survey showed a mod erate amount of free fluid throughout the abdomen. Sterile technique, buffered local anesthesia, sonographic guidance, and a right lateral approach were used to carefully advance a 19-gauge Yueh needle and catheter into the free fluid. Catheter was left to drain a total volume of 2.7 L slightly dark yellow liquid. Catheter was removed with small amount of fluid remaining. Patient tolerated the procedure well and was dismissed in good condition. IMPRESSION : Technically successful sonographic guided paracentesis.
[2019-09-25 09:12] VITALS: BP 119/52; TEMP 98.4
== END 2019-09-25 08:50 | disposition home or self-care (01) ==
LOC: ULT 07:26
PROVIDERS: ATTEND Nurse Practitioner Family
PROC: 0W9G3ZZ Drainage of Peritoneal Cavity, Percutaneous Approach (ICD-10-PCS; principal; 2019-09-25)
DX: K70.31 Alcoholic cirrhosis of liver with ascites (principal); K72.90 Hepatic failure, unspecified without coma; E11.9 Type 2 diabetes mellitus without complications; I10 Essential (primary) hypertension; E78.5 Hyperlipidemia, unspecified; Z79.899 Other long term (current) drug therapy; Z88.6 Allergy status to analgesic agent
CPT/HCPCS: 49083; P9047; J2001

== ENCOUNTER 2019-09-30 12:06 | Day surgery (SDC) | payer MEDICARE ==
[2019-09-29 11:16] VITALS: BMI 29.8
[2019-09-30] MEDS ORDERED: Lidocaine 1% PF 5 ML VIAL ONE (12:26)
[2019-09-30] MEDS ORDERED: Albumin 25% 200 ML ONE (12:26)
[2019-09-30] MEDS ORDERED: Sodium Bicarbonate 2.5 MEQ/5 ML VIAL ONE (12:26)
--- NOTE | 2019-09-30 13:37 | ULT ---
Sonographic guided paracentesis HISTORY: Recurrent ascites. FINDINGS: After explaining the procedure and answering all questions, sonographic survey showed a lar ge amount of free fluid throughout the abdomen. Sterile technique, buffered local anesthesia, sonographic guidance, and a left lateral approach were used to carefully advance a 19-gauge Yueh needle and catheter into the free fluid. Catheter was left to drain a total volume of 5.3 L slightly cloudy yellow liquid. Catheter was remove d with minimal fluid fluid remaining. Patient tolerated the procedure well and was dismissed in good condition. IMPRESSION : Technically successful sonographic guided paracentesis.
[2019-09-30 13:51] LABS: RBC Count-Automated (BF) 514 /cu.mm; WBC/Nucleated-Auto (BF) 286 uL
[2019-09-30 13:55] VITALS: BP 110/60; TEMP 98.6
[2019-09-30 14:32] LABS: Body Fluid Source Ascites Body Fluid; Clarity Hazy (Clear); Tube # EDTA
[2019-09-30 14:33] LABS: BF Color Yellow
[2019-09-30 14:35] LABS: BF Segmented Neutrophils 22 %; Cell Count Non Hematic 45 %; Lymphocytes 33 %
== END 2019-09-30 13:25 | disposition home or self-care (01) ==
LOC: ULT 12:06
PROVIDERS: ATTEND Nurse Practitioner Family
PROC: 0W9G3ZX Drainage of Peritoneal Cavity, Percutaneous Approach, Diagnostic (ICD-10-PCS; principal; 2019-09-30)
DX: K70.31 Alcoholic cirrhosis of liver with ascites (principal); K72.90 Hepatic failure, unspecified without coma; D64.9 Anemia, unspecified; I10 Essential (primary) hypertension; E78.5 Hyperlipidemia, unspecified; Z79.899 Other long term (current) drug therapy; Z88.6 Allergy status to analgesic agent
CPT/HCPCS: 49083; 87070; 87205; 89051; P9047; 85060; J2001

== ENCOUNTER 2019-10-03 09:49 | Day surgery (SDC) | payer MEDICARE ==
[2019-10-03] MEDS ORDERED: Sodium Bicarbonate 2.5 MEQ/5 ML VIAL ONE (10:38)
[2019-10-03] MEDS ORDERED: Albumin 25% 200 ML ONE (10:38)
[2019-10-03] MEDS ORDERED: Lidocaine 1% PF 5 ML VIAL ONE (10:38)
--- NOTE | 2019-10-03 11:19 | ULT ---
Sonographic guided paracentesis HISTORY: Recurrent ascites. FINDINGS: After explaining the procedure and answering all questions, sonographic survey showed a lar ge amount of free fluid throughout the abdomen. Sterile technique, buffered local anesthesia, sonographic guidance, and a right lateral approach were used to carefully advance a 19-gauge Yueh needle and catheter into the free fluid. Catheter was left to drain a total volume of 5.0 L slightly cloudy yellow liquid. Catheter was removed with minimal fluid remaining. Patient tolerated the procedure well and was dismi ssed in good condition. IMPRESSION : Technically successful sonographic guided paracentesis.
[2019-10-03 12:13] VITALS: BP 115/62; TEMP 98.1
[2019-10-03 13:39] LABS: RBC Count-Automated (BF) 377 /cu.mm; WBC/Nucleated-Auto (BF) 137 uL
[2019-10-03 14:00] LABS: BF Color Yellow; Body Fluid Source Ascites Body Fluid; Clarity Hazy (Clear); Tube # EDTA
[2019-10-03 14:16] LABS: BF Segmented Neutrophils 14 %; Cell Count Non Hematic 57 %; Lymphocytes 29 %
== END 2019-10-03 11:30 | disposition home or self-care (01) ==
LOC: ULT 09:49
PROVIDERS: ATTEND Nurse Practitioner Family
PROC: 0W9G3ZX Drainage of Peritoneal Cavity, Percutaneous Approach, Diagnostic (ICD-10-PCS; principal; 2019-10-03)
DX: K70.31 Alcoholic cirrhosis of liver with ascites (principal); K72.90 Hepatic failure, unspecified without coma; E11.9 Type 2 diabetes mellitus without complications; I10 Essential (primary) hypertension; E78.5 Hyperlipidemia, unspecified; Z88.6 Allergy status to analgesic agent
CPT/HCPCS: 49083; 87070; 87205; 89051; P9047; 85060

== ENCOUNTER 2019-10-07 10:06 | Day surgery (SDC) | payer MEDICARE ==
[2019-10-06 12:56] VITALS: BMI 29.8
[2019-10-07] MEDS ORDERED: Albumin 25% 0 ML ONE ×2 (10:59→11:04)
[2019-10-07] MEDS ORDERED: Lidocaine 1% PF 5 ML VIAL ONE (11:00)
[2019-10-07] MEDS ORDERED: Sodium Bicarbonate 2.5 MEQ/5 ML VIAL ONE (11:00)
[2019-10-07] MEDS ORDERED: Albumin 25% 200 ML ONE (11:04)
[2019-10-07] MEDS ORDERED: Morphine 2 MG/ML VIAL ONE (11:04)
--- NOTE | 2019-10-07 11:56 | ULT ---
US Paracentesis with Imaging History: Ascites Comparison: Paracentesis October 03, 2019 Findings: Patient was brought to the ultrasound suite. All questions were answered. Informed consent was obtained. Timeout performed. Patient's right lower quadrant was prepped and draped in normal sterile fashion. After adequate local anesthesia with lidocaine, a 5 Taiwanese catheter was used to access the peritoneal space. 4.8 L of straw-colored fluid was removed. Patient tolerated the procedure well without complication. Impression: Technically successful ultrasound-guided paracentesis.
[2019-10-07 13:00] VITALS: BP 108/50; TEMP 98.2
[2019-10-07 13:11] LABS: BF Color Yellow; Body Fluid Source Paracentesis Fluid; Clarity Hazy (Clear); RBC Count-Automated (BF) 274 /cu.mm; Tube # EDTA; WBC/Nucleated-Auto (BF) 251 uL
[2019-10-07 14:32] LABS: BF Segmented Neutrophils 16 %; Cell Count Non Hematic 50 %; Lymphocytes 34 %
== END 2019-10-07 12:05 | disposition home or self-care (01) ==
LOC: ULT 10:06
PROVIDERS: ATTEND Nurse Practitioner Family
PROC: 0W9G3ZX Drainage of Peritoneal Cavity, Percutaneous Approach, Diagnostic (ICD-10-PCS; principal; 2019-10-07)
DX: K70.31 Alcoholic cirrhosis of liver with ascites (principal); K72.90 Hepatic failure, unspecified without coma; E11.9 Type 2 diabetes mellitus without complications; I10 Essential (primary) hypertension; E78.5 Hyperlipidemia, unspecified; Z79.899 Other long term (current) drug therapy; Z88.6 Allergy status to analgesic agent
CPT/HCPCS: 49083; 87070; 87205; 89051; P9047; 85060; J2270

== ENCOUNTER 2019-10-14 12:51 | Day surgery (SDC) | payer MEDICARE ==
[2019-10-13 15:05] VITALS: BMI 29.8
--- NOTE | 2019-10-14 13:31 | ULT ---
ULTRASOUND-GUIDED PARACENTESIS THERAPEUTIC: DATE: 10/14/2019 HISTORY: 59-year-old male with symptomatic ascites. Abdominal distention due to ascites due to alcoholic cirrh osis. TECHNIQUE: Signed informed consent obtained. A four-quadrant survey of abdomen performed. Site selected for puncture: right lower quadrant Overlying skin prepared and draped in usual sterile fashion. 25-gauge needle used to apply buffered lidocaine superficially and deeply. 5 Danish Yueh catheter with stylette advanced into the pocket of free intraperitoneal fluid. After drainage, the Yueh catheter was removed. Patient tolerated the procedure well. No complications. FINDINGS: Volume of ascites prior to procedure:large. Volume of ascites fluid in the drainage pocket after drainage:Very small. Volume of ascites fluid drained:4800 mL Appearance of ascites fluid:nonhemorrhagic, straw-colored. IMPRESSION: Successful therapeutic paracentesis, with drainage of 4.8 L of ascites fluid.
[2019-10-14 13:57] VITALS: BP 128/54; TEMP 98.3
[2019-10-14 14:57] LABS: RBC Count-Automated (BF) 137 /cu.mm; WBC/Nucleated-Auto (BF) 400 uL
[2019-10-14 15:00] LABS: BF Color Yellow; Body Fluid Source Ascites Body Fluid; Clarity Hazy (Clear); Tube # EDTA
[2019-10-14 15:03] LABS: BF Segmented Neutrophils 28 %; Cell Count Non Hematic 37 %; Lymphocytes 35 %
== END 2019-10-14 13:40 | disposition home or self-care (01) ==
LOC: ULT 12:51
PROVIDERS: ATTEND Nurse Practitioner Family
PROC: 0W9G3ZX Drainage of Peritoneal Cavity, Percutaneous Approach, Diagnostic (ICD-10-PCS; principal; 2019-10-14)
DX: K70.31 Alcoholic cirrhosis of liver with ascites (principal); K72.90 Hepatic failure, unspecified without coma; E78.5 Hyperlipidemia, unspecified; I10 Essential (primary) hypertension; E11.9 Type 2 diabetes mellitus without complications; Z79.899 Other long term (current) drug therapy; Z88.6 Allergy status to analgesic agent
CPT/HCPCS: 49083; 87070; 87205; 89051; P9047; 85060

== ENCOUNTER 2019-10-17 07:34 | Day surgery (SDC) | payer MEDICARE ==
[2019-10-16 08:15] VITALS: BMI 29.8
[2019-10-17] MEDS ORDERED: Sodium Bicarbonate 2.5 MEQ/5 ML VIAL ONE (07:38)
[2019-10-17] MEDS ORDERED: Lidocaine 1% PF 5 ML VIAL ONE (07:38)
[2019-10-17] MEDS ORDERED: Albumin 25% 200 ML ONE (07:40)
--- NOTE | 2019-10-17 08:48 | ULT ---
ULTRASOUND-GUIDED PARACENTESIS THERAPEUTIC: DATE: 10/17/2019 HISTORY: 59-year-old male with symptomatic ascites: Abdominal distention. Ascites due to alcoholic cirrhosis. TECHNIQUE: Signed informed consent obtained. A four-quadrant survey of abdomen performed. Site selected for puncture: Left lower quadrant. Overlying skin prepared and draped in usual sterile fashion. 25-gauge needle used to apply buffered lidocaine superficially and deeply. 5 New Zealander Yueh catheter with stylette advanced into the pocket of free intraperitoneal fluid. After drainage, the Yueh catheter was removed. Patient tolerated the procedure well. No complications. FINDINGS: Volume of ascites prior to procedure:large. Volume of ascites fluid in the drainage pocket after drainage:small. Volume of ascites fluid drained:3800 mL Appearance of ascites fluid:nonhemorrhagic, straw-colored. IMPRESSION: Successful therapeutic paracentesis, with drainage of 3.8 L of ascites fluid.
[2019-10-17 09:40] VITALS: BP 120/48; TEMP 98
== END 2019-10-17 08:35 | disposition home or self-care (01) ==
LOC: ULT 07:34
PROVIDERS: ATTEND Nurse Practitioner Family
PROC: 0W9G3ZZ Drainage of Peritoneal Cavity, Percutaneous Approach (ICD-10-PCS; principal; 2019-10-17)
DX: K70.31 Alcoholic cirrhosis of liver with ascites (principal); K72.90 Hepatic failure, unspecified without coma; E11.9 Type 2 diabetes mellitus without complications; I10 Essential (primary) hypertension; E78.5 Hyperlipidemia, unspecified; Z79.899 Other long term (current) drug therapy; Z88.6 Allergy status to analgesic agent
CPT/HCPCS: 49083; P9047

== ENCOUNTER 2019-10-21 10:00 | Day surgery (SDC) | payer MEDICARE ==
[2019-10-21] MEDS ORDERED: Sodium Bicarbonate 2.5 MEQ/5 ML VIAL ONE (10:35)
[2019-10-21] MEDS ORDERED: Lidocaine 1% PF 5 ML VIAL ONE (10:35)
[2019-10-21] MEDS ORDERED: Albumin 25% 200 ML ONE (10:35)
--- NOTE | 2019-10-21 11:24 | ULT ---
Ultrasound-guided paracentesis: HISTORY: Cirrhosis and recurrent ascites. FINDINGS: Informed consent obtained prior to the procedure. Preprocedural imaging demonstrated intrap eritoneal free fluid. An area was marked in the Right lower quadrant , and then meticulously prepped and draped in normal s terile fashion and anesthetized with 1% buffered lidocaine. With direct sonographic guidance, a 19-gauge needle and 5 Persian Yueh catheter were advanced into the abdomen. After the return of fluid, the catheter was advanced, and the needle was removed. Approximately 5.4 L of cloudy yellow fluid was aspirated. The introducer sheath was removed, and hemo stasis was achieved with direct pressure. A dry sterile dressing was placed. The patient tolerated the procedure well and without immediate complication. IMPRESSION: Technically successful ultrasound-guided paracentesis.
[2019-10-21 12:52] LABS: BF Color Yellow; Body Fluid Source Ascites Body Fluid; Clarity Hazy (Clear); RBC Count-Automated (BF) 126 /cu.mm; Tube # EDTA; WBC/Nucleated-Auto (BF) 251 uL
[2019-10-21 12:58] VITALS: BP 115/59; TEMP 97.7
[2019-10-21 13:09] LABS: BF Segmented Neutrophils 15 %; Cell Count Non Hematic 70 %; Lymphocytes 15 %
== END 2019-10-21 11:30 | disposition home or self-care (01) ==
LOC: ULT 10:00
PROVIDERS: ATTEND Nurse Practitioner Family
PROC: 0W9G3ZX Drainage of Peritoneal Cavity, Percutaneous Approach, Diagnostic (ICD-10-PCS; principal; 2019-10-21)
PROC: BW40ZZZ Ultrasonography of Abdomen (ICD-10-PCS; 2019-10-21)
DX: K70.31 Alcoholic cirrhosis of liver with ascites (principal); K72.90 Hepatic failure, unspecified without coma; E11.9 Type 2 diabetes mellitus without complications; I10 Essential (primary) hypertension; E78.5 Hyperlipidemia, unspecified; Z79.2 Long term (current) use of antibiotics; Z79.84 Long term (current) use of oral hypoglycemic drugs; Z79.899 Other long term (current) drug therapy; Z88.6 Allergy status to analgesic agent
CPT/HCPCS: 49083; 87070; 87205; 89051; P9047; 85060

== ENCOUNTER 2019-10-24 07:27 | Day surgery (SDC) | payer MEDICARE ==
[2019-10-23 11:08] VITALS: BMI 29.8
[2019-10-24] MEDS ORDERED: Albumin 25% 200 ML ONE (07:30)
[2019-10-24] MEDS ORDERED: Sodium Bicarbonate 2.5 MEQ/5 ML VIAL ONE (07:30)
[2019-10-24] MEDS ORDERED: Lidocaine 1% PF 5 ML VIAL ONE (07:30)
--- NOTE | 2019-10-24 09:26 | ULT ---
Paracentesis sonographic guided HISTORY: Recurrent ascites. FINDINGS: After explaining the procedure and answering all questions, sonographic survey showed a lar ge amount of free fluid throughout the abdomen. Sterile technique, buffered local anesthesia, sonographic guidance, and a right lateral approach were used to carefully advance a 19-gauge Yueh needle and catheter into the free fluid. Catheter was left to drain a total volume of 6.5 L slightly cloudy yellow liquid. Catheter was remove d with minimal fluid remaining. Patient tolerated the procedure well and was dismissed in good condition. IMPRESSION : Technically successful sonographic guided paracentesis 6.5 L.
== END 2019-10-24 08:40 | disposition home or self-care (01) ==
LOC: ULT 07:27
PROVIDERS: ATTEND Nurse Practitioner Family
PROC: 0W9G3ZZ Drainage of Peritoneal Cavity, Percutaneous Approach (ICD-10-PCS; principal; 2019-10-24)
PROC: BW40ZZZ Ultrasonography of Abdomen (ICD-10-PCS; 2019-10-24)
DX: K70.31 Alcoholic cirrhosis of liver with ascites (principal); K72.90 Hepatic failure, unspecified without coma; E11.9 Type 2 diabetes mellitus without complications; I10 Essential (primary) hypertension; E78.5 Hyperlipidemia, unspecified; Z79.2 Long term (current) use of antibiotics; Z79.84 Long term (current) use of oral hypoglycemic drugs; Z79.899 Other long term (current) drug therapy; Z88.6 Allergy status to analgesic agent
CPT/HCPCS: 49083; P9047

== ENCOUNTER 2019-10-28 08:43 | Day surgery (SDC) | payer MEDICARE ==
[2019-10-27 13:02] VITALS: BMI 29.8
[2019-10-28] MEDS ORDERED: Albumin 25% 200 ML ONE (09:11)
[2019-10-28] MEDS ORDERED: Lidocaine 1% PF 5 ML VIAL ONE (09:11)
[2019-10-28] MEDS ORDERED: Sodium Bicarbonate 2.5 MEQ/5 ML VIAL ONE (09:11)
[2019-10-28 11:07] VITALS: BP 121/53; TEMP 98
[2019-10-28 11:41] LABS: RBC Count-Automated (BF) 403 /cu.mm; WBC/Nucleated-Auto (BF) 280 uL
[2019-10-28 11:42] LABS: BF Color Yellow; Body Fluid Source Ascites Body Fluid; Clarity Hazy (Clear); Tube # EDTA
[2019-10-28 11:45] LABS: BF Segmented Neutrophils 18 %; Cell Count Non Hematic 57 %; Lymphocytes 25 %
--- NOTE | 2019-10-28 15:01 | ULT ---
ULTRASOUND-GUIDED PARACENTESIS THERAPEUTIC: DATE: 10/28/2019 HISTORY: 59-year-old male with symptomatic ascites: Abdominal distention. Cirrhosis. TECHNIQUE: Signed informed consent obtained. A four-quadrant survey of abdomen performed. Site selected for puncture: Left lower quadrant Overlying skin prepared and draped in usual sterile fashion. 25-gauge needle used to apply buffered lidocaine superficially and deeply. 5 Comoran Yueh catheter with stylette advanced into the pocket of free intraperitoneal fluid. After drainage, the Yueh catheter was removed. Patient tolerated the procedure well. No complications. FINDINGS: Volume of ascites prior to procedure:large. Volume of ascites fluid in the drainage pocket after drainage:small Volume of ascites fluid drained:6700 mL Appearance of ascites fluid:nonhemorrhagic, straw-colored. IMPRESSION: Successful therapeutic paracentesis, with drainage of 6.7 L of ascites fluid.
== END 2019-10-28 10:20 | disposition home or self-care (01) ==
LOC: ULT 08:43
PROVIDERS: ATTEND Nurse Practitioner Family
PROC: 0W9G3ZX Drainage of Peritoneal Cavity, Percutaneous Approach, Diagnostic (ICD-10-PCS; principal; 2019-10-28)
PROC: BW40ZZZ Ultrasonography of Abdomen (ICD-10-PCS; 2019-10-28)
DX: K70.31 Alcoholic cirrhosis of liver with ascites (principal); K72.90 Hepatic failure, unspecified without coma; E11.9 Type 2 diabetes mellitus without complications; I10 Essential (primary) hypertension; E78.5 Hyperlipidemia, unspecified; Z79.2 Long term (current) use of antibiotics; Z79.84 Long term (current) use of oral hypoglycemic drugs; Z79.899 Other long term (current) drug therapy; Z88.6 Allergy status to analgesic agent
CPT/HCPCS: 49083; 87070; 87205; 89051; P9047; 85060

== ENCOUNTER 2019-11-14 07:20 | Day surgery (SDC) | payer MEDICARE ==
[2019-11-13 11:28] VITALS: BMI 29.8
[~2019-11-14 07:20] MED LIST changes: -Lidocaine 1% PF 5 ML VIAL ONE
[2019-11-14] MEDS ORDERED: Lidocaine 1% PF 5 ML VIAL ONE (07:32)
--- NOTE | 2019-11-14 08:32 | ULT ---
US Paracentesis with Imaging History: Ascites Comparison: Paracentesis November 11, 2019 Findings: Patient was brought to the ultrasound suite. All questions were answered. Informed consent obtained. Timeout performed. The patient's left lower quadrant was prepped and draped in normal sterile fashion. After adequate lo emilie anesthesia, the left lower quadrant peritoneal space was accessed with a 5 English catheter. 3.4 L straw-colored fluid was removed. Patient tolerated the procedure well without complication. Impression: Technically successful ultrasound-guided paracentesis.
[2019-11-14 09:25] VITALS: BP 112/54; TEMP 98.4
== END 2019-11-14 08:55 | disposition home or self-care (01) ==
LOC: ULT 07:20
PROVIDERS: ATTEND Nurse Practitioner Family
PROC: 0W9G3ZZ Drainage of Peritoneal Cavity, Percutaneous Approach (ICD-10-PCS; principal; 2019-11-14)
PROC: BW40ZZZ Ultrasonography of Abdomen (ICD-10-PCS; 2019-11-14)
DX: K70.31 Alcoholic cirrhosis of liver with ascites (principal); K72.90 Hepatic failure, unspecified without coma; E11.9 Type 2 diabetes mellitus without complications; I10 Essential (primary) hypertension; E78.5 Hyperlipidemia, unspecified; Z79.2 Long term (current) use of antibiotics; Z79.84 Long term (current) use of oral hypoglycemic drugs; Z79.899 Other long term (current) drug therapy; Z88.6 Allergy status to analgesic agent
CPT/HCPCS: 49083; P9047

== ENCOUNTER 2019-11-20 05:05 | Emergency (ER) | payer MEDICARE ==
[2019-11-20] MEDS ORDERED: diphenhydrAMINE 50 MG/ML VIAL ONE (05:35)
[2019-11-20] MEDS ORDERED: Metoclopramide HCl 10 MG/2 ML VIAL ONE (05:35)
[2019-11-20 05:54] LABS: #Lymphocytes 0.2 thou/uL (1.20-3.40); #Monocytes 0.2 thou/uL (0.11-0.59); #Neutrophils 1.9 thou/uL (1.40-6.50); %Basophils 0.3 % (0.0-1.0); %Eosinophils 1.9 % (0.0-10.0); %Lymphocytes 7.5 % (21.0-51.0); %Monocytes 9.7 % (0.0-10.0); %Neutrophils 80.7 % (42.0-75.0); Hemoglobin 8.4 g/dL (14.0-18.0); Mean Corpuscular Hemoglobin 26.7 pg (27.0-31.0); Mean Platelet Volume 7.6 fL (7.4-10.4); Platelet Count 56 thou/uL (130-400); RBC Distribution Width 19.4 % (11.5-14.5); Red Blood Cell (RBC) Count 3.13 mill/uL (4.70-6.10); White Blood Cell (WBC) Count 2.4 thou/uL (4.8-10.8)
== END 2019-11-20 06:25 | disposition home or self-care (01) ==
LOC: ERS 05:05
DX: R51 Headache (principal); E11.9 Type 2 diabetes mellitus without complications; D69.6 Thrombocytopenia, unspecified; F41.9 Anxiety disorder, unspecified; Z79.899 Other long term (current) drug therapy
CPT/HCPCS: 85025; 96365; 96375; J1200; J2765

== ENCOUNTER 2019-11-21 07:38 | Day surgery (SDC) | payer MEDICARE ==
[2019-11-21] MEDS ORDERED: Sodium Bicarbonate 2.5 MEQ/5 ML VIAL ONE (07:40)
[2019-11-21] MEDS ORDERED: Lidocaine 1% PF 5 ML VIAL ONE (07:40)
[2019-11-21] MEDS ORDERED: Albumin 25% 100 ML ONE (07:40)
--- NOTE | 2019-11-21 08:14 | ULT ---
Ultrasound abdomen limited: 11/21/2019 HISTORY: 59-year-old male with alcoholic cirrhosis and abdominal distention. Therapeutic paracentesis was orde red. TECHNIQUE: Four-quadrant survey of abdomen FINDINGS: There are small pockets of free fluid in the right upper quadrant and left upper quadrant, a very sma ll amount in the left lower quadrant, and none in the right lower quadrant. The paracentesis was canceled. IMPRESSION: Small volume of ascites. Not enough for safe therapeutic paracentesis.
[2019-11-21 08:32] VITALS: BP 100/37; TEMP 98.1; BMI 29.8
== END 2019-11-21 08:15 | disposition home or self-care (01) ==
LOC: ULT 07:38
PROVIDERS: ATTEND Nurse Practitioner Family
DX: K70.31 Alcoholic cirrhosis of liver with ascites (principal); Z88.6 Allergy status to analgesic agent
CPT/HCPCS: 76705; P9047

== ENCOUNTER 2019-11-21 22:40 | Inpatient (IN) | payer MEDICARE, OTHER ==
[2019-11-21 23:21] LABS: Hemoglobin 7.7 g/dL (14.0-18.0); Mean Corpuscular HGB CONC 31.2 g/dL (32.0-36.0); Mean Corpuscular Volume 86.6 fL (78.0-98.0); RBC Distribution Width 19.2 % (11.5-14.5); Red Blood Cell (RBC) Count 2.84 mill/uL (4.70-6.10)
[2019-11-21 23:34] LABS: ALT (SGPT) 19 U/L (8-55); AST (SGOT) 24 U/L (5-34); Alkaline Phosphatase 138 U/L (40-110); Anion Gap 14 mmol/L (10-20); BUN (Urea Nitrogen) 23 mg/dL (8.4-25.7); Bilirubin, Total 3.9 mg/dL (0.2-1.2); Calc. Creatinine Clearance 0 mL/min (70-130); Carbon Dioxide 26 mmol/L (22-29); Chloride 101 mmol/L (98-107); Estimated GFR-MDRD 34; Globulin 2.9 g/dL (2.4-3.5); Glucose 176 mg/dL (70-105); Lipase 25 U/L (8-78); Potassium 4.3 mmol/L (3.5-5.1); Protein, Total 6.9 g/dL (6.0-8.3); Sodium 137 mmol/L (136-145)
[2019-11-21 23:37] LABS: #Lymphocytes 0.2 thou/uL (1.20-3.40); #Monocytes 0.2 thou/uL (0.11-0.59); #Neutrophils 2.5 thou/uL (1.40-6.50); %Eosinophils 1.2 % (0.0-10.0); %Lymphocytes 6.4 % (21.0-51.0); %Monocytes 7.5 % (0.0-10.0); Anisocytosis SLIGHT = 6-15 cells (100X) (0-5/hpf); Hypochromia SLIGHT = 6-15 cells (100X) (0-5/hpf); MDiff Complete? YES; Mean Platelet Volume 9.3 fL (7.4-10.4); Platelet Count 54 thou/uL (130-400); Platelet Morphology Comment Appears Decreased
[2019-11-21 23:54] LABS: CKMB 0.8 ng/mL (0-6.6)
[2019-11-22] MEDS ORDERED: cefTRIAXone\\ROCEPHIN 2 GM in Sodium Chloride 0.9% 100 ML IVPB SCH (01:00)
[2019-11-22 02:29] VITALS: BMI 32.0
[2019-11-22] MEDS ORDERED: Ondansetron ODT 4 MG TAB SL PRN (02:33)
[2019-11-22] MEDS ORDERED: Acetaminophen 325 MG TAB PO PRN (02:33)
[2019-11-22] MEDS ORDERED: Ondansetron PF 4 MG/2 ML Vial IVP PRN (02:33)
[2019-11-22] MEDS ORDERED: Dextrose 50% Abboject 50 ML SYRINGE SLOW IVP PRN (09:36)
[2019-11-22] MEDS ORDERED: Guaifenesin DM 100-10/5 ML UDCUP PO PRN (09:36)
[2019-11-22] MEDS ORDERED: Dextrose 5% in Water 1,000 ML IV PRN (09:36)
[2019-11-22] MEDS ORDERED: HumaLOG 300 UNITS/3 ML VIAL SC PRN (09:36)
[2019-11-22] MEDS ORDERED: Calcium Carbonate 500 MG ChewTAB PO PRN (09:36)
[2019-11-22] MEDS ORDERED: Bisacodyl 10 MG SUPP PR PRN (09:36)
[2019-11-22] MEDS ORDERED: Senokot S 8.6-50 MG TAB PO PRN (09:36)
[2019-11-22] MEDS ORDERED: Sodium Chloride 0.45% 1,000 ML IV SCH (09:45)
--- NOTE | 2019-11-22 10:27 | HP ---
REASON FOR ADMISSION: Hepatic encephalopathy, possible spontaneous bacterial peritonitis, hepatorenal syndrome. HISTORY OF PRESENTING ILLNESS: Please note that the patient does not know exactly what happened prior to arrival here. He knows he had abdominal pain. His abdominal pain was bandlike and was always present. This was around 3 to 4/10 in intensity. I spoke to his , Ms. Radha Campoverde and she did mention that the patient was brought to the emergency room nearly 3 times in the last 3 days. He has had paracentesis done on 11/18/2019. The patient says he gets paracentesis done 2 times a week. On 11/21/2019, the patient had very small amount of ascitic fluid and hence did not have paracentesis, but he had one done on 11/18/2019 with removal of 3.2 L of yellow fluid. He has not had any subjective fever. The last paracentesis fluid done on 11/18/2019 shows a white count of 437 with 20% segments. Currently, he knows he is in the hospital. He can remember some of his medications. He states he is not hungry when asked about food. He can move all extremities. He states he ambulates by himself. No cough or expectoration. No exposure to COVID as such. PAST MEDICAL AND SURGICAL HISTORY: History of alcoholic cirrhosis with the patient being completely off drinking alcohol from last six years now. He has had prior history of esophageal varices and has had banding of the same done in [place]. Prior history of hepatic encephalopathy. He gets paracentesis done 2 times a week. Umbilical hernia and diabetes mellitus, type 2. CURRENT MEDICATIONS: The patient is on; 1. Flomax 0.4 mg p.o. daily. 2. Gabapentin 300 mg p.o. 3 times daily. 3. Xifaxan 550 mg daily. 4. Buspirone 5 mg twice daily. 5. Ropinirole 0.5 mg p.o. daily. 6. Lasix 80 mg p.o. q.a.m. 7. Protonix 40 mg p.o. daily. 8. Lactulose 30 mL p.o. 4 times daily. 9. Tradjenta 5 mg daily. 10. Ondansetron 4 mg p.o. twice daily. 11. Ultram 50 mg twice daily. 12. Folic acid 400 mcg p.o. daily. 13. Spironolactone 100 mg p.o. daily. 14. Phenergan p.r.n. 15. Multivitamin one capsule daily. ALLERGIES: ALLERGIC TO CODEINE, ACETAMINOPHEN, AND PENICILLIN. PERSONAL HISTORY: The patient quit drinking alcohol more than six years ago. Does not abuse drugs or smoke. Lives with his . He ambulates by himself. FAMILY HISTORY: He states his mother is alive. Father at the age of 72. He had history of dementia. CODE STATUS: Full. Power of estate attorney is his . REVIEW OF SYSTEMS: CONSTITUTIONAL: Negative for weight loss or gain, ability to conduct usual activities. SKIN: Negative for rash, itching. EYES: Negative for double vision, pain. ENT/MOUTH: Negative for nose bleeding, neck stiffness, pain, tenderness. CARDIOVASCULAR: Negative for palpitations, dyspnea on exertion, orthopnea. RESPIRATORY: Negative for shortness of breath, wheezing, cough, hemoptysis, fever or night sweats. GASTROINTESTINAL: Negative for poor appetite, abdominal pain, heartburn, nausea , vomiting, constipation, or diarrhea. GENITOURINARY: Negative for urgency, frequency, dysuria, nocturia. MUSCULOSKELETAL: Negative for pain, swelling. NEUROLOGIC/PSYCHIATRIC: Negative for anxiety, depression. ALLERGY/IMMUNOLOGIC: Negative for skin rash, bleeding tendency. PHYSICAL EXAMINATION: GENERAL: The patient is a 59-year-old male who is currently not in any acute distress. VITAL SIGNS: Blood pressure 114/70, pulse 86 per minute, respiratory rate 14 per minute, temperature 98.5 degrees Fahrenheit, saturating 97% on room air. NECK: Supple. No elevated JVD. HEENT: Eyes; extraocular muscles intact. Pupils reacting to light. Oral cavity, mucous membranes are moist. No exudates or congestion. CARDIOVASCULAR SYSTEM: S1 and S2 heard. Regular rhythm. RESPIRATORY: Air entry 1+ bilateral. No rales or rhonchi. ABDOMEN: Soft. There is mild tenderness in the middle of his abdomen. No rigidity or guarding. Bowel sounds are heard. Has a reducible umbilical hernia. EXTREMITIES: No peripheral edema or calf tenderness. VASCULAR SYSTEM: Peripheral pulses, 1+ bilateral. No ischemic ulcerations or gangrene. CENTRAL NERVOUS SYSTEM: No gross focal motor deficits noted. The patient is alert, awake, is bit slow to respond, but he is fairly oriented at present. PSYCHIATRIC SYSTEM: No obvious hallucinations or delusions. LABORATORY DATA: White count of 3, H and H of 7.7 and 24, platelet count 54, MCV 86 with 84% neutrophils. Serum bicarbonate 26, BUN 23, creatinine 2.0, serum glucose 176, lactic acid 2.0, total bilirubin 3.9, AST and ALT within normal limits, alkaline phosphatase 138. Albumin is 4.0. Troponin I 0.03. Ammonia levels are 150. Blood cultures done on 11/21/2019 x2 is negative. He has had ascitic fluid culture drawn on 11/18/2019, which showed moderate WBCs. No organism was seen on the Gram stain and no growth in 3 days. CLINICAL IMPRESSION AND PLAN: The patient will be admitted to medical floor for recurrent abdominal pain with confusion and likely hepatic encephalopathy with possible spontaneous bacterial peritonitis. He is already on Xifaxan and will add ceftriaxone. We will obtain another paracentesis today for diagnostic purposes for cell count and cultures. The patient also appears to be a bit dehydrated and will be on half normal saline at 75 mL per hour. He will be on lactulose 4 times daily. We will continue his home dose of Tradjenta, buspirone, folic acid, Neurontin, multivitamin, Protonix, and Flomax as before. Dr. Nilo Valenzuela has been consulted from ER and we will follow up on his recommendations. Job ID: [id number] [facility]
--- NOTE | 2019-11-22 12:18 | ULT ---
Exam: Ultrasound guided paracentesis HISTORY: Spontaneous bacterial peritonitis. COMPARISON: 11/18/2019 FINDINGS: Successful ultrasound-guided paracentesis. Total of 10 cc of yellow color ascites was aspir ated. TECHNIQUE: Consent obtained reformatory ultrasound-guided paracentesis. Left lower quadrantwas deemed appropriate. Skin was prepped and draped in a sterile fashion. 1% lidocaine, buffered with sodium bicarbonate was used for local anesthesia. Under ultrasound guidance, a 5 Pashto 7 cm [employer] catheter i s advanced in the peritoneal space. A total of 10 cc of yellow color ascites was aspirated. No immediate or postprocedural complications. Sample was sent for evaluation.. IMPRESSION: Successful ultrasound-guided paracentesis.
[2019-11-22] MEDS ORDERED: LACTULOSE PO SCH (13:00)
[2019-11-22 13:12] LABS: RBC Count-Automated (BF) 1110 /cu.mm; WBC/Nucleated-Auto (BF) 249 uL
[2019-11-22 13:31] LABS: BF Color Yellow; Body Fluid Source Ascites Body Fluid; Clarity Hazy (Clear); Tube # EDTA
[2019-11-22 13:38] LABS: BF Segmented Neutrophils 11 %; Cell Count Non Hematic 12 %; Eosinophils 1 %; Lymphocytes 76 %
[2019-11-22] MEDS: Gabapentin 300 MG CAP PO SCH ×2 (15:38→20:26)
[2019-11-22 17:38] LABS: SARS-CoV-2 MS2 Positive; SARS-CoV-2 N Gene Negative; SARS-CoV-2 S Gene Negative; SARS-CoV-2 by NAA Not Detected (NotDetected); SARS-CoV-2 orf1ab Negative
[2019-11-22] MEDS: Albumin 25% 25 GM/100 ML BOT IVPB SCH (20:17)
[2019-11-22] MEDS: busPIRone HCl 5 MG TAB PO SCH (20:25)
[2019-11-22] MEDS: Sodium Chloride 0.9% 1,000 ML IV SCH (20:25)
[2019-11-22] MEDS ORDERED: BUSPIRONE HCL 5 MG PO SCH (21:00)
--- NOTE | 2019-11-22 23:54 | CON ---
DATE OF CONSULTATION: 11/22/2019 CHIEF COMPLAINT: Confusion. HISTORY OF PRESENT ILLNESS: Mr. Campoverde is a 59-year-old man with a history of cirrhosis who is on the transplant list in [place]. He has been on lactulose and rifaximin; however, he became more confused starting 2 days ago. This worsened, he went on to the emergency room. He was given lactulose in the ER and discharged. He came back to the emergency room and at this time, he was admitted for further care of his hepatic encephalopathy. He has had no overt bleeding. No signs of infection. No nausea, vomiting, or abdominal pain. He did increase his lactulose here in the hospital and he has had 4 or 5 stools today. His mental status is much improved. His helped also add to the history. He has been getting paracentesis twice a week; however, he just had paracentesis attempt to this last Sunday and he states there is very minimal amount of fluid present. He had a diagnostic paracentesis performed today, which was negative for SBP; however, again there was a very small amount of fluid present. Paracentesis on 11/18/2019, resulted in 3.2 L of ascites removed. He has chronic anemia. His hemoglobin runs at baseline at the 7.6 range in July and August and today , which is stable. He did have EGD and colonoscopy by Dr. Cha in August. Upper endoscopy revealed only small varices that did not require banding. He had some gastric polyps that were biopsied and were confirmed to just benign inflammatory polyps. He had several colon polyps removed, which were hyperplastic. His bowel prep, however, was poor for the colonoscopy. He has been followed in [place] [facility] and has a communication coordinator. PAST MEDICAL HISTORY: 1. Cirrhosis of the liver due to past alcohol. He has been off alcohol for the last 6 years. He is on the transplant list in [place]. 2. Refractory ascites, requiring paracentesis twice a week. 3. Chronic renal insufficiency. 4. Diabetes. 5. Hepatic encephalopathy. FAMILY HISTORY: Negative for GI malignancy. SOCIAL HISTORY: He quit drinking over 6 years ago. No drugs or tobacco. ALLERGIES: CODEINE, ACETAMINOPHEN, AND PENICILLIN. REVIEW OF SYSTEMS: Negative x10 systems reviewed except as stated in the history of present illness. PHYSICAL EXAMINATION: VITAL SIGNS: Temperature 97.7, pulse 76, and blood pressure 144/65. GENERAL: He is in no acute distress. He is alert and oriented x3 now. HEENT: His eyes, slight scleral icterus. Oropharynx is clear without lesions. No cervical or supraclavicular lymphadenopathy. LUNGS: Clear to auscultation bilaterally. HEART: Regular rate and rhythm without murmur. ABDOMEN: Soft. It appears distended, but this actually based on ultrasound is just fat. His bowel sounds are active and his abdomen is nontender. EXTREMITIES: No lower extremity edema. LABORATORY DATA: White blood cell count 3.0, hemoglobin 7.7, platelets 54. Creatinine 2.02. Bilirubin 3.9, AST 24, ALT 19, alkaline phosphatase 138, ammonia 150 last night, lipase 25. He had a paracentesis, diagnostic with only 10 mL removed and his white blood cell count on that was 249 total with 11% neutrophils. IMPRESSION: 1. Hepatic encephalopathy. This may have been precipitated by some dehydration and related to associated paracentesis. 2. Acute renal failure. His creatinine is increased to 2.02, up from 1.37 at baseline. I think he is more likely dry then developing hepatorenal syndrome. I would give him at this point some fluid and albumin and see how his creatinine responds and hold his diuretics for now. 3. Cirrhosis secondary to past alcohol, currently on the transplant list in [place]. 4. Chronic anemia with hemoglobin of 7.7, currently at baseline. 5. Small esophageal varices on recent upper endoscopy. RECOMMENDATIONS: 1. We will give a dose of albumin and a liter of saline. 2. Hold diuretics. He has been on 80 mg a day of furosemide. 3. I think we can stop the ceftriaxone at this point as there are no signs of SBP or bleeding. 4. Lactulose has been increased to four times daily, 30 mL from three times daily. 5. Recheck his renal function and liver tests tomorrow morning. 6. We will need to add a PT/INR to the morning labs as we were unable to calculate a MELD score currently. Job ID: [id number]
[2019-11-23] MEDS ORDERED: cefTRIAXone\\ROCEPHIN 2 GM in Sodium Chloride 0.9% 100 ML IVPB SCH (01:00)
[2019-11-23] MEDS: Albumin 25% 25 GM/100 ML BOT IVPB SCH ×3 (01:27→12:25)
[2019-11-23 06:05] LABS: INR-International Normal Ratio 2.3; Prothrombin Time 25.1 sec (12.0-14.7)
[2019-11-23 06:19] LABS: ALT (SGPT) 16 U/L (8-55); AST (SGOT) 26 U/L (5-34); Albumin 3.7 g/dL (3.5-5.0); Alkaline Phosphatase 82 U/L (40-110); Anion Gap 15 mmol/L (10-20); BUN (Urea Nitrogen) 20 mg/dL (8.4-25.7); Bilirubin, Total 3.4 mg/dL (0.2-1.2); Calc. Creatinine Clearance 81 mL/min (70-130); Carbon Dioxide 20 mmol/L (22-29); Chloride 105 mmol/L (98-107); Estimated GFR-MDRD 51; Globulin 2.3 g/dL (2.4-3.5); Glucose 116 mg/dL (70-105); Potassium 3.9 mmol/L (3.5-5.1); Sodium 136 mmol/L (136-145)
[2019-11-23 08:16] LABS: #Eosinphils 0.1 thou/uL (0.0-0.7); #Lymphocytes 0.2 thou/uL (1.20-3.40); #Monocytes 0.2 thou/uL (0.11-0.59); #Neutrophils 1.5 thou/uL (1.40-6.50); %Basophils 0.5 % (0.0-1.0); %Eosinophils 2.8 % (0.0-10.0); %Lymphocytes 7.5 % (21.0-51.0); %Monocytes 10.9 % (0.0-10.0); %Neutrophils 78.3 % (42.0-75.0); Anisocytosis SLIGHT = 6-15 cells (100X) (0-5/hpf); Hemoglobin 6.7 g/dL (14.0-18.0); MDiff Complete? YES; Mean Corpuscular HGB CONC 31.4 g/dL (32.0-36.0); Mean Corpuscular Hemoglobin 26.9 pg (27.0-31.0); Mean Corpuscular Volume 85.9 fL (78.0-98.0); Mean Platelet Volume 14.5 fL (7.4-10.4); Platelet Count 46 thou/uL (130-400); Platelet Morphology Comment Appears Decreased; RBC Distribution Width 19.1 % (11.5-14.5); Red Blood Cell (RBC) Count 2.47 mill/uL (4.70-6.10); White Blood Cell (WBC) Count 1.9 thou/uL (4.8-10.8)
[2019-11-23] MEDS: Enoxaparin Sodium 30 MG/0.3 ML SYRINGE SC SCH (08:22)
[2019-11-23] MEDS: Alogliptin 25 MG TAB PO SCH (08:23)
[2019-11-23] MEDS: busPIRone HCl 5 MG TAB PO SCH ×2 (08:23→21:31)
[2019-11-23] MEDS: Rifaximin 550 MG TAB PO SCH (08:23)
[2019-11-23] MEDS: Folic Acid 1 MG TAB PO SCH (08:23)
[2019-11-23] MEDS: Gabapentin 300 MG CAP PO SCH ×3 (08:23→21:31)
[2019-11-23] MEDS: Tamsulosin HCl 0.4 MG CAP PO SCH (08:23)
[2019-11-23] MEDS: Multivit, Therapeutic 1 TAB PO SCH (08:23)
[2019-11-23] MEDS: Sodium Chloride 0.9% 1,000 ML IV SCH (08:24)
[2019-11-23] MEDS ORDERED: Non-Formulary Item 1 EACH (Linagliptin [Tradjenta] 5 MG) PO SCH (09:00)
[2019-11-23] MEDS ORDERED: Furosemide 40 MG TAB PO SCH (09:00)
[2019-11-23] MEDS ORDERED: Furosemide 80 MG TAB PO SCH (09:00)
--- NOTE | 2019-11-23 11:27 | PDOC.HOSPP ---
- Subjective Encounter Date: 11/23/19 Encounter Time: 09:15 Subjective: awake, oriented well is tolerating oral diet is ambulating in room - Objective Vital Signs & Weight: Vital Signs (12 hours) Temp Pulse Resp BP Pulse Ox 11/23/19 08:00 98 11/23/19 07:25 98.7 F 82 20 127/72 100 11/23/19 01:00 98.7 F 84 20 128/63 100 Weight Admit Weight 223 lb Weight 223 lb I&O: 11/22/19 11/23/19 11/24/19 06:59 06:59 06:59 Intake Total 1340 Balance 1340 Result Diagrams: 11/23/19 05:16 11/23/19 05:16 Additional Labs: Accuchecks 11/23/19 11/22/19 11/22/19 05:19 20:19 15:56 POC Glucose 132 H 189 H 151 H Hospitalist ROS - Medication Medications: Active Medications Generic Name Dose Route Start Last Admin Trade Name Freq PRN Reason Stop Dose Admin Albumin Human 25 gm 11/22/19 19:00 11/23/19 06:21 Albumin 25% IVPB 11/23/19 13:01 25 gm Q6H ADELAIDA Administration Alogliptin Benzoate 25 mg 11/23/19 09:00 11/23/19 08:23 Alogliptin PO 25 mg DAILY ADELAIDA Administration Buspirone HCl 5 mg 11/22/19 21:00 11/23/19 08:23 Buspar PO 5 mg BID ADELAIDA Administration Enoxaparin Sodium 30 mg 11/23/19 09:00 11/23/19 08:22 Lovenox SC 30 mg 09 ADELAIDA Administration Folic Acid 0.5 mg 11/23/19 09:00 11/23/19 08:23 Folvite PO 0.5 mg DAILY ADELAIDA Administration Gabapentin 300 mg 11/22/19 15:00 11/23/19 08:23 Neurontin PO 300 mg TID ADELAIDA Administration Lactulose 20 gm 11/22/19 13:00 11/23/19 08:22 Lactulose PO 20 gm QID ADELAIDA Administration Multivitamins 1 tab 11/23/19 09:00 11/23/19 08:23 Theragran PO 1 tab DAILY ADELAIDA Administration Pantoprazole Sodium 40 mg 11/23/19 09:00 11/23/19 08:23 Protonix PO 40 mg DAILY ADELAIDA Administration Rifaximin 550 mg 11/23/19 09:00 11/23/19 08:23 Xifaxan PO 550 mg DAILY ADELAIDA Administration Sodium Chloride 10 ml 11/22/19 21:00 11/23/19 08:24 Flush - Normal Saline IVF 10 ml Q12HR ADELAIDA Administration Tamsulosin HCl 0.4 mg 11/23/19 09:00 11/23/19 08:23 Flomax PO 0.4 mg DAILY ADELAIDA Administration - Exam General Appearance: awake alert Eye: PERRL, anicteric sclera ENT: no oropharyngeal lesions, moist mucosa Neck: supple, no JVD Heart: RRR, no murmur Respiratory: no wheezes, no rales Gastrointestinal: soft, non-tender, normal bowel sounds, no guarding, no rigidity Extremities: no cyanosis, no edema Neurological: cranial nerve grossly intact, no focal deficits Hosp A/P (1) Hepatic encephalopathy Code(s): K72.90 - HEPATIC FAILURE, UNSPECIFIED WITHOUT COMA Status: Resolved (2) NILDA (acute kidney injury) Code(s): N17.9 - ACUTE KIDNEY FAILURE, UNSPECIFIED Status: Resolved (3) Moderate dehydration Code(s): E86.0 - DEHYDRATION Status: Resolved (4) Cirrhosis of liver with ascites Code(s): K74.60 - UNSPECIFIED CIRRHOSIS OF LIVER; R18.8 - OTHER ASCITES Status : Chronic Qualifiers: Hepatic cirrhosis type: alcoholic cirrhosis Qualified Code(s): K70.31 - Alcoholic cirrhosis of liver with ascites (5) HTN (hypertension) Code(s): I10 - ESSENTIAL (PRIMARY) HYPERTENSION Status: Chronic Qualifiers: Hypertension type: essential hypertension Qualified Code(s): I10 - Essential (primary) hypertension (6) Chronic anemia Code(s): D64.9 - ANEMIA, UNSPECIFIED Status: Chronic (7) chronic thrombocytopenia Status: Chronic - Plan will transfuse 1 u prbc for Hb of 6.7, has chronic anemia with no active bleeding dc iv fluids, renal funciton is back to baseline reduce lactulose to tid (had multiple bm's overnight) hemostable likely dc plan in am off antibiotics with no sign of sbp on recent ascitic fluid analysis, no abd pain now
--- NOTE | 2019-11-23 21:22 | PRG ---
DATE OF SERVICE: 11/23/2019 SUBJECTIVE: Mr. Campoverde is back to his baseline mental status. He had 5 or 6 stools today, on lactulose as scheduled. OBJECTIVE: VITAL SIGNS: Temperature 98.7, pulse 82, and blood pressure 127/72. GENERAL: He is in no acute distress. Alert and oriented x3. LUNGS: Clear to auscultation bilaterally. HEART: Regular rate and rhythm without murmur. ABDOMEN: Soft, nontender, and nondistended. Bowel sounds are present. EXTREMITIES: No lower extremity edema. LABORATORY DATA: White blood cell count 1.9, hemoglobin 6.7, and platelets 46,000. INR 2.3; creatinine 1.43, down from 2.02 yesterday; bilirubin 3.4, AST 26; ALT 16; alkaline phosphatase 82; and albumin 3.7. IMPRESSION: 1. End-stage liver disease, currently on a transplant list in [facility]. 2. Hepatic encephalopathy, currently improved. We will continue lactulose and Xifaxan. 3. Acute renal failure. His creatinine is back close to baseline now. His diuretics have been on hold for now. 4. Chronic anemia and pancytopenia, likely related to portal hypertension and splenomegaly. His hemoglobin did drift down to 6.7 today, and he was given a unit of blood, which will also help perfuse his kidneys and hopefully further improve his creatinine. RECOMMENDATIONS: 1. Continue lactulose. 2. Continue Xifaxan. 3. He can likely restart his diuretics early next week, but he can do that through the GI clinic. Mr. Campoverde might need to be restarted a little bit lower dose. 4. We will have Case Management fax his labs to the patient's marketing production coordinator tomorrow. 5. Anticipate discharge home tomorrow. Job ID: [id number]
[2019-11-24 06:16] LABS: #Lymphocytes 0.2 thou/uL (1.20-3.40); #Monocytes 0.3 thou/uL (0.11-0.59); #Neutrophils 1.6 thou/uL (1.40-6.50); %Basophils 0.5 % (0.0-1.0); %Eosinophils 2.2 % (0.0-10.0); %Lymphocytes 9.4 % (21.0-51.0); %Monocytes 14.1 % (0.0-10.0); %Neutrophils 73.8 % (42.0-75.0); Hemoglobin 7.2 g/dL (14.0-18.0); Mean Corpuscular HGB CONC 30.6 g/dL (32.0-36.0); Mean Corpuscular Hemoglobin 26.1 pg (27.0-31.0); Mean Corpuscular Volume 85.2 fL (78.0-98.0); Mean Platelet Volume 7.5 fL (7.4-10.4); Platelet Count 41 thou/uL (130-400); RBC Distribution Width 18.5 % (11.5-14.5); Red Blood Cell (RBC) Count 2.78 mill/uL (4.70-6.10); White Blood Cell (WBC) Count 2.1 thou/uL (4.8-10.8)
[2019-11-24 06:27] LABS: ALT (SGPT) 15 U/L (8-55); AST (SGOT) 24 U/L (5-34); Albumin 3.9 g/dL (3.5-5.0); Alkaline Phosphatase 78 U/L (40-110); Anion Gap 13 mmol/L (10-20); BUN (Urea Nitrogen) 18 mg/dL (8.4-25.7); Calc. Creatinine Clearance 93 mL/min (70-130); Calcium 8.2 mg/dL (7.8-10.44); Carbon Dioxide 22 mmol/L (22-29); Chloride 105 mmol/L (98-107); Estimated GFR-MDRD 60; Globulin 2.3 g/dL (2.4-3.5); Glucose 112 mg/dL (70-105); Potassium 3.7 mmol/L (3.5-5.1); Protein, Total 6.2 g/dL (6.0-8.3); Sodium 136 mmol/L (136-145)
[2019-11-24 08:30] VITALS: BP 103/66; TEMP 98.8
[2019-11-24] MEDS: Alogliptin 25 MG TAB PO SCH (08:34)
[2019-11-24] MEDS: Enoxaparin Sodium 30 MG/0.3 ML SYRINGE SC SCH (08:35)
[2019-11-24] MEDS: busPIRone HCl 5 MG TAB PO SCH (08:35)
[2019-11-24] MEDS: Folic Acid 1 MG TAB PO SCH (08:36)
[2019-11-24] MEDS: Rifaximin 550 MG TAB PO SCH (08:37)
[2019-11-24] MEDS: Gabapentin 300 MG CAP PO SCH (08:37)
[2019-11-24] MEDS: Tamsulosin HCl 0.4 MG CAP PO SCH (08:37)
[2019-11-24] MEDS: Multivit, Therapeutic 1 TAB PO SCH (08:37)
--- NOTE | 2019-11-24 15:55 | DIS ---
DATE OF ADMISSION: 11/22/2019 DATE OF DISCHARGE: 11/24/2019 DISCHARGE DISPOSITION: Is to home. PRIMARY DISCHARGE DIAGNOSES: Hepatic encephalopathy, resolved; dehydration with acute kidney injury, resolved; history of chronic cirrhosis with ascites and receiving paracentesis twice weekly. SECONDARY DISCHARGE DIAGNOSES: Hypertension, chronic anemia, chronic thrombocytopenia secondary to cirrhosis. PROCEDURES DONE DURING HOSPITALIZATION: The patient has had a diagnostic paracentesis done by Interventional Radiology on 11/22/2019 with removal of 10 mL of yellow color ascitic fluid. Ascitic fluid showed 249 white blood cells with 11% neutrophils, 76% lymphocytes. COVID-19 PCR was not detected on 11/22/2019. Discharge BUN and creatinine are 18 and 1.24. Albumin is 3.9. AST and ALT within normal limits. Total bilirubin is 4.0, alkaline phosphatase 78. Admitting BUN and creatinine are 23 and 2.0. Had a total bilirubin of 3.9, alkaline phosphatase was 138 on the day of admission. Lipase is 25. DISCHARGE MEDICATIONS: 1. Buspirone 5 mg twice daily. 2. Folic acid 400 mcg p.o. daily. 3. Gabapentin 300 mg p.o. 3 times daily. 4. Linagliptin 5 mg p.o. daily. 5. Multivitamin 1 tablet once daily. 6. Protonix 40 mg p.o. daily. 7. Xifaxan 550 mg p.o. daily. 8. Aldactone 100 mg p.o. daily. 9. Flomax 0.4 mg p.o. daily. 10. Ultram p.r.n. for pain. 11. Lactulose 30 mL p.o. 3 times daily. ALLERGIES: TO ACETAMINOPHEN. INPATIENT CONSULT: Dr. Nilo Valenzuela for Gastroenterology. DISCHARGE PLAN: The patient to follow up with Dr. Valenzuela in 2 weeks. He needs follow up with his primary care physician and nurse practitioner Jessie on 2019 at 9:30 a.m. BRIEF COURSE DURING HOSPITALIZATION: The patient initially got admitted on the November 21 after he was found to be confused at home. He was also found to be dehydrated on arrival here with elevated creatinine of around 2. The patient had abdominal pain on arrival. In view of this, he has had diagnostic paracentesis done, which has not shown any signs of spontaneous bacterial peritonitis. He was placed on lactulose 4 times daily and has responded well with his hepatic encephalopathy. He was also gently hydrated, which has helped his renal function and his hepatic encephalopathy. Initial antibiotics were discontinued after differential counts were obtained on the ascitic fluid. He has had consultation with Dr. Nilo Valenzuela for Gastroenterology. Prior to discharge, he has ambulated well and is eating solid food. His lactulose has been changed over to 3 times daily from 4 times. His Lasix has been discontinued. He needs to continue spironolactone at 100 mg daily. He will also need to continue his Xifaxan as before. The patient will benefit from once a week paracentesis. He was getting this twice a week before. He also needs to follow up with his transplant physicians in [place]. Please note, I have seen and examined the patient on the day of discharge. He has been cleared by Dr. Nilo Valenzuela for discharge. Job ID: [id number] MTDD
--- NOTE | 2019-11-26 09:16 | PQF ---
CLINICAL DOCUMENTATION CLARIFICATION FORM: Dear : Derrick Lehman Date / Time: 2019 Please exercise your independent, professional judgment in responding to the clarification form. Clinical indicators are provided on the bottom of this form for your review Please check appropriate box(es) to clarify if the following diagnosis has been ruled in our ruled out: Hepatorenal syndrome [ ] Ruled in diagnosis [ ] Continue to treat [ ] Resolved [x ] Ruled out diagnosis [ ] Improving [ ] Cannot rule out diagnosis [ ] Other diagnosis [ ] Unable to determine In addition, please specify: Present on Admission (POA): [ ] Yes [ ] No [ ] Unable to determine To be completed by CDI/Coding staff for physician review: Present Clinical Indicators - Signs / Symptoms / Labs Results and Location in Medical Record [ x ] Reason for admission: Hepatic encephalopathy, possible SBP and hepatorenal syndrome H&P [ x ] Acute renal failure. Creatinine increased to 2.02, up from 1.37 at baseline. I think he is more likely dry then developing hepatorenal syndrome Consult 11/21 by Nilo Valenzuela MD Present Risk Factors Results and Location in Medical Record [ x ] Hepatic encephalopathy, acute renal failure, alcoholic cirrhosis with ascites Consult 11/21 by Nilo Valenzuela MD Present Treatments Results and Location in Medical Record [ x ] Ultrasound-guided paracentesis Paracentesis 11/21 by Mary Inman [ x ] IV fluids 11/21 11/23 Medications [ x ] Lactulose 20 mg PO 11/21-11/23 Medications CDS/Induction Heat Treater Signature: [email or web address] Phone #: Date/Time: 11/26/2019 This is a permanent part of the Medical Record [facility]
--- NOTE | 2019-11-26 09:32 | PQF ---
CLINICAL DOCUMENTATION CLARIFICATION FORM: Dear : Derrick Lehman Date / Time: 11/26/2019 Please exercise your independent, professional judgment in responding to the clarification form. Clinical indicators are provided on the bottom of this form for your review Please check appropriate box(es): [ x ] Hepatic encephalopathy is due to alcoholic liver cirrhosis [ ] Hepatic encephalopathy is due to (please specify if any) [ ] Other diagnosis [ ] Unable to determine In addition, please specify: Present on Admission (POA): [ x ] Yes [ ] No [ ] Unable to determine To be completed by CDI/Coding staff for physician review: Present Clinical Indicators - Signs / Symptoms / Labs Results and Location in Medical Record [ x ] Admitted to medical floor for recurrent abdominal and confusion and likely hepatic encephalopathy with possible SBP H&P [ x ] Hepatic encephalopathy may have been precipitated by dehydration and related to associated paracentesis Consult 11/21 by Nilo Valenzuela MD [ x ] Cirrhosis secondary to past alcohol, currently on the transplant list in [place] Consult 11/21 by Nilo Valenzuela MD Present Risk Factors Results and Location in Medical Record [ x ] Alcoholic cirrhosis of liver with ascites Progress note 11/22 by Derrick Lehman MD [ x ] Patient is currently on transplant list Consult 11/21 by Nilo Valenzuela MD Present Treatments Results and Location in Medical Record [ x ] Ultrasound-guided paracentesis Paracentesis 11/21 by Mary Inman MD [ x ] Lactulose 20 gm p.o. 11/21-11/23 Medications [ x ] IV fluids 11/21-11/23 Medications CDS/Manufacturing Leader Signature: [email or web address] Phone #: Date/ Time: This is a permanent part of the Medical Record [facility]
== END 2019-11-24 10:35 | disposition home or self-care (01) | DRG 433 ==
LOC: ERS 22:40 → T4-A 11-22 00:42
PROVIDERS: ADMIT Internal Medicine; ATTEND Internal Medicine
PROC: 0W9G3ZX Drainage of Peritoneal Cavity, Percutaneous Approach, Diagnostic (ICD-10-PCS; principal; 2019-11-22)
DX: K70.40 Alcoholic hepatic failure without coma (principal); N17.9 Acute kidney failure, unspecified; K76.6 Portal hypertension; Z20.828 Contact with and (suspected) exposure to other viral communicable diseases; E86.0 Dehydration; I10 Essential (primary) hypertension; E11.9 Type 2 diabetes mellitus without complications; D64.9 Anemia, unspecified; R16.1 Splenomegaly, not elsewhere classified; K70.31 Alcoholic cirrhosis of liver with ascites; D69.59 Other secondary thrombocytopenia; Z88.8 Allergy status to other drugs, medicaments and biological substances; Z79.899 Other long term (current) drug therapy; Z88.5 Allergy status to narcotic agent; Z88.0 Allergy status to penicillin
CPT/HCPCS: 36415; 36416; 36430; 49083; 70450; 71045; 76705; 80053; 82140; 82553; 83605; 83690; 84484; 85025; 85060; 85610; 86850; 86900; 86901; 87040; 87070; 87205; 87635; 89051; 93005; 96365; 96375; J0696; J1200; J1650; J2765; J3490; P9016; P9047; U0003

== ENCOUNTER 2019-11-28 06:58 | Day surgery (SDC) | payer MEDICARE ==
[2019-11-27 13:48] VITALS: BMI 29.8
[2019-11-28 07:25] LABS: #Lymphocytes 0.2 thou/uL (1.20-3.40); #Monocytes 0.2 thou/uL (0.11-0.59); #Neutrophils 1.6 thou/uL (1.40-6.50); %Eosinophils 2.1 % (0.0-10.0); %Lymphocytes 11.2 % (21.0-51.0); %Monocytes 9.9 % (0.0-10.0); %Neutrophils 76.7 % (42.0-75.0); Hemoglobin 7.8 g/dL (14.0-18.0); Mean Corpuscular HGB CONC 30.6 g/dL (32.0-36.0); Mean Corpuscular Hemoglobin 26.7 pg (27.0-31.0); Mean Corpuscular Volume 87.4 fL (78.0-98.0); Mean Platelet Volume 7.8 fL (7.4-10.4); Platelet Count 39 thou/uL (130-400); RBC Distribution Width 19.3 % (11.5-14.5); Red Blood Cell (RBC) Count 2.91 mill/uL (4.70-6.10); White Blood Cell (WBC) Count 2.1 thou/uL (4.8-10.8)
[2019-11-28 07:27] LABS: INR-International Normal Ratio 1.8; PTT 40.9 sec (22.9-36.1)
[2019-11-28] MEDS ORDERED: Lidocaine 1% PF 5 ML VIAL ONE (07:36)
[2019-11-28] MEDS ORDERED: Sodium Bicarbonate 2.5 MEQ/5 ML VIAL ONE (07:36)
[2019-11-28] MEDS ORDERED: Albumin 25% 200 ML ONE (07:36)
[2019-11-28 08:17] LABS: Hypochromia MODERATE=16-30 cells (100X) (0-5/hpf); MDiff Complete? YES; Platelet Morphology Comment Appears Decreased; Polychromasia SLIGHT = 2-3 cells (100X) (0-2/hpf)
[2019-11-28 09:54] VITALS: BP 135/55; TEMP 97.9
--- NOTE | 2019-11-28 11:12 | ULT ---
Ultrasound-guided paracentesis: HISTORY: Cirrhosis and recurrent ascites. FINDINGS: Informed consent obtained prior to the procedure. Preprocedural imaging demonstrated intrap eritoneal free fluid. An area was marked in the Right lower quadrant , and then meticulously prepped and draped in normal s terile fashion and anesthetized with 1% buffered lidocaine. With direct sonographic guidance, a 19-gauge needle and 5 Serbian Yueh catheter were advanced into the abdomen. After the return of fluid, the catheter was advanced, and the needle was removed. Approximately 5.5 L of clear dark yellow-colored fluid was aspirated. The introducer sheath was remov ed, and hemostasis was achieved with direct pressure. A dry sterile dressing was placed. The patient tolerated the procedure well and without immediate complication. IMPRESSION: Technically successful ultrasound-guided paracentesis.
== END 2019-11-28 09:20 | disposition home or self-care (01) ==
LOC: ULT 06:58
PROVIDERS: ATTEND Nurse Practitioner Family
PROC: 0W9G3ZZ Drainage of Peritoneal Cavity, Percutaneous Approach (ICD-10-PCS; principal; 2019-11-28)
DX: K70.31 Alcoholic cirrhosis of liver with ascites (principal); K72.90 Hepatic failure, unspecified without coma; I10 Essential (primary) hypertension; E11.9 Type 2 diabetes mellitus without complications; E78.5 Hyperlipidemia, unspecified; N19 Unspecified kidney failure; Z79.84 Long term (current) use of oral hypoglycemic drugs; Z79.899 Other long term (current) drug therapy; Z88.6 Allergy status to analgesic agent
CPT/HCPCS: 49083; 85025; 85610; 85730; P9047

== ENCOUNTER 2019-12-02 12:43 | Day surgery (SDC) | payer MEDICARE ==
[2019-12-02] MEDS ORDERED: Lidocaine 1% PF 5 ML VIAL ONE (12:52)
[2019-12-02] MEDS ORDERED: Albumin 25% 200 ML ONE (12:52)
[2019-12-02] MEDS ORDERED: Sodium Bicarbonate 2.5 MEQ/5 ML VIAL ONE (12:52)
[2019-12-02 12:55] LABS: #Lymphocytes 0.2 thou/uL (1.20-3.40); #Monocytes 0.2 thou/uL (0.11-0.59); #Neutrophils 1.7 thou/uL (1.40-6.50); %Basophils 1.7 % (0.0-1.0); %Eosinophils 1.2 % (0.0-10.0); %Lymphocytes 8.1 % (21.0-51.0); %Monocytes 9.1 % (0.0-10.0); %Neutrophils 79.9 % (42.0-75.0); Hemoglobin 7.6 g/dL (14.0-18.0); Mean Corpuscular HGB CONC 30.8 g/dL (32.0-36.0); Mean Corpuscular Volume 87.9 fL (78.0-98.0); Mean Platelet Volume 11.9 fL (7.4-10.4); Platelet Count 40 thou/uL (130-400); RBC Distribution Width 19.3 % (11.5-14.5); Red Blood Cell (RBC) Count 2.82 mill/uL (4.70-6.10); White Blood Cell (WBC) Count 2.1 thou/uL (4.8-10.8)
[2019-12-02 13:04] LABS: INR-International Normal Ratio 1.8; PTT 42.8 sec (22.9-36.1); Prothrombin Time 20.5 sec (12.0-14.7)
[2019-12-02 13:11] LABS: ALT (SGPT) 20 U/L (8-55); AST (SGOT) 28 U/L (5-34); Albumin 3.6 g/dL (3.5-5.0); Alkaline Phosphatase 157 U/L (40-110); Anion Gap 12 mmol/L (10-20); BUN (Urea Nitrogen) 17 mg/dL (8.4-25.7); Bilirubin, Total 3.2 mg/dL (0.2-1.2); Calc. Creatinine Clearance 0 mL/min (70-130); Calcium 8.7 mg/dL (7.8-10.44); Carbon Dioxide 22 mmol/L (22-29); Chloride 108 mmol/L (98-107); Estimated GFR-MDRD 56; Globulin 2.7 g/dL (2.4-3.5); Glucose 206 mg/dL (70-105); Potassium 4.6 mmol/L (3.5-5.1); Protein, Total 6.3 g/dL (6.0-8.3); Sodium 137 mmol/L (136-145)
--- NOTE | 2019-12-02 14:44 | ULT ---
Sonographic guided paracentesis HISTORY: Symptomatic ascites. FINDINGS: After explaining the procedure and answering all questions, sonographic survey showed a lar ge amount of free fluid throughout the abdomen. Sterile technique, buffered local anesthesia, sonographic guidance, and a left lateral approach were used to carefully advance a 19-gauge Yueh needle and catheter into the free fluid. Catheter was left to drain a total volume of 6.6 L clear yellow liquid. Catheter was removed with min imal fluid remaining. Patient tolerated the procedure well and was dismissed in good condition. IMPRESSION : Technically successful sonographic guided paracentesis. 6.6 L.
[2019-12-02 15:03] VITALS: BP 114/49; TEMP 98.3
[2019-12-02 16:02] LABS: RBC Count-Automated (BF) 363 /cu.mm; WBC/Nucleated-Auto (BF) 397 uL
[2019-12-02 16:49] LABS: BF Color Yellow; Body Fluid Source Peritoneal Fluid; Clarity Hazy (Clear); Tube # EDTA
[2019-12-02 16:51] LABS: BF Segmented Neutrophils 18 %; Cell Count Non Hematic 53 %; Eosinophils 1 %; Lymphocytes 28 %
== END 2019-12-02 14:30 | disposition home or self-care (01) ==
LOC: ULT 12:43
PROVIDERS: ATTEND Nurse Practitioner Family
PROC: 0W9G3ZZ Drainage of Peritoneal Cavity, Percutaneous Approach (ICD-10-PCS; principal; 2019-12-02)
DX: K74.60 Unspecified cirrhosis of liver (principal); I85.10 Secondary esophageal varices without bleeding; R18.8 Other ascites; K72.90 Hepatic failure, unspecified without coma; I10 Essential (primary) hypertension; E11.9 Type 2 diabetes mellitus without complications; E78.5 Hyperlipidemia, unspecified; Z88.6 Allergy status to analgesic agent
CPT/HCPCS: 49083; 80053; 85025; 85610; 85730; 87070; 87205; 89051; P9047; 36415; 85060

== ENCOUNTER 2019-12-05 07:52 | Day surgery (SDC) | payer MEDICARE ==
[2019-12-05] MEDS ORDERED: Sodium Bicarbonate 2.5 MEQ/5 ML VIAL ONE (07:54)
[2019-12-05] MEDS ORDERED: Albumin 25% 200 ML ONE (07:54)
[2019-12-05] MEDS ORDERED: Lidocaine 1% PF 5 ML VIAL ONE (07:54)
[2019-12-05 08:16] LABS: Hemoglobin 8.4 g/dL (14.0-18.0); Mean Corpuscular Hemoglobin 26.4 pg (27.0-31.0); Mean Corpuscular Volume 87.9 fL (78.0-98.0); Platelet Count 57 thou/uL (130-400); RBC Distribution Width 19.7 % (11.5-14.5); Red Blood Cell (RBC) Count 3.17 mill/uL (4.70-6.10); White Blood Cell (WBC) Count 2.8 thou/uL (4.8-10.8)
[2019-12-05 08:20] LABS: INR-International Normal Ratio 1.8; Prothrombin Time 20.6 sec (12.0-14.7)
[2019-12-05 08:27] LABS: ALT (SGPT) 18 U/L (8-55); AST (SGOT) 30 U/L (5-34); Albumin 3.7 g/dL (3.5-5.0); Alkaline Phosphatase 145 U/L (40-110); Anion Gap 12 mmol/L (10-20); BUN (Urea Nitrogen) 18 mg/dL (8.4-25.7); Bilirubin, Total 3.7 mg/dL (0.2-1.2); Calc. Creatinine Clearance 95 mL/min (70-130); Calcium 8.9 mg/dL (7.8-10.44); Carbon Dioxide 22 mmol/L (22-29); Chloride 107 mmol/L (98-107); Estimated GFR-MDRD 62; Glucose 145 mg/dL (70-105); Potassium 4.9 mmol/L (3.5-5.1); Protein, Total 6.7 g/dL (6.0-8.3); Sodium 136 mmol/L (136-145)
[2019-12-05 08:37] LABS: Anisocytosis MODERATE=16-30 cells (100X) (0-5/hpf); Band 5 % (5-11); Eosinophils 2 % (0-10); Hypochromia MODERATE=16-30 cells (100X) (0-5/hpf); Lymphocytes 2 % (21-51); MDiff Complete? YES; Monocytes 4 % (0-10); Neutrophil 87 % (42-75); Platelet Morphology Comment Appears Decreased; Polychromasia MODERATE = 3-4 cells (100X) (0-2/hpf); Target Cells SLIGHT = 2-5 cells (100X) (0-1/hpf)
[2019-12-05 09:14] LABS: ALT (SGPT) 19 U/L (8-55); AST (SGOT) 29 U/L (5-34); Albumin 3.6 g/dL (3.5-5.0); Alkaline Phosphatase 140 U/L (40-110); Anion Gap 13 mmol/L (10-20); BUN (Urea Nitrogen) 19 mg/dL (8.4-25.7); Bilirubin, Total 3.6 mg/dL (0.2-1.2); Calc. Creatinine Clearance 98 mL/min (70-130); Calcium 8.6 mg/dL (7.8-10.44); Carbon Dioxide 21 mmol/L (22-29); Chloride 106 mmol/L (98-107); Estimated GFR-MDRD 65; Glucose 133 mg/dL (70-105); Iron 34 ug/dL (65-175); Iron Binding Capacity, Total 265 mcg/dL (261-462); Potassium 4.9 mmol/L (3.5-5.1); Protein, Total 6.6 g/dL (6.0-8.3); Sodium 135 mmol/L (136-145)
[2019-12-05 09:44] VITALS: BMI 32.5
[2019-12-05 09:46] VITALS: BP 126/55; TEMP 98.4
--- NOTE | 2019-12-05 10:44 | ULT ---
ULTRASOUND-GUIDED PARACENTESIS THERAPEUTIC: DATE: 12/05/2019 HISTORY: 59-year-old male with symptomatic ascites: Abdominal distention. Alcoholic cirrhosis. TECHNIQUE: Signed informed consent obtained. A four-quadrant survey of abdomen performed. Site selected for puncture: Left lower quadrant Overlying skin prepared and draped in usual sterile fashion. 25-gauge needle used to apply buffered lidocaine superficially and deeply. 5 Danish Yueh catheter with stylette advanced into the pocket of free intraperitoneal fluid. After drainage, the Yueh catheter was removed. Patient tolerated the procedure well. No complications. FINDINGS: Volume of ascites prior to procedure:large. Volume of ascites fluid in the drainage pocket after drainage:small Volume of ascites fluid drained:4800 mL Appearance of ascites fluid:nonhemorrhagic, straw-colored. IMPRESSION: Successful therapeutic paracentesis, with drainage of 4.8 L of ascites fluid.
== END 2019-12-05 09:20 | disposition home or self-care (01) ==
LOC: ULT 07:52
PROVIDERS: ATTEND Nurse Practitioner Family
PROC: 0W9G3ZZ Drainage of Peritoneal Cavity, Percutaneous Approach (ICD-10-PCS; principal; 2019-12-05)
PROC: BW40ZZZ Ultrasonography of Abdomen (ICD-10-PCS; 2019-12-05)
DX: K70.31 Alcoholic cirrhosis of liver with ascites (principal); K72.90 Hepatic failure, unspecified without coma; E11.9 Type 2 diabetes mellitus without complications; I10 Essential (primary) hypertension; E78.5 Hyperlipidemia, unspecified; Z79.84 Long term (current) use of oral hypoglycemic drugs; Z79.899 Other long term (current) drug therapy; Z88.6 Allergy status to analgesic agent
CPT/HCPCS: 49083; 80053 ×2; 82728; 82746; 83540; 83550; 85025; 85610; P9047

== ENCOUNTER 2019-12-07 07:12 | Emergency (ER) | payer MEDICARE ==
[2019-12-07 08:13] LABS: #Lymphocytes 0.2 thou/uL (1.20-3.40); #Monocytes 0.2 thou/uL (0.11-0.59); #Neutrophils 1.8 thou/uL (1.40-6.50); %Basophils 1.2 % (0.0-1.0); %Eosinophils 2.1 % (0.0-10.0); %Lymphocytes 6.6 % (21.0-51.0); %Monocytes 9.9 % (0.0-10.0); %Neutrophils 80.3 % (42.0-75.0); Hemoglobin 7.9 g/dL (14.0-18.0); Mean Corpuscular Hemoglobin 26.8 pg (27.0-31.0); Mean Corpuscular Volume 86.4 fL (78.0-98.0); Mean Platelet Volume 9.9 fL (7.4-10.4); Platelet Count 50 thou/uL (130-400); RBC Distribution Width 19.8 % (11.5-14.5); Red Blood Cell (RBC) Count 2.96 mill/uL (4.70-6.10); White Blood Cell (WBC) Count 2.2 thou/uL (4.8-10.8)
[2019-12-07 08:28] LABS: ALT (SGPT) 25 U/L (8-55); AST (SGOT) 48 U/L (5-34); Albumin 3.6 g/dL (3.5-5.0); Alkaline Phosphatase 160 U/L (40-110); Anion Gap 13 mmol/L (10-20); BUN (Urea Nitrogen) 20 mg/dL (8.4-25.7); Bilirubin, Total 5.4 mg/dL (0.2-1.2); Calc. Creatinine Clearance 0 mL/min (70-130); Calcium 8.2 mg/dL (7.8-10.44); Carbon Dioxide 19 mmol/L (22-29); Chloride 106 mmol/L (98-107); Estimated GFR-MDRD 59; Globulin 2.8 g/dL (2.4-3.5); Glucose 195 mg/dL (70-105); Lipase 28 U/L (8-78); Potassium 4.4 mmol/L (3.5-5.1); Protein, Total 6.4 g/dL (6.0-8.3); Sodium 134 mmol/L (136-145)
[2019-12-07] MEDS ORDERED: Ketorolac Tromethamine 30 MG/ML VIAL ONE (08:42)
--- NOTE | 2019-12-07 08:58 | CT ---
CT abdomen and pelvis with IV contrast HISTORY: Abdomen pain. COMPARISON: 03/13/2019. FINDINGS: No pleural fluid on today's exam. Hyperdense stones again demonstrated within the gallbladd er. No evidence of biliary obstruction. Cirrhotic appearance of the liver and findings of portal venous hypertension, including splenomegaly, free fluid, umbilical hernia with fluid, and mild splenic varices are stable. Small bilateral renal calcifications. No evidence of bowel obstruction or inflammation. IMPRESSION : Cirrhosis with findings of portal venous hypertension are stable. Interval resolution of right pleural fluid. Cholelithiasis. Bilateral renal calculi, nonobstructing. No new abnormalities are demonstrated.
[2019-12-07 09:11] LABS: Bacteria/HPF None Seen HPF (None Seen); Bilirubin 1+ (Negative); Blood, Urine 2+ (Negative); Clarity Clear (Clear); Glucose, Urine (Dipstick) Normal (Negative); Ketone, Urine Negative (Negative); Leukocyte Negative Leu/uL (Negative); Nitrite Negative (Negative); Protein, Urine (Dipstick) 20 mg/dL (Neg-Trace); Specific Gravity, Urine 1.026 (1.002-1.036); Squamous Epithelial 0-3 HPF (0-3); WBC/HPF 0-3 HPF (0-3); pH, Urine 5.5 (5.0-9.0)
[2019-12-07] MEDS ORDERED: Iopamidol-370 76% 500 ML 1 ML ONE (14:52)
== END 2019-12-07 09:38 | disposition home or self-care (01) ==
LOC: ERS 07:12
DX: R18.8 Other ascites (principal); R10.31 Right lower quadrant pain; E11.9 Type 2 diabetes mellitus without complications; F41.9 Anxiety disorder, unspecified; Z79.899 Other long term (current) drug therapy
CPT/HCPCS: 36415; 74177; 80053; 81003; 81015; 83690; 85025; 96374; J1885; Q9967

== ENCOUNTER 2019-12-09 08:16 | Day surgery (SDC) | payer MEDICARE ==
[2019-12-08 10:19] VITALS: BMI 29.8
[2019-12-09 08:33] LABS: #Lymphocytes 0.2 thou/uL (1.20-3.40); #Monocytes 0.2 thou/uL (0.11-0.59); #Neutrophils 2.5 thou/uL (1.40-6.50); %Basophils 1.1 % (0.0-1.0); %Eosinophils 1.6 % (0.0-10.0); %Monocytes 7.2 % (0.0-10.0); %Neutrophils 85.1 % (42.0-75.0); Hemoglobin 7.9 g/dL (14.0-18.0); Mean Corpuscular HGB CONC 30.4 g/dL (32.0-36.0); Mean Corpuscular Hemoglobin 26.7 pg (27.0-31.0); Mean Corpuscular Volume 87.8 fL (78.0-98.0); Platelet Count 58 thou/uL (130-400); Red Blood Cell (RBC) Count 2.95 mill/uL (4.70-6.10); White Blood Cell (WBC) Count 2.9 thou/uL (4.8-10.8)
[2019-12-09 08:38] LABS: INR-International Normal Ratio 1.6
[2019-12-09 08:52] LABS: ALT (SGPT) 22 U/L (8-55); AST (SGOT) 33 U/L (5-34); Albumin 3.6 g/dL (3.5-5.0); Alkaline Phosphatase 210 U/L (40-110); Anion Gap 12 mmol/L (10-20); BUN (Urea Nitrogen) 23 mg/dL (8.4-25.7); Bilirubin, Total 3.5 mg/dL (0.2-1.2); Calc. Creatinine Clearance 72 mL/min (70-130); Calcium 8.2 mg/dL (7.8-10.44); Carbon Dioxide 21 mmol/L (22-29); Chloride 106 mmol/L (98-107); Estimated GFR-MDRD 46; Glucose 163 mg/dL (70-105); Potassium 4.5 mmol/L (3.5-5.1); Protein, Total 6.6 g/dL (6.0-8.3); Sodium 134 mmol/L (136-145)
[2019-12-09] MEDS ORDERED: Sodium Bicarbonate 2.5 MEQ/5 ML VIAL ONE (08:52)
[2019-12-09] MEDS ORDERED: Lidocaine 1% PF 5 ML VIAL ONE (08:52)
[2019-12-09 09:20] LABS: Hypochromia MODERATE=16-30 cells (100X) (0-5/hpf); MDiff Complete? YES; Platelet Morphology Comment Appears Decreased; Polychromasia SLIGHT = 2-3 cells (100X) (0-2/hpf); Target Cells SLIGHT = 2-5 cells (100X) (0-1/hpf)
--- NOTE | 2019-12-09 10:31 | ULT ---
Exam: Ultrasound guided paracentesis HISTORY: Ascites COMPARISON: 12/05/2019 FINDINGS: Successful ultrasound-guided paracentesis. Total of 6.6 L of yellow color ascites was aspir ated. TECHNIQUE: Consent obtained reformatory ultrasound-guided paracentesis. Left lower quadrantwas deemed appropriate. Skin was prepped and draped in a sterile fashion. 1% lidocaine, buffered with sodium bicarbonate was used for local anesthesia. Under ultrasound guidance, a 5 Kosovan 7 cm Emergent Viewseh catheter i s advanced in the peritoneal space. A total of 6.6 L of yellow color ascites was aspirated. No immediate or postprocedural complications IMPRESSION: Successful ultrasound-guided paracentesis.
[2019-12-09 11:16] VITALS: BP 117/53; TEMP 98.4
[2019-12-09 12:12] LABS: BF Color Yellow; Body Fluid Source Ascites Body Fluid; Clarity Hazy (Clear); RBC Count-Automated (BF) 193 /cu.mm; Tube # EDTA; WBC/Nucleated-Auto (BF) 283 uL
[2019-12-09 12:50] LABS: BF Segmented Neutrophils 20 %; Cell Count Non Hematic 57 %; Lymphocytes 23 %
== END 2019-12-09 10:30 | disposition home or self-care (01) ==
LOC: ULT 08:16
PROVIDERS: ATTEND Nurse Practitioner Family
PROC: 0W9G3ZX Drainage of Peritoneal Cavity, Percutaneous Approach, Diagnostic (ICD-10-PCS; principal; 2019-12-09)
PROC: BW40ZZZ Ultrasonography of Abdomen (ICD-10-PCS; 2019-12-09)
DX: K70.31 Alcoholic cirrhosis of liver with ascites (principal); K72.90 Hepatic failure, unspecified without coma; E11.9 Type 2 diabetes mellitus without complications; I10 Essential (primary) hypertension; E78.5 Hyperlipidemia, unspecified; Z79.899 Other long term (current) drug therapy; Z88.6 Allergy status to analgesic agent
CPT/HCPCS: 36415; 49083; 80053; 85025; 85060; 85610; 87070; 87205; 89051

== ENCOUNTER 2019-12-12 07:46 | Day surgery (SDC) | payer MEDICARE ==
[~2019-12-12 07:46] MED LIST changes: +Lidocaine 1% PF 5 ML VIAL ONE
[2019-12-12 09:30] VITALS: BP 115/56; TEMP 98.4
--- NOTE | 2019-12-12 10:07 | ULT ---
Exam: Ultrasound guided paracentesis HISTORY: Ascites COMPARISON: 12/09/2019 FINDINGS: Successful ultrasound-guided paracentesis. Total of 5700 mL of yellow color ascites was asp irated. TECHNIQUE: Consent obtained reformatory ultrasound-guided paracentesis. Right lower quadrant was deem ed appropriate. Skin was prepped and draped in a sterile fashion. 1% lidocaine, buffered with sodium bicarbonate was used for local anesthesia. Under ultrasound guidance, a 5 Palestinian 7 cm Yueh cat heter is advanced in the peritoneal space. A total of 5700 mL of yellow color ascites was aspirated. No immediate or postprocedural complications IMPRESSION: Successful ultrasound-guided paracentesis.
== END 2019-12-12 09:10 | disposition home or self-care (01) ==
LOC: ULT 07:46
PROVIDERS: ATTEND Nurse Practitioner Family
PROC: 0W9G3ZZ Drainage of Peritoneal Cavity, Percutaneous Approach (ICD-10-PCS; principal; 2019-12-12)
PROC: BW40ZZZ Ultrasonography of Abdomen (ICD-10-PCS; 2019-12-12)
DX: K70.31 Alcoholic cirrhosis of liver with ascites (principal); E78.5 Hyperlipidemia, unspecified; K72.90 Hepatic failure, unspecified without coma; E11.9 Type 2 diabetes mellitus without complications; I10 Essential (primary) hypertension; Z79.84 Long term (current) use of oral hypoglycemic drugs; Z79.899 Other long term (current) drug therapy; Z88.6 Allergy status to analgesic agent
CPT/HCPCS: 49083; P9047

== ENCOUNTER 2019-12-16 12:37 | Day surgery (SDC) | payer MEDICARE ==
[2019-12-16] MEDS ORDERED: Albumin 25% 200 ML ONE (12:48)
[2019-12-16] MEDS ORDERED: Sodium Bicarbonate 2.5 MEQ/5 ML VIAL ONE (12:48)
[2019-12-16] MEDS ORDERED: Lidocaine 1% PF 5 ML VIAL ONE (12:48)
[2019-12-16 13:37] LABS: #Eosinphils 0.1 thou/uL (0.0-0.7); #Lymphocytes 0.3 thou/uL (1.20-3.40); #Monocytes 0.3 thou/uL (0.11-0.59); #Neutrophils 3.3 thou/uL (1.40-6.50); %Basophils 0.3 % (0.0-1.0); %Lymphocytes 8.4 % (21.0-51.0); %Monocytes 8.2 % (0.0-10.0); %Neutrophils 81.2 % (42.0-75.0); Hemoglobin 8.3 g/dL (14.0-18.0); Mean Corpuscular HGB CONC 30.5 g/dL (32.0-36.0); Mean Corpuscular Hemoglobin 26.6 pg (27.0-31.0); Mean Corpuscular Volume 87.2 fL (78.0-98.0); Mean Platelet Volume 9.5 fL (7.4-10.4); Platelet Count 94 thou/uL (130-400); RBC Distribution Width 20.7 % (11.5-14.5); Red Blood Cell (RBC) Count 3.13 mill/uL (4.70-6.10); White Blood Cell (WBC) Count 4.1 thou/uL (4.8-10.8)
[2019-12-16 13:41] LABS: INR-International Normal Ratio 1.6; Prothrombin Time 18.5 sec (12.0-14.7)
[2019-12-16 13:47] LABS: Follow-up Coag Comp? YES; Follow-up Hematology Comp? YES; Follow-up Result - Coag REPORT FAXED; Follow-up Result - Hematology REPORT FAXED
[2019-12-16 13:58] LABS: ALT (SGPT) 25 U/L (8-55); AST (SGOT) 35 U/L (5-34); Alkaline Phosphatase 139 U/L (40-110); Anion Gap 13 mmol/L (10-20); BUN (Urea Nitrogen) 25 mg/dL (8.4-25.7); Bilirubin, Total 4.1 mg/dL (0.2-1.2); Calc. Creatinine Clearance 0 mL/min (70-130); Calcium 8.9 mg/dL (7.8-10.44); Carbon Dioxide 18 mmol/L (22-29); Chloride 108 mmol/L (98-107); Estimated GFR-MDRD 54; Globulin 3.2 g/dL (2.4-3.5); Glucose 91 mg/dL (70-105); Potassium 4.6 mmol/L (3.5-5.1); Protein, Total 7.2 g/dL (6.0-8.3); Sodium 134 mmol/L (136-145)
--- NOTE | 2019-12-16 14:03 | ULT ---
Exam: Ultrasound guided paracentesis HISTORY: Ascites COMPARISON: Prior exam dated December 12, 2019 FINDINGS: Successful ultrasound-guided paracentesis. Total of 7 L of normal appearingascites was aspi rated. TECHNIQUE: Consent obtained reformatory ultrasound-guided paracentesis. Right lower quadrant was deem ed appropriate. Skin was prepped and draped in a sterile fashion. 1% lidocaine, buffered with sodium bicarbonate was used for local anesthesia. Under ultrasound guidance, a 5 Nauruan 7 cm Yueh cat heter is advanced in the peritoneal space. A total of 7 L of normal appearingascites was aspirated. No immediate or postprocedural complications IMPRESSION: Successful ultrasound-guided paracentesis.
[2019-12-16 14:31] LABS: Follow-up Chemistry Comp? YES; Follow-up Result - Chemistry REPORT FAXED
[2019-12-16 14:40] VITALS: BP 130/57; TEMP 98.3
[2019-12-16 14:59] LABS: RBC Count-Automated (BF) 227 /cu.mm; WBC/Nucleated-Auto (BF) 306 uL
[2019-12-16 15:03] LABS: BF Color Yellow; Body Fluid Source Ascites Body Fluid; Clarity Hazy (Clear); Tube # EDTA
[2019-12-16 15:32] LABS: BF Segmented Neutrophils 15 %; Cell Count Non Hematic 67 %; Lymphocytes 18 %
[2019-12-16 15:38] LABS: Follow-up Hematology Comp? YES; Follow-up Result - Hematology REPORT FAXED
== END 2019-12-16 14:05 | disposition home or self-care (01) ==
LOC: ULT 12:37
PROVIDERS: ATTEND Nurse Practitioner Family
PROC: 0W9G3ZX Drainage of Peritoneal Cavity, Percutaneous Approach, Diagnostic (ICD-10-PCS; principal; 2019-12-16)
PROC: BW40ZZZ Ultrasonography of Abdomen (ICD-10-PCS; 2019-12-16)
DX: K70.31 Alcoholic cirrhosis of liver with ascites (principal); K72.90 Hepatic failure, unspecified without coma; E11.9 Type 2 diabetes mellitus without complications; I10 Essential (primary) hypertension; E78.5 Hyperlipidemia, unspecified; Z79.84 Long term (current) use of oral hypoglycemic drugs; Z79.899 Other long term (current) drug therapy; Z88.6 Allergy status to analgesic agent
CPT/HCPCS: 49083; 80053; 85025; 85610; 87070; 87205; 89051; P9047; 85060

== ENCOUNTER → 2019-12-19 | Day surgery (SDC) | payer MEDICARE ==
[2019-12-18 07:57] VITALS: BMI 31.1
[~2019-12-19] MED LIST changes: +Iopamidol 370 76% 100 ML VIAL ONE; +Iopamidol 370 76% 50 ML VIAL FS ONE
--- NOTE | 2019-12-19 09:29 | ULT ---
Exam: Ultrasound guided paracentesis HISTORY: Ascites COMPARISON: 12/16/2019 FINDINGS: Successful ultrasound-guided paracentesis. Total of 5 L of yellow color ascites was aspirat ed. TECHNIQUE: Consent obtained reformatory ultrasound-guided paracentesis. Left lower quadrantwas deemed appropriate. Skin was prepped and draped in a sterile fashion. 1% lidocaine, buffered with sodium bicarbonate was used for local anesthesia. Under ultrasound guidance, a 5 Wolof 7 cm Sysorexeh catheter i s advanced in the peritoneal space. A total of 5 L of yellow color ascites was aspirated. No immediate or postprocedural complications IMPRESSION: Successful ultrasound-guided paracentesis.
--- NOTE | 2019-12-19 09:31 | CT ---
CT OF THE ABDOMEN AND PELVIS WITH IV CONTRAST INDICATION: History of abdominal pain following paracentesis; right upper quadrant abdominal pain COMPARISON: Prior CT abdomen pelvis dated December 07, 2019 FINDINGS: ABDOMEN: Lung bases: Clear Liver: Cirrhotic morphology with multiple small suspected regenerative nodules. Gallbladder: Cholelithiasis Pancreas: Normal. Adrenal glands: Normal. Spleen: Remains enlarged measuring 17 cm. Kidneys and ureters: Stable nonobstructing renal calculus within the lower pole of the left kidney. N o hydronephrosis. Vasculature: There are mild vascular calcifications seen involving the visualized vasculature. Lymph nodes:No lymphadenopathy. Free fluid in abdomen:Mild free fluid PELVIS: Small and large bowel: There is a mild amount retained stool within colon. Appendix:Normal Bladder: Normal. Rectal and perirectal soft tissues:Normal. Reproductive structures: Normal. Free fluid in pelvis: Small amount of free fluid Lymphadenopathy pelvis: No lymphadenopathy is evident. Osseous structures: No acute osseous abnormality. No destructive osteolytic or osteoblastic lesion i s identified. There is scattered degenerative and osteoarthritic changes. Soft tissues:Fluid containing umbilical hernia is unchanged. IMPRESSION: 1. No acute abnormality. 2. Moderate amount of retained stool within colon. 3. Stable left nephrolithiasis and cholelithiasis. 4. Stable fluid-containing umbilicus hernia. 5. Stable changes of cirrhosis with portal hypertension
== END ==
LOC: ULT 06:59
PROVIDERS: ATTEND Nurse Practitioner Family
PROC: 0W9G3ZZ Drainage of Peritoneal Cavity, Percutaneous Approach (ICD-10-PCS; principal; 2019-12-19)
DX: K74.60 Unspecified cirrhosis of liver (principal); I85.10 Secondary esophageal varices without bleeding; R18.8 Other ascites; K80.20 Calculus of gallbladder without cholecystitis without obstruction; N20.0 Calculus of kidney; I10 Essential (primary) hypertension; E11.9 Type 2 diabetes mellitus without complications; E78.5 Hyperlipidemia, unspecified; N28.9 Disorder of kidney and ureter, unspecified; Z88.6 Allergy status to analgesic agent
CPT/HCPCS: 49083; 74177; P9047; Q9967

== ENCOUNTER 2019-12-26 07:32 | Day surgery (SDC) | payer MEDICARE, OTHER ==
[2019-12-26] MEDS ORDERED: Sodium Bicarbonate 2.5 MEQ/5 ML VIAL ONE (07:35)
[2019-12-26] MEDS ORDERED: Lidocaine 1% PF 5 ML VIAL ONE (07:35)
[2019-12-26] MEDS ORDERED: Albumin 25% 200 ML ONE (07:36)
--- NOTE | 2019-12-26 09:19 | ULT ---
Ultrasound-guided paracentesis: HISTORY: Cirrhosis and recurrent ascites. FINDINGS: Informed consent obtained prior to the procedure. Preprocedural imaging demonstrated intrap eritoneal free fluid. An area was marked in the left lower quadrant, and then meticulously prepped and draped in normal romi rile fashion and anesthetized with 1% buffered lidocaine. With direct sonographic guidance, a 19-gauge needle and 5 Kyrgyz Yueh catheter were advanced into the abdomen. After the return of fluid, the catheter was advanced, and the needle was removed. Approximately 5.8 L of clear straw-colored fluid was aspirated. The introducer sheath was removed, a nd hemostasis was achieved with direct pressure. A dry sterile dressing was placed. The patient tolerated the procedure well and without immediate complication. Albumin was administered venous duri ng the examination as requested. IMPRESSION: Technically successful ultrasound-guided paracentesis.
[2019-12-26 10:36] VITALS: BP 125/61; TEMP 98.2
== END 2019-12-26 09:30 | disposition home or self-care (01) ==
LOC: ULT 07:32
PROVIDERS: ATTEND Nurse Practitioner Family
PROC: 0W9G3ZZ Drainage of Peritoneal Cavity, Percutaneous Approach (ICD-10-PCS; principal; 2019-12-26)
PROC: BW40ZZZ Ultrasonography of Abdomen (ICD-10-PCS; 2019-12-26)
DX: K70.31 Alcoholic cirrhosis of liver with ascites (principal); K72.90 Hepatic failure, unspecified without coma; E78.5 Hyperlipidemia, unspecified; E11.9 Type 2 diabetes mellitus without complications; I10 Essential (primary) hypertension; Z88.6 Allergy status to analgesic agent
CPT/HCPCS: 49083; P9047

== ENCOUNTER → 2019-12-31 | Day surgery (SDC) | payer MEDICARE, OTHER ==
[2019-12-30 11:00] VITALS: BMI 29.8
[~2019-12-31] MED LIST changes: +FLU VACC QS2020-21(6MOS UP)/PF 60 MCG/0.5 ML SYRINGE IM ONE; -Iopamidol 370 76% 100 ML VIAL ONE; -Iopamidol 370 76% 50 ML VIAL FS ONE; +Sodium Chloride 0.9% 10 ML ONE
[2019-12-31 08:51] LABS: #Lymphocytes 0.4 thou/uL (1.20-3.40); #Monocytes 0.2 thou/uL (0.11-0.59); #Neutrophils 2.3 thou/uL (1.40-6.50); %Basophils 0.4 % (0.0-1.0); %Eosinophils 1.5 % (0.0-10.0); %Monocytes 6.8 % (0.0-10.0); %Neutrophils 79.3 % (42.0-75.0); Hemoglobin 8.1 g/dL (14.0-18.0); INR-International Normal Ratio 1.6; Mean Corpuscular Hemoglobin 27.3 pg (27.0-31.0); Mean Corpuscular Volume 87.9 fL (78.0-98.0); Mean Platelet Volume 8.1 fL (7.4-10.4); Platelet Count 64 thou/uL (130-400); Prothrombin Time 19.4 sec (12.0-14.7); RBC Distribution Width 20.5 % (11.5-14.5); Red Blood Cell (RBC) Count 2.97 mill/uL (4.70-6.10); White Blood Cell (WBC) Count 2.9 thou/uL (4.8-10.8)
[2019-12-31 09:03] LABS: ALT (SGPT) 22 U/L (8-55); AST (SGOT) 30 U/L (5-34); Albumin 3.7 g/dL (3.5-5.0); Alkaline Phosphatase 172 U/L (40-110); Anion Gap 14 mmol/L (10-20); BUN (Urea Nitrogen) 18 mg/dL (8.4-25.7); Bilirubin, Total 3.7 mg/dL (0.2-1.2); Calc. Creatinine Clearance 92 mL/min (70-130); Calcium 8.4 mg/dL (7.8-10.44); Carbon Dioxide 18 mmol/L (22-29); Chloride 107 mmol/L (98-107); Estimated GFR-MDRD 60; Globulin 3.1 g/dL (2.4-3.5); Glucose 191 mg/dL (70-105); Potassium 4.5 mmol/L (3.5-5.1); Protein, Total 6.8 g/dL (6.0-8.3); Sodium 134 mmol/L (136-145)
[2019-12-31 09:13] LABS: Follow-up Chemistry Comp? YES; Follow-up Result - Chemistry REPORT FAXED
[2019-12-31 09:16] LABS: Anisocytosis MODERATE=16-30 cells (100X) (0-5/hpf); Bite Cells SLIGHT = 2-5 cells (100X) (0-1/hpf); Hypochromia MODERATE=16-30 cells (100X) (0-5/hpf); MDiff Complete? YES; Platelet Morphology Comment Appears Decreased; Polychromasia SLIGHT = 2-3 cells (100X) (0-2/hpf)
[2019-12-31 10:16] VITALS: BP 126/62; TEMP 98.1
[2019-12-31 11:57] LABS: RBC Count-Automated (BF) 77 /cu.mm; WBC/Nucleated-Auto (BF) 153 uL
[2019-12-31 11:58] LABS: BF Color Yellow; Body Fluid Source Ascites Body Fluid; Clarity Hazy (Clear); Tube # EDTA
[2019-12-31 12:00] LABS: BF Segmented Neutrophils 18 %; Cell Count Non Hematic 70 %; Lymphocytes 12 %
[2019-12-31 12:26] LABS: Follow-up Hematology Comp? YES; Follow-up Result - Hematology REPORT FAXED
--- NOTE | 2019-12-31 15:30 | ULT ---
Ultrasound-guided paracentesis: HISTORY: Cirrhosis and recurrent ascites. FINDINGS: Informed consent obtained prior to the procedure. Preprocedural imaging demonstrated intrap eritoneal free fluid. An area was marked in the Right lower quadrant , and then meticulously prepped and draped in normal s terile fashion and anesthetized with 1% buffered lidocaine. With direct sonographic guidance, a 19-gauge needle and 5 [place] Islander Yueh catheter were advanced into the abdomen. After the return of fluid, the catheter was advanced, and the needle was removed. Approximately 7 L of clear straw-colored fluid was aspirated. The introducer sheath was removed, and hemostasis was achieved with direct pressure. A dry sterile dressing was placed. The patient tolerated the procedure well and without immediate complication. Albumin was administered intravenous ly during the exam is requested. IMPRESSION: Technically successful ultrasound-guided paracentesis.
== END ==
LOC: ULT 07:43
PROVIDERS: ATTEND Nurse Practitioner Family
PROC: 0W9G3ZZ Drainage of Peritoneal Cavity, Percutaneous Approach (ICD-10-PCS; principal; 2019-12-31)
DX: K74.60 Unspecified cirrhosis of liver (principal); I85.10 Secondary esophageal varices without bleeding; K72.90 Hepatic failure, unspecified without coma; R18.8 Other ascites; I10 Essential (primary) hypertension; E11.9 Type 2 diabetes mellitus without complications; E78.5 Hyperlipidemia, unspecified; N28.9 Disorder of kidney and ureter, unspecified; Z88.6 Allergy status to analgesic agent
CPT/HCPCS: 49083; 80053; 85025; 85610; 87070; 87205; 89051; P9047; 85060

== ENCOUNTER 2020-01-13 12:40 | Day surgery (SDC) | payer MEDICARE ==
[2020-01-13] MEDS ORDERED: Albumin 25% 200 ML ONE (12:56)
[2020-01-13] MEDS ORDERED: Sodium Bicarbonate 2.5 MEQ/5 ML VIAL ONE (12:56)
[2020-01-13] MEDS ORDERED: Lidocaine 1% PF 5 ML VIAL ONE (12:56)
[2020-01-13 13:50] LABS: INR-International Normal Ratio 1.7; Prothrombin Time 20.1 sec (12.0-14.7)
[2020-01-13 14:04] LABS: #Eosinphils 0.1 thou/uL (0.0-0.7); #Lymphocytes 0.1 thou/uL (1.20-3.40); #Monocytes 0.3 thou/uL (0.11-0.59); #Neutrophils 3.4 thou/uL (1.40-6.50); %Basophils 0.5 % (0.0-1.0); %Eosinophils 2.5 % (0.0-10.0); %Monocytes 7.9 % (0.0-10.0); %Neutrophils 86.1 % (42.0-75.0); Anisocytosis MODERATE=16-30 cells (100X) (0-5/hpf); Hemoglobin 9.5 g/dL (14.0-18.0); Hypochromia SLIGHT = 6-15 cells (100X) (0-5/hpf); MDiff Complete? YES; Mean Corpuscular HGB CONC 30.8 g/dL (32.0-36.0); Mean Corpuscular Hemoglobin 29.5 pg (27.0-31.0); Mean Corpuscular Volume 95.5 fL (78.0-98.0); Mean Platelet Volume 8.5 fL (7.4-10.4); Platelet Count 60 thou/uL (130-400); Platelet Morphology Comment Appears Decreased; Polychromasia SLIGHT = 2-3 cells (100X) (0-2/hpf); Red Blood Cell (RBC) Count 3.23 mill/uL (4.70-6.10); Schistocytes SLIGHT = 2-5 cells (100X) (0-1/hpf); Target Cells SLIGHT = 2-5 cells (100X) (0-1/hpf); Tear Drops SLIGHT = 2-5 cells (100X) (0-1/hpf); White Blood Cell (WBC) Count 3.9 thou/uL (4.8-10.8)
[2020-01-13 14:12] LABS: ALT (SGPT) 22 U/L (8-55); AST (SGOT) 34 U/L (5-34); Albumin 2.9 g/dL (3.5-5.0); Alkaline Phosphatase 150 U/L (40-110); Anion Gap 9 mmol/L (10-20); BUN (Urea Nitrogen) 20 mg/dL (8.4-25.7); Bilirubin, Total 3.1 mg/dL (0.2-1.2); Calc. Creatinine Clearance 0 mL/min (70-130); Calcium 7.8 mg/dL (7.8-10.44); Carbon Dioxide 22 mmol/L (22-29); Chloride 107 mmol/L (98-107); Estimated GFR-MDRD 69; Globulin 3.1 g/dL (2.4-3.5); Glucose 212 mg/dL (70-105); Potassium 3.9 mmol/L (3.5-5.1); Sodium 134 mmol/L (136-145)
[2020-01-13 14:17] LABS: Follow-up Hematology Comp? YES; Follow-up Result - Hematology REPORT FAXED
[2020-01-13 14:29] VITALS: BP 116/61; TEMP 96.8
--- NOTE | 2020-01-13 14:40 | ULT ---
Paracentesis sonographic guided HISTORY: Recurrent symptomatic ascites. FINDINGS: After explaining the procedure and answering all questions, sonographic survey showed a lar ge amount of free fluid throughout the abdomen. Sterile technique, buffered local anesthesia, sonographic guidance, and a right lateral approach were used to carefully advance a 19-gauge Yueh needle and catheter into the free fluid. Catheter was left to drain a total volume of 7.0 L clear yellow liquid. Patient is limited to 7 L. Catheter was removed with large amount of fluid remaining. Patient tolerated the procedure well and w as dismissed in good condition. IMPRESSION : Technically successful sonographic guided paracentesis. 7.0 L.
[2020-01-13 15:21] LABS: RBC Count-Automated (BF) 44 /cu.mm; WBC/Nucleated-Auto (BF) 197 uL
[2020-01-13 15:38] LABS: BF Color Yellow; Body Fluid Source Ascites Body Fluid; Clarity Hazy (Clear); Tube # EDTA
[2020-01-13 15:40] LABS: Follow-up Chemistry Comp? YES; Follow-up Result - Chemistry REPORT FAXED
[2020-01-13 15:44] LABS: BF Segmented Neutrophils 22 %; Cell Count Non Hematic 64 %; Lymphocytes 14 %
== END 2020-01-13 14:10 | disposition home or self-care (01) ==
LOC: ULT 12:40
PROVIDERS: ATTEND Nurse Practitioner Family
PROC: 0W9G3ZX Drainage of Peritoneal Cavity, Percutaneous Approach, Diagnostic (ICD-10-PCS; principal; 2020-01-13)
PROC: BW40ZZZ Ultrasonography of Abdomen (ICD-10-PCS; 2020-01-13)
DX: K70.31 Alcoholic cirrhosis of liver with ascites (principal); K72.90 Hepatic failure, unspecified without coma; E11.9 Type 2 diabetes mellitus without complications; I10 Essential (primary) hypertension; E78.5 Hyperlipidemia, unspecified; Z79.899 Other long term (current) drug therapy; Z88.6 Allergy status to analgesic agent
CPT/HCPCS: 49083; 80053; 85025; 85610; 87070; 87205; 89051; P9047; 85060

== ENCOUNTER 2020-01-16 07:35 | Day surgery (SDC) | payer MEDICARE ==
[~2020-01-16 07:35] MED LIST changes: -Albumin 25% 200 ML ONE; -Lidocaine 1% PF 5 ML VIAL ONE; -Sodium Bicarbonate 2.5 MEQ/5 ML VIAL ONE; -Sodium Chloride 0.9% 10 ML ONE
[2020-01-16] MEDS ORDERED: Albumin 25% 200 ML ONE (07:38)
[2020-01-16] MEDS ORDERED: Sodium Bicarbonate 2.5 MEQ/5 ML VIAL ONE (07:38)
[2020-01-16] MEDS ORDERED: Lidocaine 1% PF 5 ML VIAL ONE (07:38)
[2020-01-16 08:56] VITALS: BMI 31.1
[2020-01-16 08:57] VITALS: BP 116/59; TEMP 98.1
--- NOTE | 2020-01-16 10:29 | ULT ---
Paracentesis sonographic guided HISTORY: Symptomatic ascites. FINDINGS: After explaining the procedure and answering all questions, sonographic survey shows a larg e free fluid throughout the abdomen. Sterile technique, buffered local anesthesia, sonographic guidance, and a right lateral approach were used to carefully advance a 19-gauge Yueh needle and catheter into the free fluid. Catheter was left to drain a total volume of 7.0 L slightly cloudy yellow liquid. Patient is limited to 7 L. Catheter was removed with moderate amount of free fluid remaining. Patient tolerated the procedure we ll and was dismissed in good condition. IMPRESSION : Technically successful sonographic guided paracentesis. 7.0 L. Moderate residual.
== END 2020-01-16 08:40 | disposition home or self-care (01) ==
LOC: ULT 07:35
PROVIDERS: ATTEND Nurse Practitioner Family
PROC: 0W9G3ZZ Drainage of Peritoneal Cavity, Percutaneous Approach (ICD-10-PCS; principal; 2020-01-16)
DX: K74.60 Unspecified cirrhosis of liver (principal); I85.10 Secondary esophageal varices without bleeding; R18.8 Other ascites; I10 Essential (primary) hypertension; E11.9 Type 2 diabetes mellitus without complications; N19 Unspecified kidney failure; Z79.899 Other long term (current) drug therapy; Z88.6 Allergy status to analgesic agent
CPT/HCPCS: 49083; P9047

== ENCOUNTER 2020-01-17 09:28 | Inpatient (IN) | payer MEDICARE, OTHER ==
[2020-01-17] MEDS ORDERED: Cefepime 2 GM VIAL ONE (10:10)
[2020-01-17] MEDS ORDERED: CEFAZOLIN 1 GM VIAL ONE (10:12)
[2020-01-17 10:19] LABS: Hemoglobin 10.9 g/dL (14.0-18.0); Mean Corpuscular HGB CONC 31.6 g/dL (32.0-36.0); Mean Corpuscular Hemoglobin 30.2 pg (27.0-31.0); Mean Corpuscular Volume 95.5 fL (78.0-98.0); Mean Platelet Volume 7.7 fL (7.4-10.4); Platelet Count 60 thou/uL (130-400); RBC Distribution Width 23.6 % (11.5-14.5); Red Blood Cell (RBC) Count 3.61 mill/uL (4.70-6.10); White Blood Cell (WBC) Count 3.2 thou/uL (4.8-10.8)
[2020-01-17 10:20] LABS: #Basophils 0.1 thou/uL (0.0-0.2); #Eosinphils 0.1 thou/uL (0.0-0.7); #Lymphocytes 0.1 thou/uL (1.20-3.40); #Monocytes 0.3 thou/uL (0.11-0.59); #Neutrophils 2.7 thou/uL (1.40-6.50); %Basophils 1.6 % (0.0-1.0); %Eosinophils 1.7 % (0.0-10.0); %Lymphocytes 4.4 % (21.0-51.0); %Neutrophils 84.3 % (42.0-75.0)
[2020-01-17 10:33] LABS: ALT (SGPT) 18 U/L (8-55); AST (SGOT) 29 U/L (5-34); Albumin 3.6 g/dL (3.5-5.0); Alkaline Phosphatase 193 U/L (40-110); Anion Gap 15 mmol/L (10-20); BUN (Urea Nitrogen) 22 mg/dL (8.4-25.7); Bilirubin, Total 3.6 mg/dL (0.2-1.2); Calc. Creatinine Clearance 0 mL/min (70-130); Calcium 8.3 mg/dL (7.8-10.44); Carbon Dioxide 24 mmol/L (22-29); Chloride 107 mmol/L (98-107); Estimated GFR-MDRD 52; Globulin 3.2 g/dL (2.4-3.5); Glucose 143 mg/dL (70-105); Potassium 3.9 mmol/L (3.5-5.1); Protein, Total 6.8 g/dL (6.0-8.3); Sodium 142 mmol/L (136-145)
--- NOTE | 2020-01-17 11:20 | PDOC.HHP ---
Hospitalist HPI - History of Present Illness Concerns for SBP History of Present Illness: This is a 59-year-old male patient with a history of diabetes mellitus type 2, liver cirrhosis, who was was called from his physician credentialing specialist office is on 20 him on account of gram-positive rods noted in his ascitic fluid on 01/13/2020. He has a history of alcoholic liver cirrhosis for which he is decompensated and on Sunday schedule of peritoneal dialysis here. He however is on the transplant plan in [facility] plan transplant surgeon and hepatology today. Apparently his results are sent to [place] in the ER related to him if there are any concerns. He denies any fever, ongoing abdominal pain. He however notes having had abdominal pain in the right iliac fossa in the past month for which she was investigated and sent under with ultrasound scan and MRI which revealed no pathology Of note he had an abdominal CT scan on 12/19/2019 which noted no acute abnormality, stable left nephrolithiasis and cholelithiasis. Hospitalist ROS - Review of Systems Constitutional: denies: fever, chills, sweats Cardiovascular: denies: chest pain, palpitations, orthopnea, paroxysmal noc. dyspnea Gastrointestinal: denies: nausea, vomiting, abdominal pain, diarrhea Genitourinary: denies: dysuria, frequency, incontinence, hematuria Neurological: denies: weakness, numbness, incoordination - Medication Medications: spironolactone 100 mg daily Furosemide 40 mg daily Allergies: Acetaminophen Hospitalist History - Past Medical History Endocrine: reports: Diabetes Other Medical History: Liver cirrhosis - Past Surgical History Other Surgical History: Hernia repair - Family History Family History: reports: diabetes mellitus - Social History Smoking Status: Never smoker Living Situation: With Family - Exam General Appearance: awake alert Eye: PERRL, anicteric sclera Neck: supple, symmetric, no JVD Heart: RRR, no murmur, no gallops, no rubs Respiratory: no wheezes, no rales, no ronchi, normal chest expansion Gastrointestinal - other findings: Distended, subumbilical incisional hernia, no rebound tenderness or guardin Extremities: no cyanosis, no clubbing, no edema Neurological: cranial nerve grossly intact, no weakness Psychiatric: A&O x 3 Hospitalist Results - Labs Result Diagrams: 01/17/20 10:02 01/17/20 10:02 Lab results: WBC 3.2 thou/uL (4.8-10.8) L 01/17/20 10:02 Hgb 10.9 g/dL (14.0-18.0) L 01/17/20 10:02 Hct 34.5 % (42.0-52.0) L 01/17/20 10:02 MCV 95.5 fL (78.0-98.0) 01/17/20 10:02 Plt Count 60 thou/uL (130-400) L 01/17/20 10:02 Neutrophils % 84.3 % (42.0-75.0) H 01/17/20 10:02 Sodium 142 mmol/L (136-145) 01/17/20 10:02 Potassium 3.9 mmol/L (3.5-5.1) 01/17/20 10:02 Chloride 107 mmol/L (98-107) 01/17/20 10:02 Carbon Dioxide 24 mmol/L (22-29) 01/17/20 10:02 BUN 22 mg/dL (8.4-25.7) 01/17/20 10:02 Creatinine 1.40 mg/dL (0.7-1.3) H 01/17/20 10:02 Glucose 143 mg/dL (70-105) H 01/17/20 10:02 Lactic Acid 1.4 mmol/L (0.5-2.2) 01/17/20 10:02 Calcium 8.3 mg/dL (7.8-10.44) 01/17/20 10:02 Total Bilirubin 3.6 mg/dL (0.2-1.2) H 01/17/20 10:02 AST 29 U/L (5-34) 01/17/20 10:02 ALT 18 U/L (8-55) 01/17/20 10:02 Alkaline Phosphatase 193 U/L (40-110) H 01/17/20 10:02 Serum Total Protein 6.8 g/dL (6.0-8.3) 01/17/20 10:02 Albumin 3.6 g/dL (3.5-5.0) 01/17/20 10:02 Hospitalist H&P A/P - Plan Plan: This is a 59-year-old male patient with history of diabetes and alcoholic liver cirrhosis with ascites asked to come to the ED on account of gram-positive rods growing in his ascitic fluid after paracentesis 4 days ago. Possible SBP Received ceftriaxone and levofloxacin in ED. Currently asymptomatic Given lack of symptoms and this results are 24 days ago We will appreciate GI input and to continue on antibiotic therapy We will monitor for now. Diabetes mellitus Correctional insulin for now Continue monitoring. Decompensated liver cirrhosis If ongoing ascites We will continue home diuretics Monitor electrolytes. CKD Monitor BMP VT prophylaxisSCDs CODE STATUSfull code
[2020-01-17] MEDS ORDERED: Spironolactone 100 MG TAB PO SCH (12:30)
[2020-01-17] MEDS ORDERED: Furosemide 40 MG TAB PO SCH (12:30)
[2020-01-17] MEDS ORDERED: Ondansetron PF 4 MG/2 ML Vial IVP PRN (12:38)
[2020-01-17] MEDS ORDERED: Ondansetron ODT 4 MG TAB PO PRN (12:38)
[2020-01-17] MEDS: traMADol HCl 50 MG TAB PO PRN ×2 (15:19→20:08)
[2020-01-17 15:43] LABS: WBC/Nucleated-Auto (BF) 334 uL
[2020-01-17 16:07] LABS: BF Color Yellow; Body Fluid Source Ascites Body Fluid; Clarity Hazy (Clear); RBC Count-Automated (BF) 11 /cu.mm; Tube # EDTA
[2020-01-17 16:09] LABS: BF Segmented Neutrophils 20 %; Eosinophils 1 %
[2020-01-17 16:10] LABS: Cell Count Non Hematic 40 %; Lymphocytes 39 %
[2020-01-17 16:28] LABS: SARS-CoV-2 MS2 Positive; SARS-CoV-2 N Gene Negative; SARS-CoV-2 S Gene Negative; SARS-CoV-2 by NAA Not Detected (NotDetected); SARS-CoV-2 orf1ab Negative
[2020-01-17 16:42] VITALS: BMI 32.6
--- NOTE | 2020-01-17 18:22 | CON ---
DATE OF CONSULTATION: 01/17/2020 CHIEF COMPLAINT: Culture positive and ascitic fluid. HISTORY OF PRESENT ILLNESS: Mr. 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 He has had refractory ascites and receives paracentesis twice per week. He had paracentesis on January 12 that grew gram-positive epifanio in the culture. His fluid neutrophil count was not elevated at that time. He had another paracentesis yesterday, routine large volume paracentesis. However, fluid studies were not sent with this procedure. His ascitic fluid culture grew out gram-positive rods and he was advised by his manager auto to come in for further treatment. He has had no abdominal pain, no nausea or vomiting or diarrhea or constipation or blood in the stool. He has a hernia around his umbilicus, which is only tender if he pushes on it. PAST MEDICAL HISTORY: 1. End-stage liver disease secondary to past alcohol. His last drink was 5 years ago. 2. History of hepatic encephalopathy. 3. Refractory ascites. 4. Diabetes. PAST SURGICAL HISTORY: 1. Hernia repair, however, it has since recurred around his umbilicus. 2. He had his wisdom teeth removed a week ago. FAMILY HISTORY: Negative for GI malignancy. SOCIAL HISTORY: No alcohol in the last 5 years. No smoking or drugs. ALLERGIES: ACETAMINOPHEN MAKES HIM ITCH. OUTPATIENT MEDICATIONS: Include; 1. Ciprofloxacin. 2. Spironolactone 100 mg daily. 3. Furosemide 40 mg daily. 4. Tamsulosin. 5. Rifaximin 550-mg twice daily. 6. Pantoprazole 40 mg daily. 7. Lactulose 30 mL three times daily. 8. Gabapentin. REVIEW OF SYSTEMS: Negative x10 systems reviewed except as stated in the history of present illness. He has had some soreness around his left lower wisdom tooth removal site. PHYSICAL EXAMINATION: VITAL SIGNS: Temperature 98.3, blood pressure 123/69, pulse is 90. GENERAL: He is in no acute distress. Alert and oriented x3. HEENT: Eyes have slight scleral icterus. Oropharynx is clear without lesions. No cervical or supraclavicular lymphadenopathy. LUNGS: Clear to auscultation bilaterally. HEART: Regular rate and rhythm without murmur. ABDOMEN: Distended, but soft. He is nontender throughout. He has periumbilical hernia. Bowel sounds are active. EXTREMITIES: No lower extremity edema. NEUROLOGICAL: He does have asterixis on neurological exam. LABORATORY AND DIAGNOSTIC DATA: White blood cell count 3.2, hemoglobin 10.9, platelets 60. Creatinine 1.4, bilirubin 3.6, AST 29, ALT 18, alkaline phosphatase 193, albumin 3.6. His last INR was drawn on 01/13/2020, it was 1.7. CT scan of the abdomen and pelvis on December 19, 2019, was unremarkable. IMPRESSION: 1. Spontaneous bacterial peritonitis. He grew gram-positive rods in his fluid culture from 01/13/2020. I suspect this is just a skin contaminant, given that his fluid neutrophil count was normal at the time. He had a subsequent paracentesis yesterday, but fluid studies were not drawn at that time. I performed a diagnostic paracentesis at the bedside this afternoon. We will send the fluid for cell count with differential and repeat culture. He did receive cefepime in the ER last night. 2. Cirrhosis due to past alcohol with his last drink over 5 years ago. He is on the transplant list in [place]. His current MELD score is 20 based on labs from today and his INR from January 12. Redraw labs including INR tomorrow morning. 3. Hepatic encephalopathy. He has mild asterixis, but is alert and oriented now. His last couple of doses of Xifaxan and lactulose while in the ER and transition to inpatient hospital care. I will restart those now. 4. History of esophageal varices. 5. History of diabetes mellitus. RECOMMENDATIONS: 1. Repeat paracentesis for cell count and culture were performed. In the meantime, we will give ceftriaxone and increase this dose to 2 g q.24 hours, which is the dose for SBP. 2. Restart Xifaxan and lactulose now. 3. If the fluid studies come back suggesting that he actually does have SBP, then IV albumin can be given. We can hold diuretics for now. We will continue his furosemide and spironolactone as clinically this is most likely a contaminant. It is noted that SBP can be asymptomatic initially however. 4. If the repeat ascitic fluid studies come back negative, then he could potentially discharge again on his home prophylactic dose of antibiotic for SBP. He has been on Cipro 250 mg daily. Job ID: [id number]
--- NOTE | 2020-01-17 19:55 | OP ---
DATE OF PROCEDURE: 01/17/2020 PROCEDURE PERFORMED: Diagnostic paracentesis. PREOPERATIVE DIAGNOSIS: Spontaneous bacterial peritonitis. DESCRIPTION OF PROCEDURE: Informed consent was obtained from the patient. The skin of the right lower quadrant was sterilized with chlorhexidine. A 1.5-inch 22-gauge needle was inserted, and 30 mL of fluid were aspirated from the peritoneal cavity. The fluid was sent in a sterile urine container for studies including cell count with differential and culture and Gram stain. The patient tolerated the procedure well without immediate complications. Job ID: [id number]
[2020-01-17] MEDS: Rifaximin 550 MG TAB PO SCH (20:05)
[2020-01-17] MEDS: cefTRIAXone\\ROCEPHIN 2 GM in Sodium Chloride 0.9% 100 ML IVPB SCH (21:23)
[2020-01-17] MEDS ORDERED: cefTRIAXone\\ROCEPHIN 1 GM in Sodium Chloride 0.9% 100 ML IVPB SCH (22:00)
[2020-01-18] MEDS: traMADol HCl 50 MG TAB PO PRN (04:53)
[2020-01-18 06:19] LABS: INR-International Normal Ratio 1.7; Prothrombin Time 20.6 sec (12.0-14.7)
[2020-01-18 06:38] LABS: ALT (SGPT) 15 U/L (8-55); AST (SGOT) 29 U/L (5-34); Albumin 3.1 g/dL (3.5-5.0); Alkaline Phosphatase 150 U/L (40-110); Anion Gap 11 mmol/L (10-20); BUN (Urea Nitrogen) 19 mg/dL (8.4-25.7); Bilirubin, Total 2.5 mg/dL (0.2-1.2); Calc. Creatinine Clearance 100 mL/min (70-130); Calcium 7.8 mg/dL (7.8-10.44); Carbon Dioxide 23 mmol/L (22-29); Chloride 108 mmol/L (98-107); Estimated GFR-MDRD 60; Globulin 2.8 g/dL (2.4-3.5); Glucose 160 mg/dL (70-105); Potassium 3.6 mmol/L (3.5-5.1); Protein, Total 5.9 g/dL (6.0-8.3); Sodium 138 mmol/L (136-145)
[2020-01-18] MEDS ORDERED: HYDROcodone/Acetaminophen 5/325 mg Tablet PO PRN (07:40)
[2020-01-18] MEDS ORDERED: traMADol HCl 50 MG TAB PO PRN (07:40)
[2020-01-18 07:59] LABS: Anisocytosis MODERATE=16-30 cells (100X) (0-5/hpf); Band 6 % (5-11); Eosinophils 5 % (0-10); Hemoglobin 9.7 g/dL (14.0-18.0); Lymphocytes 12 % (21-51); MDiff Complete? YES; Mean Corpuscular HGB CONC 32.2 g/dL (32.0-36.0); Mean Corpuscular Volume 96.1 fL (78.0-98.0); Monocytes 4 % (0-10); Neutrophil 73 % (42-75); Platelet Count 53 thou/uL (130-400); Platelet Morphology Comment Appears Decreased; Poikilocytosis SLIGHT = 6-15 cells (100X) (0-5/hpf); RBC Distribution Width 24.1 % (11.5-14.5); Red Blood Cell (RBC) Count 3.14 mill/uL (4.70-6.10); Target Cells SLIGHT = 2-5 cells (100X) (0-1/hpf); White Blood Cell (WBC) Count 2.8 thou/uL (4.8-10.8)
[2020-01-18] MEDS ORDERED: LACTULOSE 10 GM/15 ML PO SCH (09:00)
[2020-01-18] MEDS ORDERED: Non-Formulary Item 1 EACH (Buspirone Hcl [Buspirone Hcl] 15 MG Tablet) PO SCH (09:00)
[2020-01-18] MEDS: Rifaximin 550 MG TAB PO SCH ×2 (09:30→20:47)
[2020-01-18] MEDS: busPIRone HCl 10 MG TAB PO SCH ×2 (09:30→20:47)
[2020-01-18] MEDS: Tamsulosin HCl 0.4 MG CAP PO SCH (09:30)
[2020-01-18] MEDS: Furosemide 40 MG TAB PO SCH (09:30)
[2020-01-18] MEDS: Multivit, Therapeutic 1 TAB PO SCH (09:30)
[2020-01-18] MEDS: Gabapentin 300 MG CAP PO SCH ×3 (09:31→20:48)
--- NOTE | 2020-01-18 10:07 | PDOC.HOSPP ---
- Subjective Encounter Date: 01/18/20 Encounter Time: 08:40 Subjective: Patient seen and examined bedside today, no overnight event, no new complaint, - Objective Vital Signs & Weight: Vital Signs (12 hours) Temp Pulse Resp BP Pulse Ox 01/18/20 08:00 99 01/18/20 07:47 98.1 F 77 16 117/66 99 01/18/20 04:50 97.9 F 77 17 122/77 100 01/18/20 00:00 98.2 F 69 17 113/70 100 Weight Weight 240 lb 12.8 oz I&O: 01/17/20 01/18/20 01/19/20 06:59 06:59 06:59 Intake Total 760 Balance 760 Result Diagrams: 01/18/20 05:36 01/18/20 05:36 Additional Labs: Accuchecks 01/18/20 01/17/20 01/17/20 05:02 20:16 16:55 POC Glucose 153 H 157 H 146 H 01/17/20 12:51 POC Glucose 129 H Hospitalist ROS - Review of Systems ENT: denies: ear pain, ear discharge, nose pain, nose discharge, nose congestion, mouth pain, mouth swelling, throat pain, throat swelling, other Respiratory: denies: cough, dry, shortness of breath, hemoptysis, SOB with excertion, pleuritic pain, sputum, wheezing, other Cardiovascular: denies: chest pain, palpitations, orthopnea, paroxysmal noc. dyspnea, edema, light headedness, other Gastrointestinal: denies: nausea, vomiting, abdominal pain, diarrhea, constipation, melena, hematochezia, other Genitourinary: denies: dysuria, frequency, incontinence, hematuria, retention, other Musculoskeletal: denies: neck pain, shoulder pain, arm pain, back pain, hand pain, leg pain, foot pain, other - Medication Medications: Active Medications Generic Name Dose Route Start Last Admin Trade Name Freq PRN Reason Stop Dose Admin Buspirone HCl 10 mg 01/18/20 09:00 01/18/20 09:30 Buspirone Hcl 10 Mg Tab PO 10 mg BID ADELAIDA Administration Furosemide 40 mg 01/18/20 09:00 01/18/20 09:30 Furosemide 40 Mg Tab PO 40 mg DAILY ADELAIDA Administration Gabapentin 300 mg 01/18/20 09:00 01/18/20 09:31 Gabapentin 300 Mg Cap PO 300 mg TID ADELAIDA Administration Ceftriaxone Sodium 2 gm/ 100 mls @ 200 mls/hr 01/17/20 22:00 01/17/20 21:23 Sodium Chloride IVPB 100 mls 2200 ADELAIDA Administration Lactulose 20 gm 01/18/20 09:00 01/18/20 09:30 Lactulose 20 Gm/30 Ml Udcup PO 20 gm TID ADEALIDA Administration Multivitamins 1 tab 01/18/20 09:00 01/18/20 09:30 Multivit, Therapeutic 1 Tab PO 1 tab DAILY ADELAIDA Administration Pantoprazole Sodium 40 mg 01/18/20 09:00 01/18/20 09:30 Pantoprazole 40 Mg Tab PO 40 mg DAILY ADELAIDA Administration Rifaximin 550 mg 01/17/20 21:00 01/18/20 09:30 Rifaximin 550 Mg Tab PO 550 mg BID ADELAIDA Administration Sodium Chloride 10 ml 01/17/20 21:00 01/18/20 09:31 Flush - Normal Saline 10 Ml Syringe IVF 10 ml Q12HR ADELAIDA Administration Tamsulosin HCl 0.4 mg 01/18/20 09:00 01/18/20 09:30 Tamsulosin Hcl 0.4 Mg Cap PO 0.4 mg DAILY ADELAIDA Administration - Exam General Appearance: NAD, awake alert Eye: PERRL, anicteric sclera ENT: normocephalic atraumatic, no oropharyngeal lesions Neck: supple, symmetric, no JVD, no thyromegaly Heart: RRR, no murmur, no gallops, no rubs Respiratory: CTAB, no wheezes, no rales, no ronchi Gastrointestinal: soft, non-tender Gastrointestinal - other findings: Ascites noted Extremities: no clubbing, no edema Skin: normal turgor, no lesions Neurological: no focal deficits Musculoskeletal: normal tone, normal strength Psychiatric: normal affect, normal behavior, A&O x 3 Hosp A/P (1) SBP (spontaneous bacterial peritonitis) Code(s): K65.2 - SPONTANEOUS BACTERIAL PERITONITIS Status: Suspected (2) Pancytopenia Code(s): D61.818 - OTHER PANCYTOPENIA Status: Chronic (3) Obesity (BMI 30.0-34.9) Code(s): E66.9 - OBESITY, UNSPECIFIED Status: Chronic (4) Chronic anemia Code(s): D64.9 - ANEMIA, UNSPECIFIED Status: Chronic (5) Cirrhosis of liver with ascites Code(s): K74.60 - UNSPECIFIED CIRRHOSIS OF LIVER; R18.8 - OTHER ASCITES S tatus: Chronic Qualifiers: Hepatic cirrhosis type: alcoholic cirrhosis Qualified Code(s): K70.31 - Alcoholic cirrhosis of liver with ascites (6) HTN (hypertension) Code(s): I10 - ESSENTIAL (PRIMARY) HYPERTENSION Status: Chronic Qualifiers: Hypertension type: essential hypertension Qualified Code(s): I10 - Essential (primary) hypertension (7) chronic thrombocytopenia Status: Chronic (8) Anxiety and depression Code(s): F41.9 - ANXIETY DISORDER, UNSPECIFIED; F32.9 - MAJOR DEPRESSIVE DISORDER, SINGLE EPISODE, UNSPECIFIED Status: Chronic (9) BPH (benign prostatic hyperplasia) Code(s): N40.0 - BENIGN PROSTATIC HYPERPLASIA WITHOUT LOWER URINRY TRACT SYMP Status: Chronic Qualifiers: Lower urinary tract symptom presence: symptoms absent Qualified Code(s): N40.0 - Benign prostatic hyperplasia without lower urinary tract symptoms - Plan old records reviewed/req, continue antibiotics Continue empiric Rocephin Home medication reconciled Follow-up on culture result If culture negative then will consider discharging him home tomorrow Medication reviewed and continue provide symptomatic and supportive care
[2020-01-18] MEDS: Spironolactone 100 MG TAB PO SCH (11:28)
[2020-01-18] MEDS: HYDROcodone/Acetaminophen 5/325 mg Tablet PO PRN ×2 (13:49→20:49)
[2020-01-18] MEDS ORDERED: FLU VACC QS2020-21(6MOS UP)/PF 60 MCG/0.5 ML SYRINGE IM ONE (17:00)
--- NOTE | 2020-01-18 17:58 | PRG ---
DATE OF SERVICE: SUBJECTIVE: Mr. Campoverde has no abdominal pain or other complaints today. OBJECTIVE: VITAL SIGNS: Temperature 97.7, pulse 74, and blood pressure 115/67. GENERAL: He is in no acute distress. Alert and oriented x3. LUNGS: Clear to auscultation bilaterally. HEART: Regular rate and rhythm without murmur. ABDOMEN: Distended with ascites. EXTREMITIES: No lower extremity edema. LABORATORY DATA: White blood cell count 2.8, hemoglobin 9.7, and platelets 53. INR 1.7. Bilirubin 2.5, AST 29, ALT 15, alk phos 150, and albumin 3.1. Fluid studies from the paracentesis; white blood cell count was 334 with 20% segmented neutrophils. IMPRESSION: 1. Ascites. 2. Spontaneous bacterial peritonitis. Actually, I think this fluid culture from 01/12 showing gram-positive rods was likely a skin contaminant. Repeat fluid studies are negative for evidence of spontaneous bacterial peritonitis. His preliminary fluid culture is negative so far. He has no growth at 24 hours. 3. End-stage liver disease, on the transplant list in [place]. RECOMMENDATIONS: If his culture remains negative tomorrow, then the ceftriaxone can be discontinued and he can be discharged on his usual prophylactic SBP dose of ciprofloxacin that he was on before admission. Job ID: [id number]
[2020-01-18] MEDS ORDERED: Dextrose 5% in Water 1,000 ML IV PRN (21:00)
[2020-01-18] MEDS ORDERED: Dextrose 50% Abboject 50 ML SYRINGE SLOW IVP PRN (21:00)
[2020-01-18] MEDS ORDERED: HumaLOG 300 UNITS/3 ML VIAL SC PRN ×2 (21:00)
[2020-01-18] MEDS: cefTRIAXone\\ROCEPHIN 2 GM in Sodium Chloride 0.9% 100 ML IVPB SCH (21:01)
[2020-01-19] MEDS ORDERED: Albumin 25% 25 GM/100 ML BOT IVPB SCH (09:48)
--- NOTE | 2020-01-19 10:08 | PRG ---
DATE OF SERVICE: 01/19/2020 SUBJECTIVE: Mr. Campoverde has no abdominal pain or nausea or vomiting. OBJECTIVE: VITAL SIGNS: Temperature 98.2, pulse 80, blood pressure 116/72. GENERAL: He is in no acute distress. Alert and oriented x3. LUNGS: Clear to auscultation bilaterally. HEART: Regular rate and rhythm without murmur. ABDOMEN: Distended with ascites, but soft, nontender. Bowel sounds are present. EXTREMITIES: No lower extremity edema. LABORATORY DATA: Bilirubin is 2.5, creatinine 1.24. Fluid culture has been negative so far. INR 1.7. IMPRESSION: 1. Symptomatic ascites. We will send him for his routine large volume paracentesis with ultrasound guidance today. He already has an outpatient paracentesis scheduled for tomorrow, so we will get this done while as an inpatient now. 2. SBP. Actually, I think this was a skin contaminant. He can transition back to his routine prophylactic antibiotic and stop the ceftriaxone today and discharge home today after his paracentesis. RECOMMENDATIONS: 1. Ultrasound-guided paracentesis today. 2. Albumin to follow and sent fluid for culture and cell count. 3. Discharge home today. Job ID: [id number]
[2020-01-19] MEDS: Furosemide 40 MG TAB PO SCH (10:20)
[2020-01-19] MEDS: Spironolactone 100 MG TAB PO SCH (10:20)
[2020-01-19] MEDS: Tamsulosin HCl 0.4 MG CAP PO SCH (10:21)
[2020-01-19] MEDS: Multivit, Therapeutic 1 TAB PO SCH (10:21)
[2020-01-19] MEDS: busPIRone HCl 10 MG TAB PO SCH (10:21)
[2020-01-19] MEDS: Rifaximin 550 MG TAB PO SCH (10:21)
[2020-01-19] MEDS: Gabapentin 300 MG CAP PO SCH ×2 (10:21→14:47)
[2020-01-19] MEDS ORDERED: Lidocaine 1% PF 5 ML VIAL ONE (10:46)
[2020-01-19] MEDS ORDERED: Sodium Bicarbonate 2.5 MEQ/5 ML VIAL ONE (10:46)
--- NOTE | 2020-01-19 11:06 | DIS ---
DATE OF ADMISSION: 01/17/2020 DATE OF DISCHARGE: 01/19/2020 PRIMARY CARE PHYSICIAN: Dr. Chiu. DISCHARGE DISPOSITION: Home. PRIMARY DISCHARGE DIAGNOSES: 1. Spontaneous bacterial peritonitis ruled out. 2. Status post paracentesis. SECONDARY DISCHARGE DIAGNOSES: 1. Anxiety and depression. 2. Benign enlargement of prostate. 3. Obesity with BMI of 32. 4. Pancytopenia due to cirrhosis. 5. Cirrhosis of liver with ascites. 6. Hypertension. PRIMARY PROCEDURE/OPERATION: Diagnostic and therapeutic paracentesis. RADIOLOGICAL INVESTIGATION: None. SIGNIFICANT LABORATORY DATA: WBC 2.8, hemoglobin 9.7, platelets 53. INR 1.7. Sodium 138, potassium 3.6, BUN 19, creatinine 1.24, calcium 7.8, AST 29, ALT 15, alkaline phosphatase 150, albumin 3.1. Ascitic fluid, WBC count 334 with neutrophils only 20%. COVID-19 negative. Blood culture and ascitic fluid culture, negative. DISCHARGE MEDICATIONS: 1. [place] one tablet q.6 hourly p.r.n. for pain. 2. Tramadol 50 mg q.6 hourly p.r.n. for pain. 3. Amoxicillin 500 mg t.i.d., which was prescribed for dental infection. 4. Buspirone 10 mg p.o. b.i.d. 5. Cipro 250 mg p.o. daily for prophylaxis. 6. Flomax 0.4 mg p.o. daily. 7. Gabapentin 300 mg p.o. t.i.d. 8. Lasix 40 mg p.o. daily. 9. Protonix 40 mg p.o. daily. 10. Multivitamin one tablet daily. 11. Rifaximin 550 mg daily. 12. Zofran 4 mg b.i.d. p.r.n. 13. Lactulose 30 g p.o. t.i.d. CONTRAINDICATION: None. CODE STATUS: Full code. INPATIENT BRIM AND CROWN PRESSER: Dr. Nilo Valenzuela was consulted while in hospital. TEST RESULTS PENDING ON DISCHARGE: Albumin from the fluid. DISCHARGE PLAN: Post hospital, the patient will follow up with primary care physician and Liver Transplant Clinic as instructed. HOSPITAL COURSE: A 59-year-old male, who has above-mentioned medical problem, who was admitted for gram-positive epifanio in ascitic fluid. There was concern of SBP and that is why patient was sent to the emergency room and admitted. The patient had a repeat diagnostic paracentesis and that fluid was negative for any SBP. His culture from that fluid is also negative. While in hospital, he received Rocephin, and subsequently, we changed to his prophylactic dose of Cipro. The patient was also receiving amoxicillin for his dental infection. Gastroenterology cleared him for discharge. At this point, we have ruled out SBP. The patient will continue all his previous medication. While in hospital, the patient remained afebrile and asymptomatic. We did diagnostic and therapeutic paracentesis while in hospital. He will continue all his previous medications without any change and he will follow up with Transplant Clinic. The patient is seen and examined at bedside today. PHYSICAL EXAMINATION: VITAL SIGNS: Currently, temperature 98.2, pulse 80, respiratory rate 18, saturation 97% on room air, blood pressure 116/72. Weight 240 pounds. GENERAL: The patient is currently alert, awake, no acute distress. HEAD: Normocephalic and atraumatic. NECK: Supple. No JVD. No meningeal signs of irritation. LUNGS: Clear to auscultation without any rhonchi or rales. CARDIAC: S1 and S2 regular, no murmur, no gallop, no rub. ABDOMEN: Soft, bowel sounds present, nontender, nondistended. No organomegaly. No mass. EXTREMITIES: No edema. NEUROLOGIC: Nonfocal examination. The patient is medically stable for discharge today. Job ID: [id number]
--- NOTE | 2020-01-19 11:30 | ULT ---
Ultrasound-guided paracentesis: HISTORY: Cirrhosis and symptomatic ascites. FINDINGS: Informed consent obtained prior to the procedure. Preprocedural imaging demonstrated intrap eritoneal free fluid. An area was marked in the right mid abdomen in the mid axillary line, and then meticulously prepped a nd draped in normal sterile fashion and anesthetized with 1% buffered lidocaine. With direct sonographic guidance, a 19-gauge needle and 5 [place] Price[employer]eeh catheter were advanced into the abdomen. After the return of fluid, the catheter was advanced, and the needle was removed. Approximately 7 L of clear straw-colored fluid was aspirated. The introducer sheath was removed, and hemostasis was achieved with direct pressure. A dry sterile dressing was placed. The patient tolerated the procedure well and without immediate complication. IMPRESSION: Technically successful ultrasound-guided paracentesis.
--- NOTE | 2020-01-19 11:53 | PDOC.HOSPP ---
- Subjective Encounter Date: 01/19/20 Encounter Time: 10:10 Subjective: Patient seen and examined. No new complaints. No overnight events - Objective Vital Signs & Weight: Vital Signs (12 hours) Temp Pulse Resp BP Pulse Ox 01/19/20 07:11 98.2 F 80 18 116/72 97 Weight Weight 240 lb 12.8 oz I&O: 01/18/20 01/19/20 01/20/20 06:59 06:59 06:59 Intake Total 760 620 Balance 760 620 Result Diagrams: 01/18/20 05:36 01/18/20 05:36 Additional Labs: Accuchecks 01/19/20 01/18/20 01/18/20 04:09 19:54 16:22 POC Glucose 128 H 201 H 99 01/18/20 12:15 POC Glucose 183 H Hospitalist ROS - Review of Systems ENT: denies: ear pain, ear discharge, nose pain, nose discharge, nose congestion, mouth pain, mouth swelling, throat pain, throat swelling, other Respiratory: denies: cough, dry, shortness of breath, hemoptysis, SOB with excertion, pleuritic pain, sputum, wheezing, other Cardiovascular: denies: chest pain, palpitations, orthopnea, paroxysmal noc. dyspnea, edema, light headedness, other Gastrointestinal: denies: nausea, vomiting, abdominal pain, diarrhea, constipation, melena, hematochezia, other Genitourinary: denies: dysuria, frequency, incontinence, hematuria, retention, other Musculoskeletal: denies: neck pain, shoulder pain, arm pain, back pain, hand pa in, leg pain, foot pain, other - Medication Medications: Active Medications Generic Name Dose Route Start Last Admin Trade Name Freq PRN Reason Stop Dose Admin Hydrocodone Bitart/Acetaminophen 1 tab 01/18/20 13:43 01/18/20 20:49 Hydrocodone/Acetaminophen 5/325 Mg Tablet PO 1 tab Q6H PRN Administration Severe Pain (7-10) Buspirone HCl 10 mg 01/18/20 09:00 01/19/20 10:21 Buspirone Hcl 10 Mg Tab PO 10 mg BID ADELAIDA Administration Furosemide 40 mg 01/18/20 09:00 01/19/20 10:20 Furosemide 40 Mg Tab PO 40 mg DAILY ADELAIDA Administration Gabapentin 300 mg 01/18/20 09:00 01/19/20 10:21 Gabapentin 300 Mg Cap PO 300 mg TID ADELAIDA Administration Ceftriaxone Sodium 2 gm/ 100 mls @ 200 mls/hr 01/17/20 22:00 01/18/20 21:01 Sodium Chloride IVPB 100 mls 2200 ADELAIDA Administration Insulin Human Lispro 0 units 01/18/20 21:00 01/18/20 21:12 Humalog 300 Units/3 Ml Vial SC 2 unit .BEDTIME SLIDING SC PRN Administration Bedtime Correctional Scale Lactulose 20 gm 01/18/20 09:00 01/19/20 10:24 Lactulose 20 Gm/30 Ml Udcup PO Not Given TID ADELAIDA Multivitamins 1 tab 01/18/20 09:00 01/19/20 10:21 Multivit, Therapeutic 1 Tab PO 1 tab DAILY ADELAIDA Administration Pantoprazole Sodium 40 mg 01/18/20 09:00 01/19/20 10:20 Pantoprazole 40 Mg Tab PO 40 mg DAILY ADELAIDA Administration Rifaximin 550 mg 01/17/20 21:00 01/19/20 10:21 Rifaximin 550 Mg Tab PO 550 mg BID ADELAIDA Administration Sodium Chloride 10 ml 01/17/20 21:00 01/19/20 10:24 Flush - Normal Saline 10 Ml Syringe IVF 10 ml Q12HR ADELAIDA Administration Spironolactone 100 mg 01/18/20 09:00 01/19/20 10:20 Spironolactone 100 Mg Tab PO 100 mg DAILY ADELAIDA Administration Tamsulosin HCl 0.4 mg 01/18/20 09:00 01/19/20 10:21 Tamsulosin Hcl 0.4 Mg Cap PO 0.4 mg DAILY ADELAIDA Administration Tramadol HCl 50 mg 01/18/20 07:40 01/18/20 11:03 Tramadol Hcl 50 Mg Tab PO 50 mg Q6H PRN Administration Moderate Pain (4-6) - Exam General Appearance: NAD, awake alert Eye: PERRL, anicteric sclera ENT: normocephalic atraumatic, no oropharyngeal lesions Neck: supple, symmetric, no JVD, no thyromegaly Heart: RRR, no murmur, no gallops, no rubs Respiratory: CTAB, no wheezes, no rales, no ronchi Gastrointestinal: soft, non-tender, non-distended, normal bowel sounds Extremities: no cyanosis, no clubbing Skin: normal turgor, no lesions Neurological: no focal deficits Musculoskeletal: normal tone, normal strength Psychiatric: normal affect, normal behavior Hosp A/P (1) SBP (spontaneous bacterial peritonitis) Code(s): K65.2 - SPONTANEOUS BACTERIAL PERITONITIS Status: Suspected (2) Pancytopenia Code(s): D61.818 - OTHER PANCYTOPENIA Status: Chronic (3) Obesity (BMI 30.0-34.9) Code(s): E66.9 - OBESITY, UNSPECIFIED Status: Chronic (4) Chronic anemia Code(s): D64.9 - ANEMIA, UNSPECIFIED Status: Chronic (5) Cirrhosis of liver with ascites Code(s): K74.60 - UNSPECIFIED CIRRHOSIS OF LIVER; R18.8 - OTHER ASCITES Status: Chronic Qualifiers: Hepatic cirrhosis type: alcoholic cirrhosis Qualified Code(s): K70.31 - Alcoholic cirrhosis of liver with ascites (6) HTN (hypertension) Code(s): I10 - ESSENTIAL (PRIMARY) HYPERTENSION Status: Chronic Qualifiers: Hypertension type: essential hypertension Qualified Code(s): I10 - Essential (primary) hypertension (7) chronic thrombocytopenia Status: Chronic (8) Anxiety and depression Code(s): F41.9 - ANXIETY DISORDER, UNSPECIFIED; F32.9 - MAJOR DEPRESSIVE DISORDER, SINGLE EPISODE, UNSPECIFIED Status: Chronic (9) BPH (benign prostatic hyperplasia) Code(s): N40.0 - BENIGN PROSTATIC HYPERPLASIA WITHOUT LOWER URINRY TRACT SYMP Status: Chronic Qualifiers: Lower urinary tract symptom presence: symptoms absent Qualified Code(s): N40.0 - Benign prostatic hyperplasia without lower urinary tract symptoms - Plan old records reviewed/req, plan discussed w/ family, continue antibiotics Daily paracentesis GI cleared him for discharge We will discharge him home
[2020-01-19 11:56] VITALS: BP 128/74; TEMP 97.7
[2020-01-19] MEDS: HYDROcodone/Acetaminophen 5/325 mg Tablet PO PRN (12:35)
== END 2020-01-19 15:00 | disposition home or self-care (01) | DRG 433 ==
LOC: ERS 09:28 → T4-B 11:10
PROVIDERS: ADMIT Student in an Organized Health Care Education/Training Program; ATTEND Student in an Organized Health Care Education/Training Program
PROC: 0W9G3ZZ Drainage of Peritoneal Cavity, Percutaneous Approach (ICD-10-PCS; principal; 2020-01-17)
PROC: 0W9G3ZZ Drainage of Peritoneal Cavity, Percutaneous Approach (ICD-10-PCS; 2020-01-19)
DX: K70.31 Alcoholic cirrhosis of liver with ascites (principal); D61.818 Other pancytopenia; F41.9 Anxiety disorder, unspecified; K72.90 Hepatic failure, unspecified without coma; N18.9 Chronic kidney disease, unspecified; E11.22 Type 2 diabetes mellitus with diabetic chronic kidney disease; D69.6 Thrombocytopenia, unspecified; I12.9 Hypertensive chronic kidney disease with stage 1 through stage 4 chronic kidney disease, or unspecified chronic kidney disease; F32.9 Major depressive disorder, single episode, unspecified; Z20.828 Contact with and (suspected) exposure to other viral communicable diseases; E66.9 Obesity, unspecified; N40.0 Benign prostatic hyperplasia without lower urinary tract symptoms; Z87.891 Personal history of nicotine dependence; Z88.0 Allergy status to penicillin; Z88.8 Allergy status to other drugs, medicaments and biological substances; Z79.899 Other long term (current) drug therapy; Z68.32 Body mass index [BMI] 32.0-32.9, adult
CPT/HCPCS: 36415; 36416; 49083; 80053; 83605; 85025; 85060; 85610; 87040; 87070; 87205; 87635; 89051; 90471; 90662; 96365; 96367; G0008; J0690; J0692; J0696; J1956; J3490; P9047; U0003

== ENCOUNTER 2020-01-23 08:03 | Day surgery (SDC) | payer MEDICARE ==
[2020-01-23] MEDS ORDERED: Albumin 25% 200 ML ONE (08:13)
[2020-01-23] MEDS ORDERED: Lidocaine 1% PF 5 ML VIAL ONE (08:13)
[2020-01-23] MEDS ORDERED: Sodium Bicarbonate 2.5 MEQ/5 ML VIAL ONE (08:13)
--- NOTE | 2020-01-23 09:15 | ULT ---
Exam: Ultrasound guided paracentesis HISTORY: Ascites COMPARISON: 01/19/2020 FINDINGS: Successful ultrasound-guided paracentesis. Total of 6.1 L of yellow color ascites was aspir ated. TECHNIQUE: Consent obtained reformatory ultrasound-guided paracentesis. Right lower quadrant was deem ed appropriate. Skin was prepped and draped in a sterile fashion. 1% lidocaine, buffered with sodium bicarbonate was used for local anesthesia. Under ultrasound guidance, a 5 Cape Verdean 7 cm Yueh cat heter is advanced in the peritoneal space. A total of 6.1 mm of yellow color ascites was aspirated. No immediate or postprocedural complications IMPRESSION: Successful ultrasound-guided paracentesis.
[2020-01-23 10:26] VITALS: BP 126/62; TEMP 98.2
== END 2020-01-23 09:30 | disposition home or self-care (01) ==
LOC: ULT 08:03
PROVIDERS: ATTEND Nurse Practitioner Family
PROC: 0W9G3ZZ Drainage of Peritoneal Cavity, Percutaneous Approach (ICD-10-PCS; principal; 2020-01-23)
PROC: BW40ZZZ Ultrasonography of Abdomen (ICD-10-PCS; 2020-01-23)
DX: K70.31 Alcoholic cirrhosis of liver with ascites (principal); E11.9 Type 2 diabetes mellitus without complications; E78.5 Hyperlipidemia, unspecified; I10 Essential (primary) hypertension; Z79.2 Long term (current) use of antibiotics; Z79.899 Other long term (current) drug therapy; Z88.6 Allergy status to analgesic agent
CPT/HCPCS: 49083; P9047

== ENCOUNTER → 2020-01-27 | Day surgery (SDC) | payer MEDICARE ==
[~2020-01-27] MED LIST changes: +Albumin 25% 200 ML ONE; +Lidocaine 1% PF 5 ML VIAL ONE; +Sodium Bicarbonate 2.5 MEQ/5 ML VIAL ONE
[2020-01-27 13:56] VITALS: BP 102/65; TEMP 98.4
[2020-01-27 14:07] LABS: #Eosinphils 0.1 thou/uL (0.0-0.7); #Lymphocytes 0.2 thou/uL (1.20-3.40); #Monocytes 0.3 thou/uL (0.11-0.59); #Neutrophils 2.1 thou/uL (1.40-6.50); %Basophils 1.1 % (0.0-1.0); %Eosinophils 2.9 % (0.0-10.0); %Monocytes 12.2 % (0.0-10.0); %Neutrophils 75.8 % (42.0-75.0); Hemoglobin 10.1 g/dL (14.0-18.0); Mean Corpuscular HGB CONC 33.1 g/dL (32.0-36.0); Mean Corpuscular Hemoglobin 31.8 pg (27.0-31.0); Mean Corpuscular Volume 95.9 fL (78.0-98.0); Mean Platelet Volume 11.1 fL (7.4-10.4); Platelet Count 47 thou/uL (130-400); Red Blood Cell (RBC) Count 3.18 mill/uL (4.70-6.10); White Blood Cell (WBC) Count 2.8 thou/uL (4.8-10.8)
[2020-01-27 14:18] LABS: ALT (SGPT) 18 U/L (8-55); AST (SGOT) 32 U/L (5-34); Albumin 3.2 g/dL (3.5-5.0); Alkaline Phosphatase 126 U/L (40-110); Anion Gap 14 mmol/L (10-20); BUN (Urea Nitrogen) 23 mg/dL (8.4-25.7); Bilirubin, Total 2.8 mg/dL (0.2-1.2); Calc. Creatinine Clearance 89 mL/min (70-130); Calcium 8.3 mg/dL (7.8-10.44); Carbon Dioxide 21 mmol/L (22-29); Chloride 104 mmol/L (98-107); Estimated GFR-MDRD 53; Globulin 3.2 g/dL (2.4-3.5); Glucose 135 mg/dL (70-105); INR-International Normal Ratio 1.6; Potassium 3.4 mmol/L (3.5-5.1); Protein, Total 6.4 g/dL (6.0-8.3); Prothrombin Time 19.6 sec (12.0-14.7); Sodium 136 mmol/L (136-145)
[2020-01-27 14:27] LABS: Anisocytosis MODERATE=16-30 cells (100X) (0-5/hpf); Hypochromia SLIGHT = 6-15 cells (100X) (0-5/hpf); MDiff Complete? YES; Platelet Morphology Comment Appears Decreased; Polychromasia SLIGHT = 2-3 cells (100X) (0-2/hpf); Target Cells SLIGHT = 2-5 cells (100X) (0-1/hpf)
--- NOTE | 2020-01-27 14:49 | ULT ---
Exam: Ultrasound guided paracentesis HISTORY: Ascites COMPARISON: Prior exam dated January 23, 2020 FINDINGS: Successful ultrasound-guided paracentesis. Total of 7 L of normal appearingascites was aspi rated. TECHNIQUE: Consent obtained reformatory ultrasound-guided paracentesis. Left lower quadrantwas deemed appropriate. Skin was prepped and draped in a sterile fashion. 1% lidocaine, buffered with sodium bicarbonate was used for local anesthesia. Under ultrasound guidance, a 5 Libyan 7 cm Dada Roomeh catheter i s advanced in the peritoneal space. A total of 7 L of normal appearingascites was aspirated. No immediate or postprocedural complications IMPRESSION: Successful ultrasound-guided paracentesis.
== END ==
LOC: ULT 12:10
PROVIDERS: ATTEND Nurse Practitioner Family
PROC: 0W9G3ZZ Drainage of Peritoneal Cavity, Percutaneous Approach (ICD-10-PCS; principal; 2020-01-27)
PROC: BW40ZZZ Ultrasonography of Abdomen (ICD-10-PCS; 2020-01-27)
DX: K70.31 Alcoholic cirrhosis of liver with ascites (principal); E11.9 Type 2 diabetes mellitus without complications; I10 Essential (primary) hypertension; E78.5 Hyperlipidemia, unspecified; Z79.2 Long term (current) use of antibiotics; Z79.899 Other long term (current) drug therapy; Z88.6 Allergy status to analgesic agent
CPT/HCPCS: 49083; 80053; 85025; 85610; P9047

== ENCOUNTER 2020-01-30 07:54 | Day surgery (SDC) | payer MEDICARE ==
[2020-01-29 09:10] VITALS: BMI 31.1
[2020-01-30] MEDS ORDERED: Albumin 25% 200 ML ONE (07:58)
[2020-01-30] MEDS ORDERED: Lidocaine 1% PF 5 ML VIAL ONE (07:58)
[2020-01-30] MEDS ORDERED: Sodium Bicarbonate 2.5 MEQ/5 ML VIAL ONE (07:58)
[2020-01-30 09:49] VITALS: BP 129/60; TEMP 98.1
--- NOTE | 2020-01-30 09:54 | ULT ---
Exam: Ultrasound guided paracentesis HISTORY: Ascites COMPARISON: Prior exam dated January 27, 2020 FINDINGS: Successful ultrasound-guided paracentesis. Total of 7 L of normal appearingascites was aspi rated. TECHNIQUE: Consent obtained reformatory ultrasound-guided paracentesis. Right lower quadrant was deem ed appropriate. Skin was prepped and draped in a sterile fashion. 1% lidocaine, buffered with sodium bicarbonate was used for local anesthesia. Under ultrasound guidance, a 5 Portuguese 7 cm Yueh cat heter is advanced in the peritoneal space. A total of 7 L of normal appearingascites was aspirated. No immediate or postprocedural complications IMPRESSION: Successful ultrasound-guided paracentesis.
[2020-01-30 12:38] LABS: RBC Count-Automated (BF) 33 /cu.mm; WBC/Nucleated-Auto (BF) 256 uL
[2020-01-30 12:41] LABS: BF Color Yellow; Body Fluid Source Paracentesis Fluid; Clarity Hazy (Clear); Tube # EDTA
[2020-01-30 12:55] LABS: BF Segmented Neutrophils 25 %; Cell Count Non Hematic 50 %
[2020-01-30 12:56] LABS: Eosinophils 1 %; Lymphocytes 24 %
== END 2020-01-30 09:05 | disposition home or self-care (01) ==
LOC: ULT 07:54
PROVIDERS: ATTEND Nurse Practitioner Family
PROC: 0W9G3ZZ Drainage of Peritoneal Cavity, Percutaneous Approach (ICD-10-PCS; principal; 2020-01-30)
DX: K70.31 Alcoholic cirrhosis of liver with ascites (principal); E11.22 Type 2 diabetes mellitus with diabetic chronic kidney disease; N18.9 Chronic kidney disease, unspecified; Z79.2 Long term (current) use of antibiotics; Z79.899 Other long term (current) drug therapy; Z88.6 Allergy status to analgesic agent
CPT/HCPCS: 49083; 87070; 87205; 89051; P9047; 85060

== ENCOUNTER 2020-02-03 09:28 | Day surgery (SDC) | payer MEDICARE ==
[~2020-02-03 09:28] MED LIST changes: -Albumin 25% 200 ML ONE; -Lidocaine 1% PF 5 ML VIAL ONE; -Sodium Bicarbonate 2.5 MEQ/5 ML VIAL ONE
[2020-02-03 09:50] LABS: PTT 43.6 sec (22.9-36.1)
[2020-02-03 09:51] LABS: INR-International Normal Ratio 1.7; Prothrombin Time 20.3 sec (12.0-14.7)
[2020-02-03 09:59] LABS: #Eosinphils 0.1 thou/uL (0.0-0.7); #Lymphocytes 0.2 thou/uL (1.20-3.40); #Monocytes 0.3 thou/uL (0.11-0.59); #Neutrophils 2.6 thou/uL (1.40-6.50); %Eosinophils 2.5 % (0.0-10.0); %Lymphocytes 5.8 % (21.0-51.0); %Monocytes 8.7 % (0.0-10.0); Hemoglobin 9.5 g/dL (14.0-18.0); MDiff Complete? YES; Mean Corpuscular HGB CONC 32.2 g/dL (32.0-36.0); Mean Corpuscular Hemoglobin 31.6 pg (27.0-31.0); Mean Corpuscular Volume 98.4 fL (78.0-98.0); Mean Platelet Volume 7.7 fL (7.4-10.4); Platelet Count 44 thou/uL (130-400); Platelet Morphology Comment Appears Decreased; Polychromasia SLIGHT = 2-3 cells (100X) (0-2/hpf); RBC Distribution Width 22.3 % (11.5-14.5); Red Blood Cell (RBC) Count 3.01 mill/uL (4.70-6.10); White Blood Cell (WBC) Count 3.1 thou/uL (4.8-10.8)
[2020-02-03 10:06] LABS: ALT (SGPT) 19 U/L (8-55); AST (SGOT) 29 U/L (5-34); Albumin 3.2 g/dL (3.5-5.0); Alkaline Phosphatase 208 U/L (40-110); Anion Gap 13 mmol/L (10-20); BUN (Urea Nitrogen) 22 mg/dL (8.4-25.7); Bilirubin, Total 2.3 mg/dL (0.2-1.2); Calc. Creatinine Clearance 0 mL/min (70-130); Calcium 8.4 mg/dL (7.8-10.44); Carbon Dioxide 21 mmol/L (22-29); Chloride 106 mmol/L (98-107); Estimated GFR-MDRD 52; Globulin 3.1 g/dL (2.4-3.5); Glucose 313 mg/dL (70-105); Potassium 3.8 mmol/L (3.5-5.1); Protein, Total 6.3 g/dL (6.0-8.3); Sodium 136 mmol/L (136-145)
[2020-02-03] MEDS ORDERED: Lidocaine 1% PF 5 ML VIAL ONE (10:17)
[2020-02-03] MEDS ORDERED: Sodium Bicarbonate 2.5 MEQ/5 ML VIAL ONE (10:17)
[2020-02-03] MEDS ORDERED: Albumin 25% 200 ML ONE (10:17)
--- NOTE | 2020-02-03 11:26 | ULT ---
Exam: Ultrasound guided paracentesis HISTORY: Ascites COMPARISON: 01/30/2020 FINDINGS: Successful ultrasound-guided paracentesis. Total of 7 L of yellow ascites was aspirated. TECHNIQUE: Consent obtained reformatory ultrasound-guided paracentesis. Left lower quadrantwas deemed appropriate. Skin was prepped and draped in a sterile fashion. 1% lidocaine, buffered with sodium bicarbonate was used for local anesthesia. Under ultrasound guidance, a 5 Icelandic 7 cm Entredaeh catheter i s advanced in the peritoneal space. A total of 7 L of yellow ascites was aspirated. No immediate or postprocedural complications IMPRESSION: Successful ultrasound-guided paracentesis.
[2020-02-03 12:55] VITALS: BP 116/61; TEMP 97.9
[2020-02-03 15:01] LABS: RBC Count-Automated (BF) 178 /cu.mm; WBC/Nucleated-Auto (BF) 323 uL
[2020-02-03 15:25] LABS: BF Color Yellow; Body Fluid Source Paracentesis Fluid; Clarity Hazy (Clear); Tube # EDTA
[2020-02-03 15:35] LABS: BF Segmented Neutrophils 19 %; Cell Count Non Hematic 55 %; Lymphocytes 26 %
== END 2020-02-03 11:25 | disposition home or self-care (01) ==
LOC: ULT 09:28
PROVIDERS: ATTEND Nurse Practitioner Family
PROC: 0W9G3ZX Drainage of Peritoneal Cavity, Percutaneous Approach, Diagnostic (ICD-10-PCS; principal; 2020-02-03)
DX: K70.31 Alcoholic cirrhosis of liver with ascites (principal); E11.9 Type 2 diabetes mellitus without complications; I10 Essential (primary) hypertension; E78.5 Hyperlipidemia, unspecified; Z79.2 Long term (current) use of antibiotics; Z79.899 Other long term (current) drug therapy; Z88.6 Allergy status to analgesic agent
CPT/HCPCS: 49083; 80053; 85025; 85610; 85730; 87070; 87205; 89051; P9047; 36415; 85060

== ENCOUNTER 2020-02-06 09:37 | Day surgery (SDC) | payer MEDICARE ==
[2020-02-06] MEDS ORDERED: Albumin 25% 200 ML ONE (10:17)
[2020-02-06] MEDS ORDERED: Sodium Bicarbonate 2.5 MEQ/5 ML VIAL ONE (10:17)
[2020-02-06] MEDS ORDERED: Lidocaine 1% PF 5 ML VIAL ONE (10:17)
[2020-02-06 12:08] VITALS: BP 109/49; TEMP 98
--- NOTE | 2020-02-06 12:30 | ULT ---
Ultrasound-guided paracentesis: HISTORY: Cirrhosis and recurrent ascites. FINDINGS: Informed consent obtained prior to the procedure. Preprocedural imaging demonstrated intrap eritoneal free fluid. An area was marked in the left lower quadrant, and then meticulously prepped and draped in normal romi rile fashion and anesthetized with 1% buffered lidocaine. With direct sonographic guidance, a 19-gauge needle and 5 Jordanian Yueh catheter were advanced into the abdomen. After the return of fluid, the catheter was advanced, and the needle was removed. Approximately 5 L of clear straw-colored fluid was aspirated. The introducer sheath was removed, and hemostasis was achieved with direct pressure. A dry sterile dressing was placed. The patient tolerated the procedure well and without immediate complication. IMPRESSION: Technically successful ultrasound-guided paracentesis.
== END 2020-02-06 11:15 | disposition home or self-care (01) ==
LOC: ULT 09:37
PROVIDERS: ATTEND Nurse Practitioner Family
PROC: 0W9G3ZZ Drainage of Peritoneal Cavity, Percutaneous Approach (ICD-10-PCS; principal; 2020-02-06)
PROC: BW40ZZZ Ultrasonography of Abdomen (ICD-10-PCS; 2020-02-06)
DX: K74.60 Unspecified cirrhosis of liver (principal); R18.8 Other ascites; K72.90 Hepatic failure, unspecified without coma; G25.81 Restless legs syndrome; E11.9 Type 2 diabetes mellitus without complications; I10 Essential (primary) hypertension; M19.90 Unspecified osteoarthritis, unspecified site; Z79.2 Long term (current) use of antibiotics; Z79.899 Other long term (current) drug therapy; Z88.6 Allergy status to analgesic agent
CPT/HCPCS: 49083; P9047

== ENCOUNTER 2020-02-10 09:00 | Day surgery (SDC) | payer MEDICARE ==
[2020-02-10] MEDS ORDERED: Lidocaine 1% PF 5 ML VIAL ONE (09:05)
[2020-02-10] MEDS ORDERED: Albumin 25% 200 ML ONE (09:05)
[2020-02-10] MEDS ORDERED: Sodium Bicarbonate 2.5 MEQ/5 ML VIAL ONE (09:05)
[2020-02-10 10:08] LABS: #Lymphocytes 0.1 thou/uL (1.20-3.40); #Monocytes 0.3 thou/uL (0.11-0.59); %Basophils 0.8 % (0.0-1.0); %Eosinophils 0.9 % (0.0-10.0); %Lymphocytes 3.3 % (21.0-51.0); %Monocytes 7.9 % (0.0-10.0); %Neutrophils 87.1 % (42.0-75.0); Hemoglobin 10.5 g/dL (14.0-18.0); Mean Corpuscular HGB CONC 32.6 g/dL (32.0-36.0); Mean Corpuscular Volume 98.4 fL (78.0-98.0); Mean Platelet Volume 8.3 fL (7.4-10.4); Platelet Count 51 thou/uL (130-400); RBC Distribution Width 21.3 % (11.5-14.5); Red Blood Cell (RBC) Count 3.28 mill/uL (4.70-6.10); White Blood Cell (WBC) Count 3.4 thou/uL (4.8-10.8)
[2020-02-10 10:12] LABS: INR-International Normal Ratio 1.6; Prothrombin Time 19.6 sec (12.0-14.7)
[2020-02-10 10:26] LABS: ALT (SGPT) 22 U/L (8-55); AST (SGOT) 37 U/L (5-34); Albumin 3.9 g/dL (3.5-5.0); Alkaline Phosphatase 142 U/L (40-110); Anion Gap 18 mmol/L (10-20); BUN (Urea Nitrogen) 21 mg/dL (8.4-25.7); Bilirubin, Total 3.8 mg/dL (0.2-1.2); Calc. Creatinine Clearance 0 mL/min (70-130); Calcium 9.2 mg/dL (7.8-10.44); Carbon Dioxide 25 mmol/L (22-29); Chloride 99 mmol/L (98-107); Globulin 3.5 g/dL (2.4-3.5); Glucose 155 mg/dL (70-105); Potassium 3.6 mmol/L (3.5-5.1); Protein, Total 7.4 g/dL (6.0-8.3); Sodium 138 mmol/L (136-145)
[2020-02-10 10:32] LABS: Follow-up Chemistry Comp? YES; Follow-up Hematology Comp? YES; Follow-up Result - Chemistry REPORT FAXED; Follow-up Result - Hematology REPORT FAXED
--- NOTE | 2020-02-10 10:44 | ULT ---
US Paracentesis with Imaging History: Ascites Comparison: Paracentesis February 06, 2020 Findings: Patient was brought to the ultrasound suite. All questions were answered. Informed consent obtained. Timeout performed. Patient's right lower quadrant was prepped and draped in normal sterile fashion. After adequate local anesthesia with lidocaine, the peritoneal space was accessed with a 5 Ukrainian catheter. 3.8 L of fluid was removed. Patient tolerated the procedure well without complication. Impression: Technically successful ultrasound-guided paracentesis.
[2020-02-10 11:35] LABS: RBC Count-Automated (BF) 56 /cu.mm; WBC/Nucleated-Auto (BF) 546 uL
[2020-02-10 11:36] LABS: BF Color Yellow; Body Fluid Source Ascites Body Fluid; Clarity Hazy (Clear); Tube # EDTA
[2020-02-10 12:10] LABS: BF Segmented Neutrophils 13 %; Cell Count Non Hematic 72 %; Eosinophils 1 %; Lymphocytes 14 %
[2020-02-10 12:38] VITALS: BP 130/63; TEMP 98
== END 2020-02-10 10:40 | disposition home or self-care (01) ==
LOC: ULT 09:00
PROVIDERS: ATTEND Nurse Practitioner Family
PROC: 0W9G3ZX Drainage of Peritoneal Cavity, Percutaneous Approach, Diagnostic (ICD-10-PCS; principal; 2020-02-10)
DX: K70.31 Alcoholic cirrhosis of liver with ascites (principal); K72.90 Hepatic failure, unspecified without coma; E11.9 Type 2 diabetes mellitus without complications; I10 Essential (primary) hypertension; Z79.2 Long term (current) use of antibiotics; Z79.899 Other long term (current) drug therapy; Z88.6 Allergy status to analgesic agent
CPT/HCPCS: 49083; 80053; 85025; 85610; 87070; 87205; 89051; P9047; 85060

== ENCOUNTER 2020-02-13 07:10 | Day surgery (SDC) | payer MEDICARE ==
[2020-02-12 08:09] VITALS: BMI 31.1
[2020-02-13] MEDS ORDERED: Lidocaine 1% PF 5 ML VIAL ONE (07:34)
[2020-02-13] MEDS ORDERED: Albumin 25% 200 ML ONE (07:34)
[2020-02-13] MEDS ORDERED: Sodium Bicarbonate 2.5 MEQ/5 ML VIAL ONE (07:34)
--- NOTE | 2020-02-13 08:33 | ULT ---
Sonographic guided paracentesis HISTORY: Recurrent ascites. FINDINGS: After explaining the procedure and answering all questions, sonographic survey showed a lar ge amount of free fluid throughout the abdomen. Sterile technique, buffered local anesthesia, sonographic guidance, and a right lateral approach were used to carefully advance a 19-gauge Yueh needle and catheter into the free fluid. Catheter was left to drain a total volume of 4.0 L cloudy yellow liquid. Catheter was removed with minimal fluid remaining. Patient tolerated the procedure well and was dismi ssed in good condition. IMPRESSION : Technically successful sonographic guided paracentesis. 4.0 L.
[2020-02-13 11:27] VITALS: BP 126/84; TEMP 98.7
== END 2020-02-13 08:40 | disposition home or self-care (01) ==
LOC: ULT 07:10
PROVIDERS: ATTEND Nurse Practitioner Family
PROC: 0W9G3ZZ Drainage of Peritoneal Cavity, Percutaneous Approach (ICD-10-PCS; principal; 2020-02-13)
DX: K74.60 Unspecified cirrhosis of liver (principal); I85.10 Secondary esophageal varices without bleeding; R18.8 Other ascites; E11.9 Type 2 diabetes mellitus without complications; I10 Essential (primary) hypertension; N19 Unspecified kidney failure; Z79.899 Other long term (current) drug therapy; Z88.6 Allergy status to analgesic agent
CPT/HCPCS: 49083; P9047

== ENCOUNTER 2020-02-18 12:20 | Day surgery (SDC) | payer MEDICARE ==
[2020-02-17 12:41] VITALS: BMI 31.1
[2020-02-18] MEDS ORDERED: Lidocaine 1% PF 5 ML VIAL ONE (12:40)
[2020-02-18] MEDS ORDERED: Albumin 25% 200 ML ONE (12:40)
--- NOTE | 2020-02-18 13:58 | ULT ---
Ultrasound-guided paracentesis: HISTORY: Cirrhosis and recurrent ascites. FINDINGS: Informed consent obtained prior to the procedure. Preprocedural imaging demonstrated intrap eritoneal free fluid. An area was marked in the Right lower quadrant , and then meticulously prepped and draped in normal s terile fashion and anesthetized with 1% buffered lidocaine. With direct sonographic guidance, a 19-gauge needle and 5 Macedonian Yueh catheter were advanced into the abdomen. After the return of fluid, the catheter was advanced, and the needle was removed. Approximately 4.9 L of clear straw-colored fluid was aspirated. The introducer sheath was removed, a nd hemostasis was achieved with direct pressure. A dry sterile dressing was placed. The patient tolerated the procedure well and without immediate complication. IMPRESSION: Technically successful ultrasound-guided paracentesis.
[2020-02-18 14:06] VITALS: BP 117/57; TEMP 98.4
[2020-02-18 14:25] LABS: RBC Count-Automated (BF) 241 /cu.mm; WBC/Nucleated-Auto (BF) 340 uL
[2020-02-18 14:28] LABS: BF Color Yellow; Body Fluid Source Paracentesis Fluid; Clarity Hazy (Clear); Tube # EDTA
[2020-02-18 14:34] LABS: BF Segmented Neutrophils 24 %; Cell Count Non Hematic 44 %; Lymphocytes 31 %
== END 2020-02-18 13:50 | disposition home or self-care (01) ==
LOC: ULT 12:20
PROVIDERS: ATTEND Nurse Practitioner Family
PROC: 0W9G3ZX Drainage of Peritoneal Cavity, Percutaneous Approach, Diagnostic (ICD-10-PCS; principal; 2020-02-18)
DX: K70.31 Alcoholic cirrhosis of liver with ascites (principal); E11.9 Type 2 diabetes mellitus without complications; I10 Essential (primary) hypertension; Z79.899 Other long term (current) drug therapy; Z88.6 Allergy status to analgesic agent
CPT/HCPCS: 49083; 87070; 87205; 89051; P9047; 85060

== ENCOUNTER 2020-02-23 07:12 | Day surgery (SDC) | payer MEDICARE ==
[2020-02-18 11:55] VITALS: BMI 29.8
[2020-02-23] MEDS ORDERED: Sodium Bicarbonate 2.5 MEQ/5 ML VIAL ONE (07:37)
[2020-02-23] MEDS ORDERED: Lidocaine 1% PF 5 ML VIAL ONE (07:37)
[2020-02-23] MEDS ORDERED: Albumin 25% 200 ML ONE (07:38)
[2020-02-23 07:45] LABS: #Eosinphils 0.1 thou/uL (0.0-0.7); #Lymphocytes 0.2 thou/uL (1.20-3.40); #Monocytes 0.3 thou/uL (0.11-0.59); #Neutrophils 2.5 thou/uL (1.40-6.50); %Eosinophils 2.9 % (0.0-10.0); %Lymphocytes 6.4 % (21.0-51.0); %Monocytes 9.6 % (0.0-10.0); %Neutrophils 81.1 % (42.0-75.0); Hemoglobin 10.1 g/dL (14.0-18.0); INR-International Normal Ratio 1.6; Mean Platelet Volume 7.5 fL (7.4-10.4); Platelet Count 44 thou/uL (130-400); Prothrombin Time 19.7 sec (12.0-14.7); RBC Distribution Width 19.5 % (11.5-14.5); Red Blood Cell (RBC) Count 3.06 mill/uL (4.70-6.10); White Blood Cell (WBC) Count 3.1 thou/uL (4.8-10.8)
[2020-02-23 07:58] LABS: ALT (SGPT) 25 U/L (8-55); AST (SGOT) 43 U/L (5-34); Albumin 3.4 g/dL (3.5-5.0); Alkaline Phosphatase 163 U/L (40-110); Anion Gap 14 mmol/L (10-20); BUN (Urea Nitrogen) 18 mg/dL (8.4-25.7); Bilirubin, Total 3.3 mg/dL (0.2-1.2); Calc. Creatinine Clearance 86 mL/min (70-130); Calcium 8.8 mg/dL (7.8-10.44); Carbon Dioxide 24 mmol/L (22-29); Chloride 105 mmol/L (98-107); Estimated GFR-MDRD 56; Globulin 3.4 g/dL (2.4-3.5); Glucose 129 mg/dL (70-105); Potassium 4.2 mmol/L (3.5-5.1); Protein, Total 6.8 g/dL (6.0-8.3); Sodium 139 mmol/L (136-145)
--- NOTE | 2020-02-23 09:46 | ULT ---
Exam: Ultrasound guided paracentesis HISTORY: Ascites COMPARISON: 02/18/2020 FINDINGS: Successful ultrasound-guided paracentesis. Total of 5400 mL of yellow color ascites was asp irated. TECHNIQUE: Consent obtained reformatory ultrasound-guided paracentesis. Right lower quadrant was deem ed appropriate. Skin was prepped and draped in a sterile fashion. 1% lidocaine, buffered with sodium bicarbonate was used for local anesthesia. Under ultrasound guidance, a 5 Latvian 7 cm Yueh cat heter is advanced in the peritoneal space. A total of 5400 mL of yellow color ascites was aspirated. No immediate or postprocedural complications IMPRESSION: Successful ultrasound-guided paracentesis.
[2020-02-23 13:52] VITALS: BP 121/54; TEMP 98.4
== END 2020-02-23 09:35 | disposition home or self-care (01) ==
LOC: ULT 07:12
PROVIDERS: ATTEND Nurse Practitioner Family
PROC: 0W9G3ZX Drainage of Peritoneal Cavity, Percutaneous Approach, Diagnostic (ICD-10-PCS; principal; 2020-02-23)
DX: K70.31 Alcoholic cirrhosis of liver with ascites (principal); E11.9 Type 2 diabetes mellitus without complications; I10 Essential (primary) hypertension; N28.9 Disorder of kidney and ureter, unspecified; Z79.2 Long term (current) use of antibiotics; Z79.899 Other long term (current) drug therapy; Z88.6 Allergy status to analgesic agent
CPT/HCPCS: 49083; 80053; 85025; 85610; 87070; 87205; P9047; 36415; 88112

== ENCOUNTER 2020-02-27 07:17 | Day surgery (SDC) | payer MEDICARE ==
[2020-02-26 09:35] VITALS: BMI 29.8
[2020-02-27] MEDS ORDERED: Albumin 25% 200 ML ONE (07:29)
[2020-02-27] MEDS ORDERED: Lidocaine 1% PF 5 ML VIAL ONE (07:29)
[2020-02-27] MEDS ORDERED: Sodium Bicarbonate 2.5 MEQ/5 ML VIAL ONE (07:29)
[2020-02-27 09:04] VITALS: BP 120/51; TEMP 97.7
--- NOTE | 2020-02-27 15:47 | ULT ---
ULTRASOUND-GUIDED PARACENTESIS THERAPEUTIC: DATE: 02/27/2020 HISTORY: 59-year-old male with symptomatic ascites: Abdominal distention, due to alcoholic cirrhosis. TECHNIQUE: Signed informed consent obtained. A four-quadrant survey of abdomen performed. Site selected for puncture: right lower quadrant Overlying skin prepared and draped in usual sterile fashion. 25-gauge needle used to apply buffered lidocaine superficially and deeply. 5 Kuwaiti Yueh catheter with stylette advanced into the pocket of free intraperitoneal fluid. After drainage, the Yueh catheter was removed. Patient tolerated the procedure well. No complications. FINDINGS: Volume of ascites prior to procedure:large. Volume of ascites fluid in the drainage pocket after drainage:Minimal or none. Volume of ascites fluid drained:5000 mL Appearance of ascites fluid:nonhemorrhagic, straw-colored. IMPRESSION: Successful therapeutic paracentesis, with drainage of 5 L of ascites fluid.
== END 2020-02-27 08:40 | disposition home or self-care (01) ==
LOC: ULT 07:17
PROVIDERS: ATTEND Nurse Practitioner Family
PROC: 0W9G3ZZ Drainage of Peritoneal Cavity, Percutaneous Approach (ICD-10-PCS; principal; 2020-02-27)
DX: K70.31 Alcoholic cirrhosis of liver with ascites (principal); Z79.2 Long term (current) use of antibiotics; Z88.6 Allergy status to analgesic agent
CPT/HCPCS: 49083; P9047

== ENCOUNTER 2020-03-02 10:25 | Day surgery (SDC) | payer MEDICARE ==
[2020-03-01 11:02] VITALS: BMI 29.8
[2020-03-02 10:41] LABS: #Lymphocytes 0.3 thou/uL (1.20-3.40); #Monocytes 0.2 thou/uL (0.11-0.59); %Basophils 1.7 % (0.0-1.0); %Eosinophils 0.7 % (0.0-10.0); %Lymphocytes 12.9 % (21.0-51.0); %Monocytes 9.3 % (0.0-10.0); %Neutrophils 75.5 % (42.0-75.0)
[2020-03-02 10:42] LABS: Hemoglobin 10.2 g/dL (14.0-18.0); Mean Corpuscular HGB CONC 30.8 g/dL (32.0-36.0); Mean Corpuscular Hemoglobin 30.8 pg (27.0-31.0); Mean Platelet Volume 12.3 fL (7.4-10.4); Platelet Count 45 thou/uL (130-400); RBC Distribution Width 18.4 % (11.5-14.5); Red Blood Cell (RBC) Count 3.29 mill/uL (4.70-6.10); White Blood Cell (WBC) Count 2.6 thou/uL (4.8-10.8)
[2020-03-02 10:44] LABS: INR-International Normal Ratio 1.5; Prothrombin Time 18.7 sec (12.0-14.7)
[2020-03-02] MEDS ORDERED: Albumin 25% 100 ML ONE (10:47)
[2020-03-02] MEDS ORDERED: Sodium Bicarbonate 2.5 MEQ/5 ML VIAL ONE (10:48)
[2020-03-02] MEDS ORDERED: Lidocaine 1% PF 5 ML VIAL ONE (10:48)
[2020-03-02 11:09] LABS: Hypochromia SLIGHT = 6-15 cells (100X) (0-5/hpf); MDiff Complete? YES; Ovalocytes SLIGHT = 2-5 cells (100X) (0-1/hpf); Platelet Morphology Comment Appears Decreased; Polychromasia SLIGHT = 2-3 cells (100X) (0-2/hpf)
[2020-03-02 11:09] LABS: ALT (SGPT) 30 U/L (8-55); AST (SGOT) 59 U/L (5-34); Albumin 3.4 g/dL (3.5-5.0); Alkaline Phosphatase 152 U/L (40-110); Anion Gap 16 mmol/L (10-20); BUN (Urea Nitrogen) 30 mg/dL (8.4-25.7); Bilirubin, Total 2.2 mg/dL (0.2-1.2); Calc. Creatinine Clearance 67 mL/min (70-130); Calcium 8.4 mg/dL (7.8-10.44); Carbon Dioxide 27 mmol/L (22-29); Chloride 101 mmol/L (98-107); Globulin 3.3 g/dL (2.4-3.5); Glucose 130 mg/dL (70-105); Potassium 4.7 mmol/L (3.5-5.1); Protein, Total 6.7 g/dL (6.0-8.3); Sodium 139 mmol/L (136-145)
[2020-03-02] MEDS ORDERED: FLU VACC QS2020-21(6MOS UP)/PF 60 MCG/0.5 ML SYRINGE IM ONE (11:15)
--- NOTE | 2020-03-02 11:15 | ULT ---
Ultrasound abdomen limited: 03/02/2020 HISTORY: 59-year-old male with alcoholic cirrhosis requiring routine periodic therapeutic paracentesis. TECHNIQUE: Four-quadrant limited survey of abdominal cavity. FINDINGS: There is a small-moderate amount of free intraperitoneal fluid. The volume is enough for a diagnostic paracentesis, but does not warrant therapeutic paracentesis. The paracentesis has been canceled. IMPRESSION: Small-moderate amount of ascites
[2020-03-02 11:36] VITALS: BP 128/66; TEMP 98.5
== END 2020-03-02 11:20 | disposition home or self-care (01) ==
LOC: ULT 10:25
PROVIDERS: ATTEND Nurse Practitioner Family
DX: K70.31 Alcoholic cirrhosis of liver with ascites (principal); I12.9 Hypertensive chronic kidney disease with stage 1 through stage 4 chronic kidney disease, or unspecified chronic kidney disease; E11.22 Type 2 diabetes mellitus with diabetic chronic kidney disease; N18.9 Chronic kidney disease, unspecified; Z79.2 Long term (current) use of antibiotics; Z79.899 Other long term (current) drug therapy; Z88.6 Allergy status to analgesic agent
CPT/HCPCS: 76705; 80053; 85025; 85610; 90662; G0008; P9047; 90471

== ENCOUNTER 2020-03-05 08:48 | Day surgery (SDC) | payer MEDICARE ==
[2020-03-05] MEDS ORDERED: Sodium Bicarbonate 2.5 MEQ/5 ML VIAL ONE (09:06)
[2020-03-05] MEDS ORDERED: Lidocaine 1% PF 5 ML VIAL ONE (09:06)
--- NOTE | 2020-03-05 11:05 | ULT ---
Exam: Ultrasound guided paracentesis HISTORY: Ascites COMPARISON: Prior exam dated February 27, 2020 FINDINGS: Successful ultrasound-guided paracentesis. Total of 2900ascites was aspirated. TECHNIQUE: Consent obtained prior to the ultrasound-guided paracentesis. The patient had a previous C ovid positive testing 3 days prior. Full Covid protection protocol was adhered to. Right lower quadrant was deemed appropriate. Skin was prepped and draped in a sterile fashion. 1% lidocaine, buff ered with sodium bicarbonate was used for local anesthesia. Under ultrasound guidance, a 5 Romansh 7 cm Yueh catheter is advanced in the peritoneal space. A total of 2900ascites was aspirated. No immedi ate or postprocedural complications IMPRESSION: 1. Successful ultrasound-guided paracentesis.
[2020-03-05 12:31] VITALS: BP 112/70; TEMP 98.8
[2020-03-05 12:47] LABS: RBC Count-Automated (BF) 603 /cu.mm; WBC/Nucleated-Auto (BF) 165 uL
[2020-03-05 13:21] LABS: BF Color Yellow; Body Fluid Source Ascites Body Fluid; Clarity Hazy (Clear); Tube # EDTA
[2020-03-05 13:24] LABS: BF Segmented Neutrophils 10 %; Cell Count Non Hematic 60 %; Eosinophils 1 %; Lymphocytes 29 %
== END 2020-03-05 09:55 | disposition home or self-care (01) ==
LOC: ULT 08:48
PROVIDERS: ATTEND Nurse Practitioner Family
PROC: 0W9G3ZZ Drainage of Peritoneal Cavity, Percutaneous Approach (ICD-10-PCS; principal; 2020-03-05)
DX: K74.60 Unspecified cirrhosis of liver (principal); I85.10 Secondary esophageal varices without bleeding; R18.8 Other ascites; I10 Essential (primary) hypertension; E11.9 Type 2 diabetes mellitus without complications; E78.5 Hyperlipidemia, unspecified; N19 Unspecified kidney failure; Z88.6 Allergy status to analgesic agent
CPT/HCPCS: 49083; 85060; 87070; 87205; 89051

== ENCOUNTER 2020-03-12 07:23 | Day surgery (SDC) | payer MEDICARE ==
[2020-03-11 11:02] VITALS: BMI 29.8
[2020-03-12 07:56] LABS: PTT 39.5 sec (22.9-36.1)
[2020-03-12 07:57] LABS: INR-International Normal Ratio 1.6; Prothrombin Time 19.1 sec (12.0-14.7)
[2020-03-12 08:05] LABS: ALT (SGPT) 41 U/L (8-55); AST (SGOT) 61 U/L (5-34); Albumin 3.2 g/dL (3.5-5.0); Alkaline Phosphatase 158 U/L (40-110); Anion Gap 10 mmol/L (10-20); BUN (Urea Nitrogen) 16 mg/dL (8.4-25.7); Bilirubin, Total 3.8 mg/dL (0.2-1.2); Calc. Creatinine Clearance 100 mL/min (70-130); Calcium 8.3 mg/dL (7.8-10.44); Carbon Dioxide 27 mmol/L (22-29); Chloride 101 mmol/L (98-107); Globulin 3.6 g/dL (2.4-3.5); Glucose 135 mg/dL (70-105); Potassium 3.8 mmol/L (3.5-5.1); Protein, Total 6.8 g/dL (6.0-8.3); Sodium 134 mmol/L (136-145)
[2020-03-12] MEDS ORDERED: Albumin 25% 200 ML ONE (08:11)
[2020-03-12] MEDS ORDERED: Lidocaine 1% PF 5 ML VIAL ONE (08:12)
[2020-03-12] MEDS ORDERED: Sodium Bicarbonate 2.5 MEQ/5 ML VIAL ONE (08:12)
[2020-03-12 08:34] LABS: #Eosinphils 0.1 thou/uL (0.0-0.7); #Lymphocytes 0.4 thou/uL (1.20-3.40); #Monocytes 0.4 thou/uL (0.11-0.59); %Eosinophils 1.9 % (0.0-10.0); %Monocytes 13.1 % (0.0-10.0); Hemoglobin 10.7 g/dL (14.0-18.0); Mean Corpuscular HGB CONC 31.9 g/dL (32.0-36.0); Mean Corpuscular Hemoglobin 31.5 pg (27.0-31.0); Mean Corpuscular Volume 98.6 fL (78.0-98.0); Mean Platelet Volume 13.6 fL (7.4-10.4); Platelet Count 41 thou/uL (130-400); RBC Distribution Width 18.3 % (11.5-14.5); Red Blood Cell (RBC) Count 3.39 mill/uL (4.70-6.10); White Blood Cell (WBC) Count 2.9 thou/uL (4.8-10.8)
--- NOTE | 2020-03-12 09:09 | ULT ---
Exam: Ultrasound guided paracentesis HISTORY: Ascites COMPARISON: 03/05/2020 FINDINGS: Successful ultrasound-guided paracentesis. Total of 3300 mL of yellow color ascites was asp irated. TECHNIQUE: Consent obtained reformatory ultrasound-guided paracentesis. Right lower quadrant was deem ed appropriate. Skin was prepped and draped in a sterile fashion. 1% lidocaine, buffered with sodium bicarbonate was used for local anesthesia. Under ultrasound guidance, a 5 Khmer 7 cm Yueh cat heter is advanced in the peritoneal space. A total of 3300 mL of yellow color ascites was aspirated. No immediate or postprocedural complications IMPRESSION: Successful ultrasound-guided paracentesis.
[2020-03-12 09:39] VITALS: BP 117/63; TEMP 98.5
[2020-03-12] MEDS ORDERED: FLU VACC QS2020-21(6MOS UP)/PF 60 MCG/0.5 ML SYRINGE IM ONE (11:15)
[2020-03-12 11:39] LABS: RBC Count-Automated (BF) 22 /cu.mm; WBC/Nucleated-Auto (BF) 296 uL
[2020-03-12 11:41] LABS: BF Color Yellow; Body Fluid Source Ascites Body Fluid; Clarity Hazy (Clear); Tube # EDTA
[2020-03-12 11:46] LABS: BF Segmented Neutrophils 3 %; Cell Count Non Hematic 81 %; Lymphocytes 16 %
== END 2020-03-12 09:10 | disposition home or self-care (01) ==
LOC: ULT 07:23
PROVIDERS: ATTEND Nurse Practitioner Family
PROC: 0W9G3ZX Drainage of Peritoneal Cavity, Percutaneous Approach, Diagnostic (ICD-10-PCS; principal; 2020-03-12)
DX: K70.31 Alcoholic cirrhosis of liver with ascites (principal); I12.9 Hypertensive chronic kidney disease with stage 1 through stage 4 chronic kidney disease, or unspecified chronic kidney disease; E11.22 Type 2 diabetes mellitus with diabetic chronic kidney disease; N18.9 Chronic kidney disease, unspecified; G25.81 Restless legs syndrome; Z79.2 Long term (current) use of antibiotics; Z79.899 Other long term (current) drug therapy; Z88.6 Allergy status to analgesic agent
CPT/HCPCS: 49083; 80053; 85025; 85610; 85730; 87070; 87205; 89051; P9047; 85060; 90471; 90662; G0008

== ENCOUNTER 2020-03-17 07:12 | Day surgery (SDC) | payer MEDICARE ==
[2020-03-16 12:58] VITALS: BMI 29.8
[2020-03-17 07:37] LABS: #Lymphocytes 0.3 thou/uL (1.20-3.40); #Monocytes 0.3 thou/uL (0.11-0.59); #Neutrophils 2.4 thou/uL (1.40-6.50); %Eosinophils 0.6 % (0.0-10.0); %Lymphocytes 8.7 % (21.0-51.0); %Monocytes 9.9 % (0.0-10.0); %Neutrophils 80.8 % (42.0-75.0); Hemoglobin 9.6 g/dL (14.0-18.0); Mean Corpuscular HGB CONC 31.8 g/dL (32.0-36.0); Mean Corpuscular Hemoglobin 31.1 pg (27.0-31.0); Mean Corpuscular Volume 97.8 fL (78.0-98.0); Platelet Count 25 thou/uL (130-400); RBC Distribution Width 18.7 % (11.5-14.5)
[2020-03-17 07:46] LABS: INR-International Normal Ratio 1.7; Prothrombin Time 20.5 sec (12.0-14.7)
[2020-03-17] MEDS ORDERED: Albumin 25% 200 ML ONE (07:53)
[2020-03-17] MEDS ORDERED: Lidocaine 1% PF 5 ML VIAL ONE (07:53)
[2020-03-17] MEDS ORDERED: Sodium Bicarbonate 2.5 MEQ/5 ML VIAL ONE (07:53)
[2020-03-17 08:01] LABS: ALT (SGPT) 28 U/L (8-55); AST (SGOT) 37 U/L (5-34); Albumin 3.1 g/dL (3.5-5.0); Alkaline Phosphatase 212 U/L (40-110); Anion Gap 13 mmol/L (10-20); BUN (Urea Nitrogen) 14 mg/dL (8.4-25.7); Bilirubin, Total 3.4 mg/dL (0.2-1.2); Calc. Creatinine Clearance 93 mL/min (70-130); Calcium 7.4 mg/dL (7.8-10.44); Carbon Dioxide 23 mmol/L (22-29); Chloride 104 mmol/L (98-107); Globulin 3.4 g/dL (2.4-3.5); Glucose 137 mg/dL (70-105); Potassium 3.7 mmol/L (3.5-5.1); Protein, Total 6.5 g/dL (6.0-8.3); Sodium 136 mmol/L (136-145)
[2020-03-17 08:41] LABS: Follow-up Hematology Comp? YES; Follow-up Result - Hematology REPORT FAXED
[2020-03-17 08:42] LABS: Follow-up Chemistry Comp? YES; Follow-up Result - Chemistry REPORT FAXED
--- NOTE | 2020-03-17 08:47 | ULT ---
Paracentesis sonographic guided HISTORY: Symptomatic ascites. FINDINGS: After explaining the procedure and answering all questions, sonographic survey showed a mod erate amount of free fluid throughout the abdomen. Patient's lab values, including severe thrombocytopenia, were discussed with the patient. The risks and alternatives for timing of paracente ses were discussed. Patient specifically stated understanding of the risks and requests paracentesis. Sterile technique, buffered local anesthesia, sonographic guidance, and a right lateral approach were used to carefully advance a 19-gauge Yueh needle and catheter into the free fluid. Catheter was left to drain a total volume of 3.5 L cloudy yellow liquid. Catheter was removed with minimal fluid remaining. Patient tolerated procedure well and was dismissed in good condition. IMPRESSION : Technically successful sonographic guided paracentesis. 3.5 L.
[2020-03-17] MEDS ORDERED: FLU VACC QS2020-21(6MOS UP)/PF 60 MCG/0.5 ML SYRINGE IM ONE (09:00)
[2020-03-17 09:52] LABS: BF Color Yellow; Body Fluid Source Ascites Body Fluid; Clarity Hazy (Clear); RBC Count-Automated (BF) 208 /cu.mm; Tube # EDTA; WBC/Nucleated-Auto (BF) 329 uL
[2020-03-17 10:08] VITALS: BP 122/56; TEMP 98.4
[2020-03-17 10:34] LABS: BF Segmented Neutrophils 8 %; Cell Count Non Hematic 85 %; Lymphocytes 7 %
== END 2020-03-17 09:00 | disposition home or self-care (01) ==
LOC: ULT 07:12
PROVIDERS: ATTEND Nurse Practitioner Family
PROC: 0W9G3ZZ Drainage of Peritoneal Cavity, Percutaneous Approach (ICD-10-PCS; principal; 2020-03-17)
DX: K74.60 Unspecified cirrhosis of liver (principal); R18.8 Other ascites; K72.90 Hepatic failure, unspecified without coma; N19 Unspecified kidney failure; E11.42 Type 2 diabetes mellitus with diabetic polyneuropathy; I10 Essential (primary) hypertension; G25.81 Restless legs syndrome; D64.9 Anemia, unspecified; M19.90 Unspecified osteoarthritis, unspecified site; Z79.899 Other long term (current) drug therapy; Z88.6 Allergy status to analgesic agent
CPT/HCPCS: 49083; 80053; 85025; 85610; 87070; 87205; 89051; P9047; 36415; 85060

== ENCOUNTER 2020-03-23 08:05 | Day surgery (SDC) | payer MEDICARE ==
[2020-03-22 09:03] VITALS: BMI 29.8
[2020-03-23] MEDS ORDERED: Sodium Chloride 0.9% 20 ML ONE (08:24)
[2020-03-23 08:57] LABS: #Lymphocytes 0.2 thou/uL (1.20-3.40); #Monocytes 0.3 thou/uL (0.11-0.59); #Neutrophils 3.2 thou/uL (1.40-6.50); %Eosinophils 1.2 % (0.0-10.0); %Lymphocytes 4.9 % (21.0-51.0); %Monocytes 8.5 % (0.0-10.0); %Neutrophils 85.4 % (42.0-75.0); Hemoglobin 10.7 g/dL (14.0-18.0); Mean Corpuscular HGB CONC 31.9 g/dL (32.0-36.0); Mean Corpuscular Hemoglobin 31.2 pg (27.0-31.0); Mean Corpuscular Volume 97.7 fL (78.0-98.0); Mean Platelet Volume 14.5 fL (7.4-10.4); Platelet Count 48 thou/uL (130-400); RBC Distribution Width 19.9 % (11.5-14.5); Red Blood Cell (RBC) Count 3.42 mill/uL (4.70-6.10); White Blood Cell (WBC) Count 3.7 thou/uL (4.8-10.8)
[2020-03-23 08:59] LABS: INR-International Normal Ratio 1.6; PTT 37.9 sec (22.9-36.1); Prothrombin Time 18.9 sec (12.0-14.7)
[2020-03-23] MEDS ORDERED: Albumin 25% 200 ML ONE (09:15)
[2020-03-23] MEDS ORDERED: Lidocaine 1% PF 5 ML VIAL ONE (09:15)
[2020-03-23] MEDS ORDERED: Sodium Bicarbonate 2.5 MEQ/5 ML VIAL ONE (09:15)
[2020-03-23 10:27] LABS: Albumin 3.5 g/dL (3.5-5.0)
[2020-03-23 10:28] LABS: Chloride 101 mmol/L (98-107); Potassium 3.9 mmol/L (3.5-5.1); Sodium 138 mmol/L (136-145)
[2020-03-23 10:29] LABS: Calcium 8.8 mg/dL (7.8-10.44); Glucose 183 mg/dL (70-105)
[2020-03-23 10:30] LABS: Globulin 4.2 g/dL (2.4-3.5); Protein, Total 7.7 g/dL (6.0-8.3)
[2020-03-23 10:31] LABS: Anion Gap 17 mmol/L (10-20); Bilirubin, Total 4.6 mg/dL (0.2-1.2); Carbon Dioxide 24 mmol/L (22-29)
[2020-03-23 10:32] LABS: Alkaline Phosphatase 222 U/L (40-110)
[2020-03-23 10:33] LABS: Calc. Creatinine Clearance 87 mL/min (70-130)
[2020-03-23 10:34] LABS: BUN (Urea Nitrogen) 15 mg/dL (8.4-25.7)
[2020-03-23 10:35] LABS: ALT (SGPT) 25 U/L (8-55); AST (SGOT) 35 U/L (5-34)
--- NOTE | 2020-03-23 10:50 | ULT ---
ULTRASOUND-GUIDED PARACENTESIS THERAPEUTIC: DATE: 03/23/2020 HISTORY: 59-year-old male with symptomatic ascites due to cirrhosis: Abdominal distention TECHNIQUE: Signed informed consent obtained. A four-quadrant survey of abdomen performed. Site selected for puncture: right lower quadrant Overlying skin prepared and draped in usual sterile fashion. 25-gauge needle used to apply buffered lidocaine superficially and deeply. 5 Andorran Yueh catheter with stylette advanced into the pocket of free intraperitoneal fluid. After drainage, the Yueh catheter was removed. Patient tolerated the procedure well. No complications. FINDINGS: Volume of ascites prior to procedure:large. Volume of ascites fluid in the drainage pocket after drainage:small. Volume of ascites fluid drained:4300 mL Appearance of ascites fluid:nonhemorrhagic, straw-colored. IMPRESSION: Successful therapeutic paracentesis, with drainage of 4.3 L of ascites fluid.
[2020-03-23 11:41] LABS: RBC Count-Automated (BF) 254 /cu.mm; WBC/Nucleated-Auto (BF) 169 uL
[2020-03-23 11:53] LABS: BF Color Yellow; Body Fluid Source Ascites Body Fluid; Clarity Hazy (Clear); Tube # EDTA
[2020-03-23 11:55] LABS: BF Segmented Neutrophils 10 %; Cell Count Non Hematic 70 %; Lymphocytes 20 %
[2020-03-23] MEDS ORDERED: FLU VACC QS2020-21(6MOS UP)/PF 60 MCG/0.5 ML SYRINGE IM ONE (12:15)
[2020-03-23 12:35] VITALS: BP 115/70; TEMP 98.1
== END 2020-03-23 10:40 | disposition home or self-care (01) ==
LOC: ULT 08:05
PROVIDERS: ATTEND Nurse Practitioner Family
PROC: 0W9G3ZZ Drainage of Peritoneal Cavity, Percutaneous Approach (ICD-10-PCS; principal; 2020-03-23)
DX: K74.60 Unspecified cirrhosis of liver (principal); I85.10 Secondary esophageal varices without bleeding; R18.8 Other ascites; K72.90 Hepatic failure, unspecified without coma; I10 Essential (primary) hypertension; D64.9 Anemia, unspecified; M19.90 Unspecified osteoarthritis, unspecified site; E11.42 Type 2 diabetes mellitus with diabetic polyneuropathy; G25.81 Restless legs syndrome; Z79.899 Other long term (current) drug therapy; Z88.6 Allergy status to analgesic agent
CPT/HCPCS: 49083; 80053; 85025; 85610; 85730; 87070; 87205; 89051; P9047; 85060

== ENCOUNTER 2020-03-29 07:56 | Day surgery (SDC) | payer MEDICARE ==
[2020-03-24 11:55] VITALS: BMI 29.8
[~2020-03-29 07:56] MED LIST changes: -FLU VACC QS2020-21(6MOS UP)/PF 60 MCG/0.5 ML SYRINGE IM ONE; +Lidocaine 1% PF 5 ML VIAL ONE; +Sodium Bicarbonate 2.5 MEQ/5 ML VIAL ONE
[2020-03-29] MEDS ORDERED: Albumin 25% 200 ML ONE (09:09)
[2020-03-29 09:14] LABS: INR-International Normal Ratio 1.7; Prothrombin Time 20.1 sec (12.0-14.7)
[2020-03-29 09:17] LABS: #Eosinphils 0.1 thou/uL (0.0-0.7); #Lymphocytes 0.3 thou/uL (1.20-3.40); #Monocytes 0.3 thou/uL (0.11-0.59); #Neutrophils 2.5 thou/uL (1.40-6.50); %Basophils 0.9 % (0.0-1.0); %Eosinophils 2.1 % (0.0-10.0); %Lymphocytes 9.8 % (21.0-51.0); %Monocytes 9.4 % (0.0-10.0); %Neutrophils 77.8 % (42.0-75.0); Hemoglobin 9.6 g/dL (14.0-18.0); Mean Corpuscular HGB CONC 31.7 g/dL (32.0-36.0); Mean Corpuscular Hemoglobin 31.5 pg (27.0-31.0); Mean Corpuscular Volume 99.4 fL (78.0-98.0); Mean Platelet Volume 13.8 fL (7.4-10.4); Platelet Count 42 thou/uL (130-400); RBC Distribution Width 19.6 % (11.5-14.5); Red Blood Cell (RBC) Count 3.04 mill/uL (4.70-6.10); White Blood Cell (WBC) Count 3.2 thou/uL (4.8-10.8)
[2020-03-29 09:26] LABS: ALT (SGPT) 20 U/L (8-55); AST (SGOT) 30 U/L (5-34); Albumin 3.1 g/dL (3.5-5.0); Alkaline Phosphatase 168 U/L (40-110); Anion Gap 12 mmol/L (10-20); BUN (Urea Nitrogen) 17 mg/dL (8.4-25.7); Bilirubin, Total 4.7 mg/dL (0.2-1.2); Calc. Creatinine Clearance 106 mL/min (70-130); Carbon Dioxide 23 mmol/L (22-29); Chloride 104 mmol/L (98-107); Globulin 3.5 g/dL (2.4-3.5); Glucose 161 mg/dL (70-105); Potassium 3.6 mmol/L (3.5-5.1); Protein, Total 6.6 g/dL (6.0-8.3); Sodium 135 mmol/L (136-145)
[2020-03-29 09:30] VITALS: BP 129/75; TEMP 99.8
[2020-03-29 11:15] LABS: Body Fluid Source Ascites Body Fluid; Clarity Clear (Clear); Tube # EDTA
--- NOTE | 2020-03-29 11:16 | ULT ---
Sonographic guided paracentesis HISTORY: Symptomatic ascites. FINDINGS: After explaining the procedure and answering all questions, sonographic survey showed a lar ge amount of free fluid throughout the abdomen. Sterile technique, buffered local anesthesia, sonographic guidance, and a right lateral approach were used to carefully advance a 19-gauge Yueh needle and catheter into the free fluid. Catheter was left to drain a total volume of 7.0 L clear yellow liquid. Catheter was removed with moderate amount of free fluid remaining. Patient tolerated the procedure well and was dismissed in good condition. IMPRESSION : Technically successful sonographic guided paracentesis. 7.0 L. Moderate residual.
[2020-03-29 11:17] LABS: RBC Count-Automated (BF) 233 /cu.mm; WBC/Nucleated-Auto (BF) 180 uL
[2020-03-29 11:19] LABS: BF Color Yellow
[2020-03-29 11:38] LABS: BF Segmented Neutrophils 12 %; Cell Count Non Hematic 77 %; Lymphocytes 11 %
== END 2020-03-29 09:10 | disposition home or self-care (01) ==
LOC: ULT 07:56
PROVIDERS: ATTEND Nurse Practitioner Family
PROC: 0W9G3ZX Drainage of Peritoneal Cavity, Percutaneous Approach, Diagnostic (ICD-10-PCS; principal; 2020-03-29)
DX: K70.31 Alcoholic cirrhosis of liver with ascites (principal); K72.90 Hepatic failure, unspecified without coma; I12.9 Hypertensive chronic kidney disease with stage 1 through stage 4 chronic kidney disease, or unspecified chronic kidney disease; E11.22 Type 2 diabetes mellitus with diabetic chronic kidney disease; N18.9 Chronic kidney disease, unspecified; G25.81 Restless legs syndrome; E11.42 Type 2 diabetes mellitus with diabetic polyneuropathy; Z79.2 Long term (current) use of antibiotics; Z79.899 Other long term (current) drug therapy; Z88.6 Allergy status to analgesic agent
CPT/HCPCS: 49083; 80053; 85025; 85610; 87070; 87205; 89051; P9047; 85060

== ENCOUNTER 2020-04-01 07:18 | Day surgery (SDC) | payer MEDICARE ==
[2020-04-01] MEDS ORDERED: Albumin 25% 200 ML ONE (07:22)
[2020-04-01] MEDS ORDERED: Lidocaine 1% PF 5 ML VIAL ONE (07:22)
--- NOTE | 2020-04-01 08:40 | ULT ---
Ultrasound-guided paracentesis: HISTORY: Symptomatic ascites FINDINGS: Informed consent obtained prior to the procedure. Preprocedural imaging demonstrated intrap eritoneal free fluid. An area was marked in the Right lower quadrant , and then meticulously prepped and draped in normal s terile fashion and anesthetized with 1% buffered lidocaine. With direct sonographic guidance, a 19-gauge needle and 5 Djib[place]ian Yueh catheter were advanced into the abdomen. After the return of fluid, the catheter was advanced, and the needle was removed. Approximately 6 L of clear yellow fluid was aspirated. The introducer sheath was removed, and hemosta sis was achieved with direct pressure. A dry sterile dressing was placed. The patient tolerated the procedure well and without immediate complication. IMPRESSION: Technically successful ultrasound-guided paracentesis.
[2020-04-01 09:13] VITALS: BP 115/63; TEMP 98.7; BMI 29.8
[2020-04-01 12:41] LABS: RBC Count-Automated (BF) 307 /cu.mm; WBC/Nucleated-Auto (BF) 138 uL
[2020-04-01 12:44] LABS: BF Color Yellow; Body Fluid Source Ascites Body Fluid; Clarity Hazy (Clear); Tube # EDTA
[2020-04-01 13:36] LABS: BF Segmented Neutrophils 15 %; Cell Count Non Hematic 66 %; Lymphocytes 19 %
[2020-04-02] MEDS ORDERED: FLU VACC QS2020-21(6MOS UP)/PF 60 MCG/0.5 ML SYRINGE IM ONE (09:30)
== END 2020-04-01 08:35 | disposition home or self-care (01) ==
LOC: ULT 07:18
PROVIDERS: ATTEND Nurse Practitioner Family
PROC: 0W9G3ZX Drainage of Peritoneal Cavity, Percutaneous Approach, Diagnostic (ICD-10-PCS; principal; 2020-04-01)
DX: K70.31 Alcoholic cirrhosis of liver with ascites (principal); K72.90 Hepatic failure, unspecified without coma; I12.9 Hypertensive chronic kidney disease with stage 1 through stage 4 chronic kidney disease, or unspecified chronic kidney disease; E11.22 Type 2 diabetes mellitus with diabetic chronic kidney disease; N18.9 Chronic kidney disease, unspecified; E11.42 Type 2 diabetes mellitus with diabetic polyneuropathy; M19.90 Unspecified osteoarthritis, unspecified site; G25.81 Restless legs syndrome; Z79.899 Other long term (current) drug therapy; Z88.6 Allergy status to analgesic agent
CPT/HCPCS: 49083; 87070; 87205; 89051; P9047; 85060

== ENCOUNTER 2020-04-06 12:48 | Day surgery (SDC) | payer MEDICARE ==
[2020-04-06] MEDS ORDERED: methylPREDNISolone Sod Succ/PF 125 MG/2 ML VIAL ONE (13:00)
[2020-04-06] MEDS ORDERED: Albumin 25% 200 ML ONE (13:00)
[2020-04-06] MEDS ORDERED: Lidocaine 1% PF 5 ML VIAL ONE (13:00)
[2020-04-06] MEDS ORDERED: Sodium Bicarbonate 2.5 MEQ/5 ML VIAL ONE (13:00)
--- NOTE | 2020-04-06 14:10 | ULT ---
Sonographic guided paracentesis HISTORY: Recurrent ascites. FINDINGS: After explaining the procedure and answering all questions, sonographic survey showed a lar ge amount of free fluid throughout the abdomen. Sterile technique, buffered local anesthesia, sonographic guidance, and a right lateral approach were used to carefully advance a 19-gauge Yueh needle and catheter into the free fluid. Catheter was left to drain a total volume of 5.4 L clear yellow liquid. Catheter was removed with minimal fluid remaining. Patient tolerated the procedure well and was dismi ssed in good condition. IMPRESSION : Technically successful sonographic guided paracentesis 5.4 L.
[2020-04-06 14:32] LABS: RBC Count-Automated (BF) 127 /cu.mm; WBC/Nucleated-Auto (BF) 254 uL
[2020-04-06 14:38] LABS: BF Color Yellow; Body Fluid Source Ascites Body Fluid; Clarity Hazy (Clear); Tube # EDTA
[2020-04-06 14:53] LABS: BF Segmented Neutrophils 15 %; Cell Count Non Hematic 67 %; Lymphocytes 18 %
[2020-04-06 14:57] VITALS: BMI 29.8
[2020-04-06 14:58] VITALS: BP 128/70; TEMP 98.4
== END 2020-04-06 13:50 | disposition home or self-care (01) ==
LOC: ULT 12:48
PROVIDERS: ATTEND Nurse Practitioner Family
PROC: 0W9G3ZZ Drainage of Peritoneal Cavity, Percutaneous Approach (ICD-10-PCS; principal; 2020-04-06)
DX: K70.31 Alcoholic cirrhosis of liver with ascites (principal); B19.20 Unspecified viral hepatitis C without hepatic coma; E11.40 Type 2 diabetes mellitus with diabetic neuropathy, unspecified; I10 Essential (primary) hypertension; E78.5 Hyperlipidemia, unspecified; D64.9 Anemia, unspecified; D69.6 Thrombocytopenia, unspecified; M19.90 Unspecified osteoarthritis, unspecified site; K21.9 Gastro-esophageal reflux disease without esophagitis; Z79.899 Other long term (current) drug therapy; Z88.6 Allergy status to analgesic agent
CPT/HCPCS: 49083; 87070; 87205; 89051; P9047; 85060; J2930

== ENCOUNTER 2020-04-09 07:47 | Day surgery (SDC) | payer MEDICARE, OTHER ==
[2020-04-08 10:52] VITALS: BMI 29.8
[2020-04-09] MEDS ORDERED: Sodium Bicarbonate 2.5 MEQ/5 ML VIAL ONE (07:54)
[2020-04-09] MEDS ORDERED: Albumin 25% 200 ML ONE (07:54)
[2020-04-09] MEDS ORDERED: Lidocaine 1% PF 5 ML VIAL ONE (07:54)
--- NOTE | 2020-04-09 08:54 | ULT ---
Ultrasound-guided paracentesis: HISTORY: Cirrhosis and recurrent ascites FINDINGS: Informed consent obtained prior to the procedure. Preprocedural imaging demonstrated intrap eritoneal free fluid. An area was marked in the Right lower quadrant , and then meticulously prepped and draped in normal s terile fashion and anesthetized with 1% buffered lidocaine. With direct sonographic guidance, a 19-gauge needle and 5 [place] Citizen Yueh catheter were advanced into the abdomen. After the return of fluid, the catheter was advanced, and the needle was removed. Approximately 3.2 L of clear straw-colored fluid was aspirated. The introducer sheath was removed, a nd hemostasis was achieved with direct pressure. A dry sterile dressing was placed. The patient tolerated the procedure well and without immediate complication. IMPRESSION: Technically successful ultrasound-guided paracentesis.
[2020-04-09 09:16] VITALS: BP 129/65; TEMP 98.1
== END 2020-04-09 08:50 | disposition home or self-care (01) ==
LOC: ULT 07:47
PROVIDERS: ATTEND Nurse Practitioner Family
PROC: 0W9G3ZZ Drainage of Peritoneal Cavity, Percutaneous Approach (ICD-10-PCS; principal; 2020-04-09)
DX: K74.60 Unspecified cirrhosis of liver (principal); R18.8 Other ascites; M19.90 Unspecified osteoarthritis, unspecified site; I10 Essential (primary) hypertension; E11.42 Type 2 diabetes mellitus with diabetic polyneuropathy; D64.9 Anemia, unspecified; D69.6 Thrombocytopenia, unspecified; E78.5 Hyperlipidemia, unspecified; K21.9 Gastro-esophageal reflux disease without esophagitis; G25.81 Restless legs syndrome; Z79.2 Long term (current) use of antibiotics; Z79.899 Other long term (current) drug therapy; Z88.6 Allergy status to analgesic agent
CPT/HCPCS: 49083; P9047

== ENCOUNTER 2020-04-13 10:52 | Day surgery (SDC) | payer MEDICARE, OTHER ==
[2020-04-12 10:30] VITALS: BMI 29.8
[~2020-04-13 10:52] MED LIST changes: +Albumin 25% 200 ML ONE; +FLU VACC QS2020-21(6MOS UP)/PF 60 MCG/0.5 ML SYRINGE IM ONE
[2020-04-13 12:13] LABS: Glucose 776 mg/dL (70-105)
[2020-04-13] MEDS ORDERED: Sodium Chloride 0.9% 10 ML ONE (12:16)
[2020-04-13 13:21] VITALS: BP 120/67; TEMP 98.4
--- NOTE | 2020-04-13 14:55 | ULT ---
Paracentesis sonographic guided HISTORY: Symptomatic ascites. FINDINGS: After explaining the procedure and answering all questions, sonographic survey showed a lar ge amount of free fluid throughout the abdomen. Sterile technique, buffered local anesthesia, sonographic guidance, and a right lateral approach were used to carefully advance a 19-gauge Yueh needle and catheter into the free fluid. Catheter was left to drain a total volume of 5.0 L clear yellow liquid. Catheter was removed with min imal fluid remaining. Patient tolerated the procedure well. Due to severe hypoglycemia, patient was directed to the emergency department for further care. IMPRESSION : Technically successful sonographic guided paracentesis. Hyperglycemia requiring patient going to the emergency department for further care.
== END 2020-04-13 12:25 | disposition home or self-care (01) ==
LOC: ULT 10:52
PROVIDERS: ATTEND Nurse Practitioner Family
PROC: 0W9G3ZZ Drainage of Peritoneal Cavity, Percutaneous Approach (ICD-10-PCS; principal; 2020-04-13)
DX: K74.60 Unspecified cirrhosis of liver (principal); R18.8 Other ascites; D64.9 Anemia, unspecified; D69.6 Thrombocytopenia, unspecified; E78.5 Hyperlipidemia, unspecified; I10 Essential (primary) hypertension; M19.90 Unspecified osteoarthritis, unspecified site; E11.42 Type 2 diabetes mellitus with diabetic polyneuropathy; G25.81 Restless legs syndrome; K21.9 Gastro-esophageal reflux disease without esophagitis; Z88.6 Allergy status to analgesic agent; E11.65 Type 2 diabetes mellitus with hyperglycemia
CPT/HCPCS: 49083; 80053; 82010; 82330; 82435; 82803; 82947; 82962; 83690; 84132; 84295; 85014; 85025; 90662; 96374; 96376; 99284; G0008; P9047; 36415; 36416; 81003; 81015; 90471; J1815

== ENCOUNTER 2020-04-13 12:27 | Emergency (ER) | payer MEDICARE, OTHER ==
[2020-04-13 13:26] LABS: #Eosinphils 0.1 thou/uL (0.0-0.7); #Lymphocytes 0.2 thou/uL (1.20-3.40); #Monocytes 0.4 thou/uL (0.11-0.59); #Neutrophils 3.6 thou/uL (1.40-6.50); %Basophils 0.3 % (0.0-1.0); %Eosinophils 1.5 % (0.0-10.0); %Lymphocytes 3.6 % (21.0-51.0); %Monocytes 9.4 % (0.0-10.0); %Neutrophils 85.1 % (42.0-75.0); Hemoglobin 9.3 g/dL (14.0-18.0); Mean Corpuscular HGB CONC 32.4 g/dL (32.0-36.0); Mean Corpuscular Hemoglobin 32.9 pg (27.0-31.0); Mean Platelet Volume 14.1 fL (7.4-10.4); Platelet Count 34 thou/uL (130-400); Red Blood Cell (RBC) Count 2.84 mill/uL (4.70-6.10); White Blood Cell (WBC) Count 4.2 thou/uL (4.8-10.8)
[2020-04-13 13:42] LABS: ALT (SGPT) 20 U/L (8-55); AST (SGOT) 31 U/L (5-34); Albumin 3.6 g/dL (3.5-5.0); Alkaline Phosphatase 198 U/L (40-110); Anion Gap 16 mmol/L (10-20); BUN (Urea Nitrogen) 24 mg/dL (8.4-25.7); Bilirubin, Total 5.4 mg/dL (0.2-1.2); Calc. Creatinine Clearance 0 mL/min (70-130); Calcium 8.8 mg/dL (7.8-10.44); Carbon Dioxide 18 mmol/L (22-29); Chloride 95 mmol/L (98-107); Globulin 3.3 g/dL (2.4-3.5); Potassium 5.3 mmol/L (3.5-5.1); Protein, Total 6.9 g/dL (6.0-8.3); Sodium 124 mmol/L (136-145)
[2020-04-13 14:00] LABS: Glucose 717 mg/dL (70-105)
[2020-04-13 14:45] LABS: Bacteria/HPF None Seen HPF (None Seen); Bilirubin Negative (Negative); Blood, Urine 1+ (Negative); Clarity Clear (Clear); Glucose, Urine (Dipstick) Greater than 1000 mg/dL (Negative); Ketone, Urine Negative (Negative); Leukocyte Negative Leu/uL (Negative); Nitrite Negative (Negative); Protein, Urine (Dipstick) Negative (Neg-Trace); RBC/HPF 0-3 HPF (0-3); Specific Gravity, Urine 1.028 (1.002-1.036); Squamous Epithelial 0-3 HPF (0-3); Urobilinogen Normal mg/dL (Less than 2); WBC/HPF 0-3 HPF (0-3); pH, Urine 5.5 (5.0-9.0)
[2020-04-13 14:59] LABS: Base Excess-Venous -3.8 mmol/L (-2.0 to 3.0); Bicarbonate (HCO3v) 21.5 mmol/L (22.0-28.0); CO2 Tension (PvCO2) 38.6 mmHg (40.0-50.0); Calcium, Ionized 1.15 mmol/L (1.15-1.33); Chloride 90 mmol/L (98-107); Hemoglobin - Calc 9.7 g/dL (14.0-18.0); Potassium 4.9 mmol/L (3.5-5.1); Sodium 124 mmol/L (138-145); T. Carbon Dioxide 22.7 mmol/L (22.0-28.0); vO2 Saturation-calc 30.1 % (60.0-85.0)
[2020-04-13] MEDS ORDERED: Insulin Regular 300 UNITS/3 ML VIAL ONE (15:08)
== END 2020-04-13 18:43 | disposition home or self-care (01) ==
LOC: ERS 12:27
DX: E11.65 Type 2 diabetes mellitus with hyperglycemia (principal)
CPT/HCPCS: 36415; 81003; 81015; 82010; 82330; 82803; 83690; 85025; J1815

== ENCOUNTER 2020-04-20 09:18 | Day surgery (SDC) | payer MEDICARE, OTHER ==
[~2020-04-20 09:18] MED LIST changes: -Albumin 25% 200 ML ONE; -Lidocaine 1% PF 5 ML VIAL ONE; -Sodium Bicarbonate 2.5 MEQ/5 ML VIAL ONE
[2020-04-20 11:51] VITALS: BP 113/49; TEMP 98.1
[2020-04-20 15:15] LABS: RBC Count-Automated (BF) 2512 /cu.mm; WBC/Nucleated-Auto (BF) 157 uL
[2020-04-20 15:19] LABS: BF Color Yellow; Body Fluid Source Ascites Body Fluid; Clarity Hazy (Clear); Tube # EDTA
[2020-04-20 15:23] LABS: BF Segmented Neutrophils 14 %; Cell Count Non Hematic 62 %; Lymphocytes 24 %
--- NOTE | 2020-04-20 15:24 | ULT ---
Paracentesis sonographic guided HISTORY: Recurrent symptomatic ascites. FINDINGS: After explaining the procedure and answering all questions, sonographic survey showed a lar ge amount of free fluid throughout the abdomen. Sterile technique, buffered local anesthesia, sonographic guidance, and a right lateral approach were used to carefully advance a 19-gauge Yueh needle and catheter into the free fluid. Catheter was left to drain a total volume of 6.7 L clear yellow liquid. Catheter was removed with min imal fluid remaining. Patient tolerated the procedure well and was dismissed in good condition. IMPRESSION : Technically successful sonographic guided paracentesis 6.7 L.
== END 2020-04-20 11:05 | disposition home or self-care (01) ==
LOC: ULT 09:18
PROVIDERS: ATTEND Nurse Practitioner Family
PROC: 0W9G3ZZ Drainage of Peritoneal Cavity, Percutaneous Approach (ICD-10-PCS; principal; 2020-04-20)
DX: K74.60 Unspecified cirrhosis of liver (principal); R18.8 Other ascites; I10 Essential (primary) hypertension; E11.42 Type 2 diabetes mellitus with diabetic polyneuropathy; E78.5 Hyperlipidemia, unspecified; D64.9 Anemia, unspecified; D69.6 Thrombocytopenia, unspecified; K21.9 Gastro-esophageal reflux disease without esophagitis; G25.81 Restless legs syndrome; M19.90 Unspecified osteoarthritis, unspecified site; Z79.2 Long term (current) use of antibiotics; Z79.899 Other long term (current) drug therapy; Z88.6 Allergy status to analgesic agent
CPT/HCPCS: 49083; 85060; 87070; 87205; 89051

== ENCOUNTER 2020-04-23 07:49 | Day surgery (SDC) | payer MEDICARE, OTHER ==
[2020-04-22 10:46] VITALS: BMI 29.8
[2020-04-23] MEDS ORDERED: Albumin 25% 200 ML ONE (07:50)
[2020-04-23] MEDS ORDERED: Sodium Bicarbonate 2.5 MEQ/5 ML VIAL ONE (07:50)
[2020-04-23] MEDS ORDERED: Lidocaine 1% PF 5 ML VIAL ONE (07:50)
[2020-04-23 09:12] VITALS: BP 135/64; TEMP 98.4
== END 2020-04-23 08:55 | disposition home or self-care (01) ==
LOC: ULT 07:49
PROVIDERS: ATTEND Nurse Practitioner Family
PROC: 0W9G3ZZ Drainage of Peritoneal Cavity, Percutaneous Approach (ICD-10-PCS; principal; 2020-04-23)
PROC: BW40ZZZ Ultrasonography of Abdomen (ICD-10-PCS; 2020-04-23)
DX: K74.60 Unspecified cirrhosis of liver (principal); R18.8 Other ascites; E11.42 Type 2 diabetes mellitus with diabetic polyneuropathy; I10 Essential (primary) hypertension; E78.5 Hyperlipidemia, unspecified; K21.9 Gastro-esophageal reflux disease without esophagitis; M19.90 Unspecified osteoarthritis, unspecified site; D64.9 Anemia, unspecified; D69.6 Thrombocytopenia, unspecified; G25.81 Restless legs syndrome; Z79.4 Long term (current) use of insulin; Z79.899 Other long term (current) drug therapy; Z88.6 Allergy status to analgesic agent
CPT/HCPCS: 49083; P9047

== ENCOUNTER 2020-04-27 12:11 | Day surgery (SDC) | payer MEDICARE, OTHER ==
[2020-04-26 13:28] VITALS: BMI 29.8
[2020-04-27 12:23] LABS: Hemoglobin 9.8 g/dL (14.0-18.0); Mean Corpuscular HGB CONC 30.2 g/dL (32.0-36.0); Mean Corpuscular Hemoglobin 29.4 pg (27.0-31.0); Mean Corpuscular Volume 97.2 fL (78.0-98.0); Mean Platelet Volume 8.3 fL (7.4-10.4); Platelet Count 44 thou/uL (130-400); RBC Distribution Width 18.8 % (11.5-14.5); Red Blood Cell (RBC) Count 3.35 mill/uL (4.70-6.10); White Blood Cell (WBC) Count 4.7 thou/uL (4.8-10.8)
[2020-04-27 12:29] LABS: INR-International Normal Ratio 1.7; Prothrombin Time 20.5 sec (12.0-14.7)
[2020-04-27] MEDS ORDERED: Sodium Bicarbonate 2.5 MEQ/5 ML VIAL ONE (12:29)
[2020-04-27] MEDS ORDERED: Albumin 25% 200 ML ONE (12:29)
[2020-04-27] MEDS ORDERED: Lidocaine 1% PF 5 ML VIAL ONE (12:29)
[2020-04-27 12:49] LABS: Band 12 % (5-11); Eosinophils 1 % (0-10); Hypochromia SLIGHT = 6-15 cells (100X) (0-5/hpf); Lymphocytes 10 % (21-51); MDiff Complete? YES; Monocytes 8 % (0-10); Neutrophil 67 % (42-75); Platelet Morphology Comment Appears Decreased; Polychromasia SLIGHT = 2-3 cells (100X) (0-2/hpf); Reactive Lymphocytes 2 % (0-10); Target Cells SLIGHT = 2-5 cells (100X) (0-1/hpf)
[2020-04-27 13:33] LABS: ALT (SGPT) 30 U/L (8-55); AST (SGOT) 43 U/L (5-34); Albumin 3.2 g/dL (3.5-5.0); Alkaline Phosphatase 234 U/L (40-110); Anion Gap 11 mmol/L (10-20); BUN (Urea Nitrogen) 19 mg/dL (8.4-25.7); Bilirubin, Total 4.4 mg/dL (0.2-1.2); Calc. Creatinine Clearance 87 mL/min (70-130); Calcium 8.5 mg/dL (7.8-10.44); Carbon Dioxide 23 mmol/L (22-29); Chloride 101 mmol/L (98-107); Globulin 3.6 g/dL (2.4-3.5); Glucose 302 mg/dL (70-105); Potassium 5.1 mmol/L (3.5-5.1); Protein, Total 6.8 g/dL (6.0-8.3); Sodium 130 mmol/L (136-145)
[2020-04-27 14:08] VITALS: BP 110/56; TEMP 98.2
[2020-04-27 15:02] LABS: RBC Count-Automated (BF) 73 /cu.mm; WBC/Nucleated-Auto (BF) 230 uL
[2020-04-27 15:03] LABS: Body Fluid Source Paracentesis Fluid
[2020-04-27 15:04] LABS: BF Color Yellow; Clarity Hazy (Clear); Tube # EDTA
[2020-04-27 15:06] LABS: BF Segmented Neutrophils 30 %; Cell Count Non Hematic 36 %; Lymphocytes 34 %
== END 2020-04-27 13:55 | disposition home or self-care (01) ==
LOC: ULT 12:11
PROVIDERS: ATTEND Nurse Practitioner Family
PROC: 0W9G3ZZ Drainage of Peritoneal Cavity, Percutaneous Approach (ICD-10-PCS; principal; 2020-04-27)
DX: K74.60 Unspecified cirrhosis of liver (principal); R18.8 Other ascites; E11.42 Type 2 diabetes mellitus with diabetic polyneuropathy; I10 Essential (primary) hypertension; E78.5 Hyperlipidemia, unspecified; M19.90 Unspecified osteoarthritis, unspecified site; D64.9 Anemia, unspecified; D69.6 Thrombocytopenia, unspecified; G25.81 Restless legs syndrome; Z79.4 Long term (current) use of insulin; Z79.899 Other long term (current) drug therapy; Z88.6 Allergy status to analgesic agent
CPT/HCPCS: 49083; 80053; 85025; 85610; 87070; 87205; 89051; P9047; 36415; 85060

== ENCOUNTER 2020-04-30 08:19 | Day surgery (SDC) | payer MEDICARE, OTHER ==
[2020-04-30] MEDS ORDERED: Lidocaine 1% PF 5 ML VIAL ONE (08:23)
[2020-04-30] MEDS ORDERED: Albumin 25% 200 ML ONE (08:23)
[2020-04-30] MEDS ORDERED: Sodium Bicarbonate 2.5 MEQ/5 ML VIAL ONE (08:23)
--- NOTE | 2020-04-30 09:52 | ULT ---
Sonographic guided paracentesis HISTORY: Symptomatic ascites. FINDINGS: After explaining the procedure and answering all questions, sonographic survey showed a lar ge amount of free fluid throughout the abdomen. Sterile technique, buffered local anesthesia, sonographic guidance, and a right lateral approach were used to carefully advance a 19-gauge Yueh needle and catheter into the free fluid. Catheter was left to drain a total volume of 4.8 L clear yellow liquid. Catheter was removed with minimal fluid remaining. Patient tolerated the procedure well and was dismi ssed in good condition. IMPRESSION : Technically successful sonographic guided paracentesis 4.8 L.
[2020-04-30 10:03] VITALS: BP 100/56; TEMP 97.7
[2020-04-30 12:26] LABS: RBC Count-Automated (BF) 199 /cu.mm; WBC/Nucleated-Auto (BF) 188 uL
[2020-04-30 12:35] LABS: BF Color Yellow; Body Fluid Source Ascites Body Fluid; Clarity Hazy (Clear); Tube # EDTA
[2020-04-30 13:37] LABS: BF Segmented Neutrophils 13 %; Cell Count Non Hematic 69 %; Lymphocytes 17 %
== END 2020-04-30 09:45 | disposition home or self-care (01) ==
LOC: ULT 08:19
PROVIDERS: ATTEND Nurse Practitioner Family
PROC: 0W9G3ZZ Drainage of Peritoneal Cavity, Percutaneous Approach (ICD-10-PCS; principal; 2020-04-30)
DX: K70.31 Alcoholic cirrhosis of liver with ascites (principal); E11.42 Type 2 diabetes mellitus with diabetic polyneuropathy; G25.81 Restless legs syndrome; D64.9 Anemia, unspecified; D69.6 Thrombocytopenia, unspecified; M19.90 Unspecified osteoarthritis, unspecified site; F10.11 Alcohol abuse, in remission; Z79.899 Other long term (current) drug therapy; Z88.6 Allergy status to analgesic agent
CPT/HCPCS: 49083; 87070; 87205; 89051; P9047; 85060

== ENCOUNTER 2020-05-04 12:16 | Day surgery (SDC) | payer MEDICARE ==
[2020-05-04] MEDS ORDERED: Albumin 25% 200 ML ONE (12:36)
[2020-05-04] MEDS ORDERED: Sodium Bicarbonate 2.5 MEQ/5 ML VIAL ONE (12:36)
[2020-05-04] MEDS ORDERED: Lidocaine 1% PF 5 ML VIAL ONE (12:36)
--- NOTE | 2020-05-04 13:51 | ULT ---
Exam: Ultrasound guided paracentesis HISTORY: Ascites COMPARISON: 04/30/2020 FINDINGS: Successful ultrasound-guided paracentesis. Total of 4.5 L of yellow color ascites was aspir ated. TECHNIQUE: Consent obtained reformatory ultrasound-guided paracentesis. Right lower quadrant was deem ed appropriate. Skin was prepped and draped in a sterile fashion. 1% lidocaine, buffered with sodium bicarbonate was used for local anesthesia. Under ultrasound guidance, a 5 [place] 7 cm Yueh cat heter is advanced in the peritoneal space. A total of 4.5 L of yellow color ascites was aspirated. No immediate or postprocedural complications IMPRESSION: Successful ultrasound-guided paracentesis.
[2020-05-04 14:07] VITALS: BP 107/70; TEMP 98.1
[2020-05-04 14:52] LABS: RBC Count-Automated (BF) 31 /cu.mm; WBC/Nucleated-Auto (BF) 262 uL
[2020-05-04] MEDS ORDERED: FLU VACC QS2020-21(6MOS UP)/PF 60 MCG/0.5 ML SYRINGE IM ONE (15:00)
[2020-05-04 15:07] LABS: BF Color Yellow; Body Fluid Source Ascites Body Fluid; Clarity Hazy (Clear); Tube # EDTA
[2020-05-04 15:29] LABS: BF Segmented Neutrophils 12 %; Cell Count Non Hematic 60 %; Lymphocytes 28 %
== END 2020-05-04 13:50 | disposition home or self-care (01) ==
LOC: ULT 12:16
PROVIDERS: ATTEND Nurse Practitioner Family
PROC: 0W9G3ZX Drainage of Peritoneal Cavity, Percutaneous Approach, Diagnostic (ICD-10-PCS; principal; 2020-05-04)
DX: K70.31 Alcoholic cirrhosis of liver with ascites (principal); M19.90 Unspecified osteoarthritis, unspecified site; E11.42 Type 2 diabetes mellitus with diabetic polyneuropathy; I10 Essential (primary) hypertension; E78.5 Hyperlipidemia, unspecified; F10.11 Alcohol abuse, in remission; K21.9 Gastro-esophageal reflux disease without esophagitis; G25.81 Restless legs syndrome; Z79.2 Long term (current) use of antibiotics; Z79.4 Long term (current) use of insulin; Z79.899 Other long term (current) drug therapy; Z88.6 Allergy status to analgesic agent
CPT/HCPCS: 49083; 87070; 87205; 89051; P9047; 85060; 90471; 90662; G0008

== ENCOUNTER 2020-05-07 08:05 | Day surgery (SDC) | payer MEDICARE ==
[2020-05-06 09:08] VITALS: BMI 29.8
[2020-05-07] MEDS ORDERED: Lidocaine 1% PF 5 ML VIAL ONE (08:08)
[2020-05-07] MEDS ORDERED: Albumin 25% 200 ML ONE (08:08)
[2020-05-07] MEDS ORDERED: FLU VACC QS2020-21(6MOS UP)/PF 60 MCG/0.5 ML SYRINGE IM ONE (09:30)
[2020-05-07 10:00] VITALS: BP 126/62; TEMP 98.4
== END 2020-05-07 09:40 | disposition home or self-care (01) ==
LOC: ULT 08:05
PROVIDERS: ATTEND Nurse Practitioner Family
PROC: 0W9G3ZZ Drainage of Peritoneal Cavity, Percutaneous Approach (ICD-10-PCS; principal; 2020-05-07)
DX: K74.60 Unspecified cirrhosis of liver (principal); R18.8 Other ascites; E11.42 Type 2 diabetes mellitus with diabetic polyneuropathy; E78.5 Hyperlipidemia, unspecified; I10 Essential (primary) hypertension; G25.81 Restless legs syndrome; D64.9 Anemia, unspecified; D69.6 Thrombocytopenia, unspecified; M19.90 Unspecified osteoarthritis, unspecified site; K21.9 Gastro-esophageal reflux disease without esophagitis; F10.21 Alcohol dependence, in remission; Z79.4 Long term (current) use of insulin; Z79.899 Other long term (current) drug therapy; Z88.6 Allergy status to analgesic agent
CPT/HCPCS: 49083; 90662; G0008; P9047; 90471

== ENCOUNTER 2020-05-14 09:30 | Day surgery (SDC) | payer MEDICARE ==
[2020-05-11 15:11] VITALS: BMI 29.8
[2020-05-14] MEDS ORDERED: Albumin 25% 200 ML ONE (10:28)
[2020-05-14] MEDS ORDERED: Sodium Bicarbonate 2.5 MEQ/5 ML VIAL ONE (10:28)
[2020-05-14] MEDS ORDERED: Lidocaine 1% PF 5 ML VIAL ONE (10:28)
--- NOTE | 2020-05-14 11:42 | ULT ---
Paracentesis sonographic guided HISTORY: Symptomatic ascites. FINDINGS: After explaining the procedure and answering all questions, sonographic survey showed a lar ge amount of free fluid throughout the abdomen. Sterile technique, buffered local anesthesia, sonographic guidance, and a right lateral approach were used to carefully advance a 19-gauge Yueh needle and catheter into the free fluid. Catheter was left to drain a total volume of 7.0 L clear yellow liquid. Patient is limited to 7 L. Catheter was removed with moderate amount of fluid remaining. Patient tolerated the procedure well an d was dismissed in good condition. IMPRESSION : Technically successful sonographic guided paracentesis 7.0 L.
[2020-05-14 12:19] VITALS: BP 109/60; TEMP 97.6
== END 2020-05-14 11:38 | disposition home or self-care (01) ==
LOC: ULT 09:30
PROVIDERS: ATTEND Nurse Practitioner Family
PROC: 0W9G3ZZ Drainage of Peritoneal Cavity, Percutaneous Approach (ICD-10-PCS; principal; 2020-05-14)
DX: K70.31 Alcoholic cirrhosis of liver with ascites (principal); E11.42 Type 2 diabetes mellitus with diabetic polyneuropathy; I10 Essential (primary) hypertension; E78.5 Hyperlipidemia, unspecified; F10.11 Alcohol abuse, in remission; K21.9 Gastro-esophageal reflux disease without esophagitis; M19.90 Unspecified osteoarthritis, unspecified site; D64.9 Anemia, unspecified; D69.6 Thrombocytopenia, unspecified; G25.81 Restless legs syndrome; Z79.2 Long term (current) use of antibiotics; Z79.4 Long term (current) use of insulin; Z79.899 Other long term (current) drug therapy; Z88.6 Allergy status to analgesic agent
CPT/HCPCS: 49083; P9047

== ENCOUNTER → 2020-05-18 | Day surgery (SDC) | payer MEDICARE ==
[~2020-05-18] MED LIST changes: +Albumin 25% 200 ML ONE; +Lidocaine 1% PF 5 ML VIAL ONE; +Sodium Bicarbonate 2.5 MEQ/5 ML VIAL ONE
[2020-05-18 13:33] LABS: Prothrombin Time 22.9 sec (12.0-14.7)
[2020-05-18 13:51] LABS: Anisocytosis SLIGHT = 6-15 cells (100X) (0-5/hpf); Band 2 % (5-11); Hemoglobin 10.3 g/dL (14.0-18.0); MDiff Complete? YES; Mean Corpuscular HGB CONC 31.8 g/dL (32.0-36.0); Mean Corpuscular Hemoglobin 30.9 pg (27.0-31.0); Mean Corpuscular Volume 97.2 fL (78.0-98.0); Mean Platelet Volume 7.9 fL (7.4-10.4); Monocytes 4 % (0-10); Neutrophil 92 % (42-75); Ovalocytes SLIGHT = 2-5 cells (100X) (0-1/hpf); Platelet Count 54 thou/uL (130-400); Platelet Morphology Comment Appears Decreased; Polychromasia SLIGHT = 2-3 cells (100X) (0-2/hpf); RBC Distribution Width 19.6 % (11.5-14.5); Reactive Lymphocytes 1 % (0-10); Red Blood Cell (RBC) Count 3.34 mill/uL (4.70-6.10); Schistocytes SLIGHT = 2-5 cells (100X) (0-1/hpf); Target Cells SLIGHT = 2-5 cells (100X) (0-1/hpf); White Blood Cell (WBC) Count 5.5 thou/uL (4.8-10.8)
[2020-05-18 14:06] LABS: Follow-up Hematology Comp? YES; Follow-up Result - Hematology REPORT FAXED
--- NOTE | 2020-05-18 14:26 | ULT ---
Ultrasound-guided paracentesis: HISTORY: Cirrhosis and recurrent ascites FINDINGS: Informed consent obtained prior to the procedure. Preprocedural imaging demonstrated intrap eritoneal free fluid. An area was marked in the Right lower quadrant , and then meticulously prepped and draped in normal s terile fashion and anesthetized with 1% buffered lidocaine. With direct sonographic guidance, a 19-gauge needle and 5 [place] Yueh catheter were advanced into the abdomen. After the return of fluid, the catheter was advanced, and the needle was removed. Approximately 6.7 L of clear straw-colored fluid was aspirated. The introducer sheath was removed, a nd hemostasis was achieved with direct pressure. A dry sterile dressing was placed. The patient tolerated the procedure well and without immediate complication. IMPRESSION: Technically successful ultrasound-guided paracentesis.
[2020-05-18 14:31] VITALS: BP 112/63; TEMP 98
[2020-05-18 14:34] LABS: ALT (SGPT) 31 U/L (8-55); AST (SGOT) 44 U/L (5-34); Albumin 3.1 g/dL (3.5-5.0); Alkaline Phosphatase 226 U/L (40-110); Anion Gap 12 mmol/L (10-20); BUN (Urea Nitrogen) 33 mg/dL (8.4-25.7); Bilirubin, Total 5.9 mg/dL (0.2-1.2); Calc. Creatinine Clearance 0 mL/min (70-130); Calcium 8.3 mg/dL (7.8-10.44); Carbon Dioxide 20 mmol/L (22-29); Chloride 103 mmol/L (98-107); Globulin 3.6 g/dL (2.4-3.5); Glucose 255 mg/dL (70-105); Potassium 4.1 mmol/L (3.5-5.1); Protein, Total 6.7 g/dL (6.0-8.3); Sodium 131 mmol/L (136-145)
[2020-05-18 15:55] LABS: RBC Count-Automated (BF) 137 /cu.mm; WBC/Nucleated-Auto (BF) 189 uL
[2020-05-18 16:16] LABS: BF Color Yellow; Body Fluid Source Ascites Body Fluid; Clarity Hazy (Clear); Tube # EDTA
[2020-05-18 16:19] LABS: BF Segmented Neutrophils 20 %; Cell Count Non Hematic 55 %; Lymphocytes 25 %
[2020-05-18 16:29] LABS: Follow-up Chemistry Comp? YES; Follow-up Result - Chemistry REPORT FAXED
== END ==
LOC: ULT 12:38
PROVIDERS: ATTEND Nurse Practitioner Family
PROC: 0W9G3ZX Drainage of Peritoneal Cavity, Percutaneous Approach, Diagnostic (ICD-10-PCS; principal; 2020-05-18)
DX: K70.31 Alcoholic cirrhosis of liver with ascites (principal); M19.90 Unspecified osteoarthritis, unspecified site; E11.42 Type 2 diabetes mellitus with diabetic polyneuropathy; E78.5 Hyperlipidemia, unspecified; F10.11 Alcohol abuse, in remission; K21.9 Gastro-esophageal reflux disease without esophagitis; G25.81 Restless legs syndrome; Z23 Encounter for immunization; Z79.4 Long term (current) use of insulin; Z79.899 Other long term (current) drug therapy; Z88.6 Allergy status to analgesic agent
CPT/HCPCS: 49083; 80053; 85025; 85610; 87070; 87205; 89051; 90662; G0008; P9047; 85060; 90471

== ENCOUNTER 2020-05-21 08:09 | Day surgery (SDC) | payer MEDICARE ==
[2020-05-20 11:26] VITALS: BMI 29.8
[2020-05-21] MEDS ORDERED: Sodium Bicarbonate 2.5 MEQ/5 ML VIAL ONE (08:13)
[2020-05-21] MEDS ORDERED: Lidocaine 1% PF 5 ML VIAL ONE (08:14)
[2020-05-21] MEDS ORDERED: Albumin 25% 200 ML ONE (08:14)
[2020-05-21 10:23] VITALS: BP 97/64; TEMP 98.1
== END 2020-05-21 09:30 | disposition home or self-care (01) ==
LOC: ULT 08:09
PROVIDERS: ATTEND Nurse Practitioner Family
DX: K70.31 Alcoholic cirrhosis of liver with ascites (principal); M19.90 Unspecified osteoarthritis, unspecified site; E11.42 Type 2 diabetes mellitus with diabetic polyneuropathy; E78.5 Hyperlipidemia, unspecified; I10 Essential (primary) hypertension; F10.11 Alcohol abuse, in remission; K21.9 Gastro-esophageal reflux disease without esophagitis; G25.81 Restless legs syndrome; Z79.4 Long term (current) use of insulin; Z79.899 Other long term (current) drug therapy; Z88.6 Allergy status to analgesic agent
CPT/HCPCS: P9047

== ENCOUNTER 2020-05-25 12:16 | Day surgery (SDC) | payer MEDICARE ==
[2020-05-24 10:06] VITALS: BMI 29.8
[2020-05-25] MEDS ORDERED: Albumin 25% 200 ML ONE (12:56)
[2020-05-25] MEDS ORDERED: Lidocaine 1% PF 5 ML VIAL ONE (12:57)
[2020-05-25] MEDS ORDERED: Sodium Bicarbonate 2.5 MEQ/5 ML VIAL ONE (12:57)
[2020-05-25 14:16] VITALS: BP 104/62; TEMP 98.3
--- NOTE | 2020-05-25 14:44 | ULT ---
Ultrasound-guided paracentesis: HISTORY: Cirrhosis and recurrent ascites FINDINGS: Informed consent obtained prior to the procedure. Preprocedural imaging demonstrated intrap eritoneal free fluid. An area was marked in the Right lower quadrant , and then meticulously prepped and draped in normal s terile fashion and anesthetized with 1% buffered lidocaine. With direct sonographic guidance, a 19-gauge needle and 5 [place] Yueh catheter were advanced into the abdomen. After the return of fluid, the catheter was advanced, and the needle was removed. Approximately 7 L of clear straw-colored fluid was aspirated. The introducer sheath was removed, and hemostasis was achieved with direct pressure. A dry sterile dressing was placed. The patient tolerated the procedure well and without immediate complication. IMPRESSION: Technically successful ultrasound-guided paracentesis.
== END 2020-05-25 14:10 | disposition home or self-care (01) ==
LOC: ULT 12:16
PROVIDERS: ATTEND Nurse Practitioner Family
PROC: 0W9G3ZZ Drainage of Peritoneal Cavity, Percutaneous Approach (ICD-10-PCS; principal; 2020-05-25)
DX: K74.60 Unspecified cirrhosis of liver (principal); R18.8 Other ascites; E11.42 Type 2 diabetes mellitus with diabetic polyneuropathy; E78.5 Hyperlipidemia, unspecified; D64.9 Anemia, unspecified; D69.6 Thrombocytopenia, unspecified; F10.11 Alcohol abuse, in remission; K21.9 Gastro-esophageal reflux disease without esophagitis; G25.81 Restless legs syndrome; M19.90 Unspecified osteoarthritis, unspecified site; Z79.4 Long term (current) use of insulin; Z79.899 Other long term (current) drug therapy; Z88.6 Allergy status to analgesic agent
CPT/HCPCS: 49083; P9047

== ENCOUNTER 2020-05-28 08:15 | Day surgery (SDC) | payer MEDICARE ==
[~2020-05-28 08:15] MED LIST changes: -Albumin 25% 200 ML ONE; -Lidocaine 1% PF 5 ML VIAL ONE; -Sodium Bicarbonate 2.5 MEQ/5 ML VIAL ONE
[2020-05-28] MEDS ORDERED: Sodium Bicarbonate 2.5 MEQ/5 ML VIAL ONE (08:16)
[2020-05-28] MEDS ORDERED: Lidocaine 1% PF 5 ML VIAL ONE (08:16)
[2020-05-28] MEDS ORDERED: Albumin 25% 200 ML ONE (08:16)
[2020-05-28 09:32] VITALS: BP 105/49; TEMP 98.2; BMI 29.8
== END 2020-05-28 09:25 | disposition home or self-care (01) ==
LOC: ULT 08:15
PROVIDERS: ATTEND Nurse Practitioner Family
PROC: 0W9G3ZZ Drainage of Peritoneal Cavity, Percutaneous Approach (ICD-10-PCS; principal; 2020-05-28)
DX: K74.60 Unspecified cirrhosis of liver (principal); R18.8 Other ascites; M19.90 Unspecified osteoarthritis, unspecified site; E11.42 Type 2 diabetes mellitus with diabetic polyneuropathy; I10 Essential (primary) hypertension; F10.11 Alcohol abuse, in remission; K21.9 Gastro-esophageal reflux disease without esophagitis; G25.81 Restless legs syndrome; D64.9 Anemia, unspecified; D69.6 Thrombocytopenia, unspecified; Z79.4 Long term (current) use of insulin; Z79.899 Other long term (current) drug therapy; Z88.6 Allergy status to analgesic agent
CPT/HCPCS: 49083; P9047

== ENCOUNTER 2020-06-01 12:49 | Day surgery (SDC) | payer MEDICARE ==
[2020-06-01] MEDS ORDERED: Lidocaine 1% PF 5 ML VIAL ONE (12:51)
[2020-06-01] MEDS ORDERED: Albumin 25% 200 ML ONE (12:51)
[2020-06-01 14:09] VITALS: BMI 31.1
[2020-06-01 14:12] VITALS: BP 100/54; TEMP 97.8
== END 2020-06-01 14:03 | disposition home or self-care (01) ==
LOC: ULT 12:49
PROVIDERS: ATTEND Nurse Practitioner Family
PROC: 0W9G3ZZ Drainage of Peritoneal Cavity, Percutaneous Approach (ICD-10-PCS; principal; 2020-06-01)
DX: K70.31 Alcoholic cirrhosis of liver with ascites (principal); E11.9 Type 2 diabetes mellitus without complications; I10 Essential (primary) hypertension; Z79.4 Long term (current) use of insulin; Z79.899 Other long term (current) drug therapy; Z88.6 Allergy status to analgesic agent
CPT/HCPCS: 49083; P9047

== ENCOUNTER → 2020-06-04 | Day surgery (SDC) | payer MEDICARE, OTHER ==
[2020-06-03 12:54] VITALS: BMI 31.1
[~2020-06-04] MED LIST changes: +Albumin 25% 200 ML ONE; -FLU VACC QS2020-21(6MOS UP)/PF 60 MCG/0.5 ML SYRINGE IM ONE; +Lidocaine 1% PF 5 ML VIAL ONE; +Sodium Bicarbonate 2.5 MEQ/5 ML VIAL ONE
[2020-06-04 10:38] VITALS: BP 101/41; TEMP 98.2
[2020-06-04 11:29] LABS: RBC Count-Automated (BF) 2294 /cu.mm; WBC/Nucleated-Auto (BF) 84 uL
[2020-06-04 11:30] LABS: BF Color Yellow; Body Fluid Source Ascites Body Fluid; Clarity Hazy (Clear)
[2020-06-04 12:29] LABS: BF Segmented Neutrophils 34 %; Cell Count Non Hematic 51 %; Lymphocytes 15 %
[2020-06-07 10:26] LABS: INR-International Normal Ratio 2.4; Prothrombin Time 26.2 sec (12.0-14.7)
[2020-06-07 10:27] LABS: PTT 49.5 sec (22.9-36.1)
[2020-06-07 10:33] LABS: Hemoglobin 9.9 g/dL (14.0-18.0); Mean Corpuscular HGB CONC 32.1 g/dL (32.0-36.0); Mean Corpuscular Hemoglobin 32.1 pg (27.0-31.0); Mean Platelet Volume 8.1 fL (7.4-10.4); Platelet Count 59 thou/uL (130-400); RBC Distribution Width 23.1 % (11.5-14.5); Red Blood Cell (RBC) Count 3.09 mill/uL (4.70-6.10); White Blood Cell (WBC) Count 6.3 thou/uL (4.8-10.8)
[2020-06-07 10:35] LABS: Anion Gap 16 mmol/L (10-20); BUN (Urea Nitrogen) 59 mg/dL (8.4-25.7); Calc. Creatinine Clearance 56 mL/min (70-130); Calcium 8.5 mg/dL (7.8-10.44); Carbon Dioxide 14 mmol/L (22-29); Chloride 105 mmol/L (98-107); Glucose 153 mg/dL (70-105); Potassium 4.9 mmol/L (3.5-5.1); Sodium 130 mmol/L (136-145)
[2020-06-07 10:38] LABS: #Eosinphils 0.2 thou/uL (0.0-0.7); #Lymphocytes 0.3 thou/uL (1.20-3.40); #Monocytes 0.6 thou/uL (0.11-0.59); #Neutrophils 5.3 thou/uL (1.40-6.50); %Basophils 0.3 % (0.0-1.0); %Eosinophils 2.6 % (0.0-10.0); %Lymphocytes 4.8 % (21.0-51.0); %Monocytes 8.8 % (0.0-10.0); %Neutrophils 83.5 % (42.0-75.0); Anisocytosis MODERATE=16-30 cells (100X) (0-5/hpf); MDiff Complete? YES; Platelet Morphology Comment Appears Decreased; Polychromasia SLIGHT = 2-3 cells (100X) (0-2/hpf); Target Cells MODERATE= 6-15 cells (100X) (0-1/hpf)
[2020-06-07 12:37] LABS: Alkaline Phosphatase 252 U/L (40-110)
[2020-06-07 12:39] LABS: AST (SGOT) 62 U/L (5-34)
[2020-06-07 12:40] LABS: ALT (SGPT) 47 U/L (8-55)
== END ==
LOC: ULT 08:29
PROVIDERS: ATTEND Nurse Practitioner Family
DX: K70.30 Alcoholic cirrhosis of liver without ascites (principal); R18.8 Other ascites; K74.69 Other cirrhosis of liver; Z98.890 Other specified postprocedural states
CPT/HCPCS: 49083; 87070; 87205; 89051; P9047; 80053; 85025; 85060; 85610; 85730

== ENCOUNTER 2020-06-07 20:48 | Emergency (ER) | payer MEDICARE ==
[2020-06-07] MEDS ORDERED: Ondansetron ODT 4 MG TAB ONE (22:58)
[2020-06-07] MEDS ORDERED: Morphine 4 MG/ML VIAL ONE (22:58)
== END 2020-06-08 02:09 | disposition short-term general hospital (02) ==
LOC: ERS 20:48
DX: K72.10 Chronic hepatic failure without coma (principal); N17.9 Acute kidney failure, unspecified; E11.9 Type 2 diabetes mellitus without complications; Z79.899 Other long term (current) drug therapy; Z79.4 Long term (current) use of insulin
CPT/HCPCS: 96372; 99284; J2270; Q0162